=== PATIENT | male | born 1970 | race Caucasian/White ===

== ENCOUNTER → 2022-12-02 | Outpatient (CLI) | payer OTHER, BC, SELFPAY ==
[2022-12-02 09:15] LABS: Absolute Neutrophil Count 4.1 X10^3/uL (2.0-7.7); Basophil# 0.07 X10^3/uL; Eosinophil# 0.18 X10^3/uL; Eosinophils% 2.5 % (0-5); Hematocrit 52.2 % (40-54); Hemoglobin 16.8 g/dL (13.0-16.5); Lymphocyte % 28.3 % (19-41); Mean Corp Hgb Conc 32.2 g/dL (32-36); Mean Corpuscular Hgb 27.7 pg (27.0-32.0); Mean Platelet Vol. 10.6 fl (6.2-12.0); Monocyte# 0.64 X10^3/uL; Monocyte% 9.1 % (0-10); NRBC Flagged by Analyzer 0 % (0-5); Neutrophil # 4.13 X10^3/uL (2.7-7.7); Neutrophil % 58.4 % (47-70); Platelet Count 204 K/mm3 (150-450); RBC Distribution Width SD 40.6 fl (35.1-43.9); Red Blood Count 6.07 M/mm3 (4.6-6.2); White Blood Count 7.1 K/mm3 (4.4-11.0)
[2022-12-02 09:41] LABS: Insulin 8.4 mU/L (2.6-37.6); Vitamin D,25 Hydroxy 51.4 ng/mL
[2022-12-02 10:05] LABS: Hemoglobin A1c 9.1 % (3.8-5.6)
[2022-12-02 10:21] LABS: ALB/GLOB Ratio 0.9 RATIO (0.9-2.4); AST(SGOT) 24 U/L (15-37); Alanine Aminotransfer ALT/SGPT 33 U/L (16-61); Albumin, Serum 3.3 g/dL (3.2-5.0); Alkaline Phosphatase 131 U/L (45-117); Anion Gap 10 (5-15); BUN 14 mg/dL (7-18); BUN/Creat Ratio 13.9 RATIO (10-20); Calcium,Total 8.9 mg/dL (8.5-10.1); Chloride 103 mmol/L (98-107); Cholesterol 213 mg/dL (200); Creatinine, Serum 1.01 mg/dL (0.70-1.30); EST Glomerular Filtration Rate 83 mL/min (>60); Est Glom Filt Rate - Afr Amer 100 mL/min (>60); Free T3 1.9 pg/mL (2.18-3.98); Globulin 3.6 g/dL (2.2-4.2); Glucose 166 mg/dL (74-106); High Density Lipoprotein 46 mg/dL; Potassium 4.7 mmol/L (3.5-5.1); Protein, Total 6.9 g/dL (6.4-8.2); Sodium Level 137 mmol/L (136-145); T4 Free Direct 0.95 ng/dL (0.76-1.46); Triglycerides 410 mg/dL
== END | disposition home or self-care (01) ==
LOC: LAB 08:39
PROVIDERS: PCP Internal Medicine; Referring Provider Internal Medicine; Visit Provider Internal Medicine
DX: E11.9 Type 2 diabetes mellitus without complications (principal); E66.9 Obesity, unspecified; I10 Essential (primary) hypertension; E03.9 Hypothyroidism, unspecified; Z12.5 Encounter for screening for malignant neoplasm of prostate; E55.9 Vitamin D deficiency, unspecified
CPT/HCPCS: 36415; 80053; 80061; 82306; 83036; 83525; 84153; 84439; 84443; 84481; 85025; G0103

== ENCOUNTER → 2023-03-09 | Outpatient (CLI) | payer OTHER, SELFPAY | END | disposition home or self-care (01) | PROVIDERS: PCP Internal Medicine; Visit Provider Specialist | DX: Z91.038 Other insect allergy status (principal) | CPT/HCPCS: 36415; 83520 ==

== ENCOUNTER 2023-05-02 12:46 | Day surgery (SDC) | payer BC, SELFPAY ==
[2023-05-02 13:29] LABS: Bedside Glucose 211 mg/dL (74-106)
[2023-05-02 13:43] VITALS: BP 119/76; PULSE 75; RESP 18; TEMP 35.6; O2SAT 97; BMI 34.9
[2023-05-02] MEDS: Lactated Ringers 1,000 ML 15 ML IV (13:45)
--- NOTE | 2023-05-02 14:00 | COLBX_PTH ---
PATIENT: SYLVIA SOLITARIO LOC: EN U#:[id number] AGE/SX: 53/M ROOM: RE05/02/[address]: Dr. Donny Harrington DO : 1970 BED: DIS: 05/02/2023 SPEC #: [id number] RECD: 05/03/23 08:09 STATUS: GINNA REEmma #: [id number] POLLO: 05/02/23 14:[address]: Donny Harrington DEPT: SURGICAL PATHOLOGY RECD BY: Aria Daniels ENTERED: 05/03/23 08:10 SP TYPE: COLON BX OTHR DR: Dr. Amanda Gatica MD Tissues: COLON BIOPSY Procedures: Surgery Specimen Level IV HEADER OPERATION: Colonoscopy, biopsy PRE-OP DIAGNOSIS: Screening TISSUE SUBMITTED: Transverse polyp biopsy MICROSCOPIC DIAGNOSIS Transverse colon polyp, biopsy: Tubular adenoma. AM:blair 05/04/2023 MICROSCOPIC DESCRIPTION Slides are reviewed. GROSS DESCRIPTION Received in fixative is one container labeled with the patient's name and designated transverse polyp. The specimen consists of one irregular fragment of light horne soft tissue that measures 0.5 x 0.3 x 0.1 cm. The specimen is totally submitted in one cassette. / AM:blair 05/03/2023 TC:5 CPT: 40674
--- NOTE | 2023-05-02 14:10 | HP.PCM_ITS ---
[facility] - General General Date of Admission: 05/02/23 Date of Service: 05/02/23 Chief Complaint: Colon surveillance HPI Narrative SYLVIA SOLITARIO, is a 53 M who presents for a surveillance colonoscopy. He has had multiple colonoscopies in the past. His last colonoscopy was 3 years ago and he had 1 polyp that was removed. He has never had colon cancer. He has a past medical history of type 2 diabetes, chronic GERD and some seasonal julienne rgies. He also has a past medical history hypothyroidism. Overall he is in very good health with current complaints. [facility] Medical History (Updated 02/02/23 @ 12:07 by Helen Wu) Back problem Cataracts, both eyes CPAP (continuous positive airway pressure) dependence Gastric reflux Hypertension Non-smoker PONV (postoperative nausea and vomiting) Sleep apnea Thyroid disease Wears glasses Home Medications cholecalciferol (vitamin D3) 25 mcg (1,000 unit) capsule 25 mcg PO DAILY 3 [History Last Taken Unknown] dorzolamide 22.3 mg-timolol 6.8 mg/mL eye drops 1 drp ophthalmic (eye) BID 11/17/22 [History Last Taken Unknown] ginko biloba 120 mg PO DAILY 11/17/22 [History Last Taken Unknown] latanoprost 0.005 % eye drops 1 drp ophthalmic (eye) DAILY 11/17/22 [History Last Taken Unknown] loratadine 10 mg tablet (Claritin) 10 mg PO QHS 11/17/22 [History Last Taken Unknown] multivitamin (One Daily Multivitamin tablet) 1 tab PO DAILY 11/17/22 [History Last Taken Unknown] levothyroxine 200 mcg capsule 200 mcg PO DAILY #90 caps 12/19/22 [Rx Last Taken Unknown] levothyroxine 25 mcg capsule 25 mcg PO DAILY #90 caps 12/19/22 [Rx Last Taken Unknown] olmesartan 20 mg tablet 20 mg PO DAILY #90 tabs 12/19/22 [Rx Last Taken Unknown] omeprazole magnesium 20 mg tablet,delayed release (Prilosec OTC) 20 mg PO DAILY #90 tabs 12/21/22 [Rx Last Taken Unknown] dulaglutide 1.5 mg/0.5 mL subcutaneous pen injector (Trulicity) 1.5 mg subcut WE 12/27/22 [History Last Taken Unknown] omega 4-teg-ypm-fish oil 300 mg-1,000 mg capsule (Fish Oil) 1 cap PO DAILY 12/27/22 [History Last Taken Unknown] empagliflozin 25 mg-metformin ER 1,000 mg tablet,extended release 24hr (Synjardy XR) 1 tab PO QHS 02/02/23 [History Last Taken Unknown] epinephrine 0.3 mg/0.3 mL injection, auto-injector (EpiPen) 0.3 mg IM Q15M PRN allergic reaction 02/02/23 [History Last Taken Unknown] sodium sul 1.479 gram-potas ch 0.188 gram-magnes sul 0.225 gram tablet (Sutab) See Rx Instructions PO PER PKG DIR colonoscopy prep #24 tabs 03/06/23 [Rx Last Taken Unknown] Allergy/AdvReac Type Severity Reaction Status Date / Time bee venom protein (honey bee) Allergy Severe Anaphylaxis Verified 05/02/23 13:43 Environmental Allergies: Allergy Severe other Verified 05/02/23 13:43 Uncoded Family History (Updated 12/27/22 @ 13:21 by Haydee Dee) Grandfather Colon cancer Sister Colon polyps Other Alcoholism Angina at rest Diabetes Hypertension Kidney disease Myocardial infarction Surgical History (Updated 02/02/23 @ 11:54 by Helen Wu) History of eye surgery Hx of colonoscopy Social History adopted: No household members: family housing: house number of children: 4 current occupational status: employed current occupation: [employer] current occupational exposures/hazards: No pets and animals: Yes pets and animals: cat(s) and dog(s) leisure activities: music, hunting and reading history of recent travel: No sexually active: Yes Smoking Status: Never smoker alcohol intake: former substance use type: does not use well-balanced diet: rarely or never caffeine: Yes eating out: 1-3 times/week during the past year weight has: remained stable what type of physical activity do you participate in: none nellie/religious: Yarsanism seatbelt use: always do you feel safe at home: Yes ROS Review of Systems ROS Unobtainable: other Constitutional Constitutional: Denies fatigue, fever(s), poor appetite, weight gain or weight loss ENT HEENT: Denies mouth lesions Cardiovascular Cardiovascular: Denies abdominal bloating, abdominal edema or abdominal pain Respiratory/Chest Respiratory/Chest: Denies change in mental status, change in phlegm color, chest congestion or chest tightness Gastrointestinal Gastrointestinal: Denies belching, bloating, change in bowel habits, change in stool character, chewing difficulty, coffee ground emesis, constipation, cramping, diarrhea, dyspepsia, dysphagia, early satiety, excessive flatus, fecal incontinence, heartburn, hematemesis, hematochezia, hemorrhoids, loose stools, melena, nausea, odynophagia, rectal bleeding, tenesmus, vomiting or weight changes Genitourinary Genitourinary: Denies abdominal discomfort, burning urination or itching Musculoskeletal Musculoskeletal: Reports as per HPI; Denies muscle weakness or myalgias Integumentary Integumentary: Denies jaundice Neurologic Neurologic: Denies lack of coordination or weakness Psychiatric Psychiatric: Denies confusion, depression, memory loss, mood swings, paranoia or suicidal ideation Endocrine Endocrinology: Denies systems reviewed and no addt'l complaints, except as documented Hematologic/Lymphatic Hematologic/Lymphatic: Denies anemia, easy bleeding, easy bruising or lymphadenopathy Allergic/Immunologic Allergic/Immunologic: Denies systems reviewed and no addt'l complaints, except as documented Vital Signs Vital Signs Vital Signs: 05/02/23 13:43 05/02/23 13:43 Temperature 96.1 F L Temperature Source Temporal Pulse Rate 75 Respiratory Rate 18 Respiratory Pattern Normal Blood Pressure 119/76 Blood Pressure Mean 90 Blood Pressure Source Monitor Blood Pressure Position Sitting Blood Pressure Location Left Arm Pulse Ox 97 Oxygen Delivery Method Room Air Weight Weight: 258 lb 2.581 oz Body Mass Index (BMI) 34.9 Physical Exam Const alert General Appearance: cooperative Orientation / Consciousness: oriented to person HEENT hearing grossly normal bilaterally Head and Scalp: normal to inspection Face and Sinus: face symmetric Nose: external nose normal Mouth: oral and palatal mucosa normal Eyes conjunctivae normal General Eye: normal appearance of both eyes Neck full ROM General: normal visual inspection Lymph Lymphatic: no lymphadenopathy noted Chest inspection of chest normal and palpation of chest normal Chest: symmetrical chest wall rise Resp normal respiratory effort Effort and Inspection: able to speak in complete sentences Cardio regular rate GI non-distended Percussion: normal to percussion Rectal Exam: deferred Neuro Speech: speech normal Gait (Neuro): normal gait Results Lab / Micro Data Labs: Laboratory Results - last 24 hr 05/02/23 13:06: POC Glucose 211 H Assessment & Plan Assessment/Plan (1) Encounter for screening for malignant neoplasm of colon: PLAN: He was explained alternatives,, benefits including not withstanding bleeding, infection, sepsis, perforation, need for emergent surgery . He will have an ASA of 3.
--- NOTE | 2023-05-02 14:33 | OP.CCLET_ITS ---
05/02/2023 Amanda Gatica [facility] [address] [place] [address] Re : Colonoscopy procedure for Benji Nixon Dear Dr. Gaitca This procedure was performed on Tuesday, May 02, 2023. My impressions and recommendations are as follows: Impressions : - One 5 mm polyp in the transverse colon, removed with a jumbo cold forceps. Resected and retrieved. - Diverticulosis in the sigmoid colon. - The examination was otherwise normal on direct and retroflexion views. Recommendations : - Discharge patient to home. - Resume previous diet. - Continue present medications. - Await pathology results. - Repeat colonoscopy in 5 years for surveillance. My findings are described in the full procedure note, which is enclosed. If I can be of further assistance, please feel free to contact me at . Sincerely, Donny Harrington, 05/02/2023 2:33:22 PM This report has been signed electronically.
--- NOTE | 2023-05-02 14:33 | OP.COLON_ITS ---
Patient Name: Benji Nixon Procedure Date: 05/02/2023 2:17 PM Date of : 1970 Age: 53 Procedure: Colonoscopy Indications: High risk colon cancer surveillance: Personal history of colonic polyps Providers: Donny Harrington DO Referring MD: Amanda Gatica Medicines: Monitored Anesthesia Care Patient Profile: This is a 53 year old male. Refer to note in patient chart for documentation of history and physical. Last Colonoscopy: 3 years ago. Complications: No immediate complications. Procedure: Pre-Anesthesia Assessment: - Prior to the procedure, a History and Physical was performed, and patient medications and allergies were reviewed. The risks and benefits of the procedure and the sedation options and risks were discussed with the patient. All questions were answered and informed consent was obtained. Patient identification and proposed procedure were verified by the physician. Mental Status Examination: normal. Prophylactic Antibiotics: The patient does not require prophylactic antibiotics. Prior Anticoagulants: The patient has taken no anticoagulant or antiplatelet agents. After reviewing the risks and benefits, the patient was deemed in satisfactory condition to undergo the procedure. The anesthesia plan was to use monitored anesthesia care (MAC). Immediately prior to administration of medications, the patient was re-assessed for adequacy to receive sedatives. The heart rate, respiratory rate, oxygen saturations, blood pressure, adequacy of pulmonary ventilation, and response to care were monitored throughout the procedure. The physical status of the patient was re-assessed after the procedure. After I obtained informed consent, the scope was passed under direct vision. Throughout the procedure, the patient's blood pressure, pulse, and oxygen saturations were monitored continuously. The pediatric colonoscope was introduced through the anus and advanced to the cecum, identified by appendiceal orifice and ileocecal valve. The colonoscopy was performed without difficulty. The patient tolerated the procedure well. The quality of the bowel preparation was adequate. The ileocecal valve, appendiceal orifice, and rectum were photographed. Scope In: 2:20:44 PM Scope Withdrawal Time 0 hours 6 minutes 36 seconds Scope Out: 2:29:11 PM Total Procedure Duration Time 0 hours 8 minutes 27 seconds Findings: The perianal and digital rectal examinations were normal. A 5 mm polyp was found in the transverse colon. The polyp was sessile. The polyp was removed with a jumbo cold forceps. Resection and retrieval were complete. Verification of patient identification for the specimen was done. Estimated blood loss was minimal. A few small-mouthed diverticula were found in the sigmoid colon. The exam was otherwise without abnormality on direct and retroflexion views. Impression: - One 5 mm polyp in the transverse colon, removed with a jumbo cold forceps. Resected and retrieved. - Diverticulosis in the sigmoid colon. - The examination was otherwise normal on direct and retroflexion views. Recommendation: - Discharge patient to home. - Resume previous diet. - Continue present medications. - Await pathology results. - Repeat colonoscopy in 5 years for surveillance. Procedure Code(s): --- Professional --- 79030, Colonoscopy, flexible; with biopsy, single or multiple CPT copyright 2021 [employer]. All rights reserved. The codes documented in this report are preliminary and upon label coder review may be revised to meet current compliance requirements. Donny Harrington DO 05/02/2023 2:33:22 PM This report has been signed electronically. Number of Addenda: 0 Note Initiated On: 05/02/2023 2:17 PM
[2023-05-02 14:35] VITALS: BP 119/76; BP 90/62; PULSE 86; RESP 18; TEMP 36.3; O2SAT 100
[2023-05-02 14:40] VITALS: BP 112/71; BP 119/76; PULSE 89; RESP 18; O2SAT 100
[2023-05-02 14:45] VITALS: BP 112/71; BP 119/76; PULSE 88; RESP 18; O2SAT 97
[2023-05-02 14:50] VITALS: BP 106/70; BP 119/76; PULSE 90; RESP 18; TEMP 36.3; O2SAT 97
[2023-05-02 15:13] VITALS: BP 119/76
== END 2023-05-02 15:40 | disposition home or self-care (01) ==
LOC: EN 12:47 → AC 12:49
PROVIDERS: PCP Internal Medicine; Referring Provider Internal Medicine; Visit Provider Internal Medicine Gastroenterology
PROC: 0DJD8ZZ Inspection of Lower Intestinal Tract, Via Natural or Artificial Opening Endoscopic (ICD-10-PCS; CPT 45378; principal; 2023-05-02 13:55)
DX: Z12.11 Encounter for screening for malignant neoplasm of colon (principal); E11.9 Type 2 diabetes mellitus without complications; K21.9 Gastro-esophageal reflux disease without esophagitis; Z79.84 Long term (current) use of oral hypoglycemic drugs; Z86.010 Personal history of colon polyps; I10 Essential (primary) hypertension; D12.3 Benign neoplasm of transverse colon; K57.30 Diverticulosis of large intestine without perforation or abscess without bleeding; E03.9 Hypothyroidism, unspecified; Z79.890 Hormone replacement therapy; Z79.899 Other long term (current) drug therapy; E66.9 Obesity, unspecified; Z68.35 Body mass index [BMI] 35.0-35.9, adult
CPT/HCPCS: 45380; 82962; 88305; J7120; J2405

== ENCOUNTER → 2024-06-28 | Outpatient (CLI) | payer OTHER, SELFPAY ==
[2024-06-28 10:52] LABS: Absolute Neutrophil Count 5.2 X10^3/uL (2.0-7.7); Basophil# 0.06 X10^3/uL; Basophil% 0.7 % (0-1); Eosinophil# 0.14 X10^3/uL; Eosinophils% 1.7 % (0-5); Hematocrit 52.3 % (40-54); Hemoglobin 17.4 g/dL (13.0-16.5); Mean Corp Hgb Conc 33.3 g/dL (32-36); Mean Corpuscular Hgb 27.7 pg (27.0-32.0); Mean Corpuscular Volume 83.1 fL (80-94); Mean Platelet Vol. 10.4 fl (6.2-12.0); Monocyte# 0.52 X10^3/uL; Monocyte% 6.4 % (0-10); NRBC Flagged by Analyzer 0 % (0-5); Neutrophil # 5.15 X10^3/uL (2.7-7.7); Neutrophil % 63.8 % (47-70); Platelet Count 276 K/mm3 (150-450); RBC Distribution Width CV 12.8 % (11.6-14.6); RBC Distribution Width SD 38.4 fl (35.1-43.9); Red Blood Count 6.29 M/mm3 (4.6-6.2); White Blood Count 8.1 K/mm3 (4.4-11.0)
[2024-06-28 11:17] LABS: Vitamin D,25 Hydroxy 34.2 ng/mL
[2024-06-28 11:24] LABS: ALB/GLOB Ratio 0.9 RATIO (0.9-2.4); AST(SGOT) 26 U/L (15-37); Alanine Aminotransfer ALT/SGPT 38 U/L (16-61); Albumin, Serum 3.5 g/dL (3.2-5.0); Alkaline Phosphatase 131 U/L (45-117); Anion Gap 7 (5-15); BUN 16 mg/dL (7-18); BUN/Creat Ratio 16.2 RATIO (10-20); Calcium,Total 9.2 mg/dL (8.5-10.1); Chloride 103 mmol/L (98-107); Cholesterol 310 mg/dL (200); Creatinine, Serum 0.99 mg/dL (0.70-1.30); EST Glomerular Filtration Rate 85 mL/min (>60); Est Glom Filt Rate - Afr Amer 102 mL/min (>60); Free T3 2.2 pg/mL (2.18-3.98); Globulin 4.1 g/dL (2.2-4.2); Glucose 222 mg/dL (74-106); High Density Lipoprotein 62 mg/dL; Potassium 4.8 mmol/L (3.5-5.1); Protein, Total 7.6 g/dL (6.4-8.2); Sodium Level 133 mmol/L (136-145); T4 Free Direct 1.47 ng/dL (0.76-1.46); Triglycerides 747 mg/dL
[2024-06-28 11:48] LABS: Hemoglobin A1c 10.3 % (3.8-5.6)
== END | disposition home or self-care (01) ==
LOC: LAB 10:18
PROVIDERS: PCP Internal Medicine; Referring Provider Internal Medicine; Visit Provider Internal Medicine
DX: Z13.220 Encounter for screening for lipoid disorders (principal); E11.9 Type 2 diabetes mellitus without complications; I10 Essential (primary) hypertension; E66.9 Obesity, unspecified; E03.9 Hypothyroidism, unspecified; E55.9 Vitamin D deficiency, unspecified

== ENCOUNTER 2025-02-15 10:17 | Emergency (ER) | payer OTHER, BC, SELFPAY ==
[2025-02-15 10:17] VITALS: BP 142/96; PULSE 112; RESP 23; TEMP 36.6; O2SAT 100; BMI 35.8
--- NOTE | 2025-02-15 10:22 | EX.ED.DYSGE1 ---
HPI History of Present Illness Chief Complaint: Allergic Reaction Informant: patient Onset/Context/Timing Onset: Today Context: Sudden Onset Timing: Continuous Current Severity: Moderate Maximum Severity: Moderate Narrative Narrative: 55-year-old male stung by a bee about 20 minutes ago. He started this feel swelling in his throat. No wheezing. He has had significant anaphylactic reactions before but he did get through immunotherapy treatment for bee stings. He denies any other complaints. He does have a history of hypertension and diabetes. Prior similar symptoms: Yes Recent Illness/Hospitalization: No [facility] Medical History Bleeding hemorrhoids Acute URI Encounter for wellness examination in adult Wears glasses Thyroid disease PONV (postoperative nausea and vomiting) Gastric reflux Sleep apnea CPAP (continuous positive airway pressure) dependence Non-smoker Hypertension Cataracts, both eyes Back problem Home Medications ?Medication ?Instructions ?Recorded ?Last Taken ?Type cholecalciferol (vitamin D3) 25 25 mcg PO DAILY 11/17/22 Unknown History mcg (1,000 unit) capsule dorzolamide 22.3 mg-timolol 6.8 1 drp ophthalmic (eye) BID 11/17/22 Unknown History mg/mL eye drops ginko biloba 120 mg PO DAILY 11/17/22 Unknown History latanoprost 0.005 % eye drops 1 drp ophthalmic (eye) DAILY 11/17/22 Unknown History loratadine 10 mg tablet (Claritin) 10 mg PO QHS 11/17/22 Unknown History multivitamin (One Daily 1 tab PO DAILY 11/17/22 Unknown History Multivitamin tablet) omega 0-cnn-kon-fish oil 300 1 cap PO DAILY 12/27/22 Unknown History mg-1,000 mg capsule (Fish Oil) epinephrine 0.3 mg/0.3 mL 0.3 mg IM Q15M PRN allergic 02/02/23 Unknown History injection, auto-injector (EpiPen) reaction olmesartan 20 mg tablet 20 mg PO DAILY #90 tabs 02/05/24 Unknown Rx levothyroxine 200 mcg capsule 200 mcg PO DAILY #90 caps 02/29/24 Unknown Rx levothyroxine 25 mcg capsule 25 mcg PO DAILY #90 caps 02/29/24 Unknown Rx dulaglutide 0.75 mg/0.5 mL 0.75 mg (0.5 mL) subcut QWEEK #1 mL 05/23/25 Unknown Rx subcutaneous pen injector (Trulicity) omeprazole magnesium 20 mg 20 mg PO DAILY #90 tabs 01/09/25 Unknown Rx tablet,delayed release (Prilosec OTC) empagliflozin 25 mg-metformin ER 1 tab PO QHS #90 ea 01/13/25 Unknown Rx 1,000 mg tablet,extended release 24hr (Synjardy XR) prednisone 20 mg tablet 40 mg (2 x 20 mg) PO DAILY 5 days 02/15/25 Unknown Rx #10 tabs Allergy/AdvReac Type Severity Reaction Status Date / Time bee venom protein (honey bee) Allergy Severe Anaphylaxis Verified 02/15/25 10:18 Environmental Allergies: Allergy Severe other Verified 02/15/25 10:18 Uncoded Family History Grandfather Colon cancer Sister Colon polyps Other Alcoholism Angina at rest Diabetes Hypertension Kidney disease Myocardial infarction Surgical History History of eye surgery Hx of colonoscopy Social History adopted: No household members: family housing: house number of children: 4 current occupational status: employed current occupation: [employer] current occupational exposures/hazards: No pets and animals: Yes pets and animals: cat(s) and dog(s) leisure activities: music, hunting and reading history of recent travel: No sexually active: Yes Smoking Status: Never smoker alcohol intake: former substance use type: does not use well-balanced diet: rarely or never caffeine: Yes eating out: 1-3 times/week during the past year weight has: remained stable what type of physical activity do you participate in: none nellie/confucianism: Rastafarian seatbelt use: always do you feel safe at home: Yes ROS ROS ED ROS Narrative Denies recent illness. Constitutional Constitutional ED: Denies chills or fever(s) Eyes Eyes: Denies blurry vision ENT ENT ED: Denies ear pain Cardiovascular Cardiovascular: Denies chest pain Respiratory/Chest Respiratory/Chest: Denies cough or dyspnea Gastrointestinal Gastrointestinal: Denies abdominal pain Genitourinary Genitourinary ED: Denies dysuria or hematuria Musculoskeletal Musculoskeletal: Denies arthralgias Integumentary Denies abscess Neurologic Neurologic: Denies headache(s) Psychiatric Psychiatric: Denies anxiety Endocrine Endocrinology: Denies cold intolerance Hematologic/Lymphatic Hematologic/Lymphatic: Reports none Allergic/Immunologic Allergic/Immunologic ED: Denies mouth swelling, tongue swelling or urticaria EXAM Physical Exam Narrative Exam Narrative: 52-year-old male sitting upright in bed. Vital signs stable he is afebrile he does not look septic or toxic. Pulse ox 100% on room air no hypoxia. H EENT exam pupils round react to light. Moist mucous membranes. Tongue and posterior pharynx at this time are not swollen. No trouble swallowing or breathing. No stridor. Neck nontender no lymphadenopathy. Trachea midline. Lungs clear to auscultation bilaterally. Heart tachycardic 110 no murmur. Chest wall and ribs nontender. Left lateral rib cage she has a local bee sting there is no stinger. He is a local reaction. Abdomen soft nontender. Moving all 4 extremities. Nontender no edema. Currently does not have hives. Neurologically is awake alert. Answering questions following commands. Const Vital Signs: 02/15/25 10:17 Temperature 97.8 F Temperature Source Oral Pulse Rate 112 H Respiratory Rate 23 H Blood Pressure 142/96 H Blood Pressure Mean 111 Pulse Ox 100 Oxygen Delivery Method Room Air Positive well nourished and well developed; Negative for cachectic, contractures or unkempt General Appearance ED: well developed and NAD; Negative for unkempt, cachectic, contractures, cyanotic, diaphoretic or pallor Nutritional Appearance: Negative for cachectic HEENT Reports moist mucous membranes Eyes PERRL and EOMs intact bilaterally Neck no lymphadenopathy, supple and no JVD Chest Wall inspection of chest normal and palpation of chest normal Chest Narrative: Left bee sting left lateral rib cage. Local reaction. No stinger. Resp normal respiratory effort and clear to auscultation bilaterally Cardio regular rhythm, S1 normal heart sound, S2 normal heart sound and no murmurs; Negative for regular rate Rate: tachycardic GI normal to inspection, nondistended, normoactive bowel sounds, non-tender, non-distended and no masses Palpation: soft; Negative for tender, guarding or rebound tenderness present Back/Spine no CVA tenderness Neuro oriented x3 and CN's II-XII intact bilaterally Sensorium / Orientation: alert Motor Exam: strength 5/5 throughout Psych mental status grossly normal Appearance: Negative for unkempt Skin no rashes or lesions noted, no wounds and skin turgor normal Skin Narrative: Local reaction to bee sting left lateral rib cage. No hives at this time. 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 He was stung about 20 minutes ago. He said feeling tightness in his throat. He is got no tongue or lip swelling. He is got a local reaction of his left rib cage where he was stung. Open given IV Solu-Medrol and Benadryl and observe. If he gets worse we will use an EpiPen but we do not need to at this time. Multiple repeat exams the most recent 11:17 AM is doing fine. The local reaction has not gotten any worse she is feeling better after the Solu-Medrol and Benadryl. He is got no facial swelling tongue or lip swelling. No wheezing or stridor. We have observed him for around an hour he feels fine to be discharged home. He will be discharged with a prescription for prednisone as needed.Patient did inform us that this happened at work and he is can make this a Worker's Comp. claim. History & Record Review Discussion w/independent historian: Patient Discharge Plan Triage Chief Complaint: Allergic Reaction ED Provider: Avila Zuniga Dx/Rx/DC Orders Clinical Impression: Allergic reaction to bee sting, History of anaphylaxis, Encounter related to worker's compensation claim Instructions: ED BEE STING General Allergic Rxn Prescriptions: New prednisone 20 mg tablet 40 mg PO DAILY 5 Days Qty: 10 0RF No Action latanoprost 0.005 % drops 1 drp ophthalmic (eye) DAILY dorzolamide-timolol 22.3-6.8 mg/mL drops 1 drp ophthalmic (eye) BID cholecalciferol (vitamin D3) 25 mcg (1,000 unit) capsule 25 mcg PO DAILY multivitamin [One Daily Multivitamin] Tablet 1 tab PO DAILY ginko biloba 120 mg PO DAILY Rx Instructions: 120 mg daily loratadine [Claritin] 10 mg tablet 10 mg PO QHS omega 9-ief-ynd-fish oil [Fish Oil] 300-1,000 mg capsule 1 cap PO DAILY epinephrine [EpiPen] 0.3 mg/0.3 mL auto-injector 0.3 mg IM Q15M PRN (Reason: allergic reaction) Rx Instructions: for 2 doses olmesartan 20 mg tablet 20 mg PO DAILY Qty: 90 3RF levothyroxine 200 mcg capsule 200 mcg PO DAILY Qty: 90 3RF Rx Instructions: take with 25 mcg to equal 225mcg levothyroxine 25 mcg capsule 25 mcg PO DAILY Qty: 90 3RF Rx Instructions: take with 200mcg to equal 225mcg Trulicity 0.75 mg/0.5 mL pen injector 0.75 mg subcut QWEEK Qty: 1 2RF omeprazole magnesium [Prilosec OTC] 20 mg tablet,delayed release (DR/EC) 20 mg PO DAILY Qty: 90 3RF Synjardy XR 25-1,000 mg tablet, IR - ER, biphasic 24hr 1 tab PO QHS Qty: 90 1RF Primary Care Provider: Amanda Gatica Referrals: Amanda Gatica MD [Primary Care Provider] - As Needed Activity Restrictions/Additional Instructions: Reaction to bee sting. You should be fine. Benadryl as needed. Motrin as needed. I wrote your prescription for prednisone more so you could have it if you are not any worse tomorrow you do not need to take it but you have it available for any future insect bite or stings. Watch your blood sugars closely due to the steroids. If you start getting a lot worse reaction which I doubt will happen or you would get tongue or lip swelling or wheezing return. Print Language: Estonian Disposition Disposition: Home, Self Care
[2025-02-15] MEDS: DiphenhydrAMINE 50 MG/ML Syringe 25 MG IV (10:25)
--- OUTSIDE RECORDS SUMMARY | 2025-02-15 10:51 | XMS RPT_ITS | CCD ---
Author Organization [facility] Care Team Providers Care Range Rider Name Role Phone Unavailable Primary Care Provider Unavailabl e Pcp, No Primary Care Provider Unavailabl e Pcp, No Primary Care Provider Unavailabl e Unavailable Primary Care Provider Unavailabl e Melissa Gatica MD Primary Care Provider Dr. Melissa Gatica Attending Provider Dr. Mleissa Gatica Primary Care Provider Jackson Merrill Attending Provider Unavailable Melissa Gatica MD Primary Care Provider Melissa Gatica Attending Unavailable Melissa Gatica Primary Care Unavailable Melissa Gatica Attending Unavailable Melissa Gatica Primary Care Unavailable Melissa Gatica Attending Unavailable Melissa Gatica Primary Care Unavailable Melissa Gatica Attending Unavailable Melissa Gatica Primary Care Unavailable Melissa Gatica Referring Unavailable Melissa Gatica Attending Unavailable Melissa Gatica Primary Care Unavailable VALERY ASHRAF Attending UnavailMELISSA You Primary Care Unavailable KRISTINE SULLIVAN Attending Unavailable ROBERTO CARLOS BABIN Referring Unavailable MELISSA GATICA Primary Care Unavailable MELISSA GATICA Primary Care Unavailable MELISSA GATICA Primary Care Unavailable ARIES SALEEM Referring Unavailable MELISSA GATICA Primary Care Unavailable LAURA LONGO Attending Unavailable MELISSA GATICA Primary Care Unavailable ROBERTO CARLOS BABIN Referring Unavailable MELISSA GATICA Primary Care Unavailable Allergies Allergy Classification Reported Allergen(s) Allergy Type Date of Onset Reaction(s) Facility (20 sources) Bee pollen; Translations: [BEE POLLEN] Drug Allergy 9 Other: See Comments, Hives, Swelling [facility] (20 sources) Dust; Translations: [DUST] Allergy to substance 2 Other: See Comments [facility] (20 sources) netarsudil; Translations: [NETARSUDIL] Drug Allergy 0 Other: See Comments [facility] (2 sources) Environmental Allergies: Uncoded; Translations: [Environmental Allergies: Uncoded] Allergy to substance 3 other [facility] (1 source) bee venom protein (honey bee) Drug allergy (disorder) 5 [facility] Repository Medications Current Medications Medication Drug Class(es) Dates Sig (Normalized) Sig (Original) atorvastatin 10 mg oral tablet (20 sources) HMG-CoA Reductase Inhibitor Start: 07-14-2021 take 1 tablet by mouth once daily at bedtime atorvastatin (LIPITOR) 10 mg tablet Take 10 mg by mouth daily at bedtime. 07/14/2021 Active Comment on above: Take 10 mg by mouth daily at bedtime. benoxinate hydrochloride 4 mg/ml / fluorescein sodium 3 mg/ml ophthalmic solution (14 sources) Diagnostic Dye Start: 07-29-2024 End: 07-30-2024 fluorescein-benoxi rashmi 0.3-0.4 % 1 Drop (FLURESS) Start: 07-29-2024 End: 07-30-2024 1 Drop, BOTH EYES, DIRECT ED, Starting on Mon07/29/24 at 1500, Until Mon07/30/24 at 0259, Administer for applanation tonometry. In the event of a Fluress shortage, administer Sadia-Fluor 1 drop into both eyes as directed for applanation tonometry, OPHT CLINIC MED ORDERS Start: 12-25-2023 End: 12-25-2023 fluorescein-benoxinate 0.3-0 .4 % 1 Drop (FLURESS) Start: 08-21-2023 End: 08-21-2023 fluorescein-benoxinate 0.3-0 .4 % 1 Drop (FLURESS) Start: 05-15-2023 End: 05-15-2023 fluorescein-benoxinate 0.3-0 .4 % 1 Drop (FLURESS) Start: 12-13-2022 End: 12-13-2022 fluorescein-benoxinate 0.25- 0.4 % 1 Drop (FLURESS) Start: 12-09-2022 End: 12-09-2022 fluorescein-benoxinate 0.25- 0.4 % 1 Drop (FLURESS) Start: 07-19-2022 End: 07-20-2022 fluorescein-benoxinate 0.25- 0.4 % 1 Drop (FLURESS) Start: 05-23-2022 End: 05-23-2022 fluorescein-benoxinate 0.25- 0.4 % 1 Drop (FLURESS) Start: 03-21-2022 End: 03-21-2022 fluorescein-benoxinate 0.25- 0.4 % 1 Drop (FLURESS) Start: 03-02-2022 End: 03-02-2022 fluorescein-benoxinate 0.25- 0.4 % 1 Drop (FLURESS) Start: 01-18-2022 End: 01-18-2022 fluorescein-benoxinate 0.25- 0.4 % 1 Drop (FLURESS) Start: 01-14-2022 End: 01-14-2022 fluorescein-benoxinate 0.25- 0.4 % 1 Drop (FLURESS) Start: 10-20-2021 End: 10-21-2021 fluorescein-benoxinate 0.25- 0.4 % 1 Drop (FLURESS) Carboxymethylcellulose (20 sources) carboxymethylcel lulose sodium (REFRESH OPHTHALMIC) Use in eyes. Preservative free AT's Active carboxymethylcel lulose sodium (REFRESH OPHTHALMIC) Use in eyes. Preservative free AT's 0 Active Comment on above: Use in eyes. Preserv ative free AT's cholecalciferol 0.025 mg oral capsule (1 source) Vitamin D Start: 11-18-19 take 25 ug by mouth once daily Cholecalciferol (Vitamin D3) Active 25 MCG PO DAILY November 17, 2022 12:00am cholecalciferol, vitamin D3, (VITAMIN D3 ORAL) (20 sources) cholecalciferol, vitamin D3, (VITAMIN D3 ORAL) Take by mouth once daily. Active cholecalciferol, vitamin D3, (VITAMIN D3 ORAL) Take by mouth once daily. 0 Active Comment on above: Take by mouth once d aily. CPAP/BIPAP/OTHER (1 source) Start: 02-12-2025 End: 06-29-2052 CPAP/BIPAP/OTHER Indications: JAMIE on CPAP CPAP 9 cmH2O [facility], 1 each 02/12/2025 06/29/2052 Active dorzolamide 20 mg/ml / timolol 5 mg/ml ophthalmic solution (20 sources) Carbonic Anhydrase Inhibitor, beta-Adrenergic Fara Start: 01-01-2025 take 1 drop(s) into the eye(s) every twelve hours dorzolamide-timolol (COSOPT) 22.3-6.8 mg/mL ophthalmic solution INSTILL 1 DROP INTO EACH EYE EVERY 12 HOURS 10 mL 11 01/01/2025 Active Start: 07-29-2024 End: 01-01-2025 take 1 drop(s) into the eye(s) every twelve hours dorzolamide-timolol (COSOPT) 22.3-6.8 mg/mL ophthalmic solution Use 1 Drop in both eyes every 12 hours. 30 mL 3 07/29/2024 01/01/2025 Discontinued Start: 12-07-2023 End: 07-29-2024 take 1 drop(s) into the eye(s) every twelve hours dorzolamide-timolol (COSOPT) 22.3-6.8 mg/mL ophthalmic solution INSTILL 1 DROP INTO EACH EYE EVERY 12 HOURS 30 mL 3 12/07/2023 07/29/2024 Discontinued Start: 12-08-2022 End: 12-07-2023 take 1 drop(s) into the eye(s) every twelve hours dorzolamide-timolol (COSOPT) 22.3-6.8 mg/mL ophthalmic solution Use 1 Drop in both eyes every 12 hours. 30 mL 3 02/27/2023 12/07/2023 Discontinued Start: 12-08-2022 take 1 drop(s) into the eye(s) every twelve hours dorzolamide-timolol (COSOPT) 22.3-6.8 mg/mL ophthalmic solution Use 1 Drop in the right eye every 12 hours. 10 mL 11 12/08/2022 Active Start: 11-17-2022 Dorzolamide-Ti molol Active 1 DRP OPHTHALMIC TWICE A DAY November 17, 2022 12:00am Start: 01-14-2022 End: 05-23-2022 take 1 drop(s) into the eye(s) every twelve hours dorzolamide-timolol (COSOPT) 22.3-6.8 mg/mL ophthalmic solution Use 1 Drop in both eyes every 12 hours. 10 mL 11 05/23/2022 Active Comment on above: Use 1 Drop in the ri ght eye every 12 hours. Use 1 Drop in both e yes every 12 hours. EPINEPHrine (2 sources) alpha-Adrenergic Agonist, beta-Adrenergic Agonist, Catecholamine Start: 11-17-2022 epinephrine Active IM November 17, 2022 11:21am VERIFY WITH PT Start: 10-27-2022 End: 11-17-2022 epinephrine Discontinued IM October 27, 2022 12:00am November 17, 2022 11:27am pt unsure of dose will call it in Fish Oils (1 source) Start: 11-17-2022 take 1400 mg by mout h once daily fish oil Active PO November 17, 2022 12:00am 1400 mg daily flaxseed oil (OMEGA 3 ORAL) (20 sources) take 1 capsule by mouth once daily in the morning flaxseed oil (OMEGA 3 ORAL) Take 1 capsule by mouth every morning. Active take 1 capsule by mo uth once daily in the morning flaxseed oil (OMEGA 3 ORAL) Take 1 capsu le by mouth every morning. 0 Active Comment on above: Take 1 capsule by mo uth every morning. ginko biloba (1 source) Start: 3 take 120 mg by mouth once daily ginko biloba Active PO November 17, 2022 12:00am 120 mg daily latanoprost 0.05 mg/ml ophthalmic solution (20 sources) Prostaglandin Analog Start: 3 End: 4 take 1 drop(s) into the eye(s) once daily at bedtime latanoprost (XALATAN) 0.005 % ophthalmic solution Use 1 Drop in both eyes daily at bedtime. 10 mL 3 04/16/2024 Active Start: 01-15-2022 End: 01-15-2023 take 1 drop(s) into the eye(s) once daily at bedtime latanoprost (XALATAN) 0.005 % ophthalmic solution Use 1 Drop in the right eye daily at bedtime. 10 mL 3 12/08/2022 Active Start: 04-24-2021 End: 11-23-2021 take 1 drop(s) into the eye(s) once daily at bedtime latanoprost (XALATAN) 0.005 % ophthalmic solution Use 1 Drop in the right eye daily at bedtime. 2.5 mL 11 11/23/2021 Active Comment on above: INSTILL 1 DROP IN TH E RIGHT EYE ONCE NIGHTLY Use 1 Drop in the ri ght eye daily at bedtime. Use 1 Drop in both e yes daily at bedtime. levothyroxine sodium 0.025 mg oral capsule (20 sources) l-Thyroxine Start: 11-17-2022 Levothyroxine Active 25 MCG PO DAILY November 17, 2022 11:18am take with 200mcg to equal 225mcg Start: 10-27-2022 Levothyroxine Active 200 MCG PO DAILY October 27, 2022 12:00am take with 25 mcg to equal 225mcg Start: 10-27-2022 End: 11-17-2022 take 25 ug by mouth once daily Levothyroxine Discontin ued 25 MCG PO DAILY October 27, 2022 12:00am November 17, 2022 11:27am Start: 07-17-2021 take 1 tablet by cade th once daily levothyroxine (SYNTHROID) 25 mcg tablet Take 25 mcg by mouth once daily. 07/17/2021 Active Start: 03-28-2010 End: 12-22-2021 levothyroxine (SYNTHROID) 20 0 mcg injection take 1 capsule by mo uth once daily before breakfast levothyroxine 200 mcg cap Take 200 mcg by mouth daily before breakfast. Active Comment on above: Take 25 mcg by mouth once daily. Take 200 mcg by mout h daily before breakfast. loratadine 10 mg oral tablet (20 sources) Start: 11-17-2022 take 1 tablet by mouth once daily Loratadine (Claritin) 10 mg tablet Active 10 MG PO DAILY November 17, 2022 12:00am Comment on above: Take 10 mg by mouth. MEN'S MULTI-VITAMIN ORAL (20 sources) MEN'S MULTI-MELITON MIN ORAL Take by mouth. Active MEN'S MULTI-MELITON MIN ORAL Take by mouth. 0 Active Comment on above: Take by mouth. Multivitamin (One Daily Multivitamin) tablet (1 source) Start: 11-18-19 take 1 tablet by mouth once daily Multivitamin (One Daily Multivitamin) tablet Active 1 TABLET PO DAILY November 17, 2022 12:00am ofloxacin 3 mg/ml ophthalmic solution (9 sources) Quinolone Antimicrobial Start: 11-01-19 End: 01-30-20 take 1 drop(s) into the eye(s) four times daily ofloxacin (OCUFLOX) 0.3 % ophthalmic solution Use 1 Drop in the left eye four times daily. For use AFTER surgery 5 mL 1 10/31/2022 01/29/2023 Active Comment on above: Use 1 Drop in the le ft eye four times daily. For use AFTER surgery omeprazole 20 mg delayed release oral tablet (20 sources) Proton Pump Inhibitor Start: 10-28-19 take 1 tablet by mouth once daily Omeprazole Magnesium (Prilosec Otc) 20 mg tablet,delayed release (DR/EC) Active 20 MG PO DAILY October 27, 2022 12:00am Start: 08-10-2021 omeprazole (CT ILOSEC) 40 mg capsule Take 20 mg by mouth once daily. 08/10/2021 Active Start: 08-10-2021 take 1 capsule by [facility] once daily omeprazole (PRILOSEC) 40 mg capsule Take 40 mg by mouth once daily. 0 08/10/2021 Active Comment on above: Take 40 mg by mouth once daily. Take 20 mg by mouth once daily. ondansetron 4 mg disintegrating oral tablet (20 sources) Serotonin-3 Receptor Antagonist Start: 12-10-19 take 1 tablet by mouth every eight hours as needed ondansetron orally disintegrating (ZOFRAN ODT) 4 mg disintegrating tablet Dissolve 1 tablet by mouth every 8 hours as needed for nausea/vomiting. 3 tablet 12/09/2022 9:47 AM EDT 12/09/2022 Active Comment on above: Dissolve 1 tablet by mouth every 8 hours as needed for nausea/vomiting. phenylephrine hydrochloride 25 mg/ml ophthalmic solution (3 sources) alpha-1 Adrenergic Agonist Start: 07-29-19 End: 07-30-19 PHENYLephrine 2.5 % 1 Drop (AK-DILATE, ASHLEY-SYNEPHRINE) Start: 07-29-2024 End: 02-11-2025 1 Drop, BOTH EYES, DIRECT ED, Starting on Mon07/29/24 at 1500, Until Mon07/30/24 at 0259, Administer for dilation PROTECT FROM LIGHT, OPHT CLINIC MED ORDERS Start: 10-20-2021 End: 10-21-2021 PHENYLephrine 2.5 % 1 Drop ( AK-DILATE, ASHLEY-SYNEPHRINE) proparacaine hydrochloride 5 mg/ml ophthalmic solution (9 sources) Local Anesthetic Start: 12-25-2023 End: 12-25-2023 proparacaine 0.5 % 1 Drop (ALCAINE) Start: 08-21-2023 End: 08-21-2023 proparacaine 0.5 % 1 Drop (A LCAINE) Start: 05-15-2023 End: 05-15-2023 proparacaine 0.5 % 1 Drop (A LCAINE) Start: 12-13-2022 End: 12-13-2022 proparacaine 0.5 % 1 Drop (A LCAINE) Start: 12-09-2022 End: 12-09-2022 proparacaine 0.5 % 1 Drop (A LCAINE) Start: 07-19-2022 End: 07-20-2022 proparacaine 0.5 % 1 Drop (A LCAINE) Start: 03-02-2022 End: 03-02-2022 proparacaine 0.5 % 1 Drop (A LCAINE) Start: 01-18-2022 End: 01-18-2022 proparacaine 0.5 % 1 Drop (A LCAINE) Start: 01-14-2022 End: 01-14-2022 proparacaine 0.5 % 1 Drop (A LCAINE) tropicamide 10 mg/ml ophthalmic solution (3 sources) Anticholinergic Start: 07-29-2024 End: 07-30-2024 tropicamide 1 % 1 Drop (MYDRIACYL) Start: 07-29-2024 End: 07-30-2024 1 Drop, BOTH EYES, DIRECT ED, Starting on Mon07/29/24 at 1500, Until Mon07/30/24 at 0259, Administer for dilation, OPHT CLINIC MED ORDERS Start: 10-20-2021 End: 10-21-2021 tropicamide 1 % 1 Drop (MYDR IACYL) TRULICITY 3 mg/0.5 mL pen injector (20 sources) Start: 08-03-2021 TRULICITY 3 mg /0.5 mL pen injector 08/03/2021 Active Start: 08-03-2021 TRULICITY 3 mg /0.5 mL pen injector Start: 08-03-2021 TRULICITY 3 mg /0.5 mL pen injector INJECT ONE PEN (3MG) UNDER THE SKIN ONCE A WEEK 0 08/03/2021 Active Comment on above: INJECT ONE PEN (3MG) UNDER THE SKIN ONCE A WEEK vitamin b12 2 mg oral tablet (20 sources) Vitamin B12 cyanocobalamin, vitamin B-12, 2,000 mcg tab Take 2,000 mcg by mouth. Active Comment on above: Take 2,000 mcg by [facility]. Completed/Discontinued Medications Medication Drug Class(es) Dates Sig (Normalized) Sig (Original) acetaZOLAMIDE 250 mg oral tablet (11 sources) Carbonic Anhydrase Inhibitor Start: 07-19-2022 End: 08-29-2022 take 1 tablet by mouth twice daily acetaZOLAMIDE (DIAMOX) 250 mg tablet Take 1 tablet by mouth twice daily. 180 tablet 3 07/19/2022 08/29/2022 Discontinued (Course of therapy completed) Start: 02-08-2022 End: 02-08-2022 take 1 tablet by mouth twice daily acetaZOLAMIDE (DIAMOX) 250 mg tablet Take 1 tablet by mouth twice daily. 60 tablet 11 02/08/2022 02/08/2022 Discontinued (Course of therapy completed) Start: 10-20-2021 End: 04-22-2022 take 1 capsule by mouth twice daily acetaZOLAMIDE SR (DIAMOX SEQUELS) 500 mg capsule Take 1 capsule by mouth twice daily. 60 capsule 11 11/23/2021 04/22/2022 Active Comment on above: Take 1 capsule by [facility] twice daily. Take 1 tablet by [facility] twice daily. atropine sulfate 10 mg/ml ophthalmic solution (11 sources) Anticholinergic, Cholinergic Muscarinic Antagonist Start: 3 End: take 1 drop(s) into the eye(s) twice daily atropine 1 % ophthalmic solution Use 1 Drop in the left eye two times a day. 04/13/2023 07/29/2024 Discontinued (Course of therapy completed) Start: 02-17-2022 End: 03-02-2022 take 1 drop(s) into the eye(s) twice daily atropine 1 % ophthalmic solution Use 1 Drop in the right eye twice daily. 0 02/17/2022 03/02/2022 Discontinued (Course of therapy completed) Comment on above: Use 1 Drop in the ri ght eye twice daily. Use 1 Drop in the le ft eye two times a day. bimatoprost 0.3 mg/ml ophthalmic solution (6 sources) Prostaglandin Analog Start: 08-30-19 End: 11-01-19 take 1 drop(s) into the eye(s) once daily at bedtime bimatoprost (LUMIGAN) 0.03 % ophthalmic drops Use 1 Drop in both eyes daily at bedtime. 2.5 mL 11 08/29/2022 10/31/2022 Discontinued (Course of therapy completed) Comment on above: Use 1 Drop in both e yes daily at bedtime. dulaglutide (1 source) GLP-1 Receptor Agonist Start: 10-28-19 End: 11-18-19 trulicity Discontinued SC October 27, 2022 12:00am November 17, 2022 11:20am unsure dose will call in empagliflozin / metFORMIN (20 sources) Biguanide, Sodium-Glucose Cotransporter 2 Inhibitor Start: 10-28-19 End: 11-18-19 synjardy Discontinued PO 1 time daily October 27, 2022 12:00am November 17, 2022 11:20am pt unsure dose will call it in Start: 07-27-2021 take 1 tablet by cade th once daily SYNJARDY XR 25-1,000 mg XR tab Take 1 tablet by mouth once daily. 07/27/2021 Active Comment on above: Take 1 tablet by cade th once daily. methazolAMIDE 50 mg oral tablet (1 source) Start: 08-15-2021 End: 10-20-2021 methazolAMIDE (NEPTAZANE) 50 mg tablet TAKE 1 AND 1/2 TABLETS BY MOUTH TWICE DAILY 0 08/15/2021 10/20/2021 Discontinued (Course of therapy completed) Comment on above: TAKE 1 AND 1/2 TABLE TS BY MOUTH TWICE DAILY olmesartan (20 sources) Angiotensin 2 Receptor Fara Start: 10-27-2022 End: 11-17-2022 olmesartan Discontinued PO 1 time daily October 27, 2022 12:00am November 17, 2022 11:19am unsure of dose ,pt to call with dose Start: 06-30-2021 take 1 tablet by cade th once daily olmesartan (BENICAR) 20 mg tablet Take 20 mg by mouth once daily. 06/30/2021 Active Comment on above: Take 20 mg by mouth once daily. prednisoLONE acetate 10 mg/ml ophthalmic suspension (20 sources) Corticosteroid Start: 04-03-2023 End: 07-29-2024 prednisoLONE acetate (PRED FORTE) 1 % ophthalmic suspension Use 1 Drop in the left eye four times daily. For use AFTER surgery. 10 mL 1 04/03/2023 07/29/2024 Discontinued (Course of therapy completed) Start: 10-31-2022 End: 02-27-2023 prednisoLONE acetate (PRED F ORTE) 1 % ophthalmic suspension Use 1 Drop in the left eye four times daily. For use AFTER surgery. 10 mL 1 10/31/2022 02/27/2023 Discontinued (Course of therapy completed) Start: 10-31-2022 prednisoLONE a cetate (PRED FORTE) 1 % ophthalmic suspension Use 1 Drop in the left eye four times daily. For use AFTER surgery. 10 mL 1 10/31/2022 Active Start: 02-08-2022 End: 03-21-2022 prednisoLONE acetate (PRED F ORTE, ECONOPRED PLUS) 1 % ophthalmic suspension Use 1 Drop in the right eye every 2 hours. For use AFTER surgery. 10 mL 1 02/08/2022 03/21/2022 Discontinued Start: 11-12-2021 End: 02-08-2022 prednisoLONE acetate (PRED F ORTE, ECONOPRED PLUS) 1 % ophthalmic suspension Use 1 Drop in the right eye four times daily. For use AFTER surgery. 10 mL 1 11/12/2021 02/08/2022 Discontinued (Other) Comment on above: Use 1 Drop in the ri ght eye four times daily. For use AFTER surgery. Use 1 Drop in the ri ght eye every 2 hours. For use AFTER surgery. Use 1 Drop in the le ft eye four times daily. For use AFTER surgery. 12 hr timolol 5 mg/ml ophthalmic solution (14 sources) beta-Adrenergic Fara Start: 02-17-2022 End: 03-21-2022 timolol maleate (TIMOPTIC) 0.5 % ophthalmic solution Use 1 Drop in the left eye every morning. 0 02/17/2022 03/21/2022 Discontinued (Course of therapy completed) Start: 07-19-2021 End: 11-23-2021 timolol maleate (TIMOPTIC) 0 .5 % ophthalmic solution Use 1 Drop in both eyes every morning. 15 mL 3 11/23/2021 Active Comment on above: INSTILL 1 DROP INTO BOTH EYES EVERY MORNING Use 1 Drop in both e yes every morning. Use 1 Drop in the le ft eye every morning. Problems Active Problems Problem Classification Problem Date Documented Date Episodic/Chronic Administrative/socia l admission (1 source) Persons encountering health services in other specified circumstances; Translations: [Other reasons for seeking consultation] 10-27-2022 Episodic Diabetes mellitus without complication (20 sources) Type 2 diabetes mellitus; Translations: [Type 2 diabetes mellitus without complications] Onset: 12-23-2021 12-23-2021 Chronic Disorders of lipid metabolism (20 sources) Mixed hyperlipidemia; Translations: [Mixed hyperlipidemia] Onset: 12-23-2021 Chronic Esophageal disorders (20 sources) Gastroesophageal reflux disease; Translations: [Gastro-esophageal reflux disease without esophagitis] Onset: 12-23-2021 Chronic Essential hypertension (20 sources) Benign essential hypertension; Translations: [Essential (primary) hypertension] Onset: 12-23-2021 Chronic Glaucoma (20 sources) Primary open angle glaucoma; Translations: [Primary open-angle glaucoma, bilateral, severe stage] Onset: 01-29-2020 Chronic Other aftercare (12 sources) Surgical follow-up; Translations: [Encounter for follow-up examination after completed treatment for conditions other than malignant neoplasm] Episodic Other and unspecified benign neoplasm (1 source) History of polyp of colon; Translations: [Personal history of colonic polyps] 10-27-2022 Episodic Other and unspecified benign neoplasm (3 sources) Personal history of colonic polyps; Translations: [Personal history of colon polyps] Onset: 12-11-2023 Episodic Other congenital anomalies (1 source) Glaucoma of childhood; 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 Other connective tissue disease (1 source) Calcific tendinitis of left shoulder; Translations: [Calcific tendinitis of left shoulder] 09-02-2024 Episodic Other eye disorders (1 source) Meibomian gland dysfunction of bilateral eyes; Translations: [Meibomian gland dysfunction right eye, upper and lower eyelids] 12-25-2023 Episodic Other injuries and conditions due to external causes (1 source) Puncture wound - injury; Translations: [Other injury of unspecified body region, initial encounter] Episodic Other lower respiratory disease (4 sources) Rib pain; Translations: [Pleurodynia] 09-11-2024 Episodic Other nervous system disorders (1 source) H/O: cataract; Translations: [Personal history of other diseases of the nervous system and sense organs] 10-27-2022 Episodic Other nervous system disorders (1 source) Personal history of other diseases of the nervous system and sense organs; Translations: [Personal history of other disorders of nervous system and sense organs] 10-27-2022 Episodic Other nutritional; endocrine; and metabolic disorders (20 sources) Severe obesity; Translations: [Morbid (severe) obesity due to excess calories] Onset: 12-23-2021 Chronic Other nutritional; endocrine; and metabolic disorders (2 sources) Obesity; Translations: [Obesity, unspecified] Chronic Other nutritional; endocrine; and metabolic disorders (1 source) Body mass index 30+ - obesity; Translations: [Obesity, unspecified] 10-27-2022 Chronic Other nutritional; endocrine; and metabolic disorders (3 sources) Obesity, unspecified; Translations: [Obesity, unspecified] Onset: 06-24-2024 10-27-2022 Chronic Other screening for suspected conditions (not mental disorders or infectious disease) (1 source) Encounter for screening for lipoid disorders; Translations: [Encounter for screening for lipoid disorders] Onset: 08-29-2024 Episodic Other upper respiratory disease (1 source) Seasonal allergy; Translations: [Other seasonal allergic rhinitis] 10-27-2022 Chronic Other upper respiratory disease (3 sources) Other seasonal allergic rhinitis; Translations: [Allergic rhinitis, cause unspecified] Onset: 06-24-2024 10-27-2022 Chronic Residual codes; unclassified (20 sources) Obstructive sleep apnea syndrome; Translations: [Obstructive sleep apnea (adult) (pediatric)] Onset: 12-23-2021 Chronic Retinal detachments; defects; vascular occlusion; and retinopathy (1 source) Cystoid macular edema of right retina; 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, right eye] Chronic Thyroid disorders (20 sources) Hypothyroidism; Translations: [Hypothyroidism, unspecified] Onset: 12-23-2021 Chronic Past or Other Problems Problem Classification Problem Date Documented Date Episodic/Chronic Cataract (16 sources) Bilateral cortical age-related cataract eyes; Translations: [Cortical age-related cataract, bilateral] Onset: 08-21-2023 Resolved: 07-29-2024 08-21-2023 Chronic Nausea and vomiting (18 sources) Postoperative nausea and vomiting; Translations: [Nausea with vomiting, unspecified] Onset: 04-04-2023 04-04-2023 Episodic Other lower respiratory disease (1 source) Pleurodynia; Translations: [Rib pain on left side] Onset: 09-11-2024 Episodic Other non-traumatic joint disorders (4 sources) Pain in left shoulder; Translations: [Pain in joint, shoulder region] Onset: 09-02-2024 03-11-2024 Episodic Other upper respiratory infections (2 sources) Acute pharyngitis, unspecified; Translations: [Acute upper respiratory infection, unspecified] Onset: 01-01-2024 Episodic Results Test Name Value Interpretation Reference Range Facility [facility] 02-12-2025 CNOV Office Visit (SLEWST ) ----- SYLVIA NIXON ([id number]) 1970 M Date Time Provider Department 02/12/25 10:30 AM LAURA LONGO During your visit today, we recorded the following information about you: Pulse Respiration Blood pressure Weight 92/minute 16/minute 117/76 117.9 kg Laura Longo APRN.CNP 02/12/2025 10:54 AM Signed [facility] Follow up/ Established patient visit Recording using ambient [employer] software for draft documentation of the visit was discussed with the patient/authorized home office representative; all questions welcomed and answered. Patient/authorized home office representative agreed to proceed Assessment/Plan from last visit: Date of last visit : 12/04/23 ASSESSMENT/PLAN: 1. JAMIE (obstructive sleep apnea) - ICD9: 327.23, ICD10: G47.33 (primary diagnosis) 2. Class 2 obesity with body mass index (BMI) of 35.0 to 35.9 in adult, unspecified obesity type, unspecified whether serious comorbidity present - ICD9: 278.00, V85.35, ICD10: E66.9, Z68.35 Patient with known history of JAMIE as above. Doing well on PAP with no complaints. Subjective and objective compliance confirmed. Pt reports perceived benefit with PAP use. Encouraged continued compliance. Reminded pt to clean and replace PAP equipment regularly. Advised pt not to drive or operate heavy machinery if sleepy. Pt will be due for new PAP device in about 2 years at which time will likely recommend an Auto PAP as uncertain he is needing a pressure of 9cmH2O through the night based on downloads - however, no complaints. Follow up 1 year or sooner prn. Jose Guadalupe Herrera MD CURRENT VISIT: 02/12/2025 The patient is a 55-year-old male with a history of moderate JAMIE, presenting for an annual visit to obtain new CPAP supplies. The patient uses a CPAP machine set to a pressure of 9 cm H2O, which he reports effectively controls his JAMIE, reducing apneic episodes to less than 1 per hour. He uses a nasal pillow mask with humidification and distilled water. Despite this, he experiences persistent xerostomia, which has been present since he started using the CPAP. He occasionally notices air leaks but states they are infrequent and less severe than with previous masks. He didn't use CPAP last night due to a sore under his nose. He plans to change the cushion tonight to improve adherence and lessen leaks. He notes increased fatigue when not using the CPAP for several days and previously experienced somnolence while driving to work before starting CPAP therapy. He denies any issues with the nasal pillow mask and feels that the CPAP therapy is beneficial. Still uses DME in [place] where he used to live, still visits family there. SLEEP APNEA Sleep apnea type : JAMIE, Most Recent Apnea-Hypopnea Index (AHI): 18.4 Treatment : PAP therapy [employer] 2 DME: [facility] PAP History: Current PAP settin cm H2O. Difficulties with AutoPAP: None Reviewed objective PAP compliance data: 01/12/25-02/10/25: AHI 0.7 Used days 74% of days for at least 4 hrs Avg use 8.5 hrs Mask type: nasal pillow interface Mask issues: none Uses humidity: Yes, Protocol: distilled water There is a perceived benefit by the patient: no drowsy driving ----- ----- PATIENT-ENTERED QUESTIONNAIRE SLEEP SCORES: 12/22/2021 11/30/2022 04/04/2023 PROMIS Global Health - (T-Scores - the mean of general population = 50. Five points is a clinically meaningful difference.) Physical T-Score 47.7 54.1 54.1 47.7 Mental T-Score 45.8 48.3 48.3 12/22/2021 11/30/2022 04/04/2023 PROMIS Global Health - (T-Scores - the mean of general population = 50. Five points is a clinically meaningful difference.) Physical T-Score 47.7 54.1 54.1 47.7 Mental T-Score 45.8 48.3 48.3 Multiple values from one day are sorted in reverse-chronological order ALLERGIES Allergen Reactions Bee Pollen Other: See Comments, Hives, Swelling Netarsudil Other: See Comments Redness, irritation in both eyes. Dust Other: See Comments CURRENT MEDICATIONS: dorzolamide-timolol (COSOPT) 22.3-6.8 mg/mL ophthalmic solution INSTILL 1 DROP INTO EACH EYE EVERY 12 HOURS latanoprost (XALATAN) 0.005 % ophthalmic solution Use 1 Drop in both eyes daily at bedtime. ondansetron orally disintegrating (ZOFRAN ODT) 4 mg disintegrating tablet Dissolve 1 tablet by mouth every 8 hours as needed for nausea/vomiting. carboxymethylcellulose sodium (REFRESH OPHTHALMIC) Use in eyes. Preservative free AT's cholecalciferol, vitamin D3, (VITAMIN D3 ORAL) Take by mouth once daily. MEN'S MULTI-VITAMIN ORAL Take by mouth. levothyroxine 200 mcg cap Take 200 mcg by mouth daily before breakfast. olmesartan (BENICAR) 20 mg tablet Take 20 mg by mouth once daily. omeprazole (PRILOSEC) 40 mg capsule (more content not included)... Normal [facility] CNOVon 09-11-2024 CNOV Office Visit (UCWSTR ) ----- SYLVIA NIXON ([id number]) 1970 M Date Time Provider Department 09/11/24 3:15 PM ARIES SALEEM [facility] During your visit today, we recorded the following information about you: Temperature Pulse Respiration Blood pressure 98 degrees 91/minute 16/minute 104/72 Weight 117.7 kg Aries Saleem APRN.MEDICAL RECEPTION 09/11/2024 4:08 PM Signed This note was created using [employer]. Subjective Sylvia Nixon is a 54 year old male. HPI Just shortly before arrival patient was standing on a stepladder on the third step when he lost his balance and fell backwards landing on some steps. He complains of pain over the left lateral ribs approximately 6-8. Denies any injury to his head loss of consciousness vomiting or vision changes. Review of Systems As above Objective BP 104/72 Pulse 91 Temp 36.7 ?C (98 ?F) (Tympanic) Resp 16 Wt 117.7 kg (259 lb 7.7 oz) SpO2 97% BMI 35.19 kg/m? Physical Exam Vitals and nursing note reviewed. Constitutional: General: He is not in acute distress. Appearance: Normal appearance. He is not ill-appearing. HENT: Head: Normocephalic. Mouth/Throat: Mouth: Mucous membranes are moist. Eyes: Conjunctiva/sclera: Conjunctivae normal. Neck: Comments: No cervical vertebral tenderness. Cardiovascular: Rate and Rhythm: Normal rate and regular rhythm. Pulmonary: Effort: Pulmonary effort is normal. Breath sounds: Normal breath sounds. Musculoskeletal: General: Normal range of motion. Arms: Cervical back: Normal range of motion. Comments: No thoracic or lumbar vertebral tenderness. Point specific tenderness over the left lateral posterior ribs approximately 6-8 Skin: General: Skin is warm and dry. Neurological: General: No focal deficit present. Mental Status: He is alert. Psychiatric: Mood and Affect: Mood normal. Behavior: Behavior normal. Assessment and Plan ASSESSMENT/PLAN: 1. Rib pain on left side - ICD9: 786.50, ICD10: R07.81 -X-ray of left ribs and PA chest unremarkable showing no acute pathology. Patient was instructed that symptoms most consistent with generalized strain and contusions related to fall. He will use [id number] treatment as needed for pain relief. Recommended several deep breaths per hour to avoid possible pneumonia. He will follow-up with PCP. - XR RIBS/CHEST 3V AP RIB/OBLS/CXR LEFT Aries Saleem APRN.MEDICAL RECEPTION Allergies As of Date: 09/11/2024 Noted Allergy Reaction BEE POLLEN 03/13/2019 14 - Other: See Comments 4 - Hives 7 - Swelling NETARSUDIL 07/22/2019 14 - Other: See Comments Comments: Redness, irritation in both eyes. DUST 08/17/2021 14 - Other: See Comments Date Reviewed: 09/11/2024 Reviewed by: Sahara Martin LPN - Fully Assessed Reason for Visit: left side and back pain [Other] Cmt: Fell off a ladder 90 min ago Primary Visit Diagnosis:Rib pain on left side [R07.81] Order(s):XR RIBS/CHEST 3V AP RIB/OBLS/CXR LEFT [[id number]] Order #: [id number] FUTURE Prescriptions as of 09/11/2024 - dorzolamide-timolol (COSOPT) 22.3-6.8 mg/mL ophthalmic solution Use 1 Drop in both eyes every 12 hours. - latanoprost (XALATAN) 0.005 % ophthalmic solution Use 1 Drop in both eyes daily at bedtime. - ondansetron orally disintegrating (ZOFRAN ODT) 4 mg disintegrating tablet Dissolve 1 tablet by mouth every 8 hours as needed for nausea/vomiting. - carboxymethylcellulose sodium (REFRESH OPHTHALMIC) Use in eyes. Preservative free AT's - cholecalciferol, vitamin D3, (VITAMIN D3 ORAL) Take by mouth once daily. - MEN'S MULTI-VITAMIN ORAL Take by mouth. - levothyroxine 200 mcg cap Take 200 mcg by mouth daily before breakfast. - olmesartan (BENICAR) 20 mg tablet Take 20 mg by mouth once daily. - omeprazole (PRILOSEC) 40 mg capsule Take 20 mg by mouth once daily. - levothyroxine (SYNTHROID) 25 mcg tablet Take 25 mcg by mouth once daily. - SYNJARDY XR 25-1,000 mg XR tab Take 1 tablet by mouth once daily. - TRULICITY 3 mg/0.5 mL pen injector - cyanocobalamin, vitamin B-12, 2,000 mcg tab Take 2,000 mcg by mouth. - atorvastatin (LIPITOR) 10 mg tablet Take 10 mg by mouth daily at bedtime. - flaxseed oil (OMEGA 3 ORAL) Take 1 capsule by mouth every morning. - loratadine (CLARITIN) 10 mg tablet Take 10 mg by mouth. Problem List As Of Date 09/11/2024 Noted Resolved Primary open angle glaucoma (POAG) of both eyes*01/29/2020 Essential hypertension, benign [I10] 12/23/2021 Mixed hyperlipidemia [E78.2] 12/23/2021 JAMIE (obstructive sleep apnea) [G47.33] 12/23/2021 GERD (gastroesophageal reflux disease) [K21.9] 12/23/2021 Hypothyroidism [E03.9] 12/23/2021 Type 2 diabetes mellitus, without long-term cur*12/23/2021 Class 2 severe obesity due to excess calories w*12/23/2021 PONV (postoperative nausea and vomiting) [R11.2*04/04/2023 Cortical senile cataract of both eyes [H25.013] (more content not included)... Normal [facility] XR RIB/CHST 3V AP RIB/OBL/CH ST Matt 09-11-2024 XR RIB/CHST 3V AP RIB/OBL/CHST L * * *Final Report* * * DATE OF EXAM: Sep 11 2024 3:51PM WOX 5243 - XR RIB/CHST 3V AP RIB/OBL/CHST L / PROCEDURE REASON: Rib pain on left side * * * * Physician Interpretation * * * * Study:Chest and LEFT ribs: HISTORY: Indication: Rib pain on left side pt fell onto steps today. Left-sided lateral/posterior rib pain. Fell off step ladder onto steps. Pain lateral ribs approx 8-10 TECHNIQUE: Images obtained: XR RIB/CHST 3V AP RIB/OBL/CHST L Comparison: NONE Result: Findings: Chest x-ray: PA view of the chest shows no acute pathology in the heart and lungs.. RIBS: No rib fractures are seen. IMPRESSION: Negative exam Stummel Selector: PSCB Transcribe Date/Time: Sep 11 2024 4:00P Dictated by : HAO ECKERT DO This examination was interpreted and the report reviewed and electronically signed by: HAO ECKERT DO on Sep 11 2024 4:01PM EST [id number] Normal [facility] XR Ribs - left Views and Nilsa st PAon 09-11-2024 IMPRESSION: Negative exam Stummel Selector: PSCB Transcribe Date/Time: Sep 11 2024 4:00P Dictated by : HAO ECKERT DO This examination was interpreted and the report reviewed and electronically signed by: HAO ECKERT DO on Sep 11 2024 4:01PM EST DIVISION OF RADIOLOGY * * *Final Report* * * DATE OF EXAM: Sep 11 2024 3:51PM WOX 5243 - XR RIB/CHST 3V AP RIB/OBL/CHST L / PROCEDURE REASON: Rib pain on left side * * * * Physician Interpretation * * * * Study:Chest and LEFT ribs: HISTORY: Indication: Rib pain on left side pt fell onto steps today. Left-sided lateral/posterior rib pain. Fell off step ladder onto steps. Pain lateral ribs approx 8-10 TECHNIQUE: Images obtained: XR RIB/CHST 3V AP RIB/OBL/CHST L Comparison: NONE Result: Findings: Chest x-ray: PA view of the chest shows no acute pathology in the heart and lungs.. RIBS: No rib fractures are seen. DIVISION [facility]OLOGY [facility] * * *Final Report* * * DATE OF EXAM: Sep 11 2024 3:51PM WOX 5243 - XR RIB/CHST 3V AP RIB/OBL/CHST L / PROCEDURE REASON: Rib pain on left side * * * * Physician Interpretation * * * * Study:Chest and LEFT ribs: HISTORY: Indication: Rib pain on left side pt fell onto steps today. Left-sided lateral/posterior rib pain. Fell off step ladder onto steps. Pain lateral ribs approx 8-10 TECHNIQUE: Images obtained: XR RIB/CHST 3V AP RIB/OBL/CHST L Comparison: NONE Result: Findings: Chest x-ray: PA view of the chest shows no acute pathology in the heart and lungs.. RIBS: No rib fractures are seen. IMPRESSION IMPRESSION: Negative exam Stummel Selector: RYLAN Transcribe Date/Time: Sep 11 2024 4:00P Dictated by : HAO ECKERT DO This examination was interpreted and the report reviewed and electronically signed by: HAO ECKERT DO on Sep 11 2024 4:01PM [facility] Radiology Study observation (narrative) [facility] XR Ribs - left Views and Nilsa st PAOrdered By: [facility] Provider on 09-11-2024 [facility] CNOVon 09-02-2024 CNOV Office Visit (PRETTY ) ----- SYLVIA NIXON ([id number]) 1970 M Date Time Provider Department 09/02/24 9:30 AM KRISTINE SULLIVAN During your visit today, we recorded the following information about you: Kaitlin Marsh MA 09/02/2024 2:11 PM Signed Patient presents with: Left Shoulder - New, Pain: Referred by Roberto Carlos SANCHEZ ROOMING INTAKE 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 His [facility] case is closed. He has pain when he raises his arm to reach outward. X-rays done on 03/11/24. Taking no med's for the pain. He is working part-time at [employer]. Kristine Sullivan PA-C 09/02/2024 2:11 PM Signed Kristine Sullivan PA-C Department of Orthopaedics Orthopaedics [address] [facility] [address] Dept: [phone] Dept September 02, 2024 CHIEF COMPLAINT: New and Pain of the Left Shoulder (Referred by Roberto Carlos Babin) Mr. Sylvia Nixon is a 54 year old male who presents with intermittent pain in his left shoulder which has been bothering him for the past several months. Pain is worse when he abducts his arm and reaches behind himself. Pain is a 4 out of 10 aching, pain does not radiate down the arm. He denies any numbness and tingling in the left hand. 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 Patient is a diabetic, his most recent hemoglobin A1c was 10.4. 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 We discussed a prescription anti-inflammatory, patient declines at this time. Advised that he needs to gain better control of his blood sugars, if he is able to improve his hemoglobin A1c to an 8 or lower we can certainly try a corticosteroid injection for the shoulder. He also may benefit from some physical therapy. Will continue to monitor patient for Acute pain of left shoulder Calcific tendinitis of left shoulder (primary encounter diagnosis), patient to schedule visit as per follow up discussed. Mr. Sylvia Nixon was advised as to contrast therapies and/or to take analgesics/anti-inflammat ories as needed and all contraindications were reviewed. OBJECTIVE: Mr. Sylvia Nixon is a pleasant 54 year old in no apparent distress. Gen:There were no vitals taken for this visit. nl development, obese, no deformities ENT: Normocephalic, normal hearing, moist mucosa CV: Pulses:Radial= 2+ and symmetric, capillary refill < 2 secs, no peripheral edema/varicosities Skin: no rash, bruising or lesions. Good turgor. Psych: cooperative and appropriate, alert and oriented x 3, good mood and affect. Musculoskeletal: Supple range of motion of the cervical spine without pain. Spurling signs are negative. No atrophy of the deltoid and shoulder musculature. Left shoulder is nontender to palpation over the SC joint, clavicle and AC joint. Mild tenderness to palpation over the posterior shoulder, mildly tender at anterior lateral corner of the shoulder and greater tuberosity. Nontender at the bicipital groove and coracoid. Active range of motion is 150 degrees of forward elevation, 65 degrees external rotation, and internal rotation to the upper lumbar spine. Passive range of motion is 165 degrees, 70 degrees, respectively. No laxity with anterior and posterior stress. Positive Neer and negative Taylor impingement signs. 4+/5 strength with supraspinatus, 5/5 strength testing with infraspinatus and subscapularis. Sensation is intact in the axillary, radial, median and ulnar nerve distribution Imaging: IMPRESSION: No acute fracture or malalignment. Incidental note of oblong calcification above the greater tuberosity of humerus consistent with calcific tendinitis. Stummel Selector: RYLAN Transcribe Date/Time: Mar 11 2024 1:37P Dictated by : BAILEY LIVE MD This examination was interpreted and the report reviewed and electronically signed by: BAILEY LIVE MD on Mar 11 2024 1:51PM EST Results-Findings * * *Final Report* * * DATE OF EXAM: Mar 11 2024 1:36PM WOX 5252 - XR SHLDR >/=3V AP/MENG AP/OTHR LT / PROCEDURE REASON: Acute pain of left shoulder * * * * Physician Interpretation * * * * LEFT SHOULDER X-RAY SERIES CLINICAL HISTORY: Dog pulled arm on these 2 weeks ago, pain in upper arm TECHNIQUE: AP, Grashey and axillary views COMPARISON: None availa (more content not included)... Normal [facility] CBC W/Diff, Automatedon 01- 0-202 Absolute Lymph 2.10 X10 3/uL Normal 0.83-4.51 [facility] Comment on above: Performed By: #### L 501.71713, L501.9985, L506.1000, L500.4100, L100.0100, L500.4050, L506.0400, L501.9520 #### [facility] [address] [place], [address] Absolute Neut 5.2 X10 3/uL Normal 2.0-7.7 [facility] Comment on above: Performed By: #### L 501.48593, L501.9985, L506.1000, L500.4100, L100.0100, L500.4050, L506.0400, L501.9520 #### [facility] [address] [place], [address] Basophils/100 WBC (Bld) 0.7 % Normal 0-1 [facility] Comment on above: Performed By: #### L 501.89711, L501.9985, L506.1000, L500.4100, L100.0100, L500.4050, L506.0400, L501.9520 #### [facility] [address] [place], [address] Eosinophils/100 WBC (Bld) 1.7 % Normal 0-5 [facility] Comment on above: Performed By: #### L 501.36396, L501.9985, L506.1000, L500.4100, L100.0100, L500.4050, L506.0400, L501.9520 #### [facility] [address] [place], [address] Erythrocyte distribution width (RBC) [Ratio] 12.8 % Normal 11.6-14.6 [facility] Comment on above: Performed By: #### L 501.35133, L501.9985, L506.1000, L500.4100, L100.0100, L500.4050, L506.0400, L501.9520 #### [facility] [address] [place], [address] Hematocrit (Bld) [Volume fraction] 52.3 % Normal 40-54 [facility] Comment on above: Performed By: #### L 501.38849, L501.9985, L506.1000, L500.4100, L100.0100, L500.4050, L506.0400, L501.9520 #### [facility] [address] [place], [address] Hemoglobin (Bld) [Mass/Vol] 17.4 g/dL High 13.0-16.5 [facility] Comment on above: Performed By: #### L 501.22332, L501.9985, L506.1000, L500.4100, L100.0100, L500.4050, L506.0400, L501.9520 #### [facility] [address] [place], [address] IG% 1.400 High 0.0-0.9 [facility] Comment on above: Result Comment: IG% - Immature Granulocytes (promyelocytes, myelocytes and metamyelocytes) > 1% indicates that a LEFT SHIFT is Present. Performed By: #### L 501.08481, L501.9985, L506.1000, L500.4100, L100.0100, L500.4050, L506.0400, L501.9520 #### [facility] [address] [place], [address] Lymphocytes/100 WBC (Bld) 26.0 % Normal 19-41 [facility] Comment on above: Performed By: #### L 501.22917, L501.9985, L506.1000, L500.4100, L100.0100, L500.4050, L506.0400, L501.9520 #### [facility] [address] [place], [address] MCH (RBC) [Entitic mass] 27.7 pg Normal 27.0-32.0 [facility] Comment on above: Performed By: #### L 501.99946, L501.9985, L506.1000, L500.4100, L100.0100, L500.4050, L506.0400, L501.9520 #### [facility] [address] [place], [address] MCHC (RBC) [Mass/Vol] 33.3 g/dL Normal 32-36 [facility] Comment on above: Performed By: #### L 501.85780, L501.9985, L506.1000, L500.4100, L100.0100, L500.4050, L506.0400, L501.9520 #### [facility] [address] [place], [address] MCV (RBC) [Entitic vol] 83.1 fL Normal 80-94 [facility] Comment on above: Performed By: #### L 501.58196, L501.9985, L506.1000, L500.4100, L100.0100, L500.4050, L506.0400, L501.9520 #### [facility] [address] [place], [address] Monocytes/100 WBC (Bld) 6.4 % Normal 0-10 [facility] Comment on above: Performed By: #### L 501.05379, L501.9985, L506.1000, L500.4100, L100.0100, L500.4050, L506.0400, L501.9520 #### [facility] [address] [place], [address] Neutrophils/100 WBC (Bld) 63.8 % Normal 47-70 [facility] Comment on above: Performed By: #### L 501.44878, L501.9985, L506.1000, L500.4100, L100.0100, L500.4050, L506.0400, L501.9520 #### [facility] [address] [place], [address] Nucleated RBC (Bld) [#/Vol] 0 10*3/uL Normal 0-5 [facility] Comment on above: Performed By: #### L 501.73666, L501.9985, L506.1000, L500.4100, L100.0100, L500.4050, L506.0400, L501.9520 #### [facility] [address] [place], [address] Platelet mean volume (Bld) [Entitic vol] 10.4 fL Normal 6.2-12.0 [facility] Comment on above: Performed By: #### L 501.60032, L501.9985, L506.1000, L500.4100, L100.0100, L500.4050, L506.0400, L501.9520 #### [facility] [address] [place], [address] Platelets (Bld) [#/Vol] 276 10*3/uL Normal 150-450 [facility] Comment on above: Performed By: #### L 501.43785, L501.9985, L506.1000, L500.4100, L100.0100, L500.4050, L506.0400, L501.9520 #### [facility] [address] [place], [address] RBC (Bld) [#/Vol] 6.29 10*6/uL High 4.6-6.2 [facility] Comment on above: Performed By: #### L 501.55996, L501.9985, L506.1000, L500.4100, L100.0100, L500.4050, L506.0400, L501.9520 #### [facility] [address] [place], [address] RDW SD 38.4 fl Normal 35.1-43.9 [facility] Comment on above: Performed By: #### L 501.68410, L501.9985, L506.1000, L500.4100, L100.0100, L500.4050, L506.0400, L501.9520 #### [facility] [address] [place], [place], [id number] [phone] WBC (Bld) [#/Vol] 8.1 10*3/uL Normal 4.4-11.0 [facility] Comment on above: Performed By: #### L 501.35139, L501.9985, L506.1000, L500.4100, L100.0100, L500.4050, L506.0400, L501.9520 #### [facility] [address] [place], [address] Comprehensive Metabolic Prof ilon 06-28-2024 Albumin [Mass/Vol] 3.5 g/dL Normal 3.2-5.0 [facility] Comment on above: Performed By: #### L 501.03458, L501.9985, L506.1000, L500.4100, L100.0100, L500.4050, L506.0400, L501.9520 #### [facility] [address] [place], [address] Albumin/Globulin [Mass ratio] 0.9 {ratio} Normal 0.9-2.4 [facility] Comment on above: Performed By: #### L 501.24466, L501.9985, L506.1000, L500.4100, L100.0100, L500.4050, L506.0400, L501.9520 #### [facility] [address] [place], [address] ALK P 131 U/L High 45-117 [facility] Comment on above: Performed By: #### L 501.35005, L501.9985, L506.1000, L500.4100, L100.0100, L500.4050, L506.0400, L501.9520 #### [facility] [address] [place], [address] ALT [Catalytic activity/Vol] 38 U/L Normal 16-61 [facility] Comment on above: Performed By: #### L 501.64761, L501.9985, L506.1000, L500.4100, L100.0100, L500.4050, L506.0400, L501.9520 #### [facility] [address] [place], [address] AST [Catalytic activity/Vol] 26 U/L Normal 15-37 [facility] Comment on above: Result Comment: Mode rate Hemolysis, Result may be falsely increased. Performed By: #### L 501.71182, L501.9985, L506.1000, L500.4100, L100.0100, L500.4050, L506.0400, L501.9520 #### [facility] [address] [place], [address] Bilirubin [Mass/Vol] 0.60 mg/dL Normal 0.20-1.00 [facility] Comment on above: Result Comment: For patients on eltrombopag therapy, use of Dimension Harmans TBIL is not recommended. Performed By: #### L 501.49626, L501.9985, L506.1000, L500.4100, L100.0100, L500.4050, L506.0400, L501.9520 #### [facility] [address] [place], [address] BUN/CRE 16.2 RATIO Normal 10-20 [facility] Comment on above: Performed By: #### L 501.16155, L501.9985, L506.1000, L500.4100, L100.0100, L500.4050, L506.0400, L501.9520 #### [facility] [address] [place], [address] CA,Total 9.2 mg/dL Normal 8.5-10.1 [facility] Comment on above: Performed By: #### L 501.78908, L501.9985, L506.1000, L500.4100, L100.0100, L500.4050, L506.0400, L501.9520 #### [facility] [address] [place], [address] Chloride [Moles/Vol] 103 mmol/L Normal 98-107 [facility] Comment on above: Performed By: #### L 501.03507, L501.9985, L506.1000, L500.4100, L100.0100, L500.4050, L506.0400, L501.9520 #### [facility] [address] [place], [address] CO2 [Moles/Vol] 23.0 mmol/L Normal 21.0-32.0 [facility] Comment on above: Performed By: #### L 501.95406, L501.9985, L506.1000, L500.4100, L100.0100, L500.4050, L506.0400, L501.9520 #### [facility] [address] [place], [address] Creatinine [Mass/Vol] 0.99 mg/dL Normal 0.70-1.30 [facility] Comment on above: Result Comment: The validity of the calculated GFR GFRAA in patients over 70 years has not been determined. Clinical correlation is essential. Performed By: #### L 501.55392, L501.9985, L506.1000, L500.4100, L100.0100, L500.4050, L506.0400, L501.9520 #### [facility] [address] [place], [place], [phone] (727) EST GFR - AA 102 mL/min Normal >60 [facility] Comment on above: Result Comment: Afri can Estonian GFR Calc Performed By: #### L 501.39921, L501.9985, L506.1000, L500.4100, L100.0100, L500.4050, L506.0400, L501.9520 #### [facility] [address] [place], [place], [phone] (632) GAP 7 Normal 5-15 [facility] Comment on above: Performed By: #### L 501.04994, L501.9985, L506.1000, L500.4100, L100.0100, L500.4050, L506.0400, L501.9520 #### [facility] [address] [place], [place], [phone] (252 GFR/1.73 sq M.predicted among non-blacks MDRD (S/P/Bld) [Vol rate/Area] 85 mL/min/{1.73_m2} Normal >60 [facility] Comment on above: Result Comment: Non- GFR Calc Performed By: #### L 501.28962, L501.9985, L506.1000, L500.4100, L100.0100, L500.4050, L506.0400, L501.9520 #### [facility] [address] [place], [address] Globulin (S) [Mass/Vol] 4.1 g/dL Normal 2.2-4.2 [facility] Comment on above: Performed By: #### L 501.87770, L501.9985, L506.1000, L500.4100, L100.0100, L500.4050, L506.0400, L501.9520 #### [facility] [address] [place], [address] Glucose [Mass/Vol] 222 mg/dL High 74-106 [facility] Comment on above: Result Comment: Gluc ose result greater than or equal to 200 mg/dL suggests DIABETES MELLITUS per A.D.A. criteria. Performed By: #### L 501.95105, L501.9985, L506.1000, L500.4100, L100.0100, L500.4050, L506.0400, L501.9520 #### [facility] [address] [place], [address] Potassium [Moles/Vol] 4.8 mmol/L Normal 3.5-5.1 [facility] Comment on above: Result Comment: Mode rate Hemolysis, Result may be falsely increased. Performed By: #### L 501.14387, L501.9985, L506.1000, L500.4100, L100.0100, L500.4050, L506.0400, L501.9520 #### [facility] [address] [place], [address] Sodium [Moles/Vol] 133 mmol/L Low 136-145 [facility] Comment on above: Performed By: #### L 501.71564, L501.9985, L506.1000, L500.4100, L100.0100, L500.4050, L506.0400, L501.9520 #### [facility] [address] [place], [address] T PROT 7.6 g/dL Normal 6.4-8.2 [facility] Comment on above: Performed By: #### L 501.24622, L501.9985, L506.1000, L500.4100, L100.0100, L500.4050, L506.0400, L501.9520 #### [facility] [address] [place], [address] Urea nitrogen [Mass/Vol] 16 mg/dL Normal 7-18 [facility] Comment on above: Performed By: #### L 501.34619, L501.9985, L506.1000, L500.4100, L100.0100, L500.4050, L506.0400, L501.9520 #### [facility] [address] [place], [address] Free T3on 06-28-2024 Free T3 [Mass/Vol] 2.2 pg/mL Normal 2.18-3.98 [facility] Comment on above: Performed By: #### L 501.39256, L501.9985, L506.1000, L500.4100, L100.0100, L500.4050, L506.0400, L501.9520 #### [facility] [address] [place], [place], [phone] Hemoglobin A1con 06-28-2024 HbA1c (Bld) [Mass fraction] 10.3 % High 3.8-5.6 [facility] Comment on above: Result Comment: Norm al < 5.7 % Prediabetic 5.7 - 6.4 % Diabetic >or= 6.5 % Please note range changes. Performed By: #### L 501.64165, L501.9985, L506.1000, L500.4100, L100.0100, L500.4050, L506.0400, L501.9520 ####[facility] [address] [place], [address] Lipid Profileon 06-28-2024 Cholesterol [Mass/Vol] 310 mg/dL High 200 [facility] Comment on above: Result Comment: <200 mg/dL Desirable 200-240 mg/dL Borderline >240 mg/dL High Risk Performed By: #### L 501.13109, L501.9985, L506.1000, L500.4100, L100.0100, L500.4050, L506.0400, L501.9520 #### [facility] [address] [place], [address] Cholesterol in HDL [Mass/Vol] 62 mg/dL Normal [facility] Comment on above: Result Comment: The drugs N-Acetylcysteine and Metamizole may falsely depress this assay. Reference Range HDL <40 mg/dL Low HDL Cholesterol HDL >or= 60 mg/dL High HDL Cholesterol Performed By: #### L 501.40319, L501.9985, L506.1000, L500.4100, L100.0100, L500.4050, L506.0400, L501.9520 #### [facility] [address] [place], [address] LDL TNP Normal 0-130 [facility] Comment on above: Performed By: #### L 501.12803, L501.9985, L506.1000, L500.4100, L100.0100, L500.4050, L506.0400, L501.9520 #### [facility] [address] [place], [address] Triglyceride [Mass/Vol] 747 mg/dL High [facility] Comment on above: Result Comment: The drugs N-Acetylcysteine and Metamizole may falsely depress this assay. TRIGLYCERIDE IS GREATER THAN 400 mg/dL. LDL RESULT IS INVALID AND WILL NOT BE REPORTED. Serum Triglycerides Reference Interval Normal <150 mg/dL Borderline high 150 - 199 mg/dL High 200 - 499 mg/dL Very High > or = 500 mg/dL Performed By: #### L 501.38360, L501.9985, L506.1000, L500.4100, L100.0100, L500.4050, L506.0400, L501.9520 #### [facility] [address] [place], [place], [address] VLDL TNP Normal 5-40 [facility] Comment on above: Performed By: #### L 501.03670, L501.9985, L506.1000, L500.4100, L100.0100, L500.4050, L506.0400, L501.9520 #### [facility] [address] [place], [address] T4 Free Directon 06-28-2024 T4 FREE DIRECT 1.47 ng/dL High 0.76-1.46 [facility] Comment on above: Performed By: #### L 501.85760, L501.9985, L506.1000, L500.4100, L100.0100, L500.4050, L506.0400, L501.9520 #### [facility] [address] [place], [place], [phone] Thyroid Stim Hormone (TSH)on 06-28-2024 TSH 3.190 uIU/mL Normal 0.358-3.740 [facility] Comment on above: Performed By: #### L 501.59010, L501.9985, L506.1000, L500.4100, L100.0100, L500.4050, L506.0400, L501.9520 #### [facility] [address] [place], [place], [address] Vitamin D,25 Hydroxyon 06-28 Vitamin D 25-OH 34.2 ng/mL Normal [facility] Comment on above: Result Comment: Meliton min D 25(OH) Status Range Deficiency <20 ng/mL (50nmol/L) Insufficiency 20 - 30 ng/mL (50 - 75 nmol/L) Sufficiency 30 - 100 ng/mL (75 - 250 nmol/L) Toxicity >100 ng/mL (>250 nmol/L) Performed By: #### L 501.26317, L501.9985, L506.1000, L500.4100, L100.0100, L500.4050, L506.0400, L501.9520 #### [facility] [address] [place], [address] MR/BMS.IMBon 06-24-2024 MR/BMS.IMB [facility] [address] [place] [address] OFFICE VISIT Date of Service: 06/24/24 MR#: [id number] Acct: [id number] Name: SYLVIA NIXON Rep #: [id number] : 1970 Provider: Dr. Melissa love MD Age/Sex: 54/M Location: [facility] Status: Signed Intake Vital Signs 12/11/23 13:43 01/01/24 11:14 06/24/24 12:57 Height 6 ft 6 ft 6 ft Weight: 265 lb 6 oz 260 lb BMI 35.9 35.2 BP 100/69 127/87 H Blood Pressure Location Lt brachial Lt brachial Position Sitting Sitting Respiration 16 16 Pulse 82 96 Pulse Source Monitor Monitor Temp 98.6 F 98.2 F Temp Source Temporal Temporal Pulse Oximetry (%) 94 94 Oxygen Delivery Method room air room air Intake Visit Reasons: 7 M FU, RS 05/13 Chief Complaint: 7 M fu Cruise Coordinator Required: No Accompanied by: Self Is patient in pain?: No Allergies bee venom protein (honey bee) Allergy (Severe, Verified 06/24/24 12:50) Anaphylaxis Environmental Allergies: Uncoded Allergy (Severe, Verified 06/24/24 12:50) other Medications ???Medication ???Instructions ???Recorded ???Confirmed ???Type cholecalciferol (vitamin D3) 25 25 mcg PO DAILY 11/17/22 06/24/24 History mcg (1,000 unit) capsule dorzolamide 22.3 mg-timolol 6.8 1 drp ophthalmic (eye) BID 11/17/22 06/24/24 History mg/mL eye drops ginko biloba 120 mg PO DAILY 11/17/22 06/24/24 History latanoprost 0.005 % eye drops 1 drp ophthalmic (eye) DAILY 11/17/22 06/24/24 History loratadine 10 mg tablet (Claritin) 10 mg PO QHS 11/17/22 06/24/24 History multivitamin (One Daily 1 tab PO DAILY 11/17/22 06/24/24 History Multivitamin tablet) omega 4-tij-nto-fish oil 300 1 cap PO DAILY 12/27/22 06/24/24 History mg-1,000 mg capsule (Fish Oil) epinephrine 0.3 mg/0.3 mL 0.3 mg IM Q15M PRN allergic 02/02/23 06/24/24 History injection, auto-injector (EpiPen) reaction omeprazole magnesium 20 mg 20 mg PO DAILY #90 tabs 12/27/23 06/24/24 Rx tablet,delayed release (Prilosec OTC) empagliflozin 25 mg-metformin ER 1 tab PO QHS #90 ea 01/31/24 06/24/24 Rx 1,000 mg tablet,extended release 24hr (Synjardy XR) olmesartan 20 mg tablet 20 mg PO DAILY #90 tabs 02/05/24 06/24/24 Rx dulaglutide 0.75 mg/0.5 mL 0.75 mg (0.5 mL) subcut QWEEK #1 mL 02/06/24 06/24/24 Rx subcutaneous pen injector (Trulicity) levothyroxine 200 mcg capsule 200 mcg PO DAILY #90 caps 02/29/24 06/24/24 Rx levothyroxine 25 mcg capsule 25 mcg PO DAILY #90 caps 02/29/24 06/24/24 Rx PFSH Medical History Bleeding hemorrhoids Acute URI Encounter for wellness examination in adult Wears glasses Thyroid disease PONV (postoperative nausea and vomiting) Gastric reflux Sleep apnea CPAP (continuous positive airway pressure) dependence Non-smoker Hypertension Cataracts, both eyes Back problem Surgical History History of eye surgery Hx of colonoscopy Family History Grandfather Colon cancer Sister Colon polyps Other Alcoholism Angina at rest Diabetes Hypertension Kidney disease Myocardial infarction Social History adopted: No household members: family housing: house number of children: 4 current occupational status: employed current occupation: [employer] current occupational exposures/hazards: No pets and animals: Yes pets and animals: cat(s) and dog(s) leisure activities: music, hunting and reading history of recent travel: No sexually active: Yes Smoking Status: Never smoker alcohol intake: former substance use type: does not use well-balanced diet: rarely or never caffeine: Yes eating out: 1-3 times/week during the past year weight has: remained stable what type of physical activity do you participate in: none nellie/restorationist: Sabianism seatbelt use: always do you feel safe at home: Yes HPI HPI Chief Complaint: 7 M fu Details: SYLVIA TIFFANI, is a 54 M who presents to the office today for 6-month follow-up. 54-year-old gentleman who has a history of type 2 diabetes, longstanding, hypertension, obesity. He has a history of what may have been NIAON involving the right eye when he was previously still living in [place]. He was seen by ophthalmology in [facility]. I have no records of this however he has established with [facility] ophthalmology. He has been on GLP-1 agonist. This is variably been Ozempic versus Trulicity but mostly Trulicity over the years. He had been on Trulicity for several years before he had the issue involving the right eye. He also has a history of glaucoma. At our last visit we discussed this issue where a denise (more content not included)... [facility] 05-28-2024 TACHO Telephone (GABBI) ----- SYLVIA NIXON ([id number]) 1970 M Date Time Provider Department 05/28/24 JOSE GUADALUPE HERRERA JR During your visit today, we recorded the following information about you: Marie Amos 05/28/2024 11:56 AM Signed The provider will be on hospital service December 09, 2024. M for the patient about rescheduling his appointment to January 06, 2025. The patient was sent a [employer] message. Allergies As of Date: 05/28/2024 Noted Allergy Reaction BEE POLLEN 03/13/2019 14 - Other: See Comments 4 - Hives 7 - Swelling NETARSUDIL 07/22/2019 14 - Other: See Comments Comments: Redness, irritation in both eyes. DUST 08/17/2021 14 - Other: See Comments Date Reviewed: 03/11/2024 Reviewed by: Kareen Joel MA - Fully Assessed Reason for Visit: Appointment Rescheduled [1024] Prescriptions as of 05/28/2024 - latanoprost (XALATAN) 0.005 % ophthalmic solution Use 1 Drop in both eyes daily at bedtime. - dorzolamide-timolol (COSOPT) 22.3-6.8 mg/mL ophthalmic solution INSTILL 1 DROP INTO EACH EYE EVERY 12 HOURS - atropine 1 % ophthalmic solution Use 1 Drop in the left eye two times a day. - prednisoLONE acetate (PRED FORTE) 1 % ophthalmic suspension Use 1 Drop in the left eye four times daily. For use AFTER surgery. - ondansetron orally disintegrating (ZOFRAN ODT) 4 mg disintegrating tablet Dissolve 1 tablet by mouth every 8 hours as needed for nausea/vomiting. - carboxymethylcellulose sodium (REFRESH OPHTHALMIC) Use in eyes. Preservative free AT's - cholecalciferol, vitamin D3, (VITAMIN D3 ORAL) Take by mouth once daily. - MEN'S MULTI-VITAMIN ORAL Take by mouth. - levothyroxine 200 mcg cap Take 200 mcg by mouth daily before breakfast. - olmesartan (BENICAR) 20 mg tablet Take 20 mg by mouth once daily. - omeprazole (PRILOSEC) 40 mg capsule Take 20 mg by mouth once daily. - levothyroxine (SYNTHROID) 25 mcg tablet Take 25 mcg by mouth once daily. - SYNJARDY XR 25-1,000 mg XR tab Take 1 tablet by mouth once daily. - TRULICITY 3 mg/0.5 mL pen injector - cyanocobalamin, vitamin B-12, 2,000 mcg tab Take 2,000 mcg by mouth. - atorvastatin (LIPITOR) 10 mg tablet Take 10 mg by mouth daily at bedtime. - flaxseed oil (OMEGA 3 ORAL) Take 1 capsule by mouth every morning. - loratadine (CLARITIN) 10 mg tablet Take 10 mg by mouth. Problem List As Of Date 05/28/2024 Noted Resolved Primary open angle glaucoma (POAG) of both eyes*01/29/2020 Essential hypertension, benign [I10] 12/23/2021 Mixed hyperlipidemia [E78.2] 12/23/2021 JAMIE (obstructive sleep apnea) [G47.33] 12/23/2021 GERD (gastroesophageal reflux disease) [K21.9] 12/23/2021 Hypothyroidism [E03.9] 12/23/2021 Type 2 diabetes mellitus, without long-term cur*12/23/2021 Class 2 severe obesity due to excess calories w*12/23/2021 PONV (postoperative nausea and vomiting) [R11.2*04/04/2023 Cortical senile cataract of both eyes [H25.013] 08/21/2023 Encounter Status:Closed by MARIE AMOS on 05/28/24 Normal [facility] CNOVon 03-11-2024 CNOV Office Visit (WSTR ) ----- SYLVIA NIXON ([id number]) 1970 M Date Time Provider Department 03/11/24 1:00 PM ROBERTO CARLOS BABIN [facility] During your visit today, we recorded the following information about you: Temperature Pulse Respiration Blood pressure 97.6 degrees 82/minute 16/minute 134/72 Weight 120.1 kg Roberto Carlos Babin APRN.MEDICAL RECEPTION 03/11/2024 2:10 PM Signed Subjective Patient came in with complaints of left upper arm shoulder pain. Patient says his dog yanked his arm a couple weeks ago with the leash. Patient says has been consistently painful since. Patient says is not getting any better. Patient says he does have a little bit of tingling down towards the wrist. No loss of feeling or weakness. The history is provided by the patient. No algebraist was used. Shoulder Injury Review of Systems Constitutional: Negative. Skin: Negative. Objective Physical Exam Constitutional: Appearance: Normal appearance. Pulmonary: Effort: Pulmonary effort is normal. Musculoskeletal: Arms: Comments: Area marked above is where patient says he is more tender when he picks up items or lays on his arm. Also tender upon palpation. Datil area marked above is where he says he feels some tingling. Grasps are equal bilaterally no deformities or swelling or discoloration noted. Neurological: Mental Status: He is alert. PAST MEDICAL HISTORY Diagnosis Date Hypertension Hypothyroid Primary open angle glaucoma (POAG) of both eyes, severe stage Type 2 diabetes mellitus (HCC) PAST SURGICAL HISTORY Procedure Laterality Date LASER TRABECULOPLASTY Bilateral 04/04/19 OS, 04/17/19 OD OTHER [facility] OD 05/21/19, Revision with [facility] OD 01/26/21, 05/18/21,Revision with [facility] OS 01/28/20 PAST SURGICAL HISTORY OF 01/06/2022 GATT OD PAST SURGICAL HISTORY OF Right 02/17/2022 CILIARY BODY DESTRUCTION VIA CYCLOPHOTOCOAGULATION, TRANSSCLERAL PAST SURGICAL HISTORY OF left eye for glaucoma ALLERGIES Bee Pollen, Netarsudil, and Dust MEDICATIONS atropine 1 % ophthalmic solution Use 1 Drop in the left eye two times a day. latanoprost (XALATAN) 0.005 % ophthalmic solution Use 1 Drop in both eyes daily at bedtime. carboxymethylcellulose sodium (REFRESH OPHTHALMIC) Use in eyes. Preservative free AT's cholecalciferol, vitamin D3, (VITAMIN D3 ORAL) Take by mouth once daily. MEN'S MULTI-VITAMIN ORAL Take by mouth. levothyroxine 200 mcg cap Take 200 mcg by mouth daily before breakfast. olmesartan (BENICAR) 20 mg tablet Take 20 mg by mouth once daily. omeprazole (PRILOSEC) 40 mg capsule Take 20 mg by mouth once daily. levothyroxine (SYNTHROID) 25 mcg tablet Take 25 mcg by mouth once daily. TRULICITY 3 mg/0.5 mL pen injector cyanocobalamin, vitamin B-12, 2,000 mcg tab Take 2,000 mcg by mouth. atorvastatin (LIPITOR) 10 mg tablet Take 10 mg by mouth daily at bedtime. flaxseed oil (OMEGA 3 ORAL) Take 1 capsule by mouth every morning. loratadine (CLARITIN) 10 mg tablet Take 10 mg by mouth. dorzolamide-timolol (COSOPT) 22.3-6.8 mg/mL ophthalmic solution INSTILL 1 DROP INTO EACH EYE EVERY 12 HOURS (Patient not taking: Reported on 03/11/2024) prednisoLONE acetate (PRED FORTE) 1 % ophthalmic suspension Use 1 Drop in the left eye four times daily. For use AFTER surgery. (Patient not taking: Reported on 03/11/2024) ondansetron orally disintegrating (ZOFRAN ODT) 4 mg disintegrating tablet Dissolve 1 tablet by mouth every 8 hours as needed for nausea/vomiting. (Patient not taking: Reported on 03/11/2024) SYNJARDY XR 25-1,000 mg XR tab Take 1 tablet by mouth once daily. FAMILY HISTORY Problem Relation Age of Onset Cataract Mother Glaucoma Mother Hypertension Mother Kidney failure Father Cataract Maternal Grandmother Colon Cancer Maternal Grandfather Detached Retina No Family History Macular Degen No Family History Blindness No Family History Social History Tobacco Use Smoking status: Never Smokeless tobacco: Never Vaping Use Vaping status: Never Used Substance Use Topics Alcohol use: Not Currently Drug use: Never ASSESSMENT/PLAN: 1. Acute pain of left shoulder - ICD9: 719.41, ICD10: M25.512 - XR SHOULDER GENERAL 3V OR MORE AP/TRUE AP/OTHER LEFT * * * * Physician Interpretation * * * * LEFT SHOULDER X-RAY SERIES CLINICAL HISTORY: Dog pulled arm on these 2 weeks ago, pain in upper arm TECHNIQUE: AP, Grashey and axillary views COMPARISON: None available. RESULT: No fracture or malalignment. Joint spaces and articular surfaces are preserved. 1.3 cm oblong calcification in the soft tissues superior to the greater tuberosity of the humerus. IMPRESSION IMPRESSION: No acute fracture or malalignment. Incidental note of oblong calcification above the greater tuberosity of humerus consistent with calcific tendinitis. Stummel Selector: RYLAN Transcribe Date/Time: Mar 11 2024 1:37P D (more content not included)... Normal [facility] XR SHLDR >/=3V AP/MENG AP/OTH R LTon 03-11-2024 XR SHLDR >/=3V AP/MENG AP/OTHR LT * * *Final Report* * * DATE OF EXAM: Mar 11 2024 1:36PM WOX [id number] - XR SHLDR >/=3V AP/MENG AP/OTHR LT / PROCEDURE REASON: Acute pain of left shoulder * * * * Physician Interpretation * * * * LEFT SHOULDER X-RAY SERIES CLINICAL HISTORY: Dog pulled arm on these 2 weeks ago, pain in upper arm TECHNIQUE: AP, Grashey and axillary views COMPARISON: None available. RESULT: No fracture or malalignment. Joint spaces and articular surfaces are preserved. 1.3 cm oblong calcification in the soft tissues superior to the greater tuberosity of the humerus. IMPRESSION: No acute fracture or malalignment. Incidental note of oblong calcification above the greater tuberosity of humerus consistent with calcific tendinitis. Stummel Selector: Dr. TATTOFF Transcribe Date/Time: Mar 11 2024 1:37P Dictated by : BAILEY LIVE MD This examination was interpreted and the report reviewed and electronically signed by: BAILEY LIVE MD on Mar 11 2024 1:51PM EST [id number] Normal [facility] XR Shoulder - left 3 Viewson 03-11-2024 IMPRESSION: No acute fracture or malalignment. Incidental note of oblong calcification above the greater tuberosity of humerus consistent with calcific tendinitis. Stummel Selector: Dr. TATTOFF Transcribe Date/Time: Mar 11 2024 1:37P Dictated by : BAILEY LIVE MD This examination was interpreted and the report reviewed and electronically signed by: BAILEY LIVE MD on Mar 11 2024 1:51PM EST DIVISION OF RADIOLOGY * * *Final Report* * * DATE OF EXAM: Mar 11 2024 1:36PM WOX [id number] - XR SHLDR >/=3V AP/MENG AP/OTHR LT / PROCEDURE REASON: Acute pain of left shoulder * * * * Physician Interpretation * * * * LEFT SHOULDER X-RAY SERIES CLINICAL HISTORY: Dog pulled arm on these 2 weeks ago, pain in upper arm TECHNIQUE: AP, Grashey and axillary views COMPARISON: None available. RESULT: No fracture or malalignment. Joint spaces and articular surfaces are preserved. 1.3 cm oblong calcification in the soft tissues superior to the greater tuberosity of the humerus. DIVISION OF RADIOLOGY Provider, Annalisa Bernsteinnickie jean [place] - 03/11/2024 * * *Final Report* * * DATE OF EXAM: Mar 11 2024 1:36PM WOX [id number] - XR SHLDR >/=3V AP/MENG AP/OTHR LT / PROCEDURE REASON: Acute pain of left shoulder * * * * Physician Interpretation * * * * LEFT SHOULDER X-RAY SERIES CLINICAL HISTORY: Dog pulled arm on these 2 weeks ago, pain in upper arm TECHNIQUE: AP, Grashey and axillary views COMPARISON: None available. RESULT: No fracture or malalignment. Joint spaces and articular surfaces are preserved. 1.3 cm oblong calcification in the soft tissues superior to the greater tuberosity of the humerus. IMPRESSION IMPRESSION: No acute fracture or malalignment. Incidental note of oblong calcification above the greater tuberosity of humerus consistent with calcific tendinitis. [place] [facility] Transcribe Date/Time: Mar 11 2024 1:37P Dictated by : BAILEY LIVE MD This examination was interpreted and the report reviewed and electronically signed by: BAILEY LIVE MD on Mar 11 2024 1:51PM EST [facility] Radiology Study observation (narrative) [facility] XR Shoulder - left 3 ViewsOr dered By: f Provider on 03-11-2024 [facility] MR/BMS.IMBon 01-01-2024 MR/BMS.IMB [facility] [address] [place] [address] OFFICE VISIT Date of Service: 01/01/24 MR#: [id number] Acct: [id number] Name: SYLVIA INXON Rep #: [id number] : 1970 Provider: Dr. Melissa love MD Age/Sex: 53/M [place] [facility] [place] Status: Signed Intake Vital Signs 12/11/23 13:43 01/01/24 11:14 Height 6 ft 6 ft Weight: 265 lb 6 oz 262 lb BMI 35.9 35.5 BP 100/69 119/75 Blood Pressure Location Lt brachial Lt brachial Position Sitting Sitting Respiration 16 16 Pulse 82 88 Pulse Source Monitor Monitor Temp 98.6 F 98.6 F Temp Source Temporal Temporal Pulse Oximetry (%) 94 97 Oxygen Delivery Method room air room air Intake Visit Reasons: Sore throat Chief Complaint: sore throat Cruise Coordinator Required: No Accompanied by: Self Is patient in pain?: No Allergies bee venom protein (honey bee) Allergy (Severe, Verified 01/01/24 11:12) Anaphylaxis Environmental Allergies: Uncoded Allergy (Severe, Verified 01/01/24 11:12) other Medications ???Medication ???Instructions ???Recorded ???Confirmed ???Type cholecalciferol (vitamin D3) 25 25 mcg PO DAILY 11/17/22 01/01/24 History mcg (1,000 unit) capsule dorzolamide 22.3 mg-timolol 6.8 1 drp ophthalmic (eye) BID 11/17/22 01/01/24 History mg/mL eye drops ginko biloba 120 mg PO DAILY 11/17/22 01/01/24 History latanoprost 0.005 % eye drops 1 drp ophthalmic (eye) DAILY 11/17/22 01/01/24 History loratadine 10 mg tablet (Claritin) 10 mg PO QHS 11/17/22 01/01/24 History multivitamin (One Daily 1 tab PO DAILY 11/17/22 01/01/24 History Multivitamin tablet) levothyroxine 200 mcg capsule 200 mcg PO DAILY #90 caps 12/19/22 01/01/24 Rx levothyroxine 25 mcg capsule 25 mcg PO DAILY #90 caps 12/19/22 01/01/24 Rx olmesartan 20 mg tablet 20 mg PO DAILY #90 tabs 12/19/22 01/01/24 Rx omega 3-oym-gaa-fish oil 300 1 cap PO DAILY 12/27/22 01/01/24 History mg-1,000 mg capsule (Fish Oil) empagliflozin 25 mg-metformin ER 1 tab PO QHS 02/02/23 01/01/24 History 1,000 mg tablet,extended release 24hr (Synjardy XR) epinephrine 0.3 mg/0.3 mL 0.3 mg IM Q15M PRN allergic 02/02/23 01/01/24 History injection, auto-injector (EpiPen) reaction semaglutide 0.25 mg or 0.5 mg (2 0.5 mg (0.736 mL) subcut QWEEK #3 12/11/23 01/01/24 Rx mg/3 mL) subcutaneous pen injector mL omeprazole magnesium 20 mg 20 mg PO DAILY #90 tabs 12/27/23 01/01/24 Rx tablet,delayed release (Prilosec OTC) azithromycin 250 mg tablet See Rx Instructions PO .COMPLEX #6 01/01/24 01/01/24 Rx tabs PFSH Medical History (Updated 01/01/24 @ 11:[address] Melissa Gatica MD) Acute URI Encounter for wellness examination in adult Wears glasses Thyroid disease PONV (postoperative nausea and vomiting) Gastric reflux Sleep apnea CPAP (continuous positive airway pressure) dependence Non-smoker Hypertension Cataracts, both eyes Back problem Surgical History History of eye surgery Hx of colonoscopy Family History Grandfather Colon cancer Sister Colon polyps Other Alcoholism Angina at rest Diabetes Hypertension Kidney disease Myocardial infarction Social History adopted: No household members: family housing: house number of children: 4 current occupational status: employed current occupation: [employer] current occupational exposures/hazards: No pets and animals: Yes pets and animals: cat(s) and dog(s) leisure activities: music, hunting and reading history of recent travel: No sexually active: Yes Smoking Status: Never smoker alcohol intake: former substance use type: does not use well-balanced diet: rarely or never caffeine: Yes eating out: 1-3 times/week during the past year weight has: remained stable what type of physical activity do you participate in: none nellie/restorationist: Sabianism seatbelt use: always do you feel safe at home: Yes HPI HPI Chief Complaint: sore throat Details: SYLVIA NIXON, is a 53 M who presents to the office today for acute care follow-up visit. Cough, congestion, nasal drainage. Started with sore throat which is now better. No high-grade fever but low-grade temps at home. Been a little over a week now. No other sick contacts at home. Coughing out some yellow-green and yellow-green drainage from the nose and down the back of the throat. Using NyQuil and some Mucinex [id number]. Has type 2 diabetes. Also had concern about Ozempic. He had been on Trulicity and has been on it since I have known him. 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 He lost part of his vision in the right eye and really does not see well from julito (more content not included)... Normal [facility] MR/BMS.IMBon 12-11-2023 MR/BMS.B [facility] [address] [place] [address] OFFICE VISIT Date of Service: 12/11/23 MR#: [id number] Acct: [id number] Name: SYLVIA NIXON Rep #: [id number] : 1970 Provider: Dr. Melissa love MD Age/Sex: 53/M Location: [facility] Status: Signed Intake Vital Signs 05/15/23 14:16 12/11/23 13:43 Height 6 ft 6 ft Weight: 265 lb 6 oz 265 lb 6 oz BMI 35.9 35.9 BP 115/78 100/69 Blood Pressure Location Lt brachial Lt brachial Position Sitting Sitting Respiration 16 16 Pulse 86 82 Pulse Source Monitor Monitor Temp 97.8 F 98.6 F Temp Source Temporal Temporal Pulse Oximetry (%) 96 94 Oxygen Delivery Method room air room air Intake Visit Reasons: 6 M FU Chief Complaint: 6m f/u Cruise Coordinator Required: No Accompanied by: Self Is patient in pain?: No Allergies bee venom protein (honey bee) Allergy (Severe, Verified 12/11/23 13:38) Anaphylaxis Environmental Allergies: Uncoded Allergy (Severe, Verified 12/11/23 13:38) other Medications ???Medication ???Instructions ???Recorded ???Confirmed ???Type cholecalciferol (vitamin D3) 25 25 mcg PO DAILY 11/17/22 12/11/23 History mcg (1,000 unit) capsule dorzolamide 22.3 mg-timolol 6.8 1 drp ophthalmic (eye) BID 11/17/22 12/11/23 History mg/mL eye drops ginko biloba 120 mg PO DAILY 11/17/22 12/11/23 History latanoprost 0.005 % eye drops 1 drp ophthalmic (eye) DAILY 11/17/22 12/11/23 History loratadine 10 mg tablet (Claritin) 10 mg PO QHS 11/17/22 12/11/23 History multivitamin (One Daily 1 tab PO DAILY 11/17/22 12/11/23 History Multivitamin tablet) levothyroxine 200 mcg capsule 200 mcg PO DAILY #90 caps 12/19/22 12/11/23 Rx levothyroxine 25 mcg capsule 25 mcg PO DAILY #90 caps 12/19/22 12/11/23 Rx olmesartan 20 mg tablet 20 mg PO DAILY #90 tabs 12/19/22 12/11/23 Rx omeprazole magnesium 20 mg 20 mg PO DAILY #90 tabs 12/21/22 12/11/23 Rx tablet,delayed release (Prilosec OTC) omega 9-odn-msn-fish oil 300 1 cap PO DAILY 12/27/22 12/11/23 History mg-1,000 mg capsule (Fish Oil) empagliflozin 25 mg-metformin ER 1 tab PO QHS 02/02/23 12/11/23 History 1,000 mg tablet,extended release 24hr (Synjardy XR) epinephrine 0.3 mg/0.3 mL 0.3 mg IM Q15M PRN allergic 02/02/23 12/11/23 History injection, auto-injector (EpiPen) reaction semaglutide 0.25 mg or 0.5 mg (2 0.5 mg (0.736 mL) subcut QWEEK #3 12/11/23 12/11/23 Rx mg/3 mL) subcutaneous pen injector mL PFSH Medical History (Updated 12/11/23 @ 14:[address] Melissa Gatica MD) Encounter for wellness examination in adult Wears glasses Thyroid disease PONV (postoperative nausea and vomiting) Gastric reflux Sleep apnea CPAP (continuous positive airway pressure) dependence Non-smoker Hypertension Cataracts, both eyes Back problem Surgical History History of eye surgery Hx of colonoscopy Family History Grandfather Colon cancer Sister Colon polyps Other Alcoholism Angina at rest Diabetes Hypertension Kidney disease Myocardial infarction Social History adopted: No household members: family housing: house number of children: 4 current occupational status: employed current occupation: [employer] current occupational exposures/hazards: No pets and animals: Yes pets and animals: cat(s) and dog(s) leisure activities: music, hunting and reading history of recent travel: No sexually active: Yes Smoking Status: Never smoker alcohol intake: former substance use type: does not use well-balanced diet: rarely or never caffeine: Yes eating out: 1-3 times/week during the past year weight has: remained stable what type of physical activity do you participate in: none nellie/restorationist: Sabianism seatbelt use: always do you feel safe at home: Yes HPI HPI Chief Complaint: 6m f/u Details: SYLVIA NIXON, is a 53 M who presents to the office today for follow-up. 53-year-old gentleman who has a history of hypothyroidism, obesity, hypertension, type 2 diabetes, history of colon anup yps. He is up-to-date currently on colonoscopy. He is on levothyroxine to 25 mcg daily. For blood pressure he is on olmesartan 20 mg daily. For diabetes is on dulaglutide (Trulicity) however he has been off of this now for several weeks as pharmacy has been out of supply and has not gotten it back in. He states he keeps waiting for them to get back in stock. He did not notify this office. In addition he takes empagliflozin???metformin or Synjardy. Otherwise other medications include vitamin D, several eyedrops managed by ophthalmology and omeprazole as well as multivitamin and Claritin. Gener (more content not included)... Normal [facility] Absolute lymphocyte countOrd ered By: Dr. Gatica on 12-02-2022 Lymphocytes Auto (Unsp spec) [#/Vol] 2.00 10*3/uL 0.83-4.51 [facility] Basophil percentageOrdered B y: Dr. Gatica on 12-02-2022 Basophils/100 WBC (Bld) 1.0 % 0-1 [facility] Bilirubin [Mass/Vol] 0.60 mg/dL 0.20-1.00 [facility] Comment on above: For patients on eltr ombopag therapy, use of Dimension Harmans TBIL is not recommended. Chloride [Moles/Vol] 103 mmol/L 98-107 [facility] Cholesterol [Mass/Vol] 213 mg/dL <200 [facility] Comment on above: <200 mg/dL Desirable 200-240 mg/dL Borderline >240 mg/dL High Risk Eosinophils/100 WBC (Bld) 2.5 % 0-5 [facility] Glucose [Mass/Vol] 166 mg/dL 74-106 [facility] Comment on above: Fasting Glucose resu lt greater than or equal to 126 mg/dL suggests DIABETES MELLITUS per A.D.A. criteria. Neutrophils (Bld) [#/Vol] 4.1 10*3/uL 2.0-7.7 [facility] Neutrophils/100 WBC (Bld) 58.4 % 47-70 [facility] Potassium [Moles/Vol] 4.7 mmol/L 3.5-5.1 [facility] Comment on above: Moderate Hemolysis, Result may be falsely increased. Protein [Mass/Vol] 6.9 g/dL 6.4-8.2 [facility] Sodium [Moles/Vol] 137 mmol/L 136-145 [facility] Triglyceride [Mass/Vol] 410 mg/dL <199 [facility] Comment on above: The drugs N-Acetylcy steine and Metamizole may falsely depress this assay. TRIGLYCERIDE IS GREATER THAN 400 mg/dL. LDL RESULT IS INVALID AND WILL NOT BE REPORTED.Serum Triglycerides Reference Interval Normal <150 mg/dL Borderline high 150 - 199 mg/dL High 200 - 499 mg/dL Very High > or = 500 mg/dL WBC (Bld) [#/Vol] 7.1 10*3/uL 4.4-11.0 [facility] Blood erythrocytes count (nu mber/volume)Ordered By: Dr. Gatica on 12-02-2022 RBC (Bld) [#/Vol] 6.07 10*6/uL 4.6-6.2 [facility] Blood hemoglobin measurement (mass/volume)Ordered By: Dr. Gatica on 12-02-2022 Hemoglobin (Bld) [Mass/Vol] 16.8 g/dL 13.0-16.5 [facility] Blood lymphocytes/100 leukoc ytesOrdered By: Dr. Gatica on 12-02-2022 Lymphocytes/100 WBC (Bld) 28.3 % 19-41 [facility] Blood monocytes/100 leukocyt esOrdered By: Dr. Gatica on 12-02-2022 Monocytes/100 WBC (Bld) 9.1 % 0-10 [facility] Blood platelet mean volumeOr dered By: Dr. Gatica on 12-02-2022 Platelet mean volume (Bld) [Entitic vol] 10.6 fL 6.2-12.0 [facility] Determination of erythrocyte mean corpuscular volume (MCV)Ordered By: Dr. Gatica on 12-02-2022 MCV (RBC) [Entitic vol] 86.0 fL 80-94 [facility] Hematocrit Auto (Bld) [Volum e fraction]Ordered By: Dr. Gatica on 12-02-2022 Hematocrit (Bld) [Volume fraction] 52.2 % 40-54 [facility] Laboratory - Chemistry and C hemistry - challengeOrdered By: Dr. Gatica on 12-02-2022 ALP [Catalytic activity/Vol] 131 U/L 45-117 [facility] ALT [Catalytic activity/Vol] 33 U/L 16-61 [facility] CO2 [Moles/Vol] 24.0 mmol/L 21.0-32.0 [facility] Free T4 [Mass/Vol] 0.95 ng/dL 0.76-1.46 [facility] Globulin (S) [Mass/Vol] 3.6 g/dL 2.2-4.2 [facility] Urea nitrogen/Creatinine [Mass ratio] 13.9 mg/mg 10-20 [facility] Laboratory - Hematology and Cell countsOrdered By: Dr. Gatica on 12-02-2022 Erythrocyte distribution width (RBC) [Entitic vol] 40.6 fL 35.1-43.9 [facility] Erythrocyte distribution width (RBC) [Ratio] 13.0 % 11.6-14.6 [facility] Immature granulocytes/100 WBC (Bld) 0.700 % 0.0-0.9 [facility] Comment on above: IG% - Immature Granu locytes (promyelocytes, myelocytes and metamyelocytes) > 1% indicates that a LEFT SHIFT is Present. MCH (RBC) [Entitic mass] 27.7 pg 27.0-32.0 [facility] Nucleated RBC/100 WBC (Bld) [Ratio] 0 % 0-5 [facility] MCHC Auto (RBC) [Mass/Vol]Or dered By: Dr. Gatica on 12-02-2022 MCHC (RBC) [Mass/Vol] 32.2 g/dL 32-36 [facility] No Panel InformationOrdered By: Dr. Gatica on 12-02-2022 Estimated GFR (MDRD) Amer 100 mL/min >60 [facility] Comment on above: GFR Calc Estimated GFR (MDRD) Non-Af Amer 83 mL/min >60 [facility] Comment on above: Non- GFR Calc Free Triiodothyronine (T3) pg/dL 1.9 pg/mL 2.18-3.98 [facility] Insulin Level 8.4 mU/L 2.6-37.6 [facility] Prostate Specific Antigen Screen 2.10 ng/mL 0.00-4.00 [facility] Comment on above: This test was perfor med using the TPSA assay method for the[place] chemistry system. Values obtained with differentassay methods cannot be used interchangably.When changing PSA assays in the course of monitoring apatient, additional sequential testing should be carriedout to confirm baseline values. Thyroid Stimulating Hormone (TSH) 12.80 uIU/mL 0.358-3.74 [facility] Vitamin D 25-Hydroxy 51.4 ng/mL [facility] Comment on above: Vitamin D 25(OH) Sta tus Range Deficiency <20 ng/mL (50nmol/L) Insufficiency 20 - 30 ng/mL (50 - 75 nmol/L) Sufficiency 30 - 100 ng/mL (75 - 250 nmol/L) Toxicity >100 ng/mL (>250 nmol/L) Platelets bldOrdered By: Dr. Gatica on 12-02-2022 Platelets (Bld) [#/Vol] 204 10*3/uL 150-450 [facility] Serum or plasma albumin pearl urement (mass/volume)Ordered By: Dr. Gatica on 12-02-2022 Albumin [Mass/Vol] 3.3 g/dL 3.2-5.0 [facility] Serum or plasma albumin/glob ulin mass ratioOrdered By: Dr. Gatica on 12-02-2022 Albumin/Globulin [Mass ratio] 0.9 {ratio} 0.9-2.4 [facility] Serum or plasma calcium pearl urement (mass/volume)Ordered By: Dr. Gatica on 12-02-2022 Calcium [Mass/Vol] 8.9 mg/dL 8.5-10.1 [facility] Serum or plasma cholesterol in HDL measurement (mass/volume)Ordered By: Dr. Gatica on 12-02-2022 Cholesterol in HDL [Mass/Vol] 46 mg/dL >40 [facility] Comment on above: The drugs N-Acetylcy steine and Metamizole may falsely depress this assay. Reference Range HDL <40 mg/dL Low HDL Cholesterol HDL >or= 60 mg/dL High HDL Cholesterol Serum or plasma cholesterol in VLDL measurement (mass/volume)Ordered By: Dr. Gatica on 12-02-2022 Cholesterol in VLDL [Mass/Vol] TNP [facility] Comment on above: Test not performed Serum or plasma creatinine m easurement (mass/volume)Ordered By: Dr. Gatica on 12-02-2022 Creatinine [Mass/Vol] 1.01 mg/dL 0.70-1.30 [facility] Comment on above: The validity of the calculated GFR & GFRAA in patients over 70 years has not been determined. Clinical correlation is essential. Serum or plasma low density lipoprotein (LDL) cholesterol measurement (mass/volume)Ordered By: Dr. Gatica on 12-02-2022 Cholesterol in LDL [Mass/Vol] TNP [facility] Comment on above: Test not performed Serum or plasma urea nitroge n measurement (mass/volume)Ordered By: Dr. Gatica on 12-02-2022 Urea nitrogen [Mass/Vol] 14 mg/dL 7-18 [facility] Thin prep Papanicolaou smear with manual screeningOrdered By: Dr. Gatica on 12-02-2022 Thin prep Papanicolaou smear with manual screening 24 U/L 15- [facility] Comment on above: Moderate Hemolysis, Result may be falsely increased. Thin prep Papanicolaou smear with manual screening 10 5-15 [facility] Whole blood hemoglobin A1c/t otal hemoglobin ratio (mass fraction)Ordered By: Dr. Gatica on 12-02-2022 HbA1c (Bld) [Mass fraction] 9.1 % 3.8-5.6 [facility] Comment on above: Normal < 5.7 % Predi abetic 5.7 - 6.4 % Diabetic >or= 6.5 % Please note range changes. No Panel Information [facility] Vital Signs Date Time Vital Sign Value Performing Clinician Facility 02-12-2025 10:19-0400 Body mass index (BMI) [Ratio] 35.26 kg/m2 Laura Qing 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 Work Phone: [facility] 02-12-2025 10:19-0400 Body weight 117.94 kg Laura Qnig 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 Work Phone: [facility] 02-12-2025 10:19-0400 Diastolic blood pressure 76 mm[Hg] Laura Qing 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 Work Phone: [facility] 02-12-2025 10:19-0400 Heart rate 92 /min Laura Qing 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 Work Phone: [facility] 02-12-2025 10:19-0400 Respiratory rate 16 /min Laura Qing 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 Work Phone: [facility] 02-12-2025 10:19-0400 SaO2% (BldA) [Mass fraction] 94 % Laura Qing 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 Work Phone: [facility] 02-12-2025 10:19-0400 Systolic blood pressure 117 mm[Hg] Laura Qing 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 Work Phone: [facility] 09-11-2024 15:36-0400 Body mass index (BMI) [Ratio] 35.19 kg/m2 Aries Moandres 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 Work Phone: [facility] 09-11-2024 15:36-0400 Body temperature 98.01 [degF] Aries Moomaw 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 Work Phone: [facility] 09-11-2024 15:36-0400 Body weight 117.7 kg Aries Moomaw 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 Work Phone: [facility] 09-11-2024 15:36-0400 Diastolic blood pressure 72 mm[Hg] Aries Moomaw 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 Work Phone: [facility] 09-11-2024 15:36-0400 Heart rate 91 /min Aries Moomaw 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 Work Phone: [facility] 09-11-2024 15:36-0400 Respiratory rate 16 /min Aries Moomaw 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 Work Phone: [facility] 09-11-2024 15:36-0400 SaO2% (BldA) [Mass fraction] 97 % Aries Moomaw 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 Work Phone: [facility] 09-11-2024 15:36-0400 Systolic blood pressure 104 mm[Hg] Aries Moomaw 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 Work Phone: [facility] 03-11-2024 13:13-0400 Body mass index (BMI) [Ratio] 35.91 kg/m2 Roberto Carlos Babin APRN.MEDICAL RECEPTION Work Phone: [facility] 03-11-2024 13:13-0400 Body temperature 97.59 [degF] Roberto Carlos Babin 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 Work Phone: [facility] 03-11-2024 13:13-0400 Body weight 120.1 kg Roberto Carlos Babin 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 Work Phone: [facility] 03-11-2024 13:13-0400 Diastolic blood pressure 72 mm[Hg] Roberto Carlos Babin 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 Work Phone: [facility] 03-11-2024 13:13-0400 Heart rate 82 /min Roberto Carlos Babin APRN.MEDICAL RECEPTION Work Phone: [facility] 03-11-2024 13:13-0400 Respiratory rate 16 /min Roberto Carlos Babin KAM.MEDICAL RECEPTION Work Phone: [facility] 03-11-2024 13:13-0400 SaO2% (BldA) [Mass fraction] 95 % Roberto Carlos Shin HUMPHREY.MEDICAL RECEPTION Work Phone: [facility] 03-11-2024 13:13-0400 Systolic blood pressure 134 mm[Hg] Roberto Carlos Babin APRN.MEDICAL RECEPTION Work Phone: [facility] 12-04-2023 08:49-0400 Body mass index (BMI) [Ratio] 35.91 kg/m2 Jose Guadalupe Herrera Jr., MD Work Phone: [facility] 12-04-2023 08:49-0400 Body weight 120.11 kg Jose Guadalupe Herrera Jr., MD Work Phone: [facility] 12-04-2023 08:49-0400 Diastolic blood pressure 68 mm[Hg] Jose Guadalupe Herrera Jr., MD Work Phone: [facility] 12-04-2023 08:49-0400 Heart rate 84 /min Jose Guadalupe Herrera Jr., MD Work Phone: [facility] 12-04-2023 08:49-0400 Respiratory rate 16 /min Jose Guadalupe Herrera Jr., MD Work Phone: [facility] 12-04-2023 08:49-0400 SaO2% (BldA) [Mass fraction] 97 % Jose Guadalupe Herrera Jr., MD Work Phone: [facility] 12-04-2023 08:49-0400 Systolic blood pressure 122 mm[Hg] Jose Guadalupe Herrera Jr., MD Work Phone: [facility] 04-04-2023 14:58-0400 Body height 182.9 cm [facility] 04-04-2023 14:58-0400 Body weight 119.75 kg [facility] 11-30-2022 10:28-0400 Body height 182.9 cm [facility] 1 Work Phone: [facility] 11-30-2022 10:28-0400 Body temperature 97.3 [degF] Pacc 1 Work Phone: [facility] 11-30-2022 10:28-0400 Body weight 119.75 kg Pacc 1 Work Phone: [facility] 11-30-2022 10:28-0400 Diastolic blood pressure 70 mm[Hg] Pacc 1 Work Phone: [facility] 11-30-2022 10:28-0400 Heart rate 99 /min Pacc 1 Work Phone: [facility] 11-30-2022 10:28-0400 Respiratory rate 18 /min Pacc 1 Work Phone: [facility] 11-30-2022 10:28-0400 SaO2% (BldA) [Mass fraction] 97 % Pacc 1 Work Phone: [facility] 11-30-2022 10:28-0400 Systolic blood pressure 108 mm[Hg] Pacc 1 Work Phone: [facility] 10-27-2022 14:13-0400 Body height 182.[address] Melissa Gatica Work Phone: [facility] 10-27-2022 14:13-0400 Body mass index (BMI) [Ratio] 35.6 kg/m2 Dr. Melissa Gatica Work Phone: [facility] 10-27-2022 14:13-0400 Body temperature 98.6 [degF] Dr. Melissa Gatica Work Phone: [facility] 10-27-2022 14:13-0400 Body weight 119.[address] Melissa Gatica Work Phone: [facility] 10-27-2022 14:13-0400 Diastolic blood pressure 81 mm[Hg] Dr. Melissa Gatica Work Phone: [facility] 10-27-2022 14:13-0400 Heart rate 88 /min Dr. Melissa Gatica Work Phone: [facility] 10-27-2022 14:13-0400 Respiratory rate 18 /min Dr. Melissa Gatica Work Phone: [facility] 10-27-2022 14:13-0400 SaO2% (BldA) [Mass fraction] 96 % Dr. Melissa Gatica Work Phone: [facility] 10-27-2022 14:13-0400 Systolic blood pressure 115 mm[Hg] Dr. Melissa Gatica Work Phone: [facility] 10-10-2022 10:25-0400 Body temperature 97.9 [degF] Jose Guadalupe Herrera Jr., MD Work Phone: [facility] 10-10-2022 10:25-0400 Body weight 118.39 kg Jose Guadalupe Herrera Jr., MD Work Phone: [facility] 10-10-2022 10:25-0400 Diastolic blood pressure 76 mm[Hg] Jose Guadalupe Herrera Jr., MD Work Phone: [facility] 10-10-2022 10:25-0400 Heart rate 92 /min Jose Guadalupe Herrera Jr., MD Work Phone: [facility] 10-10-2022 10:25-0400 Respiratory rate 16 /min Jose Guadalupe Herrera Jr., MD Work Phone: [facility] 10-10-2022 10:25-0400 SaO2% (BldA) [Mass fraction] 97 % Jose Guadalupe Herrera Jr., MD Work Phone: [facility] 10-10-2022 10:25-0400 Systolic blood pressure 114 mm[Hg] Jose Guadalupe Herrera Jr., MD Work Phone: [facility] 05-30-2022 16:22-0500 Body temperature 96.21 [degF] Roberto Carlos Babin APRN.CNP Work Phone: [facility] 05-30-2022 16:22-0500 Body weight 119.11 kg Roberto Carlos Babin APRN.[employer] Work Phone: [facility] 05-30-2022 16:22-0500 Diastolic blood pressure 84 mm[Hg] Roberto Carlos Babin APRN.[employer] Work Phone: [facility] 05-30-2022 16:22-0500 Heart rate 99 /min Roberto Carlos Babin APRN.[employer] Work Phone: [facility] 05-30-2022 16:22-0500 Respiratory rate 18 /min Roberto Carlos Babin APRN.[employer] Work Phone: [facility] 05-30-2022 16:22-0500 SaO2% (BldA) [Mass fraction] 98 % Roberto Carlos Babin APRN.[employer] Work Phone: [facility] 05-30-2022 16:22-0500 Systolic blood pressure 122 mm[Hg] Roberto Carlos Babin APRN.[employer] Work Phone: [facility] 12-22-2021 15:28-0400 Body height 182.9 cm Pacc 1 Work Phone: [facility] 12-22-2021 15:28-0400 Body temperature 97.9 [degF] Pacc 1 Work Phone: [facility] 12-22-2021 15:28-0400 Body weight 119.75 kg Pacc 1 Work Phone: [facility] 12-22-2021 15:28-0400 Diastolic blood pressure 80 mm[Hg] Pacc 1 Work Phone: [facility] 12-22-2021 15:28-0400 Heart rate 98 /min Pacc 1 Work Phone: [facility] 12-22-2021 15:28-0400 Respiratory rate 18 /min Pacc 1 Work Phone: [facility] 12-22-2021 15:28-0400 SaO2% (BldA) [Mass fraction] 98 % Pacc 1 Work Phone: [facility] 12-22-2021 15:28-0400 Systolic blood pressure 100 mm[Hg] Pac 1 Work Phone: [facility] Encounters Encounter Date Encounter Type Care Provider Facility Start: 02-12-2025 End: 02-12-2025 Patient encounter procedure Lauratorie Longo APRN.[employer]CEPTION Work Phone: Neurology Comment on above: JAMIE on CPAP (Primary Dx) Start: 02-12-2025 ambulatory MELISSA GATICA Facili ty:[facility] Start: 01-01-2025 End: 01-01-2025 Refill Valery Ashraf MD Work Phone: Ophthalmology Comment on above: Refill Request Start: 09-11-2024 End: 09-11-2024 Subsequent hospital visit by physician Aimee [facility] Miguel Work Phone: Radiology Comment on above: Rib pain on left marcela e [R07.81] Start: 09-11-2024 End: 09-11-2024 ambulatory MELISSA GATICA Facility:[facility] Start: 09-11-2024 End: 09-11-2024 Office outpatient new 30 minutes Aries Saleem APRN.[employer]ICAL RECEPTION Work Phone: [facility] Comment on above: Rib pain on left marcela e (Primary Dx) Start: 09-02-2024 End: 09-02-2024 ambulatory KRISTINE SULLIVAN Facility:[facility] Start: 09-02-2024 End: 09-02-2024 Patient encounter procedure Kritsine Sullivan PA-C Work Phone: Orthopaedics Comment on above: Calcific tendinitis of left shoulder (Primary Dx); Acute pain of left shoulder Start: 07-29-2024 End: 07-29-2024 ambulatory VALERY ASHRAF Facility:[facility] Start: 07-29-2024 End: 07-29-2024 Patient encounter procedure Valery Ashraf MD Work Phone: Ophthalmology Comment on above: Primary open angle g laucoma (POAG) of both eyes, severe stage (Primary Dx); Combined forms of age-related cataract of both eyes; Type 2 diabetes mellitus without retinopathy (HCC) Start: 06-28-2024 End: 06-28-2024 ambulatory [facility] Facility:[facility] Start: 06-24-2024 End: 06-24-2024 ambulatory [facility] Facility:[facility] Start: 04-16-2024 End: 04-16-2024 Refill Valery Ashraf MD Work Phone: Ophthalmology Comment on above: Refill Request Start: 03-11-2024 End: 03-11-2024 Subsequent hospital visit by physician Xr [facility] Work Phone: Radiology Comment on above: Acute pain of left s trang [M25.512] Start: 03-11-2024 End: 03-11-2024 ambulatory [facility] Facility:[facility] Start: 03-11-2024 End: 03-11-2024 Patient encounter procedure Roberto Carlos Babin APRN.[facility] Work Phone: [facility] Comment on above: Acute pain of left s trang (Primary Dx) Start: 01-01-2024 End: 01-01-2024 ambulatory [facility] Facility:[facility] Start: 12-25-2023 End: 12-25-2023 Patient encounter procedure Valery Ashraf MD Work Phone: Ophthalmology Comment on above: Primary open angle g laucoma (POAG) of both eyes, severe stage (Primary Dx); Meibomian gland dysfunction (MGD) of upper and lower lids of both eyes Start: 12-11-2023 End: 12-11-2023 ambulatory [facility] Facility:[facility] Start: 12-07-2023 Refill Valery randolph MD Work Phone: Ophthalmology Comment on above: Refill Request Start: 12-04-2023 End: 12-04-2023 Patient encounter procedure Jose Guadalupe Herrera MD Work Phone: Neurology Comment on above: JAMIE (obstructive sle ep apnea) (Primary Dx); Class 2 obesity with body mass index (BMI) of 35.0 to 35.9 in adult, unspecified obesity type, unspecified whether serious comorbidity present Start: 11-30-2023 Telephone encounter Jose Guadalupe Herrera MD Work Phone: Neurology Start: 08-21-2023 End: 08-21-2023 Patient encounter procedure Valery Ashraf MD Work Phone: Ophthalmology Comment on above: Primary open angle g laucoma (POAG) of both eyes, severe stage (Primary Dx); Cortical senile cataract of both eyes Start: 05-15-2023 End: 05-15-2023 Patient encounter procedure Valery Ashraf MD Work Phone: Ophthalmology Comment on above: Follow-up examinatio n after eye surgery (Primary Dx); Primary open angle glaucoma (POAG) of both eyes, severe stage Start: 04-04-2023 End: 04-04-2023 Admission to [facility] [employer] [facility] Start: 04-04-2023 End: 04-04-2023 Preprocedural examination done [facility] Work Phone: Start: 04-04-2023 End: 04-04-2023 ambulatory Elsy FLANAGAN Work Phone: Pre Anesthesia Comment on above: Pre-op evaluation (P rimary Dx); Essential hypertension, benign; PONV (postoperative nausea and vomiting); Mixed hyperlipidemia; JAMIE (obstructive sleep apnea); Gastroesophageal reflux disease, unspecified whether esophagitis present; Hypothyroidism, unspecified type; Type 2 diabetes mellitus with other specified complication, without long-term current use of insulin (HCC); Class 2 severe obesity due to excess calories with serious comorbidity and body mass index (BMI) of 35.0 to 35.9 in adult Pre-operative instru ctions Start: 04-04-2023 E-mail encounter fro m caregiver Elsy FLANAGAN Work Phone: [employer] Start: 04-03-2023 End: 04-03-2023 Patient encounter procedure Valery Ashraf MD Work Phone: Ophthalmology Comment on above: Primary open angle g laucoma (POAG) of both eyes, severe stage (Primary Dx) Start: 02-27-2023 End: 02-27-2023 Patient encounter procedure Valery Ashraf MD Work Phone: Ophthalmology Comment on above: Follow-up examinatio n after eye surgery (Primary Dx) Start: 01-24-2023 End: 01-24-2023 Patient encounter procedure Valery Ashraf MD Work Phone: Ophthalmology Comment on above: Follow-up examinatio n after eye surgery (Primary Dx) Start: 12-27-2022 End: 12-27-2022 Patient encounter procedure Valery Ashraf MD Work Phone: Ophthalmology Comment on above: Follow-up examinatio n after eye surgery (Primary Dx) Start: 12-13-2022 End: 12-13-2022 Patient encounter procedure Valery Ashraf MD Work Phone: Ophthalmology Comment on above: Follow-up examinatio n after eye surgery Start: 12-09-2022 End: 12-09-2022 Patient encounter procedure Valery Ashraf MD Work Phone: Ophthalmology Comment on above: Follow-up examinatio n after eye surgery (Primary Dx); Primary open angle glaucoma (POAG) of both eyes, severe stage Start: 12-05-2022 Telephone encounter Valery Ashraf MD Work Phone: Ophthalmology Comment on above: Appointment Patient Question Request for outside medical records (A1c ) Start: 12-02-2022 End: 12-02-[address] Melissa Gatica Work Phone: [facility] Work Phone: Start: 12-02-2022 End: 12-02-[address] Melissa Gatica Work Phone: [facility] Start: 11-30-2022 End: 11-30-2022 Admission to [place] [id number] Work Phone: [facility] Start: 11-30-2022 End: 11-30-2022 ambulatory [place] [address] Work Phone: Pre Anesthesia Comment on above: Pre-operative examin ation (Primary Dx); JAMIE (obstructive sleep apnea); Class 2 severe obesity due to excess calories with serious comorbidity and body mass index (BMI) of 35.0 to 35.9 in adult ([facility]); Essential hypertension, benign; Gastroesophageal reflux disease, unspecified whether esophagitis present; Hypothyroidism, unspecified type; Mixed hyperlipidemia; Type 2 diabetes mellitus with other specified complication, without long-term current use of insulin ([facility]) Start: 11-30-2022 End: 11-30-2022 Preprocedural examination done [place] [address] Work Phone: Pre Anesthesia Start: 11-17-2022 Non-patient / Non-visit Dr. Monik Gatica Work Phone: [facility] Start: 11-09-2022 Non-patient / Non-visit Dr. Monik Gatica Work Phone: [facility] Start: 10-31-2022 End: 10-31-2022 Patient encounter procedure Valery Ashraf MD Work Phone: Ophthalmology Comment on above: Primary open angle g laucoma (POAG) of both eyes, severe stage (Primary Dx) Start: 10-27-2022 End: 10-27-[address] Melissa Gatica Work Phone: [facility] Start: 10-13-2022 Telephone encounter Jose Guadalupe Herrera MD Work Phone: Neurology Comment on above: Orders Start: 10-11-2022 Telephone encounter Jose Guadalupe Herrera MD Work Phone: Neurology Comment on above: Orders Start: 10-10-2022 End: 10-10-2022 Patient encounter procedure Jose Guadalupe Herrera MD Work Phone: Neurology Comment on above: Obstructive sleep ap bill (adult) (pediatric) (Primary Dx); Class 2 obesity with body mass index (BMI) of 35.0 to 35.9 in adult, unspecified obesity type, unspecified whether serious comorbidity present Start: 10-07-2022 Telephone encounter Jose Guadalupe Herrera MD Work Phone: Neurology Comment on above: Appointment Start: 08-29-2022 End: 08-29-2022 Patient encounter procedure Valery Ashraf MD Work Phone: Ophthalmology Comment on above: Primary open angle g laucoma (POAG) of both eyes, severe stage (Primary Dx) Start: 07-19-2022 End: 07-19-2022 Patient encounter procedure Valery Ashraf MD Work Phone: Ophthalmology Comment on above: Primary open angle g laucoma (POAG) of both eyes, severe stage Start: 05-30-2022 End: 05-30-2022 Patient encounter procedure Roberto Carlos Babin APRN.[employer] Work Phone: [facility] Comment on above: Puncture wound (Prim nadine Dx) Start: 05-23-2022 End: 05-23-2022 Patient encounter procedure Valery Ashraf MD Work Phone: Ophthalmology Comment on above: Primary open angle g laucoma (POAG) of both eyes, severe stage Start: 03-21-2022 End: 03-21-2022 Patient encounter procedure Valery Ashraf MD Work Phone: Ophthalmology Comment on above: Primary open angle g laucoma (POAG) of both eyes, severe stage (Primary Dx); Follow-up examination after eye surgery; Cystoid macular edema of right eye Start: 03-02-2022 End: 03-02-2022 Patient encounter procedure Valery Ashraf MD Work Phone: Ophthalmology Comment on above: Follow-up examinatio n after eye surgery Start: 02-08-2022 End: 02-08-2022 Patient encounter procedure Valery Ashraf MD Work Phone: Ophthalmology Comment on above: Follow-up examinatio n after eye surgery (Primary Dx); Primary open angle glaucoma (POAG) of both eyes, severe stage Start: 01-18-2022 End: 01-18-2022 Patient encounter procedure Valery Ashraf MD Work Phone: Ophthalmology Comment on above: Follow-up examinatio n after eye surgery Start: 01-15-2022 Telephone encounter Seun goss MD Work Phone: Ophthalmology Start: 01-14-2022 End: 01-14-2022 Patient encounter procedure Valery Ashraf MD Work Phone: Ophthalmology Comment on above: Follow-up examinatio n after eye surgery Start: 01-07-2022 End: 01-07-2022 Patient encounter procedure Valery Ashraf MD Work Phone: Ophthalmology Comment on above: Follow-up examinatio n after eye surgery (Primary Dx) Start: 12-23-2021 Telephone encounter Patito Haq APRN.CNP Work Phone: Pre Anesthesia Comment on above: Pre-op A1c Start: 12-22-2021 End: 12-22-2021 Admission to establishment [facility] 1 Work Phone: [facility] Start: 12-22-2021 End: 12-22-2021 ambulatory Pacc Miguel 1 Work Phone: Pre Anesthesia Comment on above: Primary open angle g laucoma (POAG) of both eyes, severe stage (Primary Dx); Essential hypertension, benign; Mixed hyperlipidemia; JAMIE (obstructive sleep apnea); Gastroesophageal reflux disease, unspecified whether esophagitis present; Hypothyroidism, unspecified type; Type 2 diabetes mellitus with other specified complication, without long-term current use of insulin ([facility]); Class 2 severe obesity due to excess calories with serious comorbidity and body mass index (BMI) of 35.0 to 35.9 in adult ([facility]) Start: 11-26-2021 Telephone encounter Radha Britton Ophthalmology Comment on above: Schedule Surgery Start: 11-23-2021 Refill Valery randolph MD Work Phone: Ophthalmology Comment on above: Refill Request Start: 11-12-2021 End: 11-12-2021 Patient encounter procedure Valery Ashraf MD Work Phone: Ophthalmology Comment on above: Juvenile glaucoma (P rimary Dx) Start: 10-20-2021 End: 10-20-2021 Patient encounter procedure Valery Ashraf MD Work Phone: Ophthalmology Comment on above: Primary open angle g laucoma (POAG) of both eyes, severe stage (Primary Dx) Procedures Date Procedure Procedure Detail Performing Clinician Start: 09-11-2024 Radex ribs uni w/posteroant ch minimum 3 views Aries Moomaw 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 Work Phone: Start: 03-11-2024 Radex shoulder compl ete minimum 2 views Roberto Carlos Shin 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 Work Phone: Start: 08-21-2023 Visual field xm uni/ bi w/interp extended exam Valery Ashraf MD Work Phone: Start: 08-29-2022 Visual field xm uni/ bi w/interp extended exam Valery Ashraf MD Work Phone: Start: 05-23-2022 Ophthalmic us dx cor juan carlos pachymetry uni/bi Valery Ashraf MD Work Phone: Start: 03-21-2022 Computerized ophthal melody imaging retina Valery Ashraf MD Work Phone: Plan of Treatment Date Care Activity Detail Author Start: 05-30-2032 Urine microalbumin profile [facility] Start: 01-12-2026 End: 01-12-2026 Patient encounter procedure 01/12/2026 10:40 AM EDT Office Visit Neurology [address] [place] [id number] Jose Guadalupe Herrera Jr., MD [address] [place] [address] 1 year cpap follow up Neurology Comment on above: 1 year cpap follow u p Start: 09-11-2025 BP Controlled (<130/80) BP Controlle d (<130/80) [facility] Start: 08-13-2025 End: 01-20-2026 VISUAL FIELD 24-2 OS (LEFT EYE) VISUAL FIELD 24-2 OS (LEFT EYE) [facility] Imaging Routine Primary open angle glaucoma (POAG) of both eyes, severe stage Expected: 08/13/2025, Expires: 01/20/2026 [facility] Work Phone: Comment on above: Expected: 08/13/2025 , Expires: 01/20/2026 Start: 07-29-2025 Glaucoma screening Dilated Retinal E xam [facility] Start: 03-03-2025 End: 03-03-2025 Patient encounter procedure Ophthalmology Comment on above: Return in about 6 mo nths (around 01/26/2025) for VF . Start: 02-17-2025 Influenza vaccination Influenza Vacc ine (#1) [facility] Start: 02-12-2025 End: 02-12-2025 Patient encounter procedure 02/12/2025 10:30 AM EDT Office Visit Neurology [address] [place] [address] Laura Longo, 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 [address] [place] [address] JAMIE one year, DME is [facility] Neurology Comment on above: JAMIE one year, DME is [facility] Start: 01-06-2025 End: 01-06-2025 Patient encounter procedure 01/06/2025 10:40 AM EDT Office Visit Neurology [address] [place] [address] Jose Guadalupe Herrera Jr., MD [address] [place] [address] JAMIE one year Neurology Comment on above: JAMIE one year Start: 12-31-2024 Hepatitis B surface antibody level LDL Cholesterol [facility] Start: 12-23-2024 ambulatory Ambulatory Facility:[facility] Start: 12-09-2024 End: 12-09-2024 Patient encounter procedure Neurology Comment on above: JAMIE one year Start: 12-03-2024 BP Controlled (<130/80) BP Controlle d (<130/80) [facility] Start: 09-22-2024 DIABETES SCREEN DIABETES SCREEN [facility] Start: 09-02-2024 End: 09-02-2024 Patient encounter procedure 09/02/2024 9:30 AM EDT Office Visit Orthopaedics [address] [place] [address] Kristine Sullivan PA-C [address] [place] [address] Left shoulder pain XR in [facility] Orthopaedics Comment on above: Left shoulder pain X R in [facility] Start: 07-15-2024 End: 07-15-2024 Patient encounter procedure 07/15/2024 9:00 AM EST Office Visit [facility] Ophthalmology [address] [place] [id number] Valery Ashraf MD [address] [place] [address] Return in about 6 months (around 06/26/2024). Ophthalmology Comment on above: Return in about 6 mo nths (around 06/26/2024). Start: 07-01-2024 End: 07-01-2024 Patient encounter procedure 07/01/2024 11:00 AM EST Office Visit Orthopaedics [address] [place] [address] Kristine Sullivan PA-C [address] [place] [address] Left shoulder pain XR in [facility] Orthopaedics Comment on above: Left shoulder pain X R in [facility] Start: 05-29-2024 End: 11-05-2024 VISUAL FIELD 24-2 OU (BOTH EYES) VISUAL FIELD 24-2 OU (BOTH EYES) [facility] Imaging Routine Primary open angle glaucoma (POAG) of both eyes, severe stage Expected: 05/29/2024, Expires: 11/05/2024 [facility] Work Phone: Comment on above: Expected: 05/29/2024 , Expires: 11/05/2024 Start: 04-05-2024 End: 04-05-2024 Patient encounter procedure 04/05/2024 1:00 PM EDT Office Visit Orthopedics [address] [facility] [address] [place] [address] Valery Petit MD [address] [facility] [address] [place], [place] [id number] Acute pain of left shoulder [M25.512] Orthopedics Comment on above: Acute pain of left s houlder [M25.512] Start: 04-02-2024 Hemoglobin A1c measurement HbA1C [facility] Start: 02-18-2024 Covid-19 Vaccine ( season) Covid-19 Vaccine () [facility] Start: 02-18-2024 Influenza vaccination [facility] Start: 12-25-2023 End: 12-25-2023 Patient encounter procedure 12/25/2023 9:30 AM EDT Office Visit [facility] Ophthalmology [address] [facility] [address] [place] [address] Valery Ashraf MD [address] [place] [address] Return in about 4 months (around 12/21/2023). Ophthalmology Comment on above: Return in about 4 mo nths (around 12/21/2023). Start: 12-04-2023 End: 12-04-2023 Patient encounter procedure 12/04/2023 9:00 AM EDT Office Visit Neurology [address] [place] [address] Jose Guadalupe Herrera Jr., MD [address] [facility] [address] [place] [address] follow up [employer] fax [phone] Neurology Comment on above: follow up [employer] fax [phone] Start: 12-01-2023 BP CONTROLLED (<130/80) BP CONTROLLE D (<130/80) [facility] Start: 10-11-2023 BP CONTROLLED (<130/80) BP CONTROLLE D (<130/80) [facility] Start: 06-19-2023 Behavioral Health Screening Behavioral Health Screening [facility] Start: 06-19-2023 Depression Assessment Depression Ass [facility] Start: 02-17-2023 Covid-19 Vaccine ( season) Covid-19 Vaccine ( season) [facility] Start: 02-17-2023 Influenza vaccination C [facility] Start: 02-14-2023 BP CONTROLLED (<130/80) BP CONTROLLE D (<130/80) [facility] Start: 10-27-2022 Patient referral [facility] Work Phone: Start: 08-17-2022 Glaucoma screening Dilated Retinal E xam [facility] Start: 08-17-2022 Hepatitis C antibody , confirmatory test DILATED RETINAL EXAM [facility] Start: 06-19-2022 DEPRESSION ASSESSMENT DEPRESSION ASS [facility] Start: 02-17-2022 Influenza vaccination [facility] Start: 01-21-2022 SHINGRIX VACCINE (1 of 2) SHINGRIX VACCINE (1 of 2) [facility] Start: 12-23-2021 End: 02-22-2022 Hemoglobin A1c in Blood HGB A1C Lab Routine Type 2 diabetes mellitus with other specified complication, without long-term current use of insulin (HCC) Expected: 12/23/2021, Expires: 02/22/2022 [facility] Work Phone: Comment on above: Expected: 12/23/2021 , Expires: 02/22/2022 Start: 06-19-2021 [facility] Start: 01-21-2017 COLOGUARD (FIT-DNA) COLOGUARD (FIT-D NA) [facility] Start: 01-21-2017 Colonoscopy COLONOSCOPY [facility] Start: 01-21-2017 COLORECTAL CANCER SCREENING COLORECTAL CANCER SCREENING [facility] Start: 01-21-[address] COLONOGRAPHY [facility] Start: 01-21-2017 FECAL OCCULT BLOOD FECAL OCCULT BLOO D [facility] Start: 01-21-2017 Screening for malign ant neoplasm of colon [facility] Start: 01-21-2017 [facility] Start: 01-21-2007 LIPID SCREEN LIPID SCREEN [facility] Start: 01-21-1991 HEPATITIS B (1 of 3 - Risk 3-dose series) HEPATITIS B (1 of 3 - Risk 3-dose series) [facility] Start: 01-21-1991 Hepatitis B Vaccine (1 of 3 - 19+ 3-dose series) Hepatitis B Vaccine (1 of 3 - 19+ 3-dose series) [facility] Start: 01-21-1991 Pneumococcal Vaccine : 50+ (1 of 2 - PCV) Pneumococcal Vaccine: 50+ (1 of 2 - PCV) [facility] Start: 01-21-1991 Urine microalbumin profile DTAP,TDAP,TD (1 - Tdap) [facility] Start: 01-21-1990 ANNUAL PCP TEAM M[employer]ER JESUSITA DISEASE VISIT ANNUAL PCP TEAM CHRONIC DISEASE VISIT [facility] Start: 01-21-1990 Anxiety Screening Anxiety Screening [facility] Start: 01-21-1990 BP CONTROLLED (<130/80) BP CONTROLLE D (<130/80) [facility] Start: 01-21-1990 Depression Screening Depression Scre ening [facility] Start: 01-21-1990 Hepatitis B surface antibody level LDL CHOLESTEROL [facility] Start: 01-21-1990 HEPATITIS C SCREENING [facility]PATITIS [facility] Start: 01-21-1990 Hepatitis C screening Hepatitis C [facility] Start: 01-21-1990 HIV SCREENING HIV SCREENING [facility] Start: 01-21-1990 HIV screening HIV Screening [facility] Start: 1984 Adult depression screening assessment DEPRESSION SCREENING [facility] Start: 01-21-1982 3 comp foot exam completed DIABETIC FOOT EXAM [facility] Start: 01-21-1982 Diabetic foot examination Diabetic Foot Exam [facility] Start: 01-21-1982 Hepatitis B screening URINE ALBUMIN:CREATININE RATIO [facility] Start: 01-21-1978 PNEUMOCOCCAL (1 - PCV) PNEUMOCOCCAL (1 - PCV) [facility] [facility] Start: 01-21-1978 Pneumococcal vaccination [facility] Start: 01-21-1977 COVID-19 VACCINE (#1) COVID-19 VACCI NE (#1) [facility] Start: 01-21-1977 COVID-19 VACCINE (1) COVID-19 VACCIN E (1) [facility] Start: 01-21-1977 Hemoglobin A1c measurement HbA1C [facility] Start: 01-21-1977 Hemoglobin A1c/Hemoglobin.total in Blood HBA1C [facility] Start: 1972 COVID-19 VACCINE (#1) COVID-19 VACCI NE (#1) [facility] Start: 1972 HEPATITIS B (1 of 3 - 3-dose series) HEPATITIS B (1 of 3 - 3-dose series) [facility] Start: 1972 Hepatitis B Vaccine (1 of 3 - 3-dose series) Hepatitis B Vaccine (1 of 3 - 3-dose series) [facility] Patient referral [facility] Work Phone: [facility] Immunizations Immunization Date Immunization Notes Care Provider Jaquelin blank 05-30-2022 tetanus toxoid, redu sudha diphtheria toxoid, and acellular pertussis vaccine, adsorbed Roberto Carlos Babin APRN.CNP Work Phone: [facility] Payers Date Payer Category Payer Private Health Insurance [id number] 2023 Self-pay 2021 [employer] EMPI RE PLAN HB ONLY Member Subscriber Plan / Payer (Effective 2021-Present) Name: Sylvia Nixon Relation to Subscriber: Self Name: Sylvia Nixon Payer ID: [id number] (NAIC) Type: PPO Address: [place] [id number] 2021 Private Health Insurance [id number] 2021 Private Health Insurance [id number] 2021 Unknown ANTHEM BCBS EMPI RE PLAN HB ONLY [id number] 2021-Present [address] [place] [address] PPO [id number] 2021 Unknown ANTHEM BCBS EMPI RE PLAN HB ONLY [id number] 2021-Present [address] [place] [address] PPO [id number] 2021 Unknown [id number] Unknown [id number] Unknown [id number] Unknown [id number] Unknown [id number] Social History Date Type Detail Facility Start: 08-17-2021 End: 02-14-2022 Tobacco smoking status NHIS Never smoked tobacco [facility] Start: 08-17-2021 End: 02-14-2022 Tobacco use and exposure Smokeless tobacco non-user [facility] Start: 10-20-2021 End: 02-12-2025 Alcohol intake Ex-drinker (finding) [facility] Start: 1970 Sex Assigned At Not on file [facility] Start: 10-10-2021 End: 03-02-2022 Exposure to SARS-CoV-2 (event) Not sure [facility] Start: 1970 Sex Assigned At Male [facility] Start: 10-27-2022 Tobacco smoking stat us [facility] Unknown if ever smoked [facility] Start: 10-31-2022 End: 12-13-2022 History of Social function [facility] Start: 10-31-2022 End: 12-13-2022 Tobacco use panel [facility] Start: 03-03-2021 National Score (1-10 0), lower number is lower risk 57 [facility] Start: 01-01-2022 Sexual orientation Heterosexual (delroy smith) [facility] Medical Equipment Procedure Code Equipment Code Equipment Origin al Text Equipment Identifier Dates Graft Tutoplast Sclera .8x.5cm Soft Tissue Low Profile Processed Sterile - [id number] Start: 12-08-2022 Ahmed Clearpath Valveless Glaucoma Drainage Device [id number] Start: 12-08-2022 Clinical Notes 10-20-2021 to 02-12-2025 Adia Sandra LPN - 02/12/2025 2:08 PM Laura Copeland APRN.MEDICAL RECEPTION - 02/12/2025 10:30 AM EDTPatient InstructionsTelephone Encounter - Tania Mcqueen - 01/01/2025 10:51 AM EDT Note Date & Type Note Facility 02-12-2025 Note HNO ID: [id number] Author: ADIA SANDRA LPN Service: ? Author Type: Licensed Nurse Type: Progress Notes Filed: 02/12/2025 14:09 Note Text: Faxed mask/supply order to [facility]. Adia Sandra LPN [facility] 02-12-2025 History of Present illness Narrative Faxed mask/supply order to [facility]. Adia Sandra LPN Images from the original note were not included. [facility] Follow up/ Established patient visit Recording using ScaleIO software for draft documentation of the visit was discussed with the patient/authorized home office representative; all questions welcomed and answered. Patient/authorized home office representative agreed to proceed Assessment/Plan from last visit: Date of last visit : 12/04/23 ASSESSMENT/PLAN: 1. JAMIE (obstructive sleep apnea) - ICD9: 327.23, ICD10: G47.33 (primary diagnosis) 2. Class 2 obesity with body mass index (BMI) of 35.0 to 35.9 in adult, unspecified obesity type, unspecified whether serious comorbidity present - ICD9: 278.00, V85.35, ICD10: E66.9, Z68.35 Patient with known history of JAMIE as above. Doing well on PAP with no complaints. Subjective and objective compliance confirmed. Pt reports perceived benefit with PAP use. Encouraged continued compliance. Reminded pt to clean and replace PAP equipment regularly. Advised pt not to drive or operate heavy machinery if sleepy. Pt will be due for new PAP device in about 2 years at which time will likely recommend an Auto PAP as uncertain he is needing a pressure of 9cmH2O through the night based on downloads - however, no complaints. Follow up 1 year or sooner prn. Jose Guadalupe Herrera MD CURRENT VISIT: 02/12/2025 The patient is a 55-year-old male with a history of moderate JAMIE, presenting for an annual visit to obtain new CPAP supplies. The patient uses a CPAP machine set to a pressure of 9 cm H2O, which he reports effectively controls his JAMIE, reducing apneic episodes to less than 1 per hour. He uses a nasal pillow mask with humidification and distilled water. Despite this, he experiences persistent xerostomia, which has been present since he started using the CPAP. He occasionally notices air leaks but states they are infrequent and less severe than with previous masks. He didn't use CPAP last night due to a sore under his nose. He plans to change the cushion tonight to improve adherence and lessen leaks. He notes increased fatigue when not using the CPAP for several days and previously experienced somnolence while driving to work before starting CPAP therapy. He denies any issues with the nasal pillow mask and feels that the CPAP therapy is beneficial. Still uses DME in [place] where he used to live, still visits family there. SLEEP APNEA Sleep apnea type : JAMIE, Most Recent Apnea-Hypopnea Index (AHI): 18.4 Treatment : PAP therapy DreamStation 2 DME: [facility] PAP History: Current PAP settin cm H2O. Difficulties with AutoPAP: None Reviewed objective PAP compliance data: 01/12/25-02/10/25: AHI 0.7 Used days 74% of days for at least 4 hrs Avg use 8.5 hrs Mask type: nasal pillow interface Mask issues: none Uses humidity: Yes, Protocol: distilled water There is a perceived benefit by the patient: no drowsy driving ------- PATIENT-ENTERED QUESTIONNAIRE SLEEP SCORES: 12/22/2021 11/30/2022 04/04/2023 PROMIS Global Health - (T-Scores - the mean of general population = 50. Five points is a clinically meaningful difference.) Physical T-Score 47.7 54.1 54.1 47.7 Mental T-Score 45.8 48.3 48.3 12/22/2021 11/30/2022 04/04/2023 PROMIS Global Health - (T-Scores - the mean of general population = 50. Five points is a clinically meaningful difference.) Physical T-Score 47.7 54.1 54.1 47.7 Mental T-Score 45.8 48.3 48.3 Multiple values from one day are sorted in reverse-chronological order ALLERGIES Allergen Reactions Bee Pollen Other: See Comments, Hives, Swelling Netarsudil Other: See Comments Redness, irritation in both eyes. Dust Other: See Comments CURRENT MEDICATIONS: dorzolamide-timolol (COSOPT) 22.3-6.8 mg/mL ophthalmic solution INSTILL 1 DROP INTO EACH EYE EVERY 12 HOURS latanoprost (XALATAN) 0.005 % ophthalmic solution Use 1 Drop in both eyes daily at bedtime. ondansetron orally disintegrating (ZOFRAN ODT) 4 mg disintegrating tablet Dissolve 1 tablet by mouth every 8 hours as needed for nausea/vomiting. carboxymethylcellulose sodium (REFRESH OPHTHALMIC) Use in eyes. Preservative free AT's cholecalciferol, vitamin D3, (VITAMIN D3 ORAL) Take by mouth once daily. MEN'S MULTI-VITAMIN ORAL Take by mouth. levothyroxine 200 mcg cap Take 200 mcg by mouth daily before breakfast. olmesartan (BENICAR) 20 mg tablet Take 20 mg by mouth once daily. omeprazole (PRILOSEC) 40 mg capsule Take 20 mg by mouth once daily. levothyroxine (SYNTHROID) 25 mcg tablet Take 25 mcg by mouth once daily. SYNJARDY XR 25-1,000 mg XR tab Take 1 tablet by mouth once daily. TRULICITY 3 mg/0.5 mL pen injector cyanocobalamin, vitamin B-12, 2,000 mcg tab Take 2,000 mcg by mouth. atorvastatin (LIPITOR) 10 mg tablet Take 10 mg by mouth daily at bedtime. flaxseed oil (OMEGA 3 ORAL) Take 1 capsule by mouth every morning. loratadine (CLARITIN) 10 mg tablet Take 10 mg by mouth. CPAP/BIPAP/OTHER CPAP 9 cmH2O [facility], PHYSICAL EXAMINATION: Vital Signs: BP 117/76 Pulse 92 Resp 16 Wt 117.9 kg (260 lb) SpO2 94% BMI 35.26 kg/m PHYSICAL EXAM: General appearance: pleasant, NAD Mental status: alert and oriented, able to provide own history Constitutional: obese Skin: No visible rashes on exposed skin Neuro: No focal deficits observed, no tremors Assessment /Plan Jamie on cpap (primary encounter diagnosis) Sylvia Nixon is a 55 year old male with: 1. JAMIE on CPAP (G47.33) JAMIE well controlled on CPAP with pressure set to 9 cm H2O; AHI consistently less than 1 per hour. Patient reports significant benefit from CPAP use, with improved daytime alertness and reduced fatigue. Occasional dry mouth persists despite humidification and use of distilled water; rare minor mask leaks noted, but overall mask fit is satisfactory. He is compliant and reports subjective benefits from PAP. - Continue current CPAP therapy at pressure of 9 cm H2O. - Order for new CPAP supplies faxed to [facility]. - Advised patient to try increasing humidification setting to alleviate dry mouth, with caution regarding potential condensation. - Provided after-visit summary with additional information on managing dry mouth. - Follow-up in 1 year, or sooner if issues arise. Laura Longo APRN.THEO documented in this encounter [facility] 02-12-2025 Instructions Laura Longo APRN.THEO - 02/12/2025 10:39 AM EDT Potential CPAP Issues and Ideas on How to Fix Them Getting Used to the Mask The more you wear it, the more you will get used to it Try wearing it while awake, such as when watching TV On average, it takes 4-6 weeks to get used to PAP therapy Tolerating Air Pressure As mentioned above, it takes 4-6 weeks on average to get used to PAP therapy Use the ramp feature: your machine will give you a lower pressure for the first 20-45 minutes each night Consider lower pressure temporarily We might need to consider BiPAP instead of CPAP (with BiPAP, you breathe out against a lower pressure) Mask Leaks Use a smaller and/or softer pillow, such as a travel pillow or a special CPAP pillow Mask refitting with your [employer] company You shouldn't have to pull straps tight Try REMzzz or other mask liners Follow cleaning instructions Wash face nightly Replace mask cushion as often as allowed per your insurance Position your tubing so it goes over your head Dry Mouth Increase humidity Chin strap Fix leaks Biotene or Xylimelt lozenge at night Heated tubing Preheat distilled water, especially in winter Trouble Falling Asleep/Claustrophobia Practice wearing your mask for short periods of time, out of bed, not attached to hose. Then attach to hose with air while awake. Use ramp feature Relaxation Stuffy Nose Fix leaks Nasal steroid spray or saline spray/gel Increase heated humidity Allergies Take a shower before bed Keep windows closed at night Wash bedding frequently Use a fine particulate filter for your machine Use a HEPA filter in your home Saline spray or gel for your nose Use a full face mask Taking Mask Off in Night This will get better over time Treat any nose stuffiness Set an alarm to check Gas and Bloating Use a chin strap no matter what type of mask you are using to minimize air swallowing Make sure nose isn't stuffy Elevated legs at head of bed Try Gas-X at bedtime Try sleeping on your side Try a different mask Lengthen ramp time Consider switch to BiPAP Mcgee on Skin Don't over tighten mask Try REMzzz or other mask liners Try a softer mask Have a mask refitting appointment with your [employer] company Follow cleaning instructions for mask cushion Stomach Sleeper Requires a lot of patience and persistence Don't sleep with your face buried in the pillow since you could cover the exhalation port and allow carbon dioxide build-up Use a CPAP pillow Headaches Mask may be pulled too tight May be sinus related May need pressure decreased until acclimated May need heated humidifier Have a cold? Use a full face mask when you have a cold Breathe through your mouth with the full face mask documented in this encounter [facility] 02-12-2025 Note HNO ID: [id number] Author: LAURA LONGO APRN.CNP Service: ? Author Type: Nurse Practitioner Type: Progress Notes Filed: 02/12/2025 10:54 Note Text: [facility] Follow up/ Established patient visit Recording using ScaleIO software for draft documentation of the visit was discussed with the patient/authorized home office representative; all questions welcomed and answered. Patient/authorized home office representative agreed to proceed Assessment/Plan from last visit: Date of last visit : 12/04/23 ASSESSMENT/PLAN: 1. JAMIE (obstructive sleep apnea) - ICD9: 327.23, ICD10: G47.33 (primary diagnosis) 2. Class 2 obesity with body mass index (BMI) of 35.0 to 35.9 in adult, unspecified obesity type, unspecified whether serious comorbidity present - ICD9: 278.00, V85.35, ICD10: E66.9, Z68.35 Patient with known history of JAMIE as above. Doing well on PAP with no complaints. Subjective and objective compliance confirmed. Pt reports perceived benefit with PAP use. Encouraged continued compliance. Reminded pt to clean and replace PAP equipment regularly. Advised pt not to drive or operate heavy machinery if sleepy. Pt will be due for new PAP device in about 2 years at which time will likely recommend an Auto PAP as uncertain he is needing a pressure of 9cmH2O through the night based on downloads - however, no complaints. Follow up 1 year or sooner prn. Jose Guadalupe Herrera MD CURRENT VISIT: 02/12/2025 The patient is a 55-year-old male with a history of moderate JAMIE, presenting for an annual visit to obtain new CPAP supplies. The patient uses a CPAP machine set to a pressure of 9 cm H2O, which he reports effectively controls his JAMIE, reducing apneic episodes to less than 1 per hour. He uses a nasal pillow mask with humidification and distilled water. Despite this, he experiences persistent xerostomia, which has been present since he started using the CPAP. He occasionally notices air leaks but states they are infrequent and less severe than with previous masks. He didn't use CPAP last night due to a sore under his nose. He plans to change the cushion tonight to improve adherence and lessen leaks. He notes increased fatigue when not using the CPAP for several days and previously experienced somnolence while driving to work before starting CPAP therapy. He denies any issues with the nasal pillow mask and feels that the CPAP therapy is beneficial. Still uses DME in [place] where he used to live, still visits family there. SLEEP APNEA Sleep apnea type : JAMIE, Most Recent Apnea-Hypopnea Index (AHI): 18.4 Treatment : PAP therapy DreamStation 2 DME: [facility] PAP History: Current PAP settin cm H2O. Difficulties with AutoPAP: None Reviewed objective PAP compliance data: 01/12/25-02/10/25: AHI 0.7 Used / days 74% of days for at least 4 hrs Avg use 8.5 hrs Mask type: nasal pillow interface Mask issues: none Uses humidity: Yes, Protocol: distilled water There is a perceived benefit by the patient: no drowsy driving PATIENT-ENTERED QUESTIONNAIRE SLEEP SCORES: 12/22/2021 11/30/2022 04/04/2023 PROMIS Global Health - (T-Scores - the mean of general population = 50. Five points is a clinically meaningful difference.) Physical T-Score 47.7 54.1 54.1 47.7 Mental T-Score 45.8 48.3 48.3 12/22/2021 11/30/2022 04/04/2023 PROMIS Global Health - (T-Scores - the mean of general population = 50. Five points is a clinically meaningful difference.) Physical T-Score 47.7 54.1 54.1 47.7 Mental T-Score 45.8 48.3 48.3 Multiple values from one day are sorted in reverse-chronological order ALLERGIES Allergen Reactions Bee Pollen Other: See Comments, Hives, Swelling Netarsudil Other: See Comments Redness, irritation in both eyes. Dust Other: See Comments CURRENT MEDICATIONS: dorzolamide-timolol (COSOPT) 22.3-6.8 mg/mL ophthalmic solution INSTILL 1 DROP INTO EACH EYE EVERY 12 HOURS latanoprost (XALATAN) 0.005 % ophthalmic solution Use 1 Drop in both eyes daily at bedtime. ondansetron orally disintegrating (ZOFRAN ODT) 4 mg disintegrating tablet Dissolve 1 tablet by mouth every 8 hours as needed for nausea/vomiting. carboxymethylcellulose sodium (REFRESH OPHTHALMIC) Use in eyes. Preservative free AT's cholecalciferol, vitamin D3, (VITAMIN D3 ORAL) Take by mouth once daily. MEN'S MULTI-VITAMIN ORAL Take by mouth. levothyroxine 200 mcg cap Take 200 mcg by mouth daily before breakfast. olmesartan (BENICAR) 20 mg tablet Take 20 mg by mouth once daily. omeprazole (PRILOSEC) 40 mg capsule Take 20 mg by mouth once daily. levothyroxine (SYNTHROID) 25 mcg tablet Take 25 mcg by mouth once daily. SYNJARDY XR 25-1,000 mg XR tab Take 1 tablet by mouth once daily. TRULICITY 3 mg/0.5 mL pen injector cyanocobalamin, vitamin B-12, 2,000 mcg tab Take 2,000 mcg (more content not included)... [facility] 01-01-2025 Telephone encounter Note Valery Ashraf MD filed at 07/29/2024 3:51 PM Status: Signed Tmax: 40, 40; Pachy: 571, 601 Lasers and Surgeries: OD:02/17/22 TSCPC 1:30=>9:00, IOP=33 on 3 01/05/22 Omni-GATT (IOP23 on 2 + DMX) 04/2021 Express rev with [facility] 01/2021 Express rev with [facility] 05/2019 Express 03/2019 SLT OS:04/13/23 MP-TSCPC (IOP20 on 3) 12/08/22 [id number] (IOP18 on 3 + Diamox) 01/2020 Express rev with [facility] 05/2019 Express 03/2019 SLT Ocular Medication Intol and Non-efficacy: Brimonidine=red eyes Rhopressa=red eyes Acetazol=NI 08/2022 Bimatoprost=NI over latanoprost 10/2022 Referred by Rafiq Nobles MD ([place]) - pt moving to [place] Now on Cosopt bid OU Latanoprost qhs OU PFATs PRN POAG severe -HVF 08/2023 OD highly unreliable OS dense incomplete sup alt, inf cecocentral, similar to outside vfs (scanned 08/2021 starting on page 41) -OCT 02/2019 ([place], Dr. Nobles) OD marked diffuse thinning OS marked diffuse thinning OD s/p 270 deg TSCPC OD and Omni-GATT OD -OCT macula 03/21/22=atrophy, no edema. -IOP is good -vision is low but stable OS: H/o [id number] then MP-TSCPC -IOP is great -vision is good, stable 6 months IOP, VF OS DM -on Trulicity -no retinopathy dilated July 29, 2024 Cataract OU -NVS. Vision OD down due to glaucoma [facility] Work Phone: 01-01-2025 Miscellaneous Notes Valery Ashraf MD filed at 07/29/2024 3:51 PM Status: Signed Tmax: 40, 40; Pachy: 571, 601 Lasers and Surgeries: OD:02/17/22 TSCPC 1:30=>9:00, IOP=33 on 3 01/05/22 Omni-GATT (IOP23 on 2 + DMX) 04/2021 Express rev with [facility] 01/2021 Express rev with [facility] 05/2019 Express 03/2019 SLT OS:04/13/23 MP-TSCPC (IOP20 on 3) 12/08/22 [id number] (IOP18 on 3 + Diamox) 01/2020 Express rev with [facility] 05/2019 Express 03/2019 SLT Ocular Medication Intol and Non-efficacy: Brimonidine=red eyes Rhopressa=red eyes Acetazol=NI 08/2022 Bimatoprost=NI over latanoprost 10/2022 Referred by Rafiq Nobles MD ([place]) - pt moving to [place] Now on Cosopt bid OU Latanoprost qhs OU PFATs PRN POAG severe -HVF 08/2023 OD highly unreliable OS dense incomplete sup alt, inf cecocentral, similar to outside vfs (scanned 08/2021 starting on page 41) -OCT 02/2019 ([place], Dr. Nobles) OD marked diffuse thinning OS marked diffuse thinning OD s/p 270 deg TSCPC OD and Omni-GATT OD -OCT macula 03/21/22=atrophy, no edema. -IOP is good -vision is low but stable OS: H/o [id number] then MP-TSCPC -IOP is great -vision is good, stable 6 months IOP, VF OS DM -on Trulicity -no retinopathy dilated July 29, 2024 Cataract OU -NVS. Vision OD down due to glaucoma Valery Ashraf MD filed at 07/29/2024 3:51 PM Status: Signed Tmax: 40, 40; Pachy: 571, 601 Lasers and Surgeries: OD:02/17/22 TSCPC 1:30=>9:00, IOP=33 on 3 01/05/22 Omni-GATT (IOP23 on 2 + DMX) 04/2021 Express rev with [facility] 01/2021 Express rev with [facility] 05/2019 Express 03/2019 SLT OS:04/13/23 MP-TSCPC (IOP20 on 3) 12/08/22 [id number] (IOP18 on 3 + Diamox) 01/2020 Express rev with [facility] 05/2019 Express 03/2019 SLT Ocular Medication Intol and Non-efficacy: Brimonidine=red eyes Rhopressa=red eyes Acetazol=NI 08/2022 Bimatoprost=NI over latanoprost 10/2022 Referred by Rafiq Nobles MD ([place]) - pt moving to [place] Now on Cosopt bid OU Latanoprost qhs OU PFATs PRN POAG severe -HVF 08/2023 OD highly unreliable OS dense incomplete sup alt, inf cecocentral, similar to outside vfs (scanned 08/2021 starting on page 41) -OCT 02/2019 ([place], Dr. Nobles) OD marked diffuse thinning OS marked diffuse thinning OD s/p 270 deg TSCPC OD and Omni-GATT OD -OCT macula 03/21/22=atrophy, no edema. -IOP is good -vision is low but stable OS: H/o [id number] then MP-TSCPC -IOP is great -vision is good, stable 6 months IOP, VF OS DM -on Trulicity -no retinopathy dilated July 29, 2024 Cataract OU -NVS. Vision OD down due to glaucoma I have confirmed and edited as necessary the relevant HPI, ophthalmic history, ROS, and neuro exam findings as obtained by others. I have seen and examined Sylvia Nixon. I have discussed the case and the management of this patient's care with the Resident/Fellow, if applicable. I also have reviewed, edited as necessary, and agree with the assessment and plan as stated above and agree with all of its relevant components. [facility] Sensitive Note documented in this encounter [facility] 01-01-2025 Telephone encounter Note Valery Ashraf MD filed at 07/29/2024 3:51 PM Status: Signed Tmax: 40, 40; Pachy: 571, 601 Lasers and Surgeries: OD:02/17/22 TSCPC 1:30=>9:00, IOP=33 on 3 01/05/22 Omni-GATT (IOP23 on 2 + DMX) 04/2021 Express rev with [facility] 01/2021 Express rev with [facility] 05/2019 Express 03/2019 SLT OS:04/13/23 MP-TSCPC (IOP20 on 3) 12/08/22 [id number] (IOP18 on 3 + Diamox) 01/2020 Express rev with [facility] 05/2019 Express 03/2019 SLT Ocular Medication Intol and Non-efficacy: Brimonidine=red eyes Rhopressa=red eyes Acetazol=NI 08/2022 Bimatoprost=NI over latanoprost 10/2022 Referred by Rafiq Nobles MD ([place]) - pt moving to [place] Now on Cosopt bid OU Latanoprost qhs OU PFATs PRN POAG severe -HVF 08/2023 OD highly unreliable OS dense incomplete sup alt, inf cecocentral, similar to outside vfs (scanned 08/2021 starting on page 41) -OCT 02/2019 ([place], Dr. Nobles) OD marked diffuse thinning OS marked diffuse thinning OD s/p 270 deg TSCPC OD and Omni-GATT OD -OCT macula 03/21/22=atrophy, no edema. -IOP is good -vision is low but stable OS: H/o [id number] then MP-TSCPC -IOP is great -vision is good, stable 6 months IOP, VF OS DM -on Trulicity -no retinopathy dilated July 29, 2024 Cataract OU -NVS. Vision OD down due to glaucoma I have confirmed and edited as necessary the relevant HPI, ophthalmic history, ROS, and neuro exam findings as obtained by others. I have seen and examined Sylvia Tiffani. I have discussed the case and the management of this patient's care with the Resident/Fellow, if applicable. I also have reviewed, edited as necessary, and agree with the assessment and plan as stated above and agree with all of its relevant components. [facility] Sensitive Note [facility] 09-11-2024 History of Present illness Narrative Radiology Service Progress Note PATIENT NAME: Sylvia Nixon DATE OF SERVICE: September 11, 2024 TIME: 3:42 PM PATIENT IDENTITY VERIFICATION COMPLETED USING TWO (2) IDENTIFIERS: Name and Date of confirmed by patient verbally. FALL SCREENING: Has the patient had 2 falls in the last year or 1 fall with injury or currently using an Ambulatory Assistive Device (Walker, Cane, Wheelchair, Crutches, etc.)? No PATIENT GENDER DATA: Assigned male at PATIENT RELEVANT IMPLANT DATA REVIEWED: Not Applicable PATIENT PRESENTS WITH AN IMPLANTABLE OR ATTACHED FERTILIZER LOADER: No RADIOLOGY DEPARTMENT: General X-ray: Exam(s) Completed: Rib X-Ray: Left PERIPHERAL IV DATA: Not applicable SIGNED BY: Juan C Shaver September 11, 2024 3:42 PM documented in this encounter [facility] 09-11-2024 Note HNO ID: [id number] Author: MANA BELLE Tech Service: ? Author Type: Technologist Type: Progress Notes Filed: 09/11/2024 15:51 Note Text: Radiology Service Progress Note PATIENT NAME: Sylvia Nixon DATE OF SERVICE: September 11, 2024 TIME: 3:42 PM PATIENT IDENTITY VERIFICATION COMPLETED USING TWO (2) IDENTIFIERS: Name and Date of confirmed by patient verbally. FALL SCREENING: Has the patient had 2 falls in the last year or 1 fall with injury or currently using an Ambulatory Assistive Device (Walker, Cane, Wheelchair, Crutches, etc.)? No PATIENT GENDER DATA: Assigned male at PATIENT RELEVANT IMPLANT DATA REVIEWED: Not Applicable PATIENT PRESENTS WITH AN IMPLANTABLE OR ATTACHED FERTILIZER LOADER: No RADIOLOGY DEPARTMENT: General X-ray: Exam(s) Completed: Rib X-Ray: Left PERIPHERAL IV DATA: Not applicable SIGNED BY: Juan C Shaver September 11, 2024 3:42 PM [facility] 09-11-2024 Note HNO ID: [id number] Author: ARIES SALEEM APRN.MEDICAL RECEPTION Service: ? Author Type: Nurse Practitioner Type: Progress Notes Filed: 09/11/2024 16:08 Note Text: This note was created using [employer]. Subjective Sylvia Nixon is a 54 year old male. HPI Just shortly before arrival patient was standing on a stepladder on the third step when he lost his balance and fell backwards landing on some steps. He complains of pain over the left lateral ribs approximately 6-8. Denies any injury to his head loss of consciousness vomiting or vision changes. Review of Systems As above Objective BP 104/72 Pulse 91 Temp 36.7 ?C (98 ?F) (Tympanic) Resp 16 Wt 117.7 kg (259 lb 7.7 oz) SpO2 97% BMI 35.19 kg/m? Physical Exam Vitals and nursing note reviewed. Constitutional: General: He is not in acute distress. Appearance: Normal appearance. He is not ill-appearing. HENT: Head: Normocephalic. Mouth/Throat: Mouth: Mucous membranes are moist. Eyes: Conjunctiva/sclera: Conjunctivae normal. Neck: Comments: No cervical vertebral tenderness. Cardiovascular: Rate and Rhythm: Normal rate and regular rhythm. Pulmonary: Effort: Pulmonary effort is normal. Breath sounds: Normal breath sounds. Musculoskeletal: General: Normal range of motion. Arms: Cervical back: Normal range of motion. Comments: No thoracic or lumbar vertebral tenderness. Point specific tenderness over the left lateral posterior ribs approximately 6-8 Skin: General: Skin is warm and dry. Neurological: General: No focal deficit present. Mental Status: He is alert. Psychiatric: Mood and Affect: Mood normal. Behavior: Behavior normal. Assessment and Plan ASSESSMENT/PLAN: 1. Rib pain on left side - ICD9: 786.50, ICD10: R07.81 -X-ray of left ribs and PA chest unremarkable showing no acute pathology. Patient was instructed that symptoms most consistent with generalized strain and contusions related to fall. He will use [id number] treatment as needed for pain relief. Recommended several deep breaths per hour to avoid possible pneumonia. He will follow-up with PCP. - XR RIBS/CHEST 3V AP RIB/OBLS/CXR LEFT Aries Saleem APRN.CNP [facility] 09-11-2024 History of Present illness Narrative Images from the original note were not included. This note was created using Sunshine. Subjective Sylvia Nixon is a 54 year old male. HPI Just shortly before arrival patient was standing on a stepladder on the third step when he lost his balance and fell backwards landing on some steps. He complains of pain over the left lateral ribs approximately 6-8. Denies any injury to his head loss of consciousness vomiting or vision changes. Review of Systems As above Objective BP 104/72 Pulse 91 Temp 36.7 C (98 F) (Tympanic) Resp 16 Wt 117.7 kg (259 lb 7.7 oz) SpO2 97% BMI 35.19 kg/m Physical Exam Vitals and nursing note reviewed. Constitutional: General: He is not in acute distress. Appearance: Normal appearance. He is not ill-appearing. HENT: Head: Normocephalic. Mouth/Throat: Mouth: Mucous membranes are moist. Eyes: Conjunctiva/sclera: Conjunctivae normal. Neck: Comments: No cervical vertebral tenderness. Cardiovascular: Rate and Rhythm: Normal rate and regular rhythm. Pulmonary: Effort: Pulmonary effort is normal. Breath sounds: Normal breath sounds. Musculoskeletal: General: Normal range of motion. Arms: Cervical back: Normal range of motion. Comments: No thoracic or lumbar vertebral tenderness. Point specific tenderness over the left lateral posterior ribs approximately 6-8 Skin: General: Skin is warm and dry. Neurological: General: No focal deficit present. Mental Status: He is alert. Psychiatric: Mood and Affect: Mood normal. Behavior: Behavior normal. Assessment and Plan ASSESSMENT/PLAN: 1. Rib pain on left side - ICD9: 786.50, ICD10: R07.81 -X-ray of left ribs and PA chest unremarkable showing no acute pathology. Patient was instructed that symptoms most consistent with generalized strain and contusions related to fall. He will use [id number] treatment as needed for pain relief. Recommended several deep breaths per hour to avoid possible pneumonia. He will follow-up with PCP. - XR RIBS/CHEST 3V AP RIB/OBLS/CXR LEFT Aries Saleem APRN.THEO documented in this encounter [facility] 09-02-2024 Note HNO ID: [id number] Author: KRISTINE SULLIVAN PA-C Service: ? 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 Sylvia Nixon is a 54 year old male who presents with intermittent pain in his left shoulder which has been bothering him for the past several months. Pain is worse when he abducts his arm and reaches behind himself. Pain is a 4 out of 10 aching, pain does not radiate down the arm. He denies any numbness and tingling in the left hand. 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 Patient is a diabetic, his most recent hemoglobin A1c was 10.4. 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 We discussed a prescription anti-inflammatory, patient declines at this time. Advised that he needs to gain better control of his blood sugars, if he is able to improve his hemoglobin A1c to an 8 or lower we can certainly try a corticosteroid injection for the shoulder. He also may benefit from some physical therapy. Will continue to monitor patient for Acute pain of left shoulder Calcific tendinitis of left shoulder (primary encounter diagnosis), patient to schedule visit as per follow up discussed. Mr. Sylvia Nixon was advised as to contrast therapies and/or to take analgesics/anti-inflammatories as needed and all contraindications were reviewed. OBJECTIVE: Mr. Sylvia Nixon is a pleasant 54 year old in no apparent distress. Gen:There were no vitals taken for this visit. nl development, obese, no deformities ENT: Normocephalic, normal hearing, moist mucosa CV: Pulses:Radial= 2+ and symmetric, capillary refill < 2 secs, no peripheral edema/varicosities Skin: no rash, bruising or lesions. Good turgor. Psych: cooperative and appropriate, alert and oriented x 3, good mood and affect. Musculoskeletal: Supple range of motion of the cervical spine without pain. Spurling signs are negative. No atrophy of the deltoid and shoulder musculature. Left shoulder is nontender to palpation over the SC joint, clavicle and AC joint. Mild tenderness to palpation over the posterior shoulder, mildly tender at anterior lateral corner of the shoulder and greater tuberosity. Nontender at the bicipital groove and coracoid. Active range of motion is 150 degrees of forward elevation, 65 degrees external rotation, and internal rotation to the upper lumbar spine. Passive range of motion is 165 degrees, 70 degrees, respectively. No laxity with anterior and posterior stress. Positive Neer and negative Taylor impingement signs. 4+/5 strength with supraspinatus, 5/5 strength testing with infraspinatus and subscapularis. Sensation is intact in the axillary, radial, median and ulnar nerve distribution Imaging: IMPRESSION: No acute fracture or malalignment. Incidental note of oblong calcification above the greater tuberosity of humerus consistent with calcific tendinitis. Stummel Selector: [facility] Transcribe Date/Time: Mar 11 2024 1:37P Dictated by : BAILEY LIVE MD This examination was interpreted and the report reviewed and electronically signed by: BAILEY LIVE MD on Mar 11 2024 1:51PM EST Results-Findings * * *Final Report* * * DATE OF EXAM: Mar 11 2024 1:36PM WOX 5252 - XR SHLDR >/=3V AP/MENG AP/OTHR LT / PROCEDURE REASON: Acute pain of left shoulder * * * * Physician Interpretation * * * * LEFT SHOULDER X-RAY SERIES CLINICAL HISTORY: Dog pulled arm on these 2 weeks ago, pain in upper arm TECHNIQUE: AP, Grashey and axillary views COMPARISON: None available. RESULT: No fracture or malalignment. Joint spaces and articular surfaces are preserved. 1.3 cm oblong calcification in the soft tissues superior to the greater tuberosity of the humerus. Supporting Subjective Information Below: Past Surgical History: PAST SURGICAL HISTORY Procedure Laterality Date LASER TRABECULOPLASTY Bilateral 04/04/19 OS, 04/17/19 OD OTHER Express OD 05/21/19, Revision with MMC OD 01/26/21, 05/18/21,Revision with MMC OS 01/28/20 PAST SURGICAL HISTORY OF 01/06/2022 GATT OD PAST SURGICAL HISTORY OF Right 02/17/2022 CILIARY BODY DESTRUCTION VIA CYCLOPHOTOCOAGULATION, TRANSSCLERAL PAST SURGICAL HISTORY OF left eye for glaucoma Medications: Current Outpatient Medications Medication Sig dorzolamide-timolol (COSOPT) 22.3-6.8 m (more content not included)... [facility] 09-02-2024 History of Present illness Narrative Kristine Sullivan PA-C Department of Orthopaedics Orthopaedics [address] [facility] [address] Dept: [phone] Dept September 02, 2024 CHIEF COMPLAINT: New and Pain of the Left Shoulder (Referred by Roberto Carlos Babin) Mr. Sylvia Nixon is a 54 year old male who presents with intermittent pain in his left shoulder which has been bothering him for the past several months. Pain is worse when he abducts his arm and reaches behind himself. Pain is a 4 out of 10 aching, pain does not radiate down the arm. He denies any numbness and tingling in the left hand. 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 Patient is a diabetic, his most recent hemoglobin A1c was 10.4. 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 We discussed a prescription anti-inflammatory, patient declines at this time. Advised that he needs to gain better control of his blood sugars, if he is able to improve his hemoglobin A1c to an 8 or lower we can certainly try a corticosteroid injection for the shoulder. He also may benefit from some physical therapy. Will continue to monitor patient for Acute pain of left shoulder Calcific tendinitis of left shoulder (primary encounter diagnosis), patient to schedule visit as per follow up discussed. Mr. Sylvia Nixon was advised as to contrast therapies and/or to take analgesics/anti-inflammatories as needed and all contraindications were reviewed. OBJECTIVE: Mr. Sylvia Nixon is a pleasant 54 year old in no apparent distress. Gen:There were no vitals taken for this visit. nl development, obese, no deformities ENT: Normocephalic, normal hearing, moist mucosa CV: Pulses:Radial= 2+ and symmetric, capillary refill < 2 secs, no peripheral edema/varicosities Skin: no rash, bruising or lesions. Good turgor. Psych: cooperative and appropriate, alert and oriented x 3, good mood and affect. Musculoskeletal: Supple range of motion of the cervical spine without pain. Spurling signs are negative. No atrophy of the deltoid and shoulder musculature. Left shoulder is nontender to palpation over the SC joint, clavicle and AC joint. Mild tenderness to palpation over the posterior shoulder, mildly tender at anterior lateral corner of the shoulder and greater tuberosity. Nontender at the bicipital groove and coracoid. Active range of motion is 150 degrees of forward elevation, 65 degrees external rotation, and internal rotation to the upper lumbar spine. Passive range of motion is 165 degrees, 70 degrees, respectively. No laxity with anterior and posterior stress. Positive Neer and negative Taylor impingement signs. 4+/5 strength with supraspinatus, 5/5 strength testing with infraspinatus and subscapularis. Sensation is intact in the axillary, radial, median and ulnar nerve distribution Imaging: IMPRESSION: No acute fracture or malalignment. Incidental note of oblong calcification above the greater tuberosity of humerus consistent with calcific tendinitis. Stummel Selector: [facility] Transcribe Date/Time: Mar 11 2024 1:37P Dictated by : BAILEY LIVE MD This examination was interpreted and the report reviewed and electronically signed by: BAILEY LIVE MD on Mar 11 2024 1:51PM EST Results-Findings * * *Final Report* * * DATE OF EXAM: Mar 11 2024 1:36PM WOX 5252 - XR SHLDR >/=3V AP/MENG AP/OTHR LT / PROCEDURE REASON: Acute pain of left shoulder * * * * Physician Interpretation * * * * LEFT SHOULDER X-RAY SERIES CLINICAL HISTORY: Dog pulled arm on these 2 weeks ago, pain in upper arm TECHNIQUE: AP, Grashey and axillary views COMPARISON: None available. RESULT: No fracture or malalignment. Joint spaces and articular surfaces are preserved. 1.3 cm oblong calcification in the soft tissues superior to the greater tuberosity of the humerus. Supporting Subjective Information Below: Past Surgical History: PAST SURGICAL HISTORY Procedure Laterality Date LASER TRABECULOPLASTY Bilateral 04/04/19 OS, 04/17/19 OD OTHER Express OD 05/21/19, Revision with [facility] OD 01/26/21, 05/18/21,Revision with [facility] OS 01/28/20 PAST SURGICAL HISTORY OF 01/06/2022 GATT OD PAST SURGICAL HISTORY OF Right 02/17/2022 CILIARY BODY DESTRUCTION VIA CYCLOPHOTOCOAGULATION, TRANSSCLERAL PAST SURGICAL HISTORY OF left eye for glaucoma Medications: Current Outpatient Medications Medication Sig dorzolamide-timolol (COSOPT) 22.3-6.8 mg/mL ophthalmic solution Use 1 Drop in both eyes every 12 hours. latanoprost (XALATAN) 0.005 % ophthalmic solution Use 1 Drop in both eyes daily at bedtime. ondansetron orally disintegrating (ZOFRAN ODT) 4 mg disintegrating tablet Dissolve 1 tablet by mouth every 8 hours as needed for nausea/vomiting. carboxymethylcellulose sodium (REFRESH OPHTHALMIC) Use in eyes. Preservative free AT's cholecalciferol, vitamin D3, (VITAMIN D3 ORAL) Take by mouth once daily. MEN'S MULTI-VITAMIN ORAL Take by mouth. levothyroxine 200 mcg cap Take 200 mcg by mouth daily before breakfast. olmesartan (BENICAR) 20 mg tablet Take 20 mg by mouth once daily. omeprazole (PRILOSEC) 40 mg capsule Take 20 mg by mouth once daily. levothyroxine (SYNTHROID) 25 mcg tablet Take 25 mcg by mouth once daily. SYNJARDY XR 25-1,000 mg XR tab Take 1 tablet by mouth once daily. TRULICITY 3 mg/0.5 mL pen injector cyanocobalamin, vitamin B-12, 2,000 mcg tab Take 2,000 mcg by mouth. atorvastatin (LIPITOR) 10 mg tablet Take 10 mg by mouth daily at bedtime. flaxseed oil (OMEGA 3 ORAL) Take 1 capsule by mouth every morning. loratadine (CLARITIN) 10 mg tablet Take 10 mg by mouth. No current facility-administered medications for this visit. Allergies: Bee Pollen, Netarsudil, and Dust ROS: General (negative for fatigue, malaise, weight loss/gain) HEENT (negative for headache, earache, recent vision changes, sinus pain, sore throat) Respiratory (no recent shortness of breath, hemoptysis) CV (negative for chest tightness, palpitations) Musculoskeletal (see HPI) Psych (no depression, anxiety) This note was partially generated using [employer] voice recognition system, and there may be some incorrect words, spellings, and punctuation that were not noted in checking the note before saving. Kristine Sullivan PA-C Patient presents with: Left Shoulder - New, Pain: Referred by Roberto Carlos [facility] 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 His [facility] case is closed. He has pain when he raises his arm to reach outward. X-rays done on 03/11/24. Taking no med's for the pain. He is working part-time at [employer]. documented in this encounter [facility] 09-02-2024 Note HNO ID: [id number] Author: KAITLIN MARSH MA Service: ? Author Type: Dip Tanker Type: Progress Notes Filed: 09/02/2024 14:11 Note Text: Patient presents with: Left Shoulder - New, Pain: Referred by Roberto Carlos [facility] 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 His [facility] case is closed. He has pain when he raises his arm to reach outward. X-rays done on 03/11/24. Taking no med's for the pain. He is working part-time at [employer]. [facility] 07-29-2024 History of Present illness Narrative Tmax: 40, 40; Pachy: 571, 601 Lasers and Surgeries: OD: 02/17/22 TSCPC 1:30=>9:00, IOP=33 on 3 01/05/22 Omni-GATT (IOP23 on 2 + DMX) 04/2021 Express rev with MMC 01/2021 Express rev with MMC 05/2019 Express 03/2019 SLT OS: 04/13/23 MP-TSCPC (IOP20 on 3) 12/08/22 [id number] (IOP18 on 3 + Diamox) 01/2020 Express rev with MMC 05/2019 Express 03/2019 SLT Ocular Medication Intol and Non-efficacy: Brimonidine=red eyes Rhopressa=red eyes Acetazol=NI 08/2022 Bimatoprost=NI over latanoprost 10/2022 Referred by Rafiq Nobles MD ([place]) - pt moving to [place] Now on Cosopt bid OU Latanoprost qhs OU PFATs PRN POAG severe -HVF 08/2023 OD highly unreliable OS dense incomplete sup alt, inf cecocentral, similar to outside vfs (scanned 08/2021 starting on page 41) -OCT 02/2019 ([place], Dr. Nobles) OD marked diffuse thinning OS marked diffuse thinning OD s/p 270 deg TSCPC OD and Omni-GATT OD -OCT macula 03/21/22=atrophy, no edema. -IOP is good -vision is low but stable OS: H/o [id number] then MP-TSCPC -IOP is great -vision is good, stable 6 months IOP, VF OS DM -on Trulicity -no retinopathy dilated July 29, 2024 Cataract OU -NVS. Vision OD down due to glaucoma I have confirmed and edited as necessary the relevant HPI, ophthalmic history, ROS, and neuro exam findings as obtained by others. I have seen and examined Sylvia Tiffani. I have discussed the case and the management of this patient's care with the Resident/Fellow, if applicable. I also have reviewed, edited as necessary, and agree with the assessment and plan as stated above and agree with all of its relevant components. documented in this encounter [facility] 07-29-2024 Note HNO ID: [id number] Author: AVLERY ASHRAF MD Service: ? Author Type: Physician Type: Progress Notes Filed: 07/29/2024 15:51 Note Text: Tmax: 40, 40; Pachy: 571, 601 Lasers and Surgeries: OD: 02/17/22 TSCPC 1:30=>9:00, IOP=33 on 3 01/05/22 Omni-GATT (IOP23 on 2 + DMX) 04/2021 Express rev with MMC 01/2021 Express rev with MMC 05/2019 Express 03/2019 SLT OS: 04/13/23 MP-TSCPC (IOP20 on 3) 12/08/22 [id number] (IOP18 on 3 + Diamox) 01/2020 Express rev with MMC 05/2019 Express 03/2019 SLT Ocular Medication Intol and Non-efficacy: Brimonidine=red eyes Rhopressa=red eyes Acetazol=NI 08/2022 Bimatoprost=NI over latanoprost 10/2022 Referred by Rafiq Nobles MD ([place]) - pt moving to [place] Now on Cosopt bid OU Latanoprost qhs OU PFATs PRN POAG severe -HVF 08/2023 OD highly unreliable OS dense incomplete sup alt, inf cecocentral, similar to outside vfs (scanned 08/2021 starting on page 41) -OCT 02/2019 ([place], Dr. Nobles) OD marked diffuse thinning OS marked diffuse thinning OD s/p 270 deg TSCPC OD and Omni-GATT OD -OCT macula 03/21/22=atrophy, no edema. -IOP is good -vision is low but stable OS: H/o [id number] then MP-TSCPC -IOP is great -vision is good, stable 6 months IOP, VF OS DM -on Trulicity -no retinopathy dilated July 29, 2024 Cataract OU -NVS. Vision OD down due to glaucoma I have confirmed and edited as necessary the relevant HPI, ophthalmic history, ROS, and neuro exam findings as obtained by others. I have seen and examined Sylvia Nixon. I have discussed the case and the management of this patient's care with the Resident/Fellow, if applicable. I also have reviewed, edited as necessary, and agree with the assessment and plan as stated above and agree with all of its relevant components. [facility] 04-16-2024 Telephone encounter Note Valery Ashraf MD filed at 12/25/2023 10:03 AM Status: Signed Tmax: 40, 40; Pachy: 571, 601 Lasers and Surgeries: OD:02/17/22 TSCPC 1:30=>9:00, IOP=33 on 3 01/05/22 Omni-GATT (IOP23 on 2 + DMX) 04/2021 Express rev with MMC 01/2021 Express rev with MMC 05/2019 Express 03/2019 SLT OS:04/13/23 MP-TSCPC (IOP20 on 3) 12/08/22 [id number] (IOP18 on 3 + Diamox) 01/2020 Express rev with MMC 05/2019 Express 03/2019 SLT Ocular Medication Intol and Non-efficacy: Brimonidine=red eyes Rhopressa=red eyes Acetazol=NI 08/2022 Bimatoprost=NI over latanoprost 10/2022 Referred by Rafiq Nobles MD ([place]) - pt moving to [place] Now on Cosopt bid OU Latanoprost qhs OU PFATs PRN POAG severe -HVF 08/2023 OD highly unreliable OS dense incomplete sup alt, inf cecocentral, similar to outside vfs (scanned 08/2021 starting on page 41) -OCT 02/2019 ([place], Dr. Nobles) OD marked diffuse thinning OS marked diffuse thinning OD s/p 270 deg TSCPC OD and Omni-GATT OD -OCT macula 03/21/22=atrophy, no edema. -IOP is great OS: POM 8 MP-TSCPC POM 12+ [id number] -IOP is great MGD -sympotmatic dry eye -instructed on lid hygiene 6 months IOP dilate ==Unedited prior notes== Cataract OU - cortical -NVS. Vision OS down due to glaucoma MRx given for distance/mid (drivers) [facility] 04-16-2024 Miscellaneous Notes Valery Ashraf MD filed at 12/25/2023 10:03 AM Status: Signed Tmax: 40, 40; Pachy: 571, 601 Lasers and Surgeries: OD:02/17/22 TSCPC 1:30=>9:00, IOP=33 on 3 01/05/22 Omni-GATT (IOP23 on 2 + DMX) 04/2021 Express rev with MMC 01/2021 Express rev with MMC 05/2019 Express 03/2019 SLT OS:04/13/23 MP-TSCPC (IOP20 on 3) 12/08/22 [id number] (IOP18 on 3 + Diamox) 01/2020 Express rev with MMC 05/2019 Express 03/2019 SLT Ocular Medication Intol and Non-efficacy: Brimonidine=red eyes Rhopressa=red eyes Acetazol=NI 08/2022 Bimatoprost=NI over latanoprost 10/2022 Referred by Rafiq Nobles MD ([place]) - pt moving to [place] Now on Cosopt bid OU Latanoprost qhs OU PFATs PRN POAG severe -HVF 08/2023 OD highly unreliable OS dense incomplete sup alt, inf cecocentral, similar to outside vfs (scanned 08/2021 starting on page 41) -OCT 02/2019 ([place], Dr. Nobles) OD marked diffuse thinning OS marked diffuse thinning OD s/p 270 deg TSCPC OD and Omni-GATT OD -OCT macula 03/21/22=atrophy, no edema. -IOP is great OS: POM 8 MP-TSCPC POM 12+ [id number] -IOP is great MGD -sympotmatic dry eye -instructed on lid hygiene 6 months IOP dilate ==Unedited prior notes== Cataract OU - cortical -NVS. Vision OS down due to glaucoma MRx given for distance/mid (drivers) documented in this encounter [facility] 03-11-2024 History of Present illness Narrative Radiology Service Progress Note PATIENT NAME: Sylvia Nixon DATE OF SERVICE: March 11, 2024 TIME: 1:26 PM PATIENT IDENTITY VERIFICATION COMPLETED USING TWO (2) IDENTIFIERS: Name and Date of confirmed by patient verbally. FALL SCREENING: Has the patient had 2 falls in the last year or 1 fall with injury or currently using an Ambulatory Assistive Device (Walker, Cane, Wheelchair, Crutches, etc.)? No PATIENT GENDER DATA: Male PATIENT RELEVANT IMPLANT DATA REVIEWED: Not Applicable PATIENT PRESENTS WITH AN IMPLANTABLE OR ATTACHED FERTILIZER LOADER: No RADIOLOGY DEPARTMENT: General X-ray: Exam(s) Completed: Upper Extremity X-Ray(s): Shoulder, AP / TRUE AP / AXILLARY left PERIPHERAL IV DATA: Not applicable SIGNED BY: RT Kesha(Jeannette) March 11, 2024 1:26 PM documented in this encounter [facility] 03-11-2024 Note HNO ID: [id number] Author: ANAHI BOSS RT(R) Service: Radiology Author Type: Technologist Type: Progress Notes Filed: 03/11/2024 13:37 Note Text: Radiology Service Progress Note PATIENT NAME: Sylvia Nixon DATE OF SERVICE: March 11, 2024 TIME: 1:26 PM PATIENT IDENTITY VERIFICATION COMPLETED USING TWO (2) IDENTIFIERS: Name and Date of confirmed by patient verbally. FALL SCREENING: Has the patient had 2 falls in the last year or 1 fall with injury or currently using an Ambulatory Assistive Device (Walker, Cane, Wheelchair, Crutches, etc.)? No PATIENT GENDER DATA: Male PATIENT RELEVANT IMPLANT DATA REVIEWED: Not Applicable PATIENT PRESENTS WITH AN IMPLANTABLE OR ATTACHED FERTILIZER LOADER: No RADIOLOGY DEPARTMENT: General X-ray: Exam(s) Completed: Upper Extremity X-Ray(s): Shoulder, AP / TRUE AP / AXILLARY left PERIPHERAL IV DATA: Not applicable SIGNED BY: HERMINIO Rebolledo) March 11, 2024 1:26 PM [facility] 03-11-2024 Note HNO ID: [id number] Author: ROBERTO CARLOS BABIN APRN.[facility] Service: ? Author Type: Nurse Practitioner Type: Progress Notes Filed: 03/11/2024 14:10 Note Text: Subjective Patient came in with complaints of left upper arm shoulder pain. Patient says his dog yanked his arm a couple weeks ago with the leash. Patient says has been consistently painful since. Patient says is not getting any better. Patient says he does have a little bit of tingling down towards the wrist. No loss of feeling or weakness. The history is provided by the patient. No algebraist was used. Shoulder Injury Review of Systems Constitutional: Negative. Skin: Negative. Objective Physical Exam Constitutional: Appearance: Normal appearance. Pulmonary: Effort: Pulmonary effort is normal. Musculoskeletal: Arms: Comments: Area marked above is where patient says he is more tender when he picks up items or lays on his arm. Also tender upon palpation. Datil area marked above is where he says he feels some tingling. Grasps are equal bilaterally no deformities or swelling or discoloration noted. Neurological: Mental Status: He is alert. PAST MEDICAL HISTORY Diagnosis Date Hypertension Hypothyroid Primary open angle glaucoma (POAG) of both eyes, severe stage Type 2 diabetes mellitus (HCC) PAST SURGICAL HISTORY Procedure Laterality Date LASER TRABECULOPLASTY Bilateral 04/04/19 OS, 04/17/19 OD OTHER Express OD 05/21/19, Revision with [facility] OD 01/26/21, 05/18/21,Revision with [facility] OS 01/28/20 PAST SURGICAL HISTORY OF 01/06/2022 GATT OD PAST SURGICAL HISTORY OF Right 02/17/2022 CILIARY BODY DESTRUCTION VIA CYCLOPHOTOCOAGULATION, TRANSSCLERAL PAST SURGICAL HISTORY OF left eye for glaucoma ALLERGIES Bee Pollen, Netarsudil, and Dust MEDICATIONS atropine 1 % ophthalmic solution Use 1 Drop in the left eye two times a day. latanoprost (XALATAN) 0.005 % ophthalmic solution Use 1 Drop in both eyes daily at bedtime. carboxymethylcellulose sodium (REFRESH OPHTHALMIC) Use in eyes. Preservative free AT's cholecalciferol, vitamin D3, (VITAMIN D3 ORAL) Take by mouth once daily. MEN'S MULTI-VITAMIN ORAL Take by mouth. levothyroxine 200 mcg cap Take 200 mcg by mouth daily before breakfast. olmesartan (BENICAR) 20 mg tablet Take 20 mg by mouth once daily. omeprazole (PRILOSEC) 40 mg capsule Take 20 mg by mouth once daily. levothyroxine (SYNTHROID) 25 mcg tablet Take 25 mcg by mouth once daily. TRULICITY 3 mg/0.5 mL pen injector cyanocobalamin, vitamin B-12, 2,000 mcg tab Take 2,000 mcg by mouth. atorvastatin (LIPITOR) 10 mg tablet Take 10 mg by mouth daily at bedtime. flaxseed oil (OMEGA 3 ORAL) Take 1 capsule by mouth every morning. loratadine (CLARITIN) 10 mg tablet Take 10 mg by mouth. dorzolamide-timolol (COSOPT) 22.3-6.8 mg/mL ophthalmic solution INSTILL 1 DROP INTO EACH EYE EVERY 12 HOURS (Patient not taking: Reported on 03/11/2024) prednisoLONE acetate (PRED FORTE) 1 % ophthalmic suspension Use 1 Drop in the left eye four times daily. For use AFTER surgery. (Patient not taking: Reported on 03/11/2024) ondansetron orally disintegrating (ZOFRAN ODT) 4 mg disintegrating tablet Dissolve 1 tablet by mouth every 8 hours as needed for nausea/vomiting. (Patient not taking: Reported on 03/11/2024) SYNJARDY XR 25-1,000 mg XR tab Take 1 tablet by mouth once daily. FAMILY HISTORY Problem Relation Age of Onset Cataract Mother Glaucoma Mother Hypertension Mother Kidney failure Father Cataract Maternal Grandmother Colon Cancer Maternal Grandfather Detached Retina No Family History Macular Degen No Family History Blindness No Family History Social History Tobacco Use Smoking status: Never Smokeless tobacco: Never Vaping Use Vaping status: Never Used Substance Use Topics Alcohol use: Not Currently Drug use: Never ASSESSMENT/PLAN: 1. Acute pain of left shoulder - ICD9: 719.41, ICD10: M25.512 - XR SHOULDER GENERAL 3V OR MORE AP/TRUE AP/OTHER LEFT * * * * Physician Interpretation * * * * LEFT SHOULDER X-RAY SERIES CLINICAL HISTORY: Dog pulled arm on these 2 weeks ago, pain in upper arm TECHNIQUE: AP, Grashey and axillary views COMPARISON: None available. RESULT: No fracture or malalignment. Joint spaces and articular surfaces are preserved. 1.3 cm oblong calcification in the soft tissues superior to the greater tuberosity of the humerus. IMPRESSION IMPRESSION: No acute fracture or malalignment. Incidental note of oblong calcification above the greater tuberosity of humerus consistent with calcific tendinitis. Stummel Selector: RYLAN Transcribe Date/Time: Mar 11 2024 1:37P Dictated by : BAILEY LIVE MD - CONSULT PANEL TO ORTHOPAEDICS Will get his own orthopedic appointment set up. Patient will follow-up with orthopedics for further testing. For now just comfort measures. Roberto Carlos Babin APRN.[facility] 03-11-2024 History of Present illness Narrative Images from the original note were not included. Subjective Patient came in with complaints of left upper arm shoulder pain. Patient says his dog yanked his arm a couple weeks ago with the leash. Patient says has been consistently painful since. Patient says is not getting any better. Patient says he does have a little bit of tingling down towards the wrist. No loss of feeling or weakness. The history is provided by the patient. No algebraist was used. Shoulder Injury Review of Systems Constitutional: Negative. Skin: Negative. Objective Physical Exam Constitutional: Appearance: Normal appearance. Pulmonary: Effort: Pulmonary effort is normal. Musculoskeletal: Arms: Comments: Area marked above is where patient says he is more tender when he picks up items or lays on his arm. Also tender upon palpation. Datil area marked above is where he says he feels some tingling. Grasps are equal bilaterally no deformities or swelling or discoloration noted. Neurological: Mental Status: He is alert. PAST MEDICAL HISTORY Diagnosis Date Hypertension Hypothyroid Primary open angle glaucoma (POAG) of both eyes, severe stage Type 2 diabetes mellitus (HCC) PAST SURGICAL HISTORY Procedure Laterality Date LASER TRABECULOPLASTY Bilateral 04/04/19 OS, 04/17/19 OD OTHER Express OD 05/21/19, Revision with [facility] OD 01/26/21, 05/18/21,Revision with [facility] OS 01/28/20 PAST SURGICAL HISTORY OF 01/06/2022 GATT OD PAST SURGICAL HISTORY OF Right 02/17/2022 CILIARY BODY DESTRUCTION VIA CYCLOPHOTOCOAGULATION, TRANSSCLERAL PAST SURGICAL HISTORY OF left eye for glaucoma ALLERGIES Bee Pollen, Netarsudil, and Dust MEDICATIONS atropine 1 % ophthalmic solution Use 1 Drop in the left eye two times a day. latanoprost (XALATAN) 0.005 % ophthalmic solution Use 1 Drop in both eyes daily at bedtime. carboxymethylcellulose sodium (REFRESH OPHTHALMIC) Use in eyes. Preservative free AT's cholecalciferol, vitamin D3, (VITAMIN D3 ORAL) Take by mouth once daily. MEN'S MULTI-VITAMIN ORAL Take by mouth. levothyroxine 200 mcg cap Take 200 mcg by mouth daily before breakfast. olmesartan (BENICAR) 20 mg tablet Take 20 mg by mouth once daily. omeprazole (PRILOSEC) 40 mg capsule Take 20 mg by mouth once daily. levothyroxine (SYNTHROID) 25 mcg tablet Take 25 mcg by mouth once daily. TRULICITY 3 mg/0.5 mL pen injector cyanocobalamin, vitamin B-12, 2,000 mcg tab Take 2,000 mcg by mouth. atorvastatin (LIPITOR) 10 mg tablet Take 10 mg by mouth daily at bedtime. flaxseed oil (OMEGA 3 ORAL) Take 1 capsule by mouth every morning. loratadine (CLARITIN) 10 mg tablet Take 10 mg by mouth. dorzolamide-timolol (COSOPT) 22.3-6.8 mg/mL ophthalmic solution INSTILL 1 DROP INTO EACH EYE EVERY 12 HOURS (Patient not taking: Reported on 03/11/2024) prednisoLONE acetate (PRED FORTE) 1 % ophthalmic suspension Use 1 Drop in the left eye four times daily. For use AFTER surgery. (Patient not taking: Reported on 03/11/2024) ondansetron orally disintegrating (ZOFRAN ODT) 4 mg disintegrating tablet Dissolve 1 tablet by mouth every 8 hours as needed for nausea/vomiting. (Patient not taking: Reported on 03/11/2024) SYNJARDY XR 25-1,000 mg XR tab Take 1 tablet by mouth once daily. FAMILY HISTORY Problem Relation Age of Onset Cataract Mother Glaucoma Mother Hypertension Mother Kidney failure Father Cataract Maternal Grandmother Colon Cancer Maternal Grandfather Detached Retina No Family History Macular Degen No Family History Blindness No Family History Social History Tobacco Use Smoking status: Never Smokeless tobacco: Never Vaping Use Vaping status: Never Used Substance Use Topics Alcohol use: Not Currently Drug use: Never ASSESSMENT/PLAN: 1. Acute pain of left shoulder - ICD9: 719.41, ICD10: M25.512 - XR SHOULDER GENERAL 3V OR MORE AP/TRUE AP/OTHER LEFT * * * * Physician Interpretation * * * * LEFT SHOULDER X-RAY SERIES CLINICAL HISTORY: Dog pulled arm on these 2 weeks ago, pain in upper arm TECHNIQUE: AP, Grashey and axillary views COMPARISON: None available. RESULT: No fracture or malalignment. Joint spaces and articular surfaces are preserved. 1.3 cm oblong calcification in the soft tissues superior to the greater tuberosity of the humerus. IMPRESSION IMPRESSION: No acute fracture or malalignment. Incidental note of oblong calcification above the greater tuberosity of humerus consistent with calcific tendinitis. Stummel Selector: RYLAN Transcribe Date/Time: Mar 11 2024 1:37P Dictated by : BAILEY LIVE MD - CONSULT PANEL TO ORTHOPAEDICS Will get his own orthopedic appointment set up. Patient will follow-up with orthopedics for further testing. For now just comfort measures. 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 Healthy, normal oil soothes the eye and reduces tear evaporation. Without this normal oil layer, your eyes feel dry, irritated, and you may notice blurring and fluctuation of your vision. You may also notice the edges of your eyelids are red, irritated, and crusty. Steps to Treat Meibomian Gland Dysfunction 1. Warm, moist compress: Once daily, moisten a cloth warm warm-to-hot tap water and place it over your eyelids for 5 minutes. This will loosen the oil and help unclog the oil glands. 2. After the compress, carefully clean the edge of your upper and lower eyelid (at the root of the eyelashes) by placing a drop of no more tears baby wash on your cloth (or you can use Ocusoft Lid Scrub towelette.) 3. Use an artificial tear, such as SYSTANE ULTRA, SYSTANE BALANCE, THERA-TEARS, or GENTEAL 3-4 times daily. My experience is that the generic eye lubricating drops probably are not quite as effective. 4. Flax Seed Oil 2000-2500mg daily, or TheraTears Eye Nutrition 3 pills daily, with food often helps improve the oil composition and helps your tears work better. It takes 4-6 weeks of continuous use to see the full benefit. documented in this encounter [facility] 12-25-2023 History of Present illness Narrative Tmax: 40, 40; Pachy: 571, 601 Lasers and Surgeries: OD: 02/17/22 TSCPC 1:30=>9:00, IOP=33 on 3 01/05/22 Omni-GATT (IOP23 on 2 + DMX) 04/2021 Express rev with [facility] 01/2021 Express rev with [facility] 05/2019 Express 03/2019 SLT OS: 04/13/23 MP-TSCPC (IOP20 on 3) 12/08/22 [id number] (IOP18 on 3 + Diamox) 01/2020 Express rev with [facility] 05/2019 Express 03/2019 SLT Ocular Medication Intol and Non-efficacy: Brimonidine=red eyes Rhopressa=red eyes Acetazol=NI 08/2022 Bimatoprost=NI over latanoprost 10/2022 Referred by Rafiq Nobles MD ([place]) - pt moving to [place] Now on Cosopt bid OU Latanoprost qhs OU PFATs PRN POAG severe -HVF 08/2023 OD highly unreliable OS dense incomplete sup alt, inf cecocentral, similar to outside vfs (scanned 08/2021 starting on page 41) -OCT 02/2019 ([place], Dr. Nobles) OD marked diffuse thinning OS marked diffuse thinning OD s/p 270 deg TSCPC OD and Omni-GATT OD -OCT macula 03/21/22=atrophy, no edema. -IOP is great OS: POM 8 MP-TSCPC POM 12+ [id number] -IOP is great MGD -sympotmatic dry eye -instructed on lid hygiene 6 months IOP dilate ==Unedited prior notes== Cataract OU - cortical -NVS. Vision OS down due to glaucoma MRx given for distance/mid (drivers) I have confirmed and edited as necessary the relevant HPI, ophthalmic history, ROS, and neuro exam findings as obtained by others. I have seen and examined Sylvia Nixon. I have discussed the case and the management of this patient's care with the Resident/Fellow, if applicable. I also have reviewed, edited as necessary, and agree with the assessment and plan as stated above and agree with all of its relevant components. documented in this encounter [facility] 12-04-2023 History of Present illness Narrative ESTABLISHED PATIENT VISIT CHIEF COMPLAINT: Follow Up HISTORY OF PRESENT ILLNESS: Sylvia Nixon is a 53 year old male, BMI 35.91 kg/m2 with a PMH significant for and per last office visit of 10/10/22: 1. Obstructive sleep apnea (adult) (pediatric) - ICD9: 327.23, ICD10: G47.33 (primary diagnosis) 2. Class 2 obesity with body mass index (BMI) of 35.0 to 35.9 in adult, unspecified obesity type, unspecified whether serious comorbidity present - ICD9: 278.00, V85.35, ICD10: E66.9, Z68.35 Patient with known history of JAMIE for which he has been on PAP for at least 5 years. Unfortunately objective data/records not available for review at this time, but subjective history would suggest that pt is compliant with the device, using nightly for well over 4 hours, and perceives benefit with PAP use. At this time, attempting to get outside records. In meantime, will attempt to transfer his PAP care to a local DME with his equipment still being replaced by those in [place]. Pt agrees with plan. Discussed with patient: the physiology of OSAS, medical conditions associated with OSAS (DM, HTN, CAD, Depression, Stroke, Headache...) and treatment options (UPPP, Dental appliances, CPAP...). Explained that a new sleep study should not be needed at this time unless required by insurance (I.e. change in AHI scoring criteria). Advised patient to avoid activities that could harm self or others when tired/sleepy, including driving and/or operating heavy machinery. Pt has continued to use DME [facility] [employer] - we contacted multiple DMEs this AM and finally circled back to [facility]. [facility] reports pt using a Dreamstation but that they have not serviced pt since 2018. Pt however reporting that they are sending supplies. Device Rx was 05/01/2018. The last records from prior sleep specialists following pat on 04/09/21 indicate pt was reports of compliance and an avg AHI of 0.4. Currently on PAP at 9 cmH2O. A later download in 2021 shows compliance with an avg AHI of 0.2. A report in 2022 suggests compliance with an AHI of 0.3. Note that his baseline PSG showed AHI of 18.4 (this and PAP titration in EPIC) using CMS rule. Pt states since he downloaded device last still getting 100% fit. A download was reviewed from phone and continues to use it nightly with avg AHI <1.5. If does not wear PAP feels tired and sleep non restorative. No mask or PAP issues. No issues falling asleep. Staying asleep trough the night except to void secondary DM. Pt did get recalled PAP device, and only about 3 years old per patient. No issues getting supplies. No new med issues. Following up with endo next week for DM - ran out of Trulicity and cannot get it. PAP device: Dreamstation 2 Advanced REVIEW OF SYSTEMS GENERAL:No weight loss, malaise or fevers. HEENT:Negative for frequent or significant headaches, No changes in hearing or vision, no nose bleeds or other nasal problems NECK:Negative for lumps, goiter, pain and significant neck swelling RESPIRATORY: Negative for cough, wheezing or shortness of breath. CARDIOVASCULAR: Negative for chest pain, leg swelling or palpitations. GASTROINTESTINAL: Negative for abdominal discomfort, blood in stools or black stools or change in bowel habits MUSCULOSKELETAL: Negative for joint pain or swelling, back pain or muscle pain. NEUROLOGIC:Negative for focal numbness or weakness, headaches and dizziness or syncope, vision changes, speech/languag changes - EXCEPT that as per HPI above. LAB/IMAGING: Those performed since patient's last visit have been reviewed. Glucose (mg/dL) Date Value 09/22/2021 171 (H) BUN (mg/dL) Date Value 09/22/2021 17 Creatinine (mg/dL) Date Value 09/22/2021 0.96 Sodium (mmol/L) Date Value 09/22/2021 140 Potassium (mmol/L) Date Value 09/22/2021 4.3 Chloride (mmol/L) Date Value 09/22/2021 105 CO2 (mmol/L) Date Value 09/22/2021 24 Protein, Total (g/dL) Date Value 09/22/2021 6.9 Albumin (g/dL) Date Value 09/22/2021 4.4 Calcium, Total (mg/dL) Date Value 09/22/2021 9.3 Alkaline Phosphatase (U/L) Date Value 09/22/2021 107 Bilirubin, Total (mg/dL) Date Value 09/22/2021 0.6 AST (U/L) Date Value 09/22/2021 23 ALT (U/L) Date Value 09/22/2021 14 MEDICATIONS: dorzolamide-timolol (COSOPT) 22.3-6.8 mg/mL ophthalmic solution Use 1 Drop in both eyes every 12 hours. latanoprost (XALATAN) 0.005 % ophthalmic solution Use 1 Drop in both eyes daily at bedtime. ondansetron orally disintegrating (ZOFRAN ODT) 4 mg disintegrating tablet Dissolve 1 tablet by mouth every 8 hours as needed for nausea/vomiting. cholecalciferol, vitamin D3, (VITAMIN D3 ORAL) Take by mouth once daily. MEN'S MULTI-VITAMIN ORAL Take by mouth. levothyroxine 200 mcg cap Take 200 mcg by mouth daily before breakfast. olmesartan (BENICAR) 20 mg tablet Take 20 mg by mouth once daily. omeprazole (PRILOSEC) 40 mg capsule Take 20 mg by mouth once daily. levothyroxine (SYNTHROID) 25 mcg tablet Take 25 mcg by mouth once daily. atorvastatin (LIPITOR) 10 mg tablet Take 10 mg by mouth daily at bedtime. flaxseed oil (OMEGA 3 ORAL) Take 1 capsule by mouth every morning. loratadine (CLARITIN) 10 mg tablet Take 10 mg by mouth. atropine 1 % ophthalmic solution Use 1 Drop in the left eye two times a day. (Patient not taking: Reported on 08/21/2023) prednisoLONE acetate (PRED FORTE) 1 % ophthalmic suspension Use 1 Drop in the left eye four times daily. For use AFTER surgery. (Patient not taking: Reported on 12/04/2023) carboxymethylcellulose sodium (REFRESH OPHTHALMIC) Use in eyes. Preservative free AT's SYNJARDY XR 25-1,000 mg XR tab Take 1 tablet by mouth once daily. TRULICITY 3 mg/0.5 mL pen injector INJECT ONE PEN (3MG) UNDER THE SKIN ONCE A WEEK (Patient not taking: Reported on 12/04/2023) cyanocobalamin, vitamin B-12, 2,000 mcg tab Take 2,000 mcg by mouth. (Patient not taking: Reported on 12/04/2023) HISTORIES PAST MEDICAL HISTORY Diagnosis Date Hypertension Hypothyroid Primary open angle glaucoma (POAG) of both eyes, severe stage Type 2 diabetes mellitus (HCC) FAMILY HISTORY Problem Relation Age of Onset Cataract Mother Glaucoma Mother Hypertension Mother Kidney failure Father Cataract Maternal Grandmother Colon Cancer Maternal Grandfather Detached Retina No Family History Macular Degen No Family History Blindness No Family History SOCIAL HISTORY Social History Tobacco Use Smoking status: Never Smokeless tobacco: Never Vaping Use Vaping Use: Never used Substance Use Topics Alcohol use: Not Currently Drug use: Never PHYSICAL EXAMINATION BP 122/68 Pulse 84 Resp 16 Wt 120.1 kg (264 lb 12.8 oz) SpO2 97% BMI 35.91 kg/m GENERAL EXAM: General appearance: NAD, pleasant. HEENT: NC/AT, nasal congestion absent, no oral lesions, membranes moist. NECK: No masses, supple. Lungs: CTA bilaterally. CV: RRR nl S1, S2. No carotid bruits. Extr: No cyanosis, clubbing or edema. Extremity pulses palpable and normal. Skin: Cool to touch. NEUROLOGICAL EXAM: General: Awake, alert, oriented x3 (person,place,time), speech fluent, no dysarthria; comprehension, naming, repetition intact. Fund of knowledge grossly normal. CN: PERRL, EOMI and without nystagmus, VFF to confrontation, facial sensation and strength are normal and symmetric, hearing is intact to finger rub bilaterally, palate and tongue movements are intact and symmetric. SCM and trapezius strength normal. Motor: Normal tone, bulk and strength (5/5) bilaterally (throughout extremities x4). Coordination: FNF, ERIKA intact. No tremors. Sensation: LT intact throughout. No evidence of neglect. Gait: Stable with normal stride and arm swing. Assessment and Plan: ASSESSMENT/PLAN: 1. JAMIE (obstructive sleep apnea) - ICD9: 327.23, ICD10: G47.33 (primary diagnosis) 2. Class 2 obesity with body mass index (BMI) of 35.0 to 35.9 in adult, unspecified obesity type, unspecified whether serious comorbidity present - ICD9: 278.00, V85.35, ICD10: E66.9, Z68.35 Patient with known history of JAMIE as above. Doing well on PAP with no complaints. Subjective and objective compliance confirmed. Pt reports perceived benefit with PAP use. Encouraged continued compliance. Reminded pt to clean and replace PAP equipment regularly. Advised pt not to drive or operate heavy machinery if sleepy. Pt will be due for new PAP device in about 2 years at which time will likely recommend an Auto PAP as uncertain he is needing a pressure of 9cmH2O through the night based on downloads - however, no complaints. Follow up 1 year or sooner prn. Jose Guadalupe Herrera MD I spent a total of 20+ minutes on the date of the service which included preparing to see the patient, [id number] patient care, completing clinical documentation, obtaining and/or reviewing separately obtained history, performing a medically appropriate examination, counseling and educating the patient/family/caregiver, ordering medications, tests, or procedures, independently interpreting results (not separately reported), and communicating results to the patient/family/caregiver (results include PAP data download). Note computer issues during interview and thus not in EPIC during the entire session. documented in this encounter [facility] 11-30-2023 Telephone encounter Note [employer] log on 11/27/2023 message sent CPAP, new Stell[employer] to obtain compliance report. Awaiting patient reply, faxed request to [employer] [phone]. [employer] returned fax not their pt. Elmira Gao LPN [facility] 11-30-2023 Miscellaneous Notes MyChart log on 11/27/2023 message sent [employer] to obtain compliance report. Awaiting patient reply, faxed request to [employer] [phone]. [employer] returned fax not their pt. Elmira Gao LPN documented in this encounter [facility] 08-21-2023 History of Present illness Narrative Tmax: 40, 40; Pachy: 571, 601 Lasers and Surgeries: OD: 02/17/22 TSCPC 1:30=>9:00, IOP=33 on 3 01/05/22 Omni-GATT (IOP23 on 2 + DMX) 04/2021 Express rev with MMC 01/2021 Express rev with MMC 05/2019 Express 03/2019 SLT OS: 04/13/23 MP-TSCPC (IOP20 on 3) 12/08/22 [id number] (IOP18 on 3 + Diamox) 01/2020 Express rev with [facility]MC 05/2019 Express 03/2019 SLT Ocular Medication Intol and Non-efficacy: Brimonidine=red eyes Rhopressa=red eyes Acetazol=NI 08/2022 Bimatoprost=NI over latanoprost 10/2022 Referred by Rafiq Nobles MD ([place]) - pt moving to [place] Now on Cosopt bid OU Latanoprost qhs OU PFATs PRN POAG severe -HVF 08/2023 OD highly unreliable OS dense incomplete sup alt, inf cecocentral, similar to outside vfs (scanned 08/2021 starting on page 41) -OCT 02/2019 ([place], Dr. Nobles) OD marked diffuse thinning OS marked diffuse thinning OD s/p 270 deg TSCPC OD and Omni-GATT OD -OCT macula 03/21/22=atrophy, no edema. -IOP is great OS: PO 4mo MP-TSCPC POM 8 [id number] -IOP is great Cataract OU - cortical -NVS. Vision OS down due to glaucoma MRx given for distance/mid (drivers) 4 months IOP ATTESTATION: By signing my name below, I, Tali Martinez, attest that this documentation has been prepared under the direction and in the presence of Valery Ashraf MD. Electronically Signed:cristiano Brown, August 21, 2023 8:28 AM I personally performed the services described in this documentation. All medical record entries made by the scribe were at my direction and in my presence. I have reviewed the chart and discharge instructions (if applicable) and agree that the record reflects my personal performance and is accurate and complete. I have confirmed and edited as necessary the relevant HPI, ophthalmic history, ROS, and neuro exam findings as obtained by others. I have seen and examined Sylvia Nixon. I have discussed the case and the management of this patient's care with the Resident/Fellow, if applicable. I also have reviewed, edited as necessary, and agree with the assessment and plan as stated above and agree with all of its relevant components. documented in this encounter [facility] 05-15-2023 History of Present illness Narrative Tmax: 40, 40; Pachy: 571, 601 Lasers and Surgeries: OD: 02/17/22 TSCPC 1:30=>9:00, IOP=33 on 3 01/05/22 Omni-GATT (IOP23 on 2 + DMX) 04/2021 Express rev with MMC 01/2021 Express rev with [facility]MC 05/2019 Express 03/2019 SLT OS: 04/13/23 MP-TSCPC (IOP20 on 3) 12/08/22 [id number] (IOP18 on 3 + Diamox) 01/2020 Express rev with [facility] 05/2019 Express 03/2019 SLT Ocular Medication Intol and Non-efficacy: Brimonidine=red eyes Rhopressa=red eyes Acetazol=NI 08/2022 Bimatoprost=NI over latanoprost 10/2022 Referred by Rafiq Nobles MD ([place]) - pt moving to [place] Now on Cosopt bid OU Latanoprost qhs OU PFATs PRN POAG severe -HVF 08/2022 OS mod dense sup alt, ITQ defect encroaching fixation, better than outside Vfs (scanned 08/2021) from 10/2019 and 07/2021 but worse than 09/2020 -OCT 02/2019 ([place], Dr. Nobles) OD marked diffuse thinning OS marked diffuse thinning OD s/p 270 deg TSCPC OD and Omni-GATT OD -OCT macula 03/21/22=atrophy, no edema. 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 05/15/2023 8:19 AM. I, Valery Ashraf MD, personally performed the services described in this documentation. All medical record entries made by the scribe were at my direction and in my presence. I have reviewed the chart and discharge instructions (if applicable) and agree that the record reflects my personal performance and is accurate and complete. I have confirmed and edited as necessary the relevant ophthalmic history, ROS, and the neuro exam findings as obtained by others. I have seen and examined Sylvia Nixon. I have discussed the case and the management of this patient's care with the Resident/Fellow, if applicable. I also have reviewed and agree with the assessment and plan as stated above and agree with all of its relevant components. Electronically Signed: Valery Ashraf MD, May 15, 2023 8:23 AM documented in this encounter [facility] 04-04-2023 Instructions Elsy Alfonso PA - 04/04/2023 3:07 PM EDT PATIENT PREOPERATIVE INSTRUCTIONS Valery Ashraf MD has scheduled you for your procedure at this surgery center: [facility]: [phone] --[facility], [address], [place] [address]. Please read below carefully for your personalized instructions. Dietary Restrictions: - No solid food after midnight. - You may have 12 ounces of clear liquids (water, clear juices such as apple juice or gatorade, carbonated beverages, clear tea, black coffee, jello) until 2 hours before scheduled arrival at facility. - Do not drink any alcohol after midnight the night before your surgery. Medications: Unless instructed differently below, stay on all of your medications until your surgery. If you start any new medications after today's visit, please contact your surgeon. Pre-Surgery Med Instructions Medication Instructions prednisoLONE acetate (PRED FORTE) 1 % ophthalmic suspension dorzolamide-timolol (COSOPT) 22.3-6.8 mg/mL ophthalmic solution latanoprost (XALATAN) 0.005 % ophthalmic solution ondansetron orally disintegrating (ZOFRAN ODT) 4 mg disintegrating tablet carboxymethylcellulose sodium (REFRESH OPHTHALMIC) cholecalciferol, vitamin D3, (VITAMIN D3 ORAL) MEN'S MULTI-VITAMIN ORAL levothyroxine 200 mcg cap Take the day of surgery with a small sip of water olmesartan (BENICAR) 20 mg tablet Do not take for 24 hours prior to surgery omeprazole (PRILOSEC) 40 mg capsule Take the day of surgery with a small sip of water levothyroxine (SYNTHROID) 25 mcg tablet Take the day of surgery with a small sip of water SYNJARDY XR 25-1,000 mg XR tab Stop 3 days before surgery TRULICITY 3 mg/0.5 mL pen injector You took your last dose on Monday04/02/2023. cyanocobalamin, vitamin B-12, 2,000 mcg tab atorvastatin (LIPITOR) 10 mg tablet Take the day of surgery with a small sip of water flaxseed oil (OMEGA 3 ORAL) loratadine (CLARITIN) 10 mg tablet If you take any medications for erectile dysfunction-Cialis (Tadalafil), Levitra, Staxyn (Vardenafil) Viagra (Sildenenafil please do not take these for 48 hours before surgery. If you start any new medications after today's visit, please contact the surgeon's office. Blood Thinning Medications: - Stop NSAIDS (Ibuprofen, Advil, Aleve, Motrin, Celebrex, Mobic, etc.) 7 days before surgery, as directed by your surgeon. - Stop Aspirin 7 days before surgery, as directed by your surgeon. - Stop Vitamin E, ALL multi-vitamins, herbals and dietary supplements 14 days before surgery. - You may take Tylenol (Acetaminophen) or any of your pain medications that do not contain aspirin or NSAIDS as needed. Important Reminders: - If you use CPAP/BIPAP, bring the machine with you to the surgery center. -Please be sure to brush your teeth and you can use mouth wash or rinse your mouth if dry. - Candy, mints, and tobacco products are NOT permitted the morning of surgery. - Hearing aids, dentures and glasses may be worn the morning of surgery. - NO jewelry, body piercings, makeup, hairpins or contacts are to be worn the day of surgery. If you develop symptoms such as a fever, cold, or flu, or have other changes to your health within TWO DAYS of scheduled surgery or the morning of surgery, please contact the surgery center above. Personal Belongings: -Please have photo ID and insurance cards. -If you do not have a copy of advance directives on file with us, please bring a copy with you on the day of surgery. - Leave ALL valuables and money at home or with family members. For Outpatient Procedures: - YOU MUST HAVE A RESPONSIBLE INFORMATION SYSTEMS CONSULTANT TAKE YOU HOME. A SWIMMING TEACHER OR BRAIN SURGEON CANNOT BE MADE A RESPONSIBLE INFORMATION SYSTEMS CONSULTANT. - We recommend that a responsible person stays with you overnight to take care of you. - You cannot stay in a hotel alone after outpatient surgery. You will not be permitted to have your surgery, if you do not have someone to take care of you. Arrival Time for Surgery: - To obtain your arrival time for surgery, call your physician's office the day before your surgery. - If your surgery is scheduled for Monday, call the Monday before. Your surgeon s instrument technologist will tell you what time to call the office. - If you have not reached the departmental instrument technologist by 5 P.M., call [phone] after 5 P.M. the day before your surgery. Please be aware that emergency situations arise, which may delay or change your surgical time. If this happens, we will notify you as soon as possible and regret any inconvenience. If you already have an Advance Directive, please fax a copy to [phone] or email to for it to be added to your chart. If you do not have an Advance Directive, you can find the appropriate form and more information at [email or web address]. We recommend that you complete the Advance Directive form found on the website and bring it with you the day of your surgery. It can be witnessed and scanned into your chart that day. MASHA Okeefe documented in this encounter [facility] 04-04-2023 History and physical note Images from the original note were not included. HISTORY AND PHYSICAL EXAMINATION SERVICE DATE: 04/04/2023 SERVICE TIME: 2:55 PM PRIMARY CARE PHYSICIAN: Melissa Gatica MD This is a virtual visit using [employer] Video Visit. It required patient-provider interaction for the medical decision making as documented below. I have communicated my name and active licensure. The patient's identity and physical location were verified at the time of this visit. Either the patient or their legal home office representative has been informed of the risks and benefits of and alternatives to treatment through a remote evaluation and consents to proceed with the evaluation remotely Assessment Patient has the following medical conditions which may affect jeremias-operative course: Essential hypertension, benign Assessment: Controlled with olmesartan, no EKG indicated for this procedure. Last 3 Encounter BP Readings: Date: BP: 12/08/2022 120/79 11/30/2022 108/70 11/09/2022 131/80 Mixed hyperlipidemia Assessment: Continue statin therapy. JAMIE (obstructive sleep apnea) Assessment: Reports compliance with CPAP machine, advised to bring home device DOS. GERD (gastroesophageal reflux disease) Assessment: Controlled with PPI. PONV (postoperative nausea and vomiting) Assessment: Recommend jeremias-operative anti-emetics. Hypothyroidism Assessment: Clinically euthyroid, continue levothyroxine. No results found for: TSH Type 2 diabetes mellitus, without long-term current use of insulin (HCC) Assessment: Reports compliance to medication synjardy and trulicity, hold per PACC protocol. Following with PCP. Last HbA1c 9.1% on 12/03/2022. Encouraged lifestyle modifications. For previous eye surgery: Valery Ashraf MD 12/05/22 1:01 PM Note We can still proceed with surgery as planned despite the high A1C. That being said, I do recommend that he try to improve his blood sugar control as much as possible between now and surgery. Class 2 severe obesity due to excess calories with serious comorbidity and body mass index (BMI) of 35.0 to 35.9 in adult ([facility]) Assessment: Body mass index is 35.8 kg/m . Artis Activity Status Index: METS: Climb a flight of stairs or walk up a hill (5.50 METs) DASI Score: 5.5 Patient denies any chest pain or undue shortness of breath with the above physical activity. Clinical Frailty Scale: 3. Well, with treated comorbid disease STOP-Bang Score: STOP-Bang Score: 0 (+JAMIE, compliant with CPAP) [id number] Score: Hypertension history: Yes Diabetes history: Yes [id number] Score: 2 ANESTHESIA FINDINGS: Intubation History: No history of difficult intubation. No abnormal airway history Significant Anesthesia Considerations: potential postop nausea/vomiting Airway History: No history of difficult airway No abnormal airway history I - PHYSICAL EVALUATION AIRWAY Patient intubated: No. Tracheostomy tube not present Mallampati: IV. TM distance: >3 FB. Neck ROM: full ROM without neurological symptoms. Mouth opening: adequate. Short neck: yes. Thick neck: yes Sexton present: no Lip Bite Test: II DENTAL Dental findings: teeth intact. II - ANESTHESIA PLAN Anesthetic plan additional comments: *PACC/TCI - anesthesia choice. Beta Fara Monitoring Plan Post Procedure Analgesic Plan This is a virtual visit using [employer] video visit. It required patient-provider interaction for the medical decision making as documented below. REASON FOR VISIT: Sylvia Nixon is a 53 year old male who is scheduled for Procedure(s): CILIARY BODY DESTRUCTION VIA CYCLOPHOTOCOAGULATION, TRANSSCLERAL (Left) at the request of Valery Olsen consultation. My final recommendation will be communicated back to the requesting physician by way of shared medical record or letter. Subjective The patient has the following: ACTIVE PROBLEM LIST Primary Open Angle Glaucoma (Poag) of Both Eyes, Severe Stage Essential Hypertension, Benign Mixed Hyperlipidemia Jamie (Obstructive Sleep Apnea) Gerd (Gastroesophageal Reflux Disease) Hypothyroidism Type 2 Diabetes Mellitus, Without Long-Term Current Use of Insulin ([facility]) Class 2 Severe Obesity Due to Excess Calories With Serious Comorbidity and Body Mass Index (Bmi) of 35.0 to 35.9 in Adult Ponv (Postoperative Nausea and Vomiting) COVID-19 Immunization Status Overdue - Covid-19 Vaccine (1) Overdue - never done No completion, postpone, frequency change, or communication history exists for this topic. Patient reports being fully vaccinated against COVID-19. CHIEF COMPLAINT: Pre-operative evaluation HPI: Sylvia Nixon presents with primary open angle glaucoma of bilateral eyes. Endorses vision changes. Had multiple eye surgeries. REVIEW OF SYSTEMS: General: Negative for: unintentional weight change and fever. Neurological: Positive for: headaches. Negative for: seizures, TIA and strokes. Respiratory: Positive for: obstructive sleep apnea and CPAP/BiPAP compliant. Negative for: asthma, COPD, current cough, dyspnea, home oxygen, pneumonia within 6 weeks and URI < 2 weeks. Cardiovascular: Positive for: hyperlipidemia and hypertension Negative for: AICD/PPM, arrhythmia, atrial fibrillation, CAD, chest pain, CHF, DVT/PE, recent MN, murmur/valvular heart disease and open heart surgery. GI: Positive for: GERD Negative for: abdominal pain, GI bleed <30 days, hepatitis, liver disease, nausea and vomiting. : Negative for: dysuria, frequent urination, hematuria, urgency and urinary tract infection. Endocrine: Positive for: diabetes mellitus and hypothyroidism. Negative for: hyperthyroidism. Hematology: Negative for: anemia, bruises/bleeds easily, factor V Leiden, hemophilia, thrombocytopenia, von Willebrand disease and chronic anti-coagulation/platelet meds. Oncology: No history of CA metastasis, chemo within 30 days, or radiotherapy within 90 days. No history of oncological symptoms or problems. Psych: Negative for: anxiety and depression. Musculoskeletal: Positive for: back pain. Negative for: joint pain and swelling. Skin: Negative for lesions, rash and itching. PAST MEDICAL HISTORY Diagnosis Date Hypertension Hypothyroid Primary open angle glaucoma (POAG) of both eyes, severe stage Type 2 diabetes mellitus (HCC) PAST SURGICAL HISTORY Procedure Laterality Date LASER TRABECULOPLASTY Bilateral 04/04/19 OS, 04/17/19 OD OTHER Express OD 05/21/19, Revision with [facility] OD 01/26/21, 05/18/21,Revision with [facility] OS 01/28/20 PAST SURGICAL HISTORY OF 01/06/2022 GATT OD PAST SURGICAL HISTORY OF Right 02/17/2022 CILIARY BODY DESTRUCTION VIA CYCLOPHOTOCOAGULATION, TRANSSCLERAL PAST SURGICAL HISTORY OF left eye for glaucoma FAMILY HISTORY Problem Relation Age of Onset Cataract Mother Glaucoma Mother Hypertension Mother Kidney failure Father Cataract Maternal Grandmother Colon Cancer Maternal Grandfather Detached Retina No Family History Macular Degen No Family History Blindness No Family History Social History Tobacco Use Smoking status: Never Smokeless tobacco: Never Vaping Use Vaping Use: Never used Substance Use Topics Alcohol use: Not Currently Drug use: Never Prior to Admission medications as of 04/04/23 1504 Medication Sig Last Dose Taking prednisoLONE acetate (PRED FORTE) 1 % ophthalmic suspension Use 1 Drop in the left eye four times daily. For use AFTER surgery. Taking Yes dorzolamide-timolol (COSOPT) 22.3-6.8 mg/mL ophthalmic solution Use 1 Drop in both eyes every 12 hours. Taking Yes latanoprost (XALATAN) 0.005 % ophthalmic solution Use 1 Drop in both eyes daily at bedtime. Taking Yes ondansetron orally disintegrating (ZOFRAN ODT) 4 mg disintegrating tablet Dissolve 1 tablet by mouth every 8 hours as needed for nausea/vomiting. Taking Yes carboxymethylcellulose sodium (REFRESH OPHTHALMIC) Use in eyes. Preservative free AT's Taking Yes cholecalciferol, vitamin D3, (VITAMIN D3 ORAL) Take by mouth once daily. Taking Yes MEN'S MULTI-VITAMIN ORAL Take by mouth. Taking Yes levothyroxine 200 mcg cap Take 200 mcg by mouth daily before breakfast. Taking Yes olmesartan (BENICAR) 20 mg tablet Take 20 mg by mouth once daily. Taking Yes omeprazole (PRILOSEC) 40 mg capsule Take 20 mg by mouth once daily. Taking Yes levothyroxine (SYNTHROID) 25 mcg tablet Take 25 mcg by mouth once daily. Taking Yes SYNJARDY XR 25-1,000 mg XR tab Take 1 tablet by mouth once daily. Taking Yes TRULICITY 3 mg/0.5 mL pen injector INJECT ONE PEN (3MG) UNDER THE SKIN ONCE A WEEK Taking Yes cyanocobalamin, vitamin B-12, 2,000 mcg tab Take 2,000 mcg by mouth. Taking Yes atorvastatin (LIPITOR) 10 mg tablet Take 10 mg by mouth daily at bedtime. Taking Yes flaxseed oil (OMEGA 3 ORAL) Take 1 capsule by mouth every morning. Taking Yes loratadine (CLARITIN) 10 mg tablet Take 10 mg by mouth. Taking Yes No medication comments found. ALLERGIES Allergen Reactions Bee Pollen Other: See Comments, Hives, Swelling Netarsudil Other: See Comments Redness, irritation in both eyes. Dust Other: See Comments Objective PHYSICAL EXAM: (if completed, exam performed via video enabled technology) General: healthy appearance. Pertinent negatives noted - not alert or oriented and not distressed. Skin: normal color, no rash or lesions. HEENT: pupils equal round. Cardiovascular: Patient able to palpate radial pulse, endorses regular rhythm. Respiratory: Breathing unlabored, chest rise equal and no audible wheezing. Abdomen: Unable to examine. Extremities: Pertinent negatives noted - no deformity. Neurological: Normal cognition and gait. PAIN ASSESSMENT: VITALS: Ht 6' 0 (1.83m) Wt 264 lb (119.8kg) BMI 35.80 kg/(m^2). Diagnostic tests reviewed for today's visit: Lab Value Units Date High Low HB No results within date range. HCT No results within date range. WBC No results within date range. PLT No results within date range. NA No results within date range. K No results within date range. GLUC No results within date range. BUN No results within date range. CREAT No results within date range. PTSEC No results within date range. INR No results within date range. APTT No results within date range. ALT No results within date range. AST No results within date range. TBILI No results within date range. TSH No results within date range. Lab Value Units Date High Low HCGQT No results within date range. UHCG No results within date range. HCG, BODY* No results within date range. Lab Value Units Date High Low ABORHD No results within date range. ABSCREEN No results within date range. No results found for: HBA1C No results found for this or any previous visit (from the past 8760 hour(s)). No results found for this or any previous visit (from the past 47787 hour(s)). Prepared for Surgery: optimally prepared for surgery. CONSULTS: Patient does not require consults for optimization at this time Planned Anesthetic: anesthesia choice The Following Tests/Procedures Have Been Initiated: No orders of the defined types were placed in this encounter. Instructions Given to Patient: Instructions located in the after visit summary. Patient given verbal and written preop instructions and voices comprehension and compliance. SIGNATURE: Elsy L Alfonso, PA PATIENT NAME: Sylvia Nixon DATE: April 04, 2023 TIME: 2:55 PM PAGER/CONTACT #: documented in this encounter [facility] 04-03-2023 Instructions Valery Ashraf MD - 04/03/2023 8:20 AM EDT Images from the original note were not included. I have requested that you be schedule for eye surgery. My university relations director, Minnie Jeffery, will call you within a week. Minnie (university relations director:) [phone]. Dr. Ashraf Office: [phone] if you have any questions. Please note that you will have visits 1 week, 1 month, and 3 months after surgery. Additional visits may be necessary depending on the healing process. What is Transscleral Cyclophotocoagulation? Located just behind the iris (the colored part of your eye) is a donut-shaped gland called the ciliary body. This gland produces the internal eye fluid called aqueous. Your eye pressure builds up when the aqueous can not drain out of your eye properly. Transscleral cyclophotocoaguation (TSCPC) involves placing a smooth laser probe on the outside of the eye just behind the iris. The probe shines laser light through the scleral and partial ly shrinks (ablates) the ciliary body. This reduces the amount of aqueous the ciliary body can make and thereby helps lower your eye pressure. Figure: Laser probe on the outside of the eye When the eye pressure is too high, we can lower the pressure by improving drainage of the internal eye fluid (aqueous) or by decreasing production of aqueous. Most glaucoma surgery works by helping to drain aqueous out of the eye, either through the eye s natural drainage pathway or by creating a new drainage pathway. TSCPC is one of the few glaucoma surgeries that lower eye pressure by decreasing the amount of aqueous being made. Why is this procedure done? TSCPC is done when medications can no longer adequately control the eye pressure. TSCPC is quick (5 minutes or less) and involves no incisions and the recovery is pretty quick. Therefore, TSCPC is chosen over incisional drainage surgery in eyes that have already failed drainage surgery, in eyes that start with poor vision, in people who have health concerns such that we would like fast surgery, people at risk for bleeding with cutting-type surgeries, and other reasons that drainage surgery is not desirable. How is the procedure done? Preparing for surgery Before the day of surgery, you will have a brief physical examination that may include an electrocardiogram (a heart tracing) and blood work. This will be scheduled for you. On the day of surgery you will go to the surgical suite on the first floor of [facility]. You will check in at the desk and the nurses will take you into the pre-op area. The nurse will begin an intravenous (IV) line in one of your veins. Surgery In the operating room, you will be given medication to help you fall asleep for about 5 minutes. After you re asleep, the doctor will give you some medication near your eye to block any pain. Then the TSCPC laser procedure will be performed while you re still asleep. An injection of a steroid medication will be given near your eye and a soft gauze eye pad will be place to protect your eye while it is still numb. Generally you will wake up shortly after the laser as you are being taken to the recovery area. What do I do after surgery? You will have a patch on the surgical eye, so there are no eyedrops to use on the day of surgery (however, please continue any drops you may be using in the nonsurgical eye.) In the morning, you will remove the patch and throw it away. You will begin eyedrops in the surgical eye, and [id number] instructions will be printed out and given to you at the day of surgery. The main exception is driving: you should wait until you feel comfortable with your vision before you get behind the wheel again. You will see Dr. Ashraf in about 1 week and again in about 1 month after the laser surgery. You may resume your normal activities the next day What to expect after TSCPC laser surgery Depending on how good your vision was before surgery, you may notice some blurring after surgery. This is partly from the laser and partly from the dilating drop (atropine) you will be taking. Vision gradually improves over several days to weeks for most people. Some of the white part of your eye may be red for several days or weeks as well. Most eyes have only mild discomfort after surgery, although some aching is common. If you have discomfort you should take acetaminophen (Tylenol) and non-steroidal anti-inflammatory (NSAIDS) pain medicines such as ibuprofen or Aleve. Medications You will be given prednisolone acetate to be used 4-8 times a day while you are awake along with a dilating drop called atropine. These medicines help control inflammation that results from surgery and also help keep the eye comfortable. These eyedrops will be weaned off as your eye heals. Most likely you will continuing some of your eye pressure drops as well. Eye protection Because no incisions are made, no special eye protection is required after your remove the gauze pad the next morning. You may be more comfortable with sunglasses in bright light, but this is totally optional. What do the postoperative visits consist of? We measure your vision and eye pressure and make sure the eye is healing appropriately. We will discuss any adjustments in your medications. What if the surgery fails? If the eye pressure remains too high despite TSCPC laser surgery, eye drops are used first. If the pressure is still too high, Dr. Ashraf may discuss performing more TSCPC or sometimes even drainage surgery. documented in this encounter [facility] 04-03-2023 History of Present illness Narrative Tmax: 40, 40; Pachy: 571, 601 Lasers and Surgeries: OD: 02/17/22 TSCPC 1:30=>9:00, IOP=33 on 3 01/05/22 Omni-GATT (IOP23 on 2 + DMX) 04/2021 Express rev with MMC 01/2021 Express rev with MMC 05/2019 Express 03/2019 SLT OS: 12/08/22 [id number] (IOP18 on 3 + Diamox) 01/2020 Express rev with MMC 05/2019 Express 03/2019 SLT Ocular Medication Intol and Non-efficacy: Brimonidine=red eyes Rhopressa=red eyes Acetazol=NI 08/2022 Bimatoprost=NI over latanoprost 10/2022 Referred by Rafiq Nobles MD ([place]) - pt moving to [place] Now on Cosopt bid OU Latanoprost qhs OU PFATs PRN POAG severe -HVF 08/2022 OS mod dense sup alt, ITQ defect encroaching fixation, better than outside Vfs (scanned 08/2021) from 10/2019 and 07/2021 but worse than 09/2020 -OCT 02/2019 ([place], Dr. Nobles) OD marked diffuse thinning OS marked diffuse thinning OD s/p 270 deg TSCPC OD and Omni-GATT OD -OCT macula 03/21/22=atrophy, no edema. Worsening vision likely glaucoma progression. OS: POM 3 [id number] -Off PF and back on latanoprost, IOP is too high -recommend MP-TSCPC - chloroprocaine block I, Valery Ashraf MD, have edited as necessary and confirmed the relevant ophthalmic history, ROS, and neuro exam findings as obtained by others. I have seen and examined Sylvia Nixon. I also have reviewed, edited as necessary, and agree with the assessment and plan and all of its relevant components as stated above. I have discussed the case and the management of this patient's care with the Resident/Fellow, if applicable. April 03, 2023 8:18 AM. documented in this encounter [facility] 02-27-2023 History of Present illness Narrative Tmax: 40, 40; Pachy: 571, 601 Lasers and Surgeries: OD: 02/17/22 TSCPC 1:30=>9:00, IOP=33 on 3 01/05/22 Omni-GATT (IOP23 on 2 + DMX) 04/2021 Express rev with MMC 01/2021 Express rev with MMC 05/2019 Express 03/2019 SLT OS: 12/08/22 [id number] (IOP18 on 3 + Diamox) 01/2020 Express rev with MMC 05/2019 Express 03/2019 SLT Ocular Medication Intol and Non-efficacy: Brimonidine=red eyes Rhopressa=red eyes Acetazol=NI 08/2022 Bimatoprost=NI over latanoprost 10/2022 Referred by Rafiq Nobles MD ([place]) - pt moving to [place] Now on Cosopt bid OU Latanoprost qhs OD PF bid OS PFATs PRN POAG severe -HVF 08/2022 OS mod dense sup alt, ITQ defect encroaching fixation, better than outside Vfs (scanned 08/2021) from 10/2019 and 07/2021 but worse than 09/2020 -OCT 02/2019 ([place], Dr. Nobles) OD marked diffuse thinning OS marked diffuse thinning OD s/p 270 deg TSCPC OD and Omni-GATT OD -OCT macula 03/21/22=atrophy, no edema. Worsening vision likely glaucoma progression. -IOP too high OS: PO 11w 4d [id number] -IOP too high -resume latanoprost -use PF qd for 1 week then stop RV for IOP check in 4-6 weeks I, Valery Ashraf MD, have edited as necessary and confirmed the relevant ophthalmic history, ROS, and neuro exam findings as obtained by others. I have seen and examined Sylvia Nixon. I also have reviewed, edited as necessary, and agree with the assessment and plan and all of its relevant components as stated above. I have discussed the case and the management of this patient's care with the Resident/Fellow, if applicable. February 27, 2023 1:03 PM. documented in this encounter [facility] 01-24-2023 History of Present illness Narrative Tmax: 40, 40; Pachy: 571, 601 Lasers and Surgeries: OD: 02/17/22 TSCPC 1:30=>9:00, IOP=33 on 3 01/05/22 Omni-GATT (IOP23 on 2 + DMX) 04/2021 Express rev with MMC 01/2021 Express rev with MMC 05/2019 Express 03/2019 SLT OS: 12/08/22 [id number] (IOP18 on 3 + Diamox) 01/2020 Express rev with MMC 05/2019 Express 03/2019 SLT Ocular Medication Intol and Non-efficacy: Brimonidine=red eyes Rhopressa=red eyes Acetazol=NI 08/2022 Bimatoprost=NI over latanoprost 10/2022 Referred by Rafiq Nobles MD ([place]) - pt moving to [place] Now on Cosopt bid OU Latanoprost qhs OD PF qid OS PFATs PRN POAG severe -HVF 08/2022 OS mod dense sup alt, ITQ defect encroaching fixation, better than outside Vfs (scanned 08/2021) from 10/2019 and 07/2021 but worse than 09/2020 -OCT 02/2019 ([place], Dr. Nobles) OD marked diffuse thinning OS marked diffuse thinning OD s/p 270 deg TSCPC OD and Omni-GATT OD -OCT macula 03/21/22=atrophy, no edema. Worsening vision likely glaucoma progression. -IOP marginal today OS: PO 6w 5d [id number] -one nylon wick placed -IOP=14 by my measurement -PF tid for 2 weeks, then bid after that RV for IOP check I, Valery Ashraf MD, have edited as necessary and confirmed the relevant ophthalmic history, ROS, and neuro exam findings as obtained by others. I have seen and examined Sylvia Nixon. I also have reviewed, edited as necessary, and agree with the assessment and plan and all of its relevant components as stated above. I have discussed the case and the management of this patient's care with the Resident/Fellow, if applicable. January 24, 2023 8:17 AM. documented in this encounter [facility] 12-27-2022 History of Present illness Narrative Tmax: 40, 40; Pachy: 571, 601 Lasers and Surgeries: OD: 02/17/22 TSCPC 1:30=>9:00, IOP=33 on 3 01/05/22 Omni-GATT (IOP23 on 2 + DMX) 04/2021 Express rev with MMC 01/2021 Express rev with MMC 05/2019 Express 03/2019 SLT OS: 12/08/22 [id number] (IOP18 on 3 + Diamox) 01/2020 Express rev with MMC 05/2019 Express 03/2019 SLT Ocular Medication Intol and Non-efficacy: Brimonidine=red eyes Rhopressa=red eyes Acetazol=NI 08/2022 Bimatoprost=NI over latanoprost 10/2022 Referred by Rafiq Nobles MD ([place]) - pt moving to [place] Now on Cosopt bid OD Latanoprost qhs OD PF qid OS PFATs PRN POAG severe -HVF 08/2022 OS mod dense sup alt, ITQ defect encroaching fixation, better than outside Vfs (scanned 08/2021) from 10/2019 and 07/2021 but worse than 09/2020 -OCT 02/2019 ([place], Dr. Nobles) OD marked diffuse thinning OS marked diffuse thinning OD s/p 270 deg TSCPC OD and Omni-GATT OD -OCT macula 03/21/22=atrophy, no edema. Worsening vision likely glaucoma progression. -IOP not ideal but will follow OS: PO 2w 5d [id number] -one nylon wick placed -IOP ok but increasing -resume cosopt. Cont PF qid RV for IOP check I, Valery Ashraf MD, have edited as necessary and confirmed the relevant ophthalmic history, ROS, and neuro exam findings as obtained by others. I have seen and examined Sylvia Nixon. I also have reviewed, edited as necessary, and agree with the assessment and plan and all of its relevant components as stated above. I have discussed the case and the management of this patient's care with the Resident/Fellow, if applicable. December 27, 2022 10:47 AM. documented in this encounter [facility] 12-13-2022 History of Present illness Narrative Tmax: 40, 40; Pachy: 571, 601 Lasers and Surgeries: OD: 02/17/22 TSCPC 1:30=>9:00, IOP=33 on 3 01/05/22 Omni-GATT (IOP23 on 2 + DMX) 04/2021 Express rev with MMC 01/2021 Express rev with MMC 05/2019 Express 03/2019 SLT OS: 12/08/22 [id number] (IOP18 on 3 + Diamox) 01/2020 Express rev with MMC 05/2019 Express 03/2019 SLT Ocular Medication Intol and Non-efficacy: Brimonidine=red eyes Rhopressa=red eyes Acetazol=NI 08/2022 Bimatoprost=NI over latanoprost 10/2022 Referred by Rafiq Nobles MD ([place]) - pt moving to [place] Now on Cosopt bid OD Latanoprost qhs OD PF qid OS Ofloxacin qid OS Maxitrol isaiah PRN OS PFATs PRN POAG severe -HVF 08/2022 OS mod dense sup alt, ITQ defect encroaching fixation, better than outside Vfs (scanned 08/2021) from 10/2019 and 07/2021 but worse than 09/2020 -OCT 02/2019 ([place], Dr. Nobles) OD marked diffuse thinning OS marked diffuse thinning OD s/p 270 deg TSCPC OD and Omni-GATT OD -OCT macula 03/21/22=atrophy, no edema. Worsening vision likely glaucoma progression. -IOP not ideal but will follow OS: PO 0w 5d [id number] -Doing well, one nylon wick placed -IOP excellent -cont PF qid OS and Ofloxacin qid OS -Maxitrol isaiah PRN OS -stop Oflox after tomorrow night I, Valery Ashraf MD, have edited as necessary and confirmed the relevant ophthalmic history, ROS, and neuro exam findings as obtained by others. I have seen and examined Sylvia Nixon. I also have reviewed, edited as necessary, and agree with the assessment and plan and all of its relevant components as stated above. I have discussed the case and the management of this patient's care with the Resident/Fellow, if applicable. December 13, 2022 8:23 AM. documented in this encounter [facility] 12-09-2022 History of Present illness Narrative Tmax: 40, 40; Pachy: 571, 601 Lasers and Surgeries: OD: 02/17/22 TSCPC 1:30=>9:00, IOP=33 on 3 01/05/22 Omni-GATT (IOP23 on 2 + DMX) 04/2021 Express rev with MMC 01/2021 Express rev with MMC 05/2019 Express 03/2019 SLT OS: 12/08/22 [id number] (IOP18 on 3 + Diamox) 01/2020 Express rev with MMC 05/2019 Express 03/2019 SLT Ocular Medication Intol and Non-efficacy: Brimonidine=red eyes Rhopressa=red eyes Acetazol=NI 08/2022 Bimatoprost=NI over latanoprost 10/2022 Referred by Rafiq Nobles MD ([place]) - pt moving to [place] Now on Cosopt bid OD Latanoprost qhs OD PF qid OS Ofloxacin qid OS Maxitrol isaiah PRN OS PFATs PRN POAG severe -HVF 08/2022 OS mod dense sup alt, ITQ defect encroaching fixation, better than outside Vfs (scanned 08/2021) from 10/2019 and 07/2021 but worse than 09/2020 -OCT 02/2019 ([place], Dr. Nobles) OD marked diffuse thinning OS marked diffuse thinning OD s/p 270 deg TSCPC OD and Omni-GATT OD -OCT macula 03/21/22=atrophy, no edema. Worsening vision likely glaucoma progression. -IOP not ideal but will follow OS: PO 0w 1d [id number] -Doing well, one nylon wick placed -IOP excellent -cont PF qid OS and Ofloxacin qid OS -Maxitrol isaiah PRN OS -he vomited yesterday and feels nauseous now: Rx Zofran ODT -Hold glaucoma drops OS I, Valery Ashraf MD, have edited as necessary and confirmed the relevant ophthalmic history, ROS, and neuro exam findings as obtained by others. I have seen and examined Sylvia Nixon. I also have reviewed, edited as necessary, and agree with the assessment and plan and all of its relevant components as stated above. I have discussed the case and the management of this patient's care with the Resident/Fellow, if applicable. December 09, 2022 9:07 AM. documented in this encounter [facility] 12-07-2022 Miscellaneous Notes Received labs including A1c from [facility]. Copy made for Patito Haq CNP and original sent to [facility] through [employer]. Ellen Gray LPN Fax request sent to [facility] requesting A1c results for upcoming procedure 12/08/22. Ellen Gray LPN documented in this encounter [facility] 12-05-2022 Miscellaneous Notes Spoke w/pt passed on info Images from the original note were not included. Vikram Madrigal; Minnie Jeffery Pss 1 hour ago (2:53 PM) SS I sent the message to [employer] because they handle those types of things. Thanks for letting me know and have a great day! Pt says he spoke with his insurance and was told procedure is not approved, needs a pre determination for faxed to [employer] today phone [phone] Fv 12-08-22 documented in this encounter [facility] 12-05-2022 Miscellaneous Notes Spoke with pt, passed on message We can still proceed with surgery as planned despite the high A1C. That being said, I do recommend that he try to improve his blood sugar control as much as possible between now and surgery. Surgery 12-08-22 preadmit testing his A1C ws 9.1 pt is concerned he will not be able to have surgery due to this number Please advise Fv 12-08-22 documented in this encounter [facility] 11-30-2022 Instructions Patito Haq APRN.MEDICAL RECEPTION - 11/30/2022 10:35 AM EDT PATIENT PREOPERATIVE INSTRUCTIONS No ref. provider found has scheduled you for your procedure at this surgery center: [facility]: [phone] --[facility], [address], [place] [address]. Please read below carefully for your personalized instructions. Dietary Restrictions: - No solid food after midnight. - You may have 12 ounces of clear liquids (water, clear juices such as apple juice or gatorade, carbonated beverages, clear tea, black coffee, jello) until 2 hours before scheduled arrival at facility. No red/purple coloring and no creamer/sugar Medications: Unless instructed differently below, stay on all of your medications until your surgery. Approved medications to take the morning of surgery with a sip of water: levothyroxine (SYNTHROID, omeprazole (PRILOSEC) Do not take olmesartan, or any ORAL diabetic medications the morning and/or evening prior surgery If you take any medications for erectile dysfunction-Cialis (Tadalafil), Levitra, Staxyn (Vardenafil) Viagra (Sildenenafil please do not take these for 48 hours before surgery. If you start any new medications after today's visit, please contact the surgeon's office. Blood Thinning Medications: - Stop NSAIDS (Ibuprofen, Advil, Aleve, Motrin, Celebrex, Mobic, etc.) 7 days before surgery, as directed by your surgeon. - Stop Aspirin 7 days before surgery, as directed by your surgeon. - Stop Vitamin E, ALL multi-vitamins, herbals and dietary supplements 7 days before surgery. - You may take Tylenol (Acetaminophen) or any of your pain medications that do not contain aspirin or NSAIDS as needed. Important Reminders: - Candy, mints, and tobacco products are NOT permitted the morning of surgery. - Hearing aids, dentures and glasses may be worn the morning of surgery. - NO jewelry, body piercings, makeup, hairpins or contacts are to be worn the day of surgery. If you develop symptoms such as a fever, cold, or flu, or have other changes to your health within TWO DAYS of scheduled surgery or the morning of surgery, please contact the surgery center above. Personal Belongings: -Please have photo ID and insurance cards. -If you do not have a copy of advance directives on file with us, please bring a copy with you on the day of surgery. - Leave ALL valuables and money at home or with family members. For Outpatient Procedures: - YOU MUST HAVE A RESPONSIBLE INFORMATION SYSTEMS CONSULTANT TAKE YOU HOME. A SWIMMING TEACHER OR BRAIN SURGEON CANNOT BE MADE A RESPONSIBLE INFORMATION SYSTEMS CONSULTANT. - We recommend that a responsible person stays with you overnight to take care of you. - You cannot stay in a hotel alone after outpatient surgery. You will not be permitted to have your surgery, if you do not have someone to take care of you. Arrival Time for Surgery: - The Surgery Center or hospital where you are having surgery will call the afternoon before surgery (or Monday for Monday surgery) with a scheduled arrival time. - If you have not heard by 4 pm, please contact the surgery center above. Please be aware that emergency situations arise, which may delay or change your surgical time. If this happens, we will notify you as soon as possible and regret any inconvenience. If you already have an Advance Directive, please fax a copy to [phone] or email to for it to be added to your chart. If you do not have an Advance Directive, you can find the appropriate form and more information at [email or web address]. We recommend that you complete the Advance Directive form found on the website and bring it with you the day of your surgery. It can be witnessed and scanned into your chart that day. Patito Haq APRN.THEO documented in this encounter [facility] 11-30-2022 History and physical note HISTORY AND PHYSICAL EXAMINATION SERVICE DATE: 11/30/2022 SERVICE TIME: 12:16 PM PRIMARY CARE PHYSICIAN: Melissa Gatica MD REASON FOR VISIT: Sylvia Nixon is a 52 year old male who is scheduled for Procedure(s): AQUEOUS SHUNT TO EXTRAOCULAR EQUATORIAL PLATE RESERVOIR EXTERNAL APPROACH W/GRAFT (Left) at the request of Dr. Valery Ashraf MD for consultation. My final recommendation will be communicated back to the requesting physician by way of shared medical record or letter. Subjective The patient has the following: ACTIVE PROBLEM LIST Primary Open Angle Glaucoma (Poag) of Both Eyes, Severe Stage Essential Hypertension, Benign Mixed Hyperlipidemia Jamie (Obstructive Sleep Apnea) Gerd (Gastroesophageal Reflux Disease) Hypothyroidism Type 2 Diabetes Mellitus, Without Long-Term Current Use of Insulin ([facility]) Class 2 Severe Obesity Due to Excess Calories With Serious Comorbidity and Body Mass Index (Bmi) of 35.0 to 35.9 in Adult ([facility]) COVID-19 Immunization Status Overdue - COVID-19 VACCINE (1) Overdue - never done No completion, postpone, frequency change, or communication history exists for this topic. CHIEF COMPLAINT: Pre-op exam HPI: Sylvia Nixon is a 52 year old seen for PAC due to scheduled above surgery because of POAG. 10/31/2022, Dr. Ashraf Tmax: 40, 40; Pachy: 571, 601 Lasers and Surgeries: OD: 02/17/22 TSCPC 1:30=>9:00, IOP=33 on 3 01/05/22 Omni-GATT (IOP23 on 2 + DMX) 04/2021 Express rev with MMC 01/2021 Express rev with MMC 05/2019 Express 03/2019 SLT OS: 01/2020 Express rev with MMC 05/2019 Express 03/2019 SLT Ocular Medication Intol and Non-efficacy: Brimonidine=red eyes Rhopressa=red eyes Acetazol=NI 08/2022 Bimatoprost=NI over latanoprost 10/2022 Referred by Rafiq Nobles MD ([place]) - pt moving to [place] Now on Cosopt bid OU bimatoprost qhs OU (08/2022 from latanoprost) Acetazolamide 250mg po bid (06/2022 IOP=17 OS) PFATs PRN POAG severe -HVF 08/2022 OS mod dense sup alt, ITQ defect encroaching fixation, better than outside Vfs (scanned 08/2021) from 10/2019 and 07/2021 but worse than 09/2020 -OCT 02/2019 ([place], Dr. Nobles) OD marked diffuse thinning OS marked diffuse thinning OD s/p 270 deg TSCPC OD and Omni-GATT OD -OCT macula 03/21/22=atrophy, no edema. Worsening vision likely glaucoma progression. -IOP not ideal but will follow OS: IOP too high on 3 meds. Thick CCT No benefit of bimatoprost. Go back to latanoprost -given age, stage of disease, rec [id number] Consider nylon wick REVIEW OF SYSTEMS: General: No weight loss, malaise or fevers. Neurological: No history of TIA's, stroke, SENIOR DEVOPS ENGINEER tumor, impaired sensorium, hemiplegia, paraplegia or quadraplegia. No neurological symptoms or problems. Respiratory: Positive for: obstructive sleep apnea and CPAP/BiPAP compliant. Negative for: asthma, COPD, pneumonia within 6 weeks, tobacco use and URI < 2 weeks. Cardiovascular: Positive for: hyperlipidemia and hypertension Negative for: anticoagulation therapy, arrhythmia, atrial fibrillation, CAD, chest pain, CHF, congenital heart defect, DVT/PE, recent MN, murmur/valvular heart disease, open heart surgery and valve surgery. GI: Positive for: GERD Negative for: abdominal pain, dysphagia, hepatitis, irritable bowel syndrome, inflammatory bowel disease, liver disease, nausea, pancreatitis, history of polyps, vomiting and ETOH >2 drinks/day. : No history of dysuria, frequency or incontinence, stones or chronic kidney disease. No difficulty urinating, nocturia > 1 time per night or hematuria. Endocrine: Positive for: diabetes mellitus and hypothyroidism. Patient's diabetes mellitus is controlled by oral agents and weekly injectable. Hematology: No history of bleeding or clotting disorder. Patient is not taking anti-coagulation or platelet medications. No history of hematological symptoms or problems. Oncology: No history of CA metastasis, chemo within 30 days, or radiotherapy within 90 days. No history of oncological symptoms or problems. Psych: No history of psychiatric symptoms or problems. Musculoskeletal: Negative for joint pain or swelling, back pain or muscle pain. Skin: Negative for lesions, rash and itching. PAST MEDICAL HISTORY Diagnosis Date Hypertension Hypothyroid Primary open angle glaucoma (POAG) of both eyes, severe stage Type 2 diabetes mellitus (HCC) PAST SURGICAL HISTORY Procedure Laterality Date LASER TRABECULOPLASTY Bilateral 04/04/19 OS, 04/17/19 OD OTHER Express OD 05/21/19, Revision with [facility]MC OD 01/26/21, 05/18/21,Revision with [facility] OS 01/28/20 PAST SURGICAL HISTORY OF 01/06/2022 GATT OD PAST SURGICAL HISTORY OF Right 02/17/2022 CILIARY BODY DESTRUCTION VIA CYCLOPHOTOCOAGULATION, TRANSSCLERAL FAMILY HISTORY Problem Relation Age of Onset Cataract Mother Glaucoma Mother Hypertension Mother Kidney failure Father Cataract Maternal Grandmother Colon Cancer Maternal Grandfather Detached Retina No Family History Macular Degen No Family History Blindness No Family History Social History Tobacco Use Smoking status: Never Smokeless tobacco: Never Vaping Use Vaping Use: Never used Substance Use Topics Alcohol use: Not Currently Drug use: Never Prior to Admission medications as of 11/30/22 1048 Medication Sig Last Dose Taking latanoprost (XALATAN) 0.005 % ophthalmic solution Use 1 Drop in both eyes daily at bedtime. Taking Yes ofloxacin (OCUFLOX) 0.3 % ophthalmic solution Use 1 Drop in the left eye four times daily. For use AFTER surgery Taking Yes prednisoLONE acetate (PRED FORTE) 1 % ophthalmic suspension Use 1 Drop in the left eye four times daily. For use AFTER surgery. Taking Yes carboxymethylcellulose sodium (REFRESH OPHTHALMIC) Use in eyes. Preservative free AT's Taking Yes cholecalciferol, vitamin D3, (VITAMIN D3 ORAL) Take by mouth once daily. Taking Yes dorzolamide-timolol (COSOPT) 22.3-6.8 mg/mL ophthalmic solution Use 1 Drop in both eyes every 12 hours. Taking Yes MEN'S MULTI-VITAMIN ORAL Take by mouth. Taking Yes levothyroxine 200 mcg cap Take 200 mcg by mouth daily before breakfast. Taking Yes olmesartan (BENICAR) 20 mg tablet Take 20 mg by mouth once daily. Taking Yes omeprazole (PRILOSEC) 40 mg capsule Take 20 mg by mouth once daily. Taking Yes levothyroxine (SYNTHROID) 25 mcg tablet Take 25 mcg by mouth once daily. Taking Yes SYNJARDY XR 25-1,000 mg XR tab Take 1 tablet by mouth once daily. Taking Yes TRULICITY 3 mg/0.5 mL pen injector INJECT ONE PEN (3MG) UNDER THE SKIN ONCE A WEEK Taking Yes cyanocobalamin, vitamin B-12, 2,000 mcg tab Take 2,000 mcg by mouth. Taking Yes atorvastatin (LIPITOR) 10 mg tablet Take 10 mg by mouth daily at bedtime. Taking Yes flaxseed oil (OMEGA 3 ORAL) Take 1 capsule by mouth every morning. Taking Yes loratadine (CLARITIN) 10 mg tablet Take 10 mg by mouth. Taking Yes No medication comments found. ALLERGIES Allergen Reactions Bee Pollen Other: See Comments, Hives, Swelling Netarsudil Other: See Comments Redness, irritation in both eyes. Dust Other: See Comments Objective PHYSICAL EXAM: General: alert and oriented (x3), healthy appearance and obese. Pertinent negatives noted - not distressed. Skin: normal color, no rash or lesions. HEENT: EOM intact and pupils equal round. Pertinent negatives noted - no carotid bruit. Cardiovascular: regular rate and rhythm, normal S1 and S2, no rub, murmurs, or gallop. Respiratory: normal breath sounds, no wheezes or crackles. No chest wall deformity or tenderness. Abdomen: soft. Pertinent negatives noted - not tender. Extremities: no deformity, no edema or tenderness, no joint swelling or clubbing. Neurological: normal cognition and motor skills. Gait normal. No weakness or sensory deficit. PAIN ASSESSMENT: VITALS: BP 108/70 Pulse 99 Temp (Src) 97.3 (Temporal) Resp 18 Ht 6' 0 (1.83m) Wt 264 lb (119.8kg) SpO2 97% BMI 35.80 kg/(m^2). Diagnostic tests reviewed for today's visit: Lab Value Units Date High Low HB No results within date range. HCT No results within date range. WBC No results within date range. PLT No results within date range. NA No results within date range. K No results within date range. GLUC No results within date range. BUN No results within date range. CREAT No results within date range. PTSEC No results within date range. INR No results within date range. APTT No results within date range. ALT No results within date range. AST No results within date range. TBILI No results within date range. TSH No results within date range. Lab Value Units Date High Low HCGQT No results within date range. UHCG No results within date range. HCG, BODY* No results within date range. Lab Value Units Date High Low ABORHD No results within date range. ABSCREEN No results within date range. No results found for: HBA1C No results found for this or any previous visit (from the past 8760 hour(s)). No results found for this or any previous visit (from the past 17597 hour(s)). Assessment Patient has the following medical conditions which may affect jeremias-operative course: JAMIE (obstructive sleep apnea) Assessment: c/w CPAP Class 2 severe obesity due to excess calories with serious comorbidity and body mass index (BMI) of 35.0 to 35.9 in adult ([facility]) Assessment: Body mass index is 35.8 kg/m . Essential hypertension, benign Assessment: controlled on rx Last 14 BP Last 14 Encounter BP Readings: Date: BP: 11/30/2022 108/70 10/10/2022 114/76 05/30/2022 122/84 02/17/2022 98/68 02/14/2022 110/64 02/08/2022 106/71 01/06/2022 100/71 12/22/2021 100/80 11/17/2021 104/73 GERD (gastroesophageal reflux disease) Assessment: controlled on rx Hypothyroidism Assessment: stable on rx Mixed hyperlipidemia Assessment: c/w statin Type 2 diabetes mellitus, without long-term current use of insulin ([facility]) Assessment: controlled on rx and weekly injectable, pt is completing labs ordered by PCP tomorrow at [facility] including his A1c, will request this once available Artis Activity Status Index: METS: Climb a flight of stairs or walk up a hill (5.50 METs) DASI Score: 5.5 Patient denies any chest pain or undue shortness of breath with the above physical activity. Clinical Frailty Scale: 3. Well, with treated comorbid disease STOP-Bang Score: Snores loudly Has been observed to stop breathing or choking/gasping during sleep Has or is being treated for high blood pressure BMI greater than 35 kg/m^2 Patient over 50 years old Has a large neck Male patient Denies feeling tired, fatigued, or sleepy during the daytime STOP-Bang Score: 7 [id number] Score: Age: <65 Sex: male CHF history: No Hypertension history: Yes Stroke/TIA/thromboembolism history: No Vascular disease history: No Diabetes history: Yes [id number] Score: 2 ARISCAT Score: Age: <=50 Preoperative SpO2: >=96% Respiratory infection in the last month: No Preoperative anemia: Yes Surgical incision: peripheral Duration of surgery: <2 hrs Emergency procedure: No ARISCAT Score: 11 ASA Class: 3 ANESTHESIA FINDINGS: Intubation History: No history of difficult intubation Significant Anesthesia Considerations: none Airway History: No history of difficult airway I - PHYSICAL EVALUATION AIRWAY Patient intubated: No. Tracheostomy tube not present Mallampati: IV. TM distance: >3 FB. Neck ROM: full ROM without neurological symptoms. Mouth opening: adequate. Short neck: no. Thick neck: yes Sexton present: no Lip Bite Test: II Microretrognathia/Micronagthia/Rec essed Chin: No DENTAL Dental findings: teeth intact. Additional comments: Crowns/back. II - ANESTHESIA PLAN ASA Score: 3 Anesthetic Plan: other Anesthetic plan additional comments: *PACC/TCI - anesthesia choice. Beta Fara Monitoring Plan Post Procedure Analgesic Plan Informed Consent Anesthetic risks, benefits, alternatives, personnel and consent discussed: yes. Patient / Responsible Republican agrees to proceed: yes Patient / Surrogate agrees to blood products: blood products not planned Discussed the possibility of lip / dental damage: yes Prepared for Surgery: optimally prepared for surgery. CONSULTS: Patient does not require consults for optimization at this time Planned Anesthetic: other anesthesia choice The Following Tests/Procedures Have Been Initiated: No orders of the defined types were placed in this encounter. Instructions Given to Patient: Instructions located in the after visit summary. Patient given verbal and written preop instructions and voices comprehension and compliance. SIGNATURE: Patito Haq APRN.CNP PATIENT NAME: Sylvia Nixon DATE: November 30, 2022 TIME: 10:32 AM PAGER/CONTACT #: documented in this encounter [facility] 10-31-2022 Instructions Valery Ashraf MD - 10/31/2022 11:03 AM EDT Images from the original note were not included. I have requested that you be schedule for eye surgery. Please call my university relations director, Minnie Jeffery. She will call you in the next few days if she doesn't hear from you. My university relations director, Minnie Jeffery, will call you within a week. Minnie (university relations director:) [phone]. Dr. Ashraf Office: [phone] if you have any questions. There will be a visit at 1 day, 1 week, 3 weeks, 6 weeks, 10 weeks after surgery. Additional visits may be necessary depending on the healing process. What is an Ahmed ClearPath tube-shunt? A ClearPath tube-shunt is a glaucoma drainage device that is surgically implanted to lower the pressure within the eye (intraocular pressure) for the treatment of glaucoma. It consists of a tube attached to a plate (Figure 1), which allows fluid to drain from the inside of the eye to the outside layers of the eye. The tube and plate are covered by your own tissues and by donor tissue. The tube is permanent and successfully lowers the eye pressure in most people who have one. Figure 1. Ahmed ClearPath Tube-shunt (A=250 sq. mm. implant, B= 350mm implant which is used more commonly) Why is this device implanted? A glaucoma tube-shunt is implanted when glaucoma eye drops (and sometimes laser treatments) have failed to effectively lower the intraocular pressure. The main goal of the implant is to allow fluid to leave the eye so that the intraocular pressure will decrease and, therefore, prevent further vision loss from glaucoma. How is the procedure done? Before the day of surgery You will have a brief physical examination that may include an electrocardiogram (a heart tracing) and blood work. This will be scheduled for you. If you are having cataract surgery at the same time, measurements of your eyes will be taken for calculating the correct power lens implant. Preparing for surgery On the day of surgery you will go to the surgical suite on the first floor of [place] [id number]. You will check in at the desk and the nurses will take you into the pre-op area. The nurse will begin an intravenous (IV) line in one of your veins. Medication is given through the IV that will make you feel quite relaxed; in fact you will probably fall asleep for a few minutes. While you are asleep we will give you an injection of numbing medicine near your eye (local anesthesia). You will then wake up and will be partially awake but relaxed through the entire procedure. You will hear us talking but shouldn t feel any pain. You will be encouraged to let us know if you are feeling anxiety, pain, or any other discomfort so we can work to keep you comfortable. In rare cases, we may put you totally asleep (general anesthesia) if you have claustrophobia or are very nervous about being awake during surgery. Usually, being awake is preferable because it is less stressful for the body than general anesthesia and the recovery is much quicker. Once the eye is numb, the entire area around the eye is carefully cleaned with a special soap. Drapes are placed over your face leaving the operative eye exposed (you won t be able to see much out of that eye due to the numbing medicine). Plenty of oxygen will be flowing underneath the drape and the anesthesiologist will be constantly monitoring the amount of air that you have to breathe, as well as your heart rhythm and blood pressure. If you are on blood thinners, it is generally ok to continue taking these medications, but do let your eye surgeon know. Although blood thinners can raise the risk of bleeding during or after surgery, in general we ask you stay on them to avoid blood clots that could cause you to have a heart attack or stroke. The surgery The operation is done with you lying on your back. We are looking through a microscope that is suspended over your face. The figure below shows a sketch of a tube surgery. We use a special speculum to help you hold your eyelids open. We then make an incision in the conjunctiva, a clear, thin tissue that coats the surface of the white of the eye. Figure 2 A) The tube-shunt is placed under the surface tissue of the eye (conjunctiva). It is sutured into place. B) A patch graft of human sclera or cornea covers the tube. This may be visible as a fleshy or white fullness once the blood clears. The plate is fastened to the sclera, which is the white of the eye (Figure 2A). The tube is inserted in front of the iris, which is the colored part of the eye. A small piece of donor cornea (clear) or sclera (white) is then placed over the tube (Figure 2B). We use this tissue because it is very tough and very well tolerated. The conjunctiva is then put back into place to cover everything. How long is the surgery? The surgery usually takes about 40 to 60 min. When the surgery is completed we will placed some ointment in the eye and may put a patch over the eye. What do I do after surgery? If you have a patch there is nothing for you to do the day of surgery except continue any medications in your other (non-operative) eye. You should leave the patch in place. We want you to maintain a fairly normal level of activity but refrain from bending with your head below your heart, lifting more than 10-15 lbs., or straining. If you tend to be constipated it is good to take a stool softener to keep from straining on the toilet. Most eyes are very comfortable after surgery. Slight scratching from the sutures is common, but these sutures will dissolve. If you have discomfort you should take acetaminophen (Tylenol) and non-steroidal anti-inflammatory (NSAIDS) pain medicines such as ibuprofen or Aleve. What to expect after implant surgery The tube is tied off with a dissolvable suture to disable it for the early post-operative period. The suture dissolves spontaneously in about five to six weeks. By that time, a fibrous tissue will have formed over the plate creating resistance to fluid leaving the eye and preventing the pressure from dropping too low. You will likely be on some or all of your current glaucoma medications until the tube opens. When the tube opens you may have blurry vision and floaters. This is a normal phenomenon and will clear up within a few days. Once the tube is open, some of your glaucoma eye drops may gradually be discontinued. However, most people with tube implants will need some eye drops to help the tube control their pressure in the long run. Postoperatively, you will be unable to see the tube in your eye because it is small and clear. We can see it easily during your examination (Figure 4). FIGURE 4. Tube in front of the iris inside the eye You may, however, notice a small white or clear fullness underneath your eyelid after the blood and inflammation have cleared (Figure 5). This is the donor tissue that is overlying your tube. FIGURE 5. Tissue covering tube The day after surgery On the morning after the surgery we will remove your patch, check your vision, check your pressure, and tube implant. You should expect your vision to be somewhat blurry for a while after surgery. We will then begin you on steroid and antibiotic eye drops, listed below. Medications You will probably be given prednisolone acetate to be used 4 times a day while you are awake. This is a steroid drop that helps to prevent the eye from scarring shut the new drainage bleb that was just created. This will be gradually weaned as the eye heals. It is best to pick this medication up before surgery; the prescription should have been sent to your pharmacy. An antibiotic drop such as ofloxacin, is also used four times a day when you are awake. Typically this drop will be stopped after 7 days. We will give you this medication on the day of surgery. Eye protection The surgery is delicate, so you need to be gentle with the eye for the first few weeks. We want you to keep your eye protected at all times during the first three weeks after surgery. You can wear glasses or sunglasses during the daytime and wear the metal shield that we provide at bedtime. Postoperative concerns The surgery is delicate, so you need to be gentle with the eye for the first few week or two. We want you to keep your eye protected at all times during the first week after surgery. You can wear glasses or sunglasses during the daytime and wear the metal shield that we provide at bedtime. What do the postoperative visits consist of? We measure your vision and eye pressure and make sure the eye is healing appropriately. We will discuss any adjustments in your medications. The eye pressure may be good, too high, or too low right after surgery. Over time we try to coax the healing process to produce a well-controlled eye pressure for you. What if the tube surgery fails? Some patients feel that surgery is the last resort and that, if it fails, they are out of options. This is certainly not true. Other glaucoma surgeries are available that can work even after tube implant fails. Are there any long-term lifestyle adjustments? Most people after a tube shunt lead a life that is no different than it was before the surgery. However, there are a few things for you to be aware of over the longwall shearer operator. First, and most important, people with tube implants should always avoid eye rubbing as it can cause the implant to damage the eye. If you ever get an eye infection or redness, discharge, or pain in the eye, it is important for you to be examined very soon by an eye doctor. Swimming Patients who have tube surgeries should not swim with their eyes open under water. Water in lakes and pools is not especially clean, and if you get an infection in your eye it can be very serious. Patients who must swim with their head in the water should wear goggles. Contact lenses We discourage people with tube implants from wearing contact lenses, especially soft contact lenses, after tube shunt placement. For people who need contact lenses, rigid gas permeable lenses are an option and should be fitted by an human resources project coordinator with a knowledge of fitting contact lenses in eyes with tube implants. Are there any other complications? The most common problem is eye pressure not as low as we want it to be. Although high eye pressure commonly improves during the healing process, sometimes it can stay high. Much less commonly, the pressure go too low and stay too low. If the pressure stays too high, or if it is low causing blurring of the vision, additional measures will be required to increase the pressure. There is an increased risk of developing a cataract in the eye after surgery if you haven t already had cataract surgery. There is a small risk of damage to the cornea after years of having a tube, but often this can be caught early and repaired. After any eye surgery the eyelid can become droopier, or you may experience double vision. Serious complications are uncommon and consist of bleeding, infection, and detached retina. With an operation in the eye there is always a very small but real risk of losing all of the vision or the eye itself. Adapted from educational material developed by Dimitri Cervantes MD, of [facility]. documented in this encounter [facility] 10-31-2022 History of Present illness Narrative Tmax: 40, 40; Pachy: 571, 601 Lasers and Surgeries: OD: 02/17/22 TSCPC 1:30=>9:00, IOP=33 on 3 01/05/22 Omni-GATT (IOP23 on 2 + DMX) 04/2021 Express rev with [facility] 01/2021 Express rev with [facility] 05/2019 Express 03/2019 SLT OS: 01/2020 Express rev with [facility] 05/2019 Express 03/2019 SLT Ocular Medication Intol and Non-efficacy: Brimonidine=red eyes Rhopressa=red eyes Acetazol=NI 08/2022 Bimatoprost=NI over latanoprost 10/2022 Referred by Rafiq Nobles MD ([place]) - pt moving to [place] Now on Cosopt bid OU bimatoprost qhs OU (08/2022 from latanoprost) Acetazolamide 250mg po bid (06/2022 IOP=17 OS) PFATs PRN POAG severe -HVF 08/2022 OS mod dense sup alt, ITQ defect encroaching fixation, better than outside Vfs (scanned 08/2021) from 10/2019 and 07/2021 but worse than 09/2020 -OCT 02/2019 ([place], Dr. Nobles) OD marked diffuse thinning OS marked diffuse thinning OD s/p 270 deg TSCPC OD and Omni-GATT OD -OCT macula 03/21/22=atrophy, no edema. Worsening vision likely glaucoma progression. -IOP not ideal but will follow OS: IOP too high on 3 meds. Thick CCT No benefit of bimatoprost. Go back to latanoprost -given age, stage of disease, rec [id number] Consider nylon wick I, Valery Ashraf MD, have edited as necessary and confirmed the relevant ophthalmic history, ROS, and neuro exam findings as obtained by others. I have seen and examined Sylvia Nixon. I also have reviewed, edited as necessary, and agree with the assessment and plan and all of its relevant components as stated above. I have discussed the case and the management of this patient's care with the Resident/Fellow, if applicable. October 31, 2022 10:54 AM. documented in this encounter [facility] 10-13-2022 Miscellaneous Notes Fax received from [facility]. Orders for CPAP were sent there on 10/11/22. [id number] is not compatible with [employer] insurance company. Orders and required documentation faxed to [facility] who works with [employer]. Patient notified through [employer]_ message and DME information updated on JAMIE problems list.TROY Chang documented in this encounter [facility] 10-11-2022 Miscellaneous Notes Received outside sleep records from [facility] sleep medicine via fax. Documents scanned into [facility]/ patients chart. Jose Luis Warner LPN documented in this encounter [facility] 10-10-2022 Instructions Jose Guadalupe Herrera Jr., MD - 10/10/2022 11:16 AM EDT Your most recent body mass index (BMI) that we have on record is 35.4 kg/m2. Obstructive sleep apnea (JAMIE) worsens with an increase in weight; reduction in weight may improve or resolve your JAMIE. If you are not already seeking treatment, there are resources available at the [facility] such as a nutrition consultation or referral to weight management programs at our [facility]. Please let us know if we can assist with a referral. documented in this encounter [facility] 10-10-2022 History of Present illness Narrative NEW PATIENT (CONSULT) HISTORY AND PHYSICAL EXAM PRIMARY CARE PHYSICIAN: No primary care provider on file. REASON FOR CONSULT: JAMIE REFERRING PHYSICIAN: Self CHIEF COMPLAINT: Need to establish with local specialist for JAMIE. Consultation requested by Self for an opinion regarding chief complaint of Patient presents with: New Patient and my final recommendations will be communicated back to the requesting physician by way of shared medical record or letter via [place] mail. HISTORY OF PRESENT ILLNESS: Sylvia Nixon is a 52 year old male, BMI 35.4 kg/m2 with a PMH significant for that noted below as well as JAMIE. Note that patient has been followed in the [place] region and all prior records are not available for reviev including PAP data downloads. Pt states wears his PAP nightly. He has had it for about 5 years. Currently using a Respironics device (states bluetooth not yet connected). Pt notices a difference since on the device. States before PAP would fall asleep driving to work. Reports no issues falling asleep. Bedtime around 10PM. No RLS symptoms. Wakes around 7AM. Wakes to use the bathroom during the night - due to type 2 DM states urinates quite a bit. Able to fall back to sleep pretty quickly. No pain or discomfort through the night. No leg kicking. No parasomnias. Feels pretty refreshed upon waking. No naps during the day. ESS=04/11. Currently working a retired job at [employer]. Last check up for sleep was in [place] 6 months ago at [facility]. Was not on medications. States last time he was seen was doing great and using the machine as much as he should be. Previously saw Nikita Dowell MD. Pt believes is on pressure of 9 cmH2O. New PCP is Beatrice - does not recall name. REVIEW OF SYSTEMS GENERAL:No weight loss, malaise or fevers. HEENT:Glaucoma. NECK:Negative for lumps, goiter, pain and significant neck swelling RESPIRATORY: Negative for cough, wheezing or shortness of breath. CARDIOVASCULAR: Negative for chest pain, leg swelling or palpitations. GASTROINTESTINAL: Negative for abdominal discomfort, blood in stools or black stools or change in bowel habits GENITOURINARY: Nocturia x2 secondary DM. MUSCULOSKELETAL: Negative for joint pain or swelling, back pain or muscle pain. NEUROLOGIC:Negative for focal numbness or weakness, headaches and dizziness or syncope, vision changes, speech/language changes, changes in gait or falls -- besides those complaints as above in HPI. SKIN:Negative for lesions, rash, and itching. HEMATOLOGIC/LYMPHATIC/IMMUNOLOGIC: Negative for prolonged bleeding, bruising easily or swollen nodes. ENDOCRINE: Polyuria secondary DM. LAB/IMAGING: Reviewed and include: Glucose (mg/dL) Date Value 09/22/2021 171 (H) BUN (mg/dL) Date Value 09/22/2021 17 Creatinine (mg/dL) Date Value 09/22/2021 0.96 Sodium (mmol/L) Date Value 09/22/2021 140 Potassium (mmol/L) Date Value 09/22/2021 4.3 Chloride (mmol/L) Date Value 09/22/2021 105 CO2 (mmol/L) Date Value 09/22/2021 24 Protein, Total (g/dL) Date Value 09/22/2021 6.9 Albumin (g/dL) Date Value 09/22/2021 4.4 Calcium, Total (mg/dL) Date Value 09/22/2021 9.3 Alkaline Phosphatase (U/L) Date Value 09/22/2021 107 Bilirubin, Total (mg/dL) Date Value 09/22/2021 0.6 AST (U/L) Date Value 09/22/2021 23 ALT (U/L) Date Value 09/22/2021 14 MEDICATIONS: bimatoprost (LUMIGAN) 0.03 % ophthalmic drops Use 1 Drop in both eyes daily at bedtime. carboxymethylcellulose sodium (REFRESH OPHTHALMIC) Use in eyes. Preservative free AT's cholecalciferol, vitamin D3, (VITAMIN D3 ORAL) Take by mouth once daily. MEN'S MULTI-VITAMIN ORAL Take by mouth. levothyroxine 200 mcg cap Take 200 mcg by mouth daily before breakfast. olmesartan (BENICAR) 20 mg tablet Take 20 mg by mouth once daily. omeprazole (PRILOSEC) 40 mg capsule Take 20 mg by mouth once daily. levothyroxine (SYNTHROID) 25 mcg tablet Take 25 mcg by mouth once daily. SYNJARDY XR 25-1,000 mg XR tab Take 1 tablet by mouth once daily. TRULICITY 3 mg/0.5 mL pen injector INJECT ONE PEN (3MG) UNDER THE SKIN ONCE A WEEK cyanocobalamin, vitamin B-12, 2,000 mcg tab Take 2,000 mcg by mouth. atorvastatin (LIPITOR) 10 mg tablet Take 10 mg by mouth daily at bedtime. flaxseed oil (OMEGA 3 ORAL) Take 1 capsule by mouth every morning. loratadine (CLARITIN) 10 mg tablet Take 10 mg by mouth. dorzolamide-timolol (COSOPT) 22.3-6.8 mg/mL ophthalmic solution Use 1 Drop in both eyes every 12 hours. (Patient not taking: Reported on 10/10/2022) HISTORIES PAST MEDICAL HISTORY Diagnosis Date Hypertension Hypothyroid Primary open angle glaucoma (POAG) of both eyes, severe stage Type 2 diabetes mellitus (HCC) FAMILY HISTORY Problem Relation Age of Onset Cataract Mother Glaucoma Mother Hypertension Mother Kidney failure Father Cataract Maternal Grandmother Colon Cancer Maternal Grandfather Detached Retina No Family History Macular Degen No Family History Blindness No Family History SOCIAL HISTORY Social History Tobacco Use Smoking status: Never Smokeless tobacco: Never Vaping Use Vaping Use: Never used Substance Use Topics Alcohol use: Not Currently Drug use: Never PHYSICAL EXAMINATION BP 114/76 Pulse 92 Temp 36.6 C (97.9 F) Resp 16 Wt 118.4 kg (261 lb) SpO2 97% BMI 35.40 kg/m GENERAL EXAM: General appearance: NAD, pleasant. HEENT: NC/AT, nasal congestion absent, no oral lesions, membranes moist. Lopez IV. Small mouth, large tongue. NECK:ROM nml. Lungs: CTA bilaterally. CV: RRR nl S1, S2. No carotid bruits. Extr: No cyanosis, clubbing or edema. Skin: Cool to touch. NEUROLOGICAL EXAM: General: Awake, alert, oriented x3 (person,place,time), speech fluent, no dysarthria; comprehension, naming, repetition intact. CN: PERRL, EOMI and without nystagmus, VFF to confrontation, facial sensation and strength are normal and symmetric, hearing is intact to finger rub bilaterally, palate and tongue movements are intact and symmetric. SCM and trapezius strength normal. Motor: Normal tone, bulk and strength (5/5) bilaterally (throughout extremities x4). Sensation: LT intact throughout. No evidence of neglect. Gait: Stable. Assessment and Plan: ASSESSMENT/PLAN: 1. Obstructive sleep apnea (adult) (pediatric) - ICD9: 327.23, ICD10: G47.33 (primary diagnosis) 2. Class 2 obesity with body mass index (BMI) of 35.0 to 35.9 in adult, unspecified obesity type, unspecified whether serious comorbidity present - ICD9: 278.00, V85.35, ICD10: E66.9, Z68.35 Patient with known history of JAMIE for which he has been on PAP for at least 5 years. Unfortunately objective data/records not available for review at this time, but subjective history would suggest that pt is compliant with the device, using nightly for well over 4 hours, and perceives benefit with PAP use. At this time, attempting to get outside records. In meantime, will attempt to transfer his PAP care to a local [facility] [place] equipment still being [place] by those in [place]. Pt agrees with plan. Discussed with patient: the physiology of OSAS, medical conditions associated with OSAS (DM, HTN, CAD, Depression, Stroke, Headache...) and treatment options (UPPP, Dental appliances, CPAP...). Explained that a new sleep study should not be needed at this time unless required by insurance (I.e. change in AHI scoring criteria). Advised patient to avoid activities that could harm self or others when tired/sleepy, including driving and/or operating heavy machinery. Encouraged weight loss, and continued compliance with other medications. Jose Guadalupe Herrera MD I spent a total of 30+ minutes on the date of the service which included preparing to see the patient, [id number] patient care, completing clinical documentation, obtaining and/or reviewing separately obtained history, performing a medically appropriate examination, and counseling and educating the patient/family/caregiver. documented in this encounter [facility] 10-07-2022 Miscellaneous Notes TC to patient for more information on upcoming appointment, Patient states he moved here from [place] and would like to establish care, Has history of sleep apnea and will bring copy of reascent sleep studyto appointment, does not have compliance report, and will bring medical release form to appointment as well. Patient was seen at [facility] sleep medicine prior to move. Jose Luis Warner LPN documented in this encounter [facility] 08-29-2022 History of Present illness Narrative Tmax: 40, 40; Pachy: 571, 601 Lasers and Surgeries: OD: 02/17/22 TSCPC 1:30=>9:00, IOP=33 on 3 01/05/22 Omni-GATT (IOP23 on 2 + DMX) 04/2021 Express rev with MMC 01/2021 Express rev with MMC 05/2019 Express 03/2019 SLT OS: 01/2020 Express rev with MMC 05/2019 Express 03/2019 SLT Ocular Medication Intol and Non-efficacy: Brimonidine=red eyes Rhopressa=red eyes Referred by Rafiq Nobles MD ([place]) - pt moving to [place] Now on Cosopt bid OU Latanoprost qhs OU (05/2022 IOP 15,17) Acetazolamide 250mg po bid (06/2022 IOP=17 OS) PFATs PRN POAG severe -HVF 08/2022 OS mod dense sup alt, ITQ defect encroaching fixation, better than outside Vfs (scanned 08/2021) from 10/2019 and 07/2021 but worse than 09/2020 OS -OCT 02/2019 ([place], Dr. Nobles) OD marked diffuse thinning OS marked diffuse thinning OD s/p 270 deg TSCPC OD and Omni-GATT OD -OCT macula 03/21/22=atrophy, no edema. Worsening vision likely glaucoma progression. -IOP not ideal but will follow OS: IOP not ideal on 3 meds. Thick CCT Vyzulta, Lumigan, bimatoprost all NF -Acetazolamide 250mg po bid didn't seem to help: stop -given stable VF, watch carefully but consider goniotomy vs tube -try bimatoprost over latanoprost (GoodRx) 2-3 months IOP The documentation for this note was completed by Krysta Day acting as a scribe for Valery Ashraf MD. 08/29/2022 9:54 AM. I, Valery Ashraf MD, personally performed the services described in this documentation. All medical record entries made by the scribe were at my direction and in my presence. I have reviewed the chart and discharge instructions (if applicable) and agree that the record reflects my personal performance and is accurate and complete. I have confirmed and edited as necessary the relevant ophthalmic history, ROS, and the neuro exam findings as obtained by others. I have seen and examined Sylvia Nixon. I have discussed the case and the management of this patient's care with the Resident/Fellow, if applicable. I also have reviewed and agree with the assessment and plan as stated above and agree with all of its relevant components. Electronically Signed: Valery Ashraf MD, August 29, 2022 10:51 AM documented in this encounter [facility] 07-19-2022 History of Present illness Narrative Tmax: 40, 40; Pachy: 571, 601 Lasers and Surgeries: OD: 02/17/22 TSCPC 1:30=>9:00, IOP=33 on 3 01/05/22 Omni-GATT (IOP23 on 2 + DMX) 04/2021 Express rev with MMC 01/2021 Express rev with MMC 05/2019 Express 03/2019 SLT OS: 01/2020 Express rev with MMC 05/2019 Express 03/2019 SLT Ocular Medication Intol and Non-efficacy: Brimonidine=red eyes Rhopressa=red eyes Referred by Rafiq Nobles MD ([place]) - pt moving to [place] Now on Cosopt bid OU Latanoprost qhs OU (05/2022 IOP 15,17) PFATs PRN PO 4 mo 270 deg TSCPC OD PO 6 mo Omni-GATT OD -vision OD continues to be much worse since [employer]: OCT macula 03/21/22=atrophy, no edema. Worsening vision likely glaucoma progression. -IOP good OD today since resuming latanoprost OS: IOP not ideal on 3 meds. Thick CCT Vyzulta, Lumigan, bimatoprost all NF -Try Acetazolamide 250mg po bid -has encapsulated bleb - role of repeat MMC needling? -consider tube implant 6 weeks IOP - refract (pt request) and BAT POAG severe -HVF 03/2021 (Dr. Nobles) OS large sup arc thru fixation, shallow inf paracentral, fluctuates but not trending from 10/2019 OD large shallow inf arc thru fixation. Severe fluctuation with some brar showed marked loss -OCT 02/2019 ([place], Dr. Nobles) OD marked diffuse thinning OS marked diffuse thinning The documentation for this note was completed by Krysta Day acting as a scribe for Valery Ashraf MD. 07/19/2022 4:21 PM. I, Valery Ashraf MD, personally performed the services described in this documentation. All medical record entries made by the scribe were at my direction and in my presence. I have reviewed the chart and discharge instructions (if applicable) and agree that the record reflects my personal performance and is accurate and complete. I have confirmed and edited as necessary the relevant ophthalmic history, ROS, and the neuro exam findings as obtained by others. I have seen and examined Sylvia Nixon. I have discussed the case and the management of this patient's care with the Resident/Fellow, if applicable. I also have reviewed and agree with the assessment and plan as stated above and agree with all of its relevant components. Electronically Signed: Valery Ashraf MD, July 19, 2022 4:50 PM documented in this encounter [facility] 05-30-2022 History of Present illness Narrative Images from the original note were not included. Subjective Patient came in with complaints of stepping on a nail yesterday around noon with his left great toe. Patient says he had a small spot of blood. Patient denies any pain numbness or tingling. Patient is not up-to-date on his tetanus shot and would like that to be updated. Patient denies any other symptoms. The history is provided by the patient. No algebraist was used. Review of Systems Constitutional: Negative. Skin: Negative. Objective Physical Exam Constitutional: Appearance: Normal appearance. Pulmonary: Effort: Pulmonary effort is normal. Musculoskeletal: Feet: Feet: Comments: Patient does have very small pinpoint red area located in area marked above. No signs or symptoms of infection at this time. No pain noted on palpation. No foreign bodies noted. Neurological: Mental Status: He is alert. PAST MEDICAL HISTORY Diagnosis Date Hypertension Hypothyroid Type 2 diabetes mellitus (HCC) PAST SURGICAL HISTORY Procedure Laterality Date LASER TRABECULOPLASTY Bilateral 04/04/19 OS, 04/17/19 OD OTHER Express OD 05/21/19, Revision with MMC OD 01/26/21, 05/18/21,Revision with MMC OS 01/28/20 PAST SURGICAL HISTORY OF 01/06/2022 GATT OD ALLERGIES Bee Pollen, Netarsudil, and Dust MEDICATIONS dorzolamide-timolol (COSOPT) 22.3-6.8 mg/mL ophthalmic solution Use 1 Drop in both eyes every 12 hours. latanoprost (XALATAN) 0.005 % ophthalmic solution Use 1 Drop in both eyes daily at bedtime. MEN'S MULTI-VITAMIN ORAL Take by mouth. levothyroxine 200 mcg cap Take 200 mcg by mouth daily before breakfast. olmesartan (BENICAR) 20 mg tablet Take 20 mg by mouth once daily. omeprazole (PRILOSEC) 40 mg capsule Take 20 mg by mouth once daily. levothyroxine (SYNTHROID) 25 mcg tablet Take 25 mcg by mouth once daily. SYNJARDY XR 25-1,000 mg XR tab Take 1 tablet by mouth once daily. TRULICITY 3 mg/0.5 mL pen injector INJECT ONE PEN (3MG) UNDER THE SKIN ONCE A WEEK cyanocobalamin, vitamin B-12, 2,000 mcg tab Take 2,000 mcg by mouth. atorvastatin (LIPITOR) 10 mg tablet Take 10 mg by mouth daily at bedtime. flaxseed oil (OMEGA 3 ORAL) Take 1 capsule by mouth every morning. loratadine (CLARITIN) 10 mg tablet Take 10 mg by mouth. FAMILY HISTORY Problem Relation Age of Onset Cataract Mother Glaucoma Mother Hypertension Mother Kidney failure Father Cataract Maternal Grandmother Colon Cancer Maternal Grandfather Detached Retina No Family History Macular Degen No Family History Blindness No Family History Social History Tobacco Use Smoking status: Never Smokeless tobacco: Never Vaping Use Vaping Use: Never used Substance Use Topics Alcohol use: Not Currently Drug use: Never ASSESSMENT/PLAN: 1. Puncture wound - ICD9: 879.8, ICD10: T14.8XXA Tetanus shot was updated patient was instructed about signs and symptoms to monitor for infection. Patient will follow-up if anything changes. Patient was okay with this care plan. Roberto Carlos Babin APRN.MEDICAL RECEPTION documented in this encounter [facility] 05-23-2022 History of Present illness Narrative Tmax: 40, 40; Pachy: 571, 601 Lasers and Surgeries: OD: 02/17/22 TSCPC 1:30=>9:00, IOP=33 on 3 01/05/22 Omni-GATT (IOP23 on 2 + DMX) 04/2021 Express rev with MMC 01/2021 Express rev with MMC 05/2019 Express 03/2019 SLT OS: 01/2020 Express rev with MMC 05/2019 Express 03/2019 SLT Ocular Medication Intol and Non-efficacy: Brimonidine=red eyes Rhopressa=red eyes Referred by Rafiq Nobles MD ([place]) - pt moving to [place] Now on Cosopt bid OU PO 3 mo 270 deg TSCPC OD PO 4 mo Omni-GATT OD -02/08: IOP=32, cleft appears closed, no heme in angle. Currently on Cosopt and Latanoprost OD --> restarted Diamox 250 mg BID and scheduled TSCPC; off Diamox since surgery -vision OD continues to be much worse since [employer]: OCT macula 03/21/22=atrophy, no edema. Worsening vision likely glaucoma progression. Although Va has improved some OD) Resume latanoprost qhs OU 6 weeks IOP OU, refract OD POAG severe -HVF 03/2021 (Dr. Nobles) OS large sup arc thru fixation, shallow inf paracentral, fluctuates but not trending from 10/2019 OD large shallow inf arc thru fixation. Severe fluctuation with some brar showed marked loss -OCT 02/2019 ([place], Dr. Nobles) OD marked diffuse thinning OS marked diffuse thinning The documentation for this note was completed by Krysta Day acting as a scribe for Valery Ashraf MD. 05/23/2022 9:07 AM. I, Valery Ashraf MD, personally performed the services described in this documentation. All medical record entries made by the scribe were at my direction and in my presence. I have reviewed the chart and discharge instructions (if applicable) and agree that the record reflects my personal performance and is accurate and complete. I have confirmed and edited as necessary the relevant ophthalmic history, ROS, and the neuro exam findings as obtained by others. I have seen and examined Sylvia Nixon. I have discussed the case and the management of this patient's care with the Resident/Fellow, if applicable. I also have reviewed and agree with the assessment and plan as stated above and agree with all of its relevant components. Electronically Signed: Valery Ashraf MD, May 23, 2022 9:27 AM documented in this encounter [facility] 03-21-2022 History of Present illness Narrative Tmax: 40, 40; Pachy: -, - Lasers and Surgeries: OD: 02/17/22 TSCPC 1:30=>9:00, IOP=33 on 3 01/05/22 Omni-GATT (IOP23 on 2 + DMX) 04/2021 Express rev with MMC 01/2021 Express rev with MMC 05/2019 Express 03/2019 SLT OS: 01/2020 Express rev with MMC 05/2019 Express 03/2019 SLT Ocular Medication Intol and Non-efficacy: Brimonidine=red eyes Rhopressa=red eyes Referred by Rafiq Nobles MD ([place]) - pt moving to [place] Now on Timolol 0.5% qAM OS Cosopt bid OD PF bid OD (tapering) PO 4w 4d 270 deg TSCPC OD PO 10w 4d Omni-GATT OD -02/08: IOP=32, cleft appears closed, no heme in angle. Currently on Cosopt and Latanoprost OD --> restarted Diamox 250 mg BID and scheduled TSCPC; off Diamox since surgery -vision continues to be much worse since [employer]: concern for CME -OCT macula 03/21/22=atrophy, no edema -worsening vision likely glaucoma progression -cont PF taper -stay on drops as above 2 months IOP check Dry eye OD -not yet using PFAT's or ointment/gel -still, the epi is improving POAG severe -HVF 03/2021 (Dr. Nobles) OS large sup arc thru fixation, shallow inf paracentral, fluctuates but not trending from 10/2019 OD large shallow inf arc thru fixation. Severe fluctuation with some brar showed marked loss -OCT 02/2019 ([place], Dr. Nobles) OD marked diffuse thinning OS marked diffuse thinning OS IOP not ideal. Change Timolol to Cosopt The documentation for this note was completed by Krysta Day acting as a scribe for Valery Ashraf MD. 03/21/2022 11:06 AM. I, Valery Ashraf MD, personally performed the services described in this documentation. All medical record entries made by the scribe were at my direction and in my presence. I have reviewed the chart and discharge instructions (if applicable) and agree that the record reflects my personal performance and is accurate and complete. I have confirmed and edited as necessary the relevant ophthalmic history, ROS, and the neuro exam findings as obtained by others. I have seen and examined Sylvia Nixon. I have discussed the case and the management of this patient's care with the Resident/Fellow, if applicable. I also have reviewed and agree with the assessment and plan as stated above and agree with all of its relevant components. Electronically Signed: Valery Ashraf MD, March 21, 2022 12:06 PM documented in this encounter [facility] 03-02-2022 Instructions Valery Ashraf MD - 03/02/2022 11:09 AM EDT Stop Atropine (red) Prednisolone (pink or white) -4 times daily for 1 week, -3 times daily for 1 week, -2 times daily for 1 week, -1 time daily for 1 week, -then stop documented in this encounter [facility] 03-02-2022 History of Present illness Narrative Tmax: 40, 40; Pachy: -, - Lasers and Surgeries: OD: 02/17/22 TSCPC 1:30=>9:00, IOP=33 on 3 01/05/22 Omni-GATT (IOP23 on 2 + DMX) 04/2021 Express rev with MMC 01/2021 Express rev with MMC 05/2019 Express 03/2019 SLT OS: 01/2020 Express rev with MMC 05/2019 Express 03/2019 SLT Ocular Medication Intol and Non-efficacy: Brimonidine=red eyes Rhopressa=red eyes Referred by Rafiq Nobles MD ([place]) - pt moving to [place] Now on Timolol 0.5% qAM OS Cosopt bid OD PF q2h OD Atropine BID OD PO 1w 6d 270 deg TSCPC OD PO 7w 6d Omni-GATT OD -02/08: IOP=32, cleft appears closed, no heme in angle. Currently on Cosopt and Latanoprost OD --> restarted Diamox 250 mg BID and scheduled TSCPC; off Diamox since surgery -he reports central vision is foggy since November -VA down today from preop though pt is on atropine and surface is very irregular today; subjectively he has not noticed a change in vision -IOP much improved from preop -Stop atropine -Taper PF weekly 4-3-2-1 stop -Continue Cosopt for now, continue to hold latanoprost -RTC 03/22 as scheduled Dry eye OD -Recommend switching from standard Refresh to PFATs given frequency of drops and severity of PEEs -Gel or ointment at night (pt uses CPAP) ==prior unedited notes== POAG severe -HVF 03/2021 (Dr. Nobles) OS large sup arc thru fixation, shallow inf paracentral, fluctuates but not trending from 10/2019 OD large shallow inf arc thru fixation. Severe fluctuation with some brar showed marked loss -OCT 02/2019 ([place], Dr. Nobles) OD marked diffuse thinning OS marked diffuse thinning OS a bit higher off acetazolamide - watch and consider latanoprost which he was using OD or maybe Cosopt I, Valery Ashraf MD, personally performed the services described in this documentation. All medical record entries made by the scribe were at my direction and in my presence. I have reviewed the chart and discharge instructions (if applicable) and agree that the record reflects my personal performance and is accurate and complete. I have confirmed and edited as necessary the relevant ophthalmic history, ROS, and the neuro exam findings as obtained by others. I have seen and examined Sylvia Nixon. I have discussed the case and the management of this patient's care with the Resident/Fellow, if applicable. I also have reviewed and agree with the assessment and plan as stated above and agree with all of its relevant components. Electronically Signed: Valery Ashraf MD, March 02, 2022 11:09 AM documented in this encounter [facility] 02-08-2022 History of Present illness Narrative Tmax: 40, 40; Pachy: -, - Lasers and Surgeries: OD: 01/05/22 Omni-GATT (IOP23 on 2 + DMX) 04/2021 Express rev with MMC 01/2021 Express rev with MMC 05/2019 Express 03/2019 SLT OS: 01/2020 Express rev with MMC 05/2019 Express 03/2019 SLT Ocular Medication Intol and Non-efficacy: Brimonidine=red eyes Rhopressa=red eyes Referred by Rafiq Nobles MD ([place]) - pt moving to [place] Now on Timolol 0.5% qAM OS Cosopt bid OD Latanoprost qhs OD PO 4w 5d Omni-GATT OD -02/08: IOP=32, cleft appears closed, no heme in angle. Currently on Cosopt and Latanoprost OD -Resume Diamox 250 mg BID -he reports central vision is foggy since November -discussed tube vs [employer] -Recommend inf 270 deg TSCPC OD ==prior unedited notes== POAG severe -HVF 03/2021 (Dr. Nobles) OS large sup arc thru fixation, shallow inf paracentral, fluctuates but not trending from 10/2019 OD large shallow inf arc thru fixation. Severe fluctuation with some brar showed marked loss -OCT 02/2019 ([place], Dr. Nobles) OD marked diffuse thinning OS marked diffuse thinning OS a bit higher off acetazolamide - watch and consider latanoprost which he was using OD or maybe Cosopt DM The documentation for this note was completed by Krysta Day acting as a scribe for Valery Ashraf MD. 02/08/2022 10:46 AM. I, Valery Ashraf MD, personally performed the services described in this documentation. All medical record entries made by the scribe were at my direction and in my presence. I have reviewed the chart and discharge instructions (if applicable) and agree that the record reflects my personal performance and is accurate and complete. I have confirmed and edited as necessary the relevant ophthalmic history, ROS, and the neuro exam findings as obtained by others. I have seen and examined Sylvia Nixon. I have discussed the case and the management of this patient's care with the Resident/Fellow, if applicable. I also have reviewed and agree with the assessment and plan as stated above and agree with all of its relevant components. Electronically Signed: Valery Ashraf MD, February 08, 2022 12:02 PM documented in this encounter [facility] 01-18-2022 Instructions Valery Ashraf MD - 01/18/2022 8:19 AM EDT January 18, 2022 Medication Eye # times daily Prednisolone (pink or white) R 2 Pilocarpine (green) R 2 Dorzolamide-timolol (blue) R 2 Latanoprost (turquoise) R evening Timolol (yellow) L 1 Starting this Sunday 01/21: Decrease prednisolone to once daily Starting Sunday 01/28: Stop prednisolone and pilocarpine documented in this encounter [facility] 01-18-2022 History of Present illness Narrative Tmax: 40, 40; Pachy: -, - Lasers and Surgeries: OD: 01/05/22 Omni-GATT (IOP23 on 2 + DMX) 04/2021 Express rev with MMC 01/2021 Express rev with MMC 05/2019 Express 03/2019 SLT OS: 01/2020 Express rev with MMC 05/2019 Express 03/2019 SLT Ocular Medication Intol and Non-efficacy: Brimonidine=red eyes Rhopressa=red eyes Referred by Rafiq Nobles MD ([place]) - pt moving to [place] Now on Timolol 0.5% OS qam Cosopt bid OD Latanoprost qhs OD: didn't start PF bid OD Braydon 1% bid OD PO 1w 5d Omni-GATT OD -01/14: IOP=43, hyphema resolved, cleft most closed. Added cosopt + latanoprost, tapered PF to bid -he forgot to start latanoprost -today IOP is improved significantly but still too high -please start latanoprost, dec PF to qd this Monday then stop next Monday along with braydon -f/u 02/08 as scheduled ==prior unedited notes== POAG severe -HVF 03/2021 (Dr. Nobles) OS large sup arc thru fixation, shallow inf paracentral, fluctuates but not trending from 10/2019 OD large shallow inf arc thru fixation. Severe fluctuation with some brar showed marked loss -OCT 02/2019 ([place], Dr. Nobles) OD marked diffuse thinning OS marked diffuse thinning OS a bit higher off acetazolamide - watch and consider latanoprost which he was using OD or maybe Cosopt DM I, Valery Ashraf MD, have edited as necessary and confirmed the relevant ophthalmic history, ROS, and neuro exam findings as obtained by others. I have seen and examined Sylvia Tiffani. I also have reviewed, edited as necessary, and agree with the assessment and plan and all of its relevant components as stated above. I have discussed the case and the management of this patient's care with the Resident/Fellow, if applicable. January 18, 2022 8:20 AM. documented in this encounter [facility] 01-15-2022 Miscellaneous Notes Pt states pharmacy did not receive prescription. Reviewed chart. Pt restarted on latanoprost and cosopt OD per note. Prescriptions sent/resent. Seun Oliveira MD Ophthalmology resident documented in this encounter [facility] 01-14-2022 Instructions Valery Ashraf MD - 01/14/2022 10:05 AM EDT January 14, 2022 Medication Eye # times daily Prednisolone (pink or white) R 2 Pilocarpine (green) R 2 Dorzolamide-timolol (blue) R 2 Latanoprost (turquoise) R evening Timolol (yellow) L 1 *please remember to wait at least 5 minutes between different drops in the same eye. documented in this encounter [facility] 01-14-2022 History of Present illness Narrative Tmax: 40, 40; Pachy: -, - Lasers and Surgeries: OD: 01/05/22 Omni-GATT (IOP23 on 2 + DMX) 04/2021 Express rev with [facility] 01/2021 Express rev with [facility] 05/2019 Express 03/2019 SLT OS: 01/2020 Express rev with [facility] 05/2019 Express 03/2019 SLT Ocular Medication Intol and Non-efficacy: Brimonidine=red eyes Rhopressa=red eyes Referred by Rafiq Nobles MD ([place]) - pt moving to [place] Now on Timolol 0.5% OS qam PF qid OD Braydon 1% bid OD PO 1w 1d Omni-GATT OD -IOP now increased to 41 -hyphema cleared and gonioscopy reveals benign angle with mostly closed cleft -dec PF to bid -add back Cosopt OD, latanoprost -he is off next Monday so I will see him then RTC next week for IOP ==prior unedited notes== POAG severe -[facility] 03/2021 (Dr. Nobles) OS large sup arc thru fixation, shallow inf paracentral, fluctuates but not trending from 10/2019 OD large shallow inf arc thru fixation. Severe fluctuation with some brar showed marked loss -OCT 02/2019 ([place], Dr. Nobles) OD marked diffuse thinning OS marked diffuse thinning OS a bit higher off acetazolamide - watch and consider latanoprost which he was using OD or maybe Cosopt DM I, Valery Ashraf MD, have edited as necessary and confirmed the relevant ophthalmic history, ROS, and neuro exam findings as obtained by others. I have seen and examined Sylvia Nixon. I also have reviewed, edited as necessary, and agree with the assessment and plan and all of its relevant components as stated above. I have discussed the case and the management of this patient's care with the Resident/Fellow, if applicable. January 14, 2022 10:05 AM. documented in this encounter [facility] 01-07-2022 History of Present illness Narrative Tmax: 40, 40; Pachy: -, - Lasers and Surgeries: OD: 01/05/22 Omni-GATT (IOP23 on 2 + DMX) 04/2021 Express rev with [facility] 01/2021 Express rev with [facility] 05/2019 Express 03/2019 SLT OS: 01/2020 Express rev with [facility] 05/2019 Express 03/2019 SLT Ocular Medication Intol and Non-efficacy: Brimonidine=red eyes Rhopressa=red eyes Referred by Rafiq Nobles MD ([place]) - pt moving to [place] Now on Timolol 0.5% OS qam PF qid OD Braydon 1% bid OD POAG severe -[facility] 03/2021 (Dr. Nobles) OS large sup arc thru fixation, shallow inf paracentral, fluctuates but not trending from 10/2019 OD large shallow inf arc thru fixation. Severe fluctuation with some brar showed marked loss -OCT 02/2019 ([place], Dr. Nobles) OD marked diffuse thinning OS marked diffuse thinning PO 0w 1d Omni-GATT OD -looks good, IOP is improved. -same meds as above OS a bit higher off acetazolamide - watch and consider latanoprost which he was using OD or maybe Cosopt DM I, Valery Ashraf MD, have edited as necessary and confirmed the relevant ophthalmic history, ROS, and neuro exam findings as obtained by others. I have seen and examined Sylvia Nixon. I also have reviewed, edited as necessary, and agree with the assessment and plan and all of its relevant components as stated above. I have discussed the case and the management of this patient's care with the Resident/Fellow, if applicable. January 07, 2022 9:53 AM. documented in this encounter [facility] 12-24-2021 Miscellaneous Notes Received lab results from [facility] from 11/03/21. Copy made for Patito Haq CNP and original sent to flexboard operator to be scanned. Ellen Gray LPN Called [facility] and spoke with Jaclyn. I requested patients HgbA1c be faxed to our office from October 2021. Ellen Gray LPN Patient returned call and states his last HgbA1C was drawn in October in [place] at his old providers office. Patient does not know result, but gave his old physician phone number of [phone]. Dr. Rodrigez. Called and left message for patient to call our office back regarding where and when he has completed A1c. Ellen Gray LPN I did not realize pt did not have an updated A1c and I can't find one in C/E. Please call pt and ask him where and when he had the last one completed. If not in the last 3 mos I have an order placed for him to complete. documented in this encounter [facility] 12-22-2021 History and physical note Images from the original note were not included. HISTORY AND PHYSICAL EXAMINATION SERVICE DATE: 12/22/2021 SERVICE TIME: 3:39 PM PRIMARY CARE PHYSICIAN: No primary care provider on file. REASON FOR VISIT: Sylvia Nixon is a 51 year old male who is scheduled for Procedure(s): TRANSLUMINAL DILATION OF AQUEOUS OUTFLOW CANAL W/O RETENTION OF DEVICE OR STENT (Right) at the request of Dr. Valery Ashraf for consultation. My final recommendation will be communicated back to the requesting physician by way of shared medical record or letter. Subjective The patient has the following: ACTIVE PROBLEM LIST Primary Open Angle Glaucoma (Poag) of Both Eyes, Severe Stage Essential Hypertension, Benign Mixed Hyperlipidemia Jamie (Obstructive Sleep Apnea) Gerd (Gastroesophageal Reflux Disease) Hypothyroidism Type 2 Diabetes Mellitus, Without Long-Term Current Use of Insulin ([facility]) Class 2 Severe Obesity Due to Excess Calories With Serious Comorbidity and Body Mass Index (Bmi) of 35.0 to 35.9 in Adult ([facility]) COVID-19 Immunization Status Overdue - COVID-19 VACCINE (1) Overdue - never done No completion, postpone, frequency change, or communication history exists for this topic. CHIEF COMPLAINT: Pre-op exam HPI: MC is a 51 yo seen for PAC due to scheduled above surgery because of glaucoma. 11/12/2021 Dr. Ashraf Patient states vision stable in right eye. No darkening. Perhaps some more glare in right eye. Left eye vision is stable. Feels generalized blurriness and sl decrease appetite since starting acetazolamide. Tolerates pill otherwise without additio nal untolerable side effects. Current Medications: verified Dr. Car 11/12/21 Timolol 0.5% OU qam Acetazolamide 500 mg PO BID (start 10/20/21 for IOP 09/06 on 2 meds) Latanoprost OD qHS (started by Dr Nobles 08/2021) Plan - IOP too high OD despite switch to Acetazolamide from Methazolamide -Does not seem Latanoprost OD has been effective but will stay on it for now -Express shunt is piercing TM so GATT not an option -discussed tube (more effective) vs inferior trabeculotomy and limited superior canaloplasty -given that he's relatively young, and already has a Express - both of these are risks for late corneal decompensation with a tube implant - we will try trabeculotomy as extensive as possible with canaloplasty to the remainder of the angle OD REVIEW OF SYSTEMS: General: No weight loss, malaise or fevers. Neurological: No history of TIA's, stroke, SENIOR DEVOPS ENGINEER tumor, impaired sensorium, hemiplegia, paraplegia or quadraplegia. No neurological symptoms or problems. Respiratory: Positive for: obstructive sleep apnea and CPAP/BiPAP compliant. Negative for: asthma, COPD, pneumonia within 6 weeks, tobacco use and URI < 2 weeks. Cardiovascular: Positive for: hyperlipidemia (on rx) and hypertension (on rx) Negative for: anticoagulation therapy, arrhythmia, atrial fibrillation, CAD, chest pain, CHF, congenital heart defect, DVT/PE, recent MN, murmur/valvular heart disease, open heart surgery and valve surgery. GI: Positive for: GERD (on rx) Negative for: abdominal pain, dysphagia, hepatitis, irritable bowel syndrome, inflammatory bowel disease, liver disease, nausea, pancreatitis, vomiting and ETOH >2 drinks/day. : No history of dysuria, frequency or incontinence, stones or chronic kidney disease. No difficulty urinating, nocturia > 1 time per night or hematuria. Endocrine: Positive for: diabetes mellitus and hypothyroidism (on rx). Patient's diabetes mellitus is controlled by oral agents and weekly injectable. Hematology: No history of bleeding or clotting disorder. Patient is not taking anti-coagulation or platelet medications. No history of hematological symptoms or problems. Oncology: No history of CA metastasis, chemo within 30 days, or radiotherapy within 90 days. No history of oncological symptoms or problems. Psych: No history of psychiatric symptoms or problems. Musculoskeletal: Positive for: back pain. Skin: Negative for lesions, rash and itching. PAST MEDICAL HISTORY Diagnosis Date Hypertension Hypothyroid Type 2 diabetes mellitus (HCC) PAST SURGICAL HISTORY Procedure Laterality Date LASER TRABECULOPLASTY Bilateral 04/04/19 OS, 04/17/19 OD OTHER Express OD 05/21/19, Revision with [facility] OD 01/26/21, 05/18/21,Revision with [facility] OS 01/28/20 FAMILY HISTORY Problem Relation Age of Onset Cataract Mother Glaucoma Mother Cataract Maternal Grandmother Social History Tobacco Use Smoking status: Never Smoker Smokeless tobacco: Never Used Vaping Use Vaping Use: Never used Substance Use Topics Alcohol use: Not Currently Drug use: Never Prior to Admission medications as of 12/22/21 1537 Medication Sig Last Dose Taking levothyroxine 200 mcg cap Take 200 mcg by mouth daily before breakfast. Taking Yes acetaZOLAMIDE SR (DIAMOX SEQUELS) 500 mg capsule Take 1 capsule by mouth twice daily. Taking Yes timolol maleate (TIMOPTIC) 0.5 % ophthalmic solution Use 1 Drop in both eyes every morning. Taking Yes latanoprost (XALATAN) 0.005 % ophthalmic solution Use 1 Drop in the right eye daily at bedtime. Taking Yes prednisoLONE acetate (PRED FORTE, ECONOPRED PLUS) 1 % ophthalmic suspension Use 1 Drop in the right eye four times daily. For use AFTER surgery. Taking Yes olmesartan (BENICAR) 20 mg tablet Take 20 mg by mouth once daily. Taking Yes omeprazole (PRILOSEC) 40 mg capsule Take 20 mg by mouth once daily. Taking Yes levothyroxine (SYNTHROID) 25 mcg tablet Take 25 mcg by mouth once daily. Taking Yes SYNJARDY XR 25-1,000 mg XR tab Take 1 tablet by mouth once daily. Taking Yes TRULICITY 3 mg/0.5 mL pen injector INJECT ONE PEN (3MG) UNDER THE SKIN ONCE A WEEK Taking Yes cyanocobalamin, vitamin B-12, 2,000 mcg tab Take 2,000 mcg by mouth. Taking Yes atorvastatin (LIPITOR) 10 mg tablet Take 10 mg by mouth daily at bedtime. Taking Yes flaxseed oil (OMEGA 3 ORAL) Take 1 capsule by mouth every morning. Taking Yes loratadine (CLARITIN) 10 mg tablet Take 10 mg by mouth. Taking Yes No medication comments found. ALLERGIES Allergen Reactions Bee Pollen Other: See Comments, Hives, Swelling Netarsudil Other: See Comments Redness, irritation in both eyes. Dust Other: See Comments Objective PHYSICAL EXAM: General: alert and oriented (x3) and healthy appearance. Skin: normal color, no rash or lesions. HEENT: EOM intact and pupils equal round. Cardiovascular: Self palpated radial pulse regular. Respiratory: Non-labored breathing. Abdomen: soft. Pertinent negatives noted - not tender. Extremities: no deformity, no edema or tenderness, no joint swelling or clubbing. Neurological: normal cognition and motor skills. Gait normal. No weakness or sensory deficit. PAIN ASSESSMENT: VITALS: BP 100/80 Pulse 98 Temp (Src) 97.9 (Temporal) Resp 18 Ht 6' 0 (1.83m) Wt 264 lb (119.8kg) SpO2 98% BMI 35.80 kg/(m^2). Diagnostic tests reviewed for today's visit: Lab Value Units Date High Low HB No results within date range. HCT No results within date range. WBC No results within date range. PLT No results within date range. NA 140 mmol/L 09/22/2021 144 136 K 4.3 mmol/L 09/22/2021 5.1 3.7 GLUC 171 mg/dL 09/22/2021 99 74 BUN 17 mg/dL 09/22/2021 24 9 CREAT 0.96 mg/dL 09/22/2021 1.22 0.73 PTSEC No results within date range. INR No results within date range. APTT No results within date range. ALT 14 U/L 09/22/2021 54 10 AST 23 U/L 09/22/2021 40 14 TBILI 0.6 mg/dL 09/22/2021 1.3 0.2 TSH No results within date range. Lab Value Units Date High Low HCGQT No results within date range. UHCG No results within date range. HCG, BODY* No results within date range. Lab Value Units Date High Low ABORHD No results within date range. ABSCREEN No results within date range. No results found for: HBA1C No results found for this or any previous visit (from the past 8760 hour(s)). No results found for this or any previous visit (from the past 74862 hour(s)). Assessment JAMIE (obstructive sleep apnea) Assessment: c/w CPAP GERD (gastroesophageal reflux disease) Assessment: controlled on rx Hypothyroidism Assessment: controlled on rx Type 2 diabetes mellitus, without long-term current use of insulin ([facility]) Assessment: weekly injectable and oral agents Class 2 severe obesity due to excess calories with serious comorbidity and body mass index (BMI) of 35.0 to 35.9 in adult (HCC) Assessment: Body mass index is 35.8 kg/m . Artis Activity Status Index: METS: Climb a flight of stairs or walk up a hill (5.50 METs) DASI Score: 5.5 Clinical Frailty Scale: 3. Well, with treated comorbid disease STOP-Bang Score: Snores loudly Has been observed to stop breathing or choking/gasping during sleep Has or is being treated for high blood pressure BMI greater than 35 kg/m^2 Patient over 50 years old Has a large neck Male patient Denies feeling tired, fatigued, or sleepy during the daytime STOP-Bang Score: 7 [id number] Score: Age: <65 Sex: male CHF history: No Hypertension history: Yes Stroke/TIA/thromboembolism history: No Vascular disease history: No Diabetes history: Yes [id number] Score: 2 ARISCAT Score: Age: <=50 Preoperative SpO2: >=96% Respiratory infection in the last month: No Preoperative anemia: No Surgical incision: peripheral Duration of surgery: <2 hrs Emergency procedure: No ARISCAT Score: 0 ASA Class: 3 ANESTHESIA FINDINGS: Intubation History: No history of difficult intubation Significant Anesthesia Considerations: none Airway History: No history of difficult airway I - PHYSICAL EVALUATION AIRWAY Tracheostomy tube not present Mallampati: III. TM distance: >3 FB. Neck ROM: full ROM without neurological symptoms. Mouth opening: adequate. Short neck: no. Thick neck: no DENTAL Dental findings: teeth intact. Additional comments: Crowns/back. II - ANESTHESIA PLAN ASA Score: 3 Anesthetic Plan: other Anesthetic plan additional comments: *PACC/TCI - anesthesia choice. Informed Consent Anesthetic risks, benefits, alternatives, personnel and consent discussed: yes. Patient / Responsible Republican agrees to proceed: yes Patient / Surrogate agrees to blood products: blood products not planned Prepared for Surgery: optimally prepared for surgery. CONSULTS: Patient does not require consults for optimization at this time Planned Anesthetic: other anesthesia choice The Following Tests/Procedures Have Been Initiated: Orders Placed This Encounter levothyroxine 200 mcg cap Sig: Take 200 mcg by mouth daily before breakfast. Instructions Given to Patient: Instructions located in the after visit summary. Patient given verbal and written preop instructions and voices comprehension and compliance. SIGNATURE: Patito Haq APRN.CNP PATIENT NAME: Sylvia Nixon DATE: December 22, 2021 TIME: 3:39 PM PAGER/CONTACT #: documented in this encounter [facility] 12-22-2021 Instructions Patito Haq APRN.CNP - 12/22/2021 3:35 PM EDT PATIENT PREOPERATIVE INSTRUCTIONS Valery Ashraf, * has scheduled you for your procedure at this surgery center: [facility]: [phone] --[facility], [address] [place] [address]. Please read below carefully for your personalized instructions. Dietary Restrictions: - No solid food after midnight. - You may have 12 ounces of clear liquids (water, clear juices such as apple juice or gatorade, carbonated beverages, clear tea, black coffee, jello) until 2 hours before scheduled arrival at facility. No red/purple coloring and no creamer/sugar Medications: Unless instructed differently below, stay on all of your medications until your surgery. Approved medications to take the morning of surgery with a sip of water: All meds are okay except diabetic medication morning of surgery If you take any medications for erectile dysfunction-Cialis (Tadalafil), Levitra, Staxyn (Vardenafil) Viagra (Sildenenafil please do not take these for 48 hours before surgery. If you start any new medications after today's visit, please contact the surgeon's office. Blood Thinning Medications: - Stop NSAIDS (Ibuprofen, Advil, Aleve, Motrin, Celebrex, Mobic, etc.) 7 days before surgery, as directed by your surgeon. - Stop Aspirin 7 days before surgery, as directed by your surgeon. - Stop Vitamin E, ALL multi-vitamins, herbals and dietary supplements 7 days before surgery. - You may take Tylenol (Acetaminophen) or any of your pain medications that do not contain aspirin or NSAIDS as needed. Important Reminders: - If you use CPAP/BIPAP, bring the machine with you to the surgery center. - If you are prescribed inhalers for breathing, continue using them. - Candy, mints, and tobacco products are NOT permitted the morning of surgery. - Hearing aids, dentures and glasses may be worn the morning of surgery. - NO jewelry, body piercings, makeup, hairpins or contacts are to be worn the day of surgery. If you develop symptoms such as a fever, cold, or flu, or have other changes to your health within TWO DAYS of scheduled surgery or the morning of surgery, please contact the surgery center above. Personal Belongings: -Please have photo ID and insurance cards. -If you do not have a copy of advance directives on file with us, please bring a copy with you on the day of surgery. - Leave ALL valuables and money at home or with family members. For Outpatient Procedures: - YOU MUST HAVE A RESPONSIBLE INFORMATION SYSTEMS CONSULTANT TAKE YOU HOME. A SWIMMING TEACHER OR BRAIN SURGEON CANNOT BE MADE A RESPONSIBLE INFORMATION SYSTEMS CONSULTANT. - We recommend that a responsible person stays with you overnight to take care of you. - You cannot stay in a hotel alone after outpatient surgery. You will not be permitted to have your surgery, if you do not have someone to take care of you. Arrival Time for Surgery: - The Surgery Center or hospital where you are having surgery will call the afternoon before surgery (or Monday for Monday surgery) with a scheduled arrival time. - If you have not heard by 4 pm, please contact the surgery center above. Please be aware that emergency situations arise, which may delay or change your surgical time. If this happens, we will notify you as soon as possible and regret any inconvenience. If you already have an Advance Directive, please fax a copy to [phone] or email to for it to be added to your chart. If you do not have an Advance Directive, you can find the appropriate form and more information at [email or web address]. We recommend that you complete the Advance Directive form found on the website and bring it with you the day of your surgery. It can be witnessed and scanned into your chart that day. Patito Haq APRN.CNP documented in this encounter [facility] 11-26-2021 Miscellaneous Notes He's very anxious to get his surgery scheduled due to his pressures. documented in this encounter [facility] 11-23-2021 Miscellaneous Notes Valery Ashraf MD filed at 11/12/2021 8:47 AM Status: Signed Tmax: 40, 40; Pachy: -, - Lasers and Surgeries: OD: 04/2021 Express rev with [facility] 01/2021 Express rev with [facility] 05/2019 Express 03/2019 SLT OS: 01/2020 Express rev with [facility] 05/2019 Express 03/2019 SLT Ocular Medication Intol and Non-efficacy: Brimonidine=red eyes Rhopressa=red eyes Referred by Rafiq Nobles MD ([place]) - pt moving to [place] Now on Timolol 0.5% OU qam Acetazolamide 500 mg PO BID (10/20/21 from methazolamide for IOP 09/06 on 2 meds) Latanoprost OD qHS (started by Dr Nobles 08/2021) Off PF qd POAG severe -[facility] 03/2021 (Dr. Nobles) OS large sup arc thru fixation, shallow inf paracentral, fluctuates but not trending from 10/2019 OD large shallow inf arc thru fixation. Severe fluctuation with some brar showed marked loss -OCT 02/2019 ([place], Dr. Nobles) OD marked diffuse thinning OS marked diffuse thinning - Started on latanoprost by Dr Nobles in September 07 - Per patient, IOP was 17, [address] Nobles 10/15/2021 Plan - IOP too high OD despite switch to Acetazolamide from Methazolamide -Does not seem Latanoprost OD has been effective but will stay on it for now -Express shunt is piercing TM so GATT not an option -discussed tube (more effective) vs inferior trabeculotomy and limited superior canaloplasty -given that he's relatively young, and already has a Express - both of these are risks for late corneal decompensation with a tube implant - we will try trabeculotomy as extensive as possible with canaloplasty to the remainder of the angle OD DM documented in this encounter [facility] 11-12-2021 Instructions Valery Ashraf MD - 11/12/2021 8:45 AM EDT Images from the original note were not included. I have requested that you be schedule for eye surgery. Please call my university relations director, Carmen. She will call you in the next few days if she doesn't hear from you. Carmen (university relations director:) [phone]. Dr. Ashraf Office: [phone] if you have any questions. There will be a visit at 1 day, 1 week, 3 weeks, 6 weeks, 10 weeks after surgery. Additional visits may be necessary depending on the healing process. What is an ab-interno trabeculotomy? To understand this question, you first have to know a little about how normal eye pressure is generated and controlled. Internal eye fluid, called aqueous, is constantly produced inside of the eye by a special gland called the ciliary body (labeled in the drawing below as ciliary muscle. ) This aqueous flows through the eye and carries nutrients to the internal eye structures. Aqueous then drains out of the eye into Schlemm s canal, a very thin turnstile collector channel that runs in a [place] around the border of the white and colored part of your eye. From here, the aqueous flows out into your bloodstream. However, in order to get into Schlemm s canal, the aqueous needs to pass through a coffee-filter like tissue called Tabecular meshwork. If the trabecular meshwork gets clogged, the aqueous can t exit the eye into Schlemm s canal easily and the eye pressure can build up. Ab-interno trabeculotomy is a procedure in which a thin catheter is fed into Schlemm s canal, and then the catheter is gently torn through trabecular meshwork and into the anterior chamber. The catheter is then removed from the eye. By creating an opening trabecular meshwork, the aqueous fluid now has direct access to Schlemm s canal and can exit the eye more easily, lowering eye pressure. Older methods of performing this procedure required relatively large incisions through the outer layers of the eye in order for the surgeon to reach Schlemm s canal to place th catheter. These incisions required several sutures to close, and subsequent scarring eliminated some other options for additional glaucoma surgery if that became necessary in the future. The recent advance with ab interno trabecultomy is performing the surgery through two small corneal incisions and accessing Schlemm s canal from inside the eye (that s why it s called ab-interno.) This technique is generally faster, usually does not require any sutures, and typically produces virtually no scar tissue. How is a trabeculectomy performed? Before the day of surgery You will have a brief physical examination that may include an electrocardiogram (a heart tracing) and blood work. This will be scheduled for you. If you are having cataract surgery at the same time, measurements of your eyes will be taking for calculating the correct power lens implant. Preparing for surgery On the day of surgery you will go to the surgical suite on the first floor of [place] [id number]. You will check in at the desk, and the nurses will take you into the pre-op area. The nurse will begin an intravenous (IV) line in one of your veins. In the operating area, some medication is given through the IV that will make you feel quite relaxed; in fact you will may fall asleep for a few minutes. Typically we will numb the eye with lidocaine gel placed on the surface of the eye. Occasionally, we will put you to sleep momentarily and inject numbing medicine near your eye (local anesthesia). During surgery, you will be encouraged to let us know if you are feeling anxiety, pain, or any other discomfort so we can work to keep you comfortable. In rare cases, we may put you totally asleep (general anesthesia) if you have claustrophobia or are very nervous about being awake during surgery. Usually, being awake (but relaxed) is preferable because it is less stressful for the body than general anesthesia and the recovery is much quicker. Once the eye is numb, the entire area around the eye is carefully cleaned with a special soap. Drapes are placed over your face leaving the operative eye exposed (you won t be able to see much out of that eye due to the numbing medicine). Plenty of oxygen will be flowing underneath the drape and the anesthesiologist will be constantly monitoring the amount of air that you have to breathe, as well as your heart rhythm and blood pressure. If you are on blood thinners, you need to let your eye surgeon know. Blood thinners, including aspirin, may cause increased bleeding inside your eye which can lead to slower recovery of your vision and possibly higher eye pressure in the first few weeks after surgery. The surgery The operation is done with you lying on your back. We are looking through a microscope that is suspended over your face. Two small incisions, about 1 millimeter each (if you are having cataract surgery also, one of these incision is about 2.4mm,) are made in the cornea, the clear part of your eye. The tip of very thin catheter, one-fifth of one millimeter in diameter, is placed into your eye. It has a blinking lighted tip to help locate the catheter as it is passed through Schlemm s canal. Your head is turned toward one side and a special lens is used to view trabecular meshwork and Schlemm s canal located on the side of your eye nearest your nose. A small blade is used to make a tiny incision through trabecular meshwork. Using micro-forceps (jacobezfrances,) the catheter is carefully guided through that small incision in trabecular meshwork and into Schlemm s canal. The catheter is guided all the way around Schlemm's canal for 360 degrees. The tip of catheter is grabbed and the catheter is pulled through inward through the trabecular meshwork and into the eye to gently tear open trabecular meshwork. Your head will be turned back toward the center and the small incisions checked to ensure they are sealed. If you are scheduled to have cataract surgery also, it will be done at this point. How long is the surgery? It takes about 15 minutes to numb your eye, clean, and drape your eye for surgery. The ab interno trabeculotomy surgery usually takes about 10 min, and an additional 10 min is needed if you are going to have cataract surgery also. Additional time is sometimes necessary and obviously we want to get you best outcome without rushing. When the surgery is completed we will placed some ointment in the eye and secure an eye patch and shield. What do I do after surgery? You will leave the dressing in place, and the surgical eye will not need any medications for the first night. We want you to maintain a fairly normal level of activity but refrain from bending with your head below your heart, lifting more than 10-15 lbs., or straining. You will need to sleep with your head elevated (a recliner is perfect) for the first 3-5 days. If you tend to be constipated, it is good to take a stool softener to keep from straining on the toilet. Most eyes are very comfortable after surgery. Mild scratching is common but should get better soon. If you have discomfort you should take acetaminophen (Tylenol) and non-steroidal anti-inflammatory (NSAIDS) pain medicines such as ibuprofen or Aleve. The day after surgery On the morning after the surgery we will remove your patch (if you have one), check your vision, check your pressure, and evaluate the filtering bleb. Most people will have several drops of blood in the front part of their eye, and this can make the vision the extremely blurry. The vision will gradually recover over 1-3 weeks in most cases. Medications Most people will start prednisolone acetate (Pred Forte) and pilocarpine, each to be used four times a day. The prednisolone is a steroid drop control inflammation to lessen or prevent irritation and light sensitivity. The Pilocarpine helps prevent the tear in trabecular meshwork from healing closed by causing your pupil to be smaller and your ciliary body muscle to contract. Both of these medications will be tapered over 4-6 weeks in most cases. Some people will have to restart some or all of their glaucoma medications as the eye heals. Eye protection Bending and straining can cause more blood to flow into the eye, so you will need to avoid these activities. Because there are no sutures, you should avoid rubbing or pressing on the eye. You can wear glasses or sunglasses during the daytime and wear the shield that we provide at bedtime. Postoperative visits Typically people are seen after surgery at 1 day, 1 week, 2 weeks, 1 month, and 3 months. We are happy to see you between appointments if you feel that sometime may be wrong with your eye. Please call us or send us an email if you feel that you are having a problem. How well does trabeculotomy ab interno work? Trabeculotomy ab interno is new way of performing an older procedure. Initial data is promising, and Dr. Ashraf s experience thus far has been very encouraging. Some people will have a lower pressure after surgery, some people will need fewer glaucoma medications, and some people will have both a lower pressure and fewer eyedrops to use. Unfortunately, there is no glaucoma surgery that works for everyone, and some people may not see an eye pressure benefit from trabeculotomy. We still do not have data about the long-term effectiveness of this procedure. Are there any other complications? Trabeculotomy is significantly safer than more traditional glaucoma surgeries like tubes and filtering procedures. [id number], every surgery has risks. While rare, infection inside the eye is one of the most dreaded risks of any surgery. The most common risk after trabeculotomy is bleeding in the front of the eye which can temporarily make the vision very blurry. This is quite common and typically clears up on its own in 1-3 weeks. Infrequently, some of the blood may travel into the vitreous gel in the back of the eye. This would cause floaters or hazy vision and can take weeks or months to clear. If you haven t already had cataract surgery, then you may develop a cataract sooner after trabeculotomy (this is true of most types of glaucoma surgery.) While the eye pressure is typically improved after surgery, sometimes high, or very high, eye pressure can occur. This is typically controlled with medications. What do the postoperative visits consist of? Postoperative visits are important to ensure that you eye is healing properly and your eye pressure remains well controlled. We measure your vision and eye pressure and discuss any adjustments in your medications. Are there any long-term lifestyle adjustments? No, once the eye is healed, you may resume all normal activities, including vigorous exercise, swimming, and applying make-up. What if the trabeculotomy fails? With any glaucoma surgery, additional surgery may be necessary if eye pressure remains too high despite using glaucoma medications after the first surgery. One advantage of trabeculotomy is that it does not affect our ability to do other more traditional glaucoma surgeries like tube implants or filtering procedures. documented in this encounter [facility] 11-12-2021 History of Present illness Narrative Tmax: 40, 40; Pachy: -, - Lasers and Surgeries: OD: 04/2021 Express rev with [facility] 01/2021 Express rev with [facility] 05/2019 Express 03/2019 SLT OS: 01/2020 Express rev with [facility] 05/2019 Express 03/2019 SLT Ocular Medication Intol and Non-efficacy: Brimonidine=red eyes Rhopressa=red eyes Referred by Rafiq Nobles MD ([place]) - pt moving to [place] Now on Timolol 0.5% OU qam Acetazolamide 500 mg PO BID (10/20/21 from methazolamide for IOP 09/06 on 2 meds) Latanoprost OD qHS (started by Dr Nobles 08/2021) Off PF qd POAG severe -HVF 03/2021 (Dr. Nobles) OS large sup arc thru fixation, shallow inf paracentral, fluctuates but not trending from 10/2019 OD large shallow inf arc thru fixation. Severe fluctuation with some brar showed marked loss -OCT 02/2019 ([place], Dr. Nobles) OD marked diffuse thinning OS marked diffuse thinning - Started on latanoprost by Dr Nobles in September 07 - Per patient, IOP was 17, [address] Nobles 10/15/2021 Plan - IOP too high OD despite switch to Acetazolamide from Methazolamide -Does not seem Latanoprost OD has been effective but will stay on it for now -Express shunt is piercing TM so GATT not an option -discussed tube (more effective) vs inferior trabeculotomy and limited superior canaloplasty -given that he's relatively young, and already has a Express - both of these are risks for late corneal decompensation with a tube implant - we will try trabeculotomy as extensive as possible with canaloplasty to the remainder of the angle OD DM I, Valery Ashraf MD, have edited as necessary and confirmed the relevant ophthalmic history, ROS, and neuro exam findings as obtained by others. I have seen and examined Sylvia Nixon. I also have reviewed, edited as necessary, and agree with the assessment and plan and all of its relevant components as stated above. I have discussed the case and the management of this patient's care with the Resident/Fellow, if applicable. November 12, 2021 8:43 AM. documented in this encounter [facility] 10-20-2021 Instructions Valery Ashraf MD - 10/20/2021 4:25 PM EDT Images from the original note were not included. Change methazolamide to acetazolamide 500mg (1 pill) twice daily === What is an Ahmed ClearPath tube-shunt? A ClearPath tube-shunt is a glaucoma drainage device that is surgically implanted to lower the pressure within the eye (intraocular pressure) for the treatment of glaucoma. It consists of a tube attached to a plate (Figure 1), which allows fluid to drain from the inside of the eye to the outside layers of the eye. The tube and plate are covered by your own tissues and by donor tissue. The tube is permanent and successfully lowers the eye pressure in most people who have one. Figure 1. Ahmed ClearPath Tube-shunt (A=250 sq. mm. implant, B= 350mm implant which is used more commonly) Why is this device implanted? A glaucoma tube-shunt is implanted when glaucoma eye drops (and sometimes laser treatments) have failed to effectively lower the intraocular pressure. The main goal of the implant is to allow fluid to leave the eye so that the intraocular pressure will decrease and, therefore, prevent further vision loss from glaucoma. How is the procedure done? Before the day of surgery You will have a brief physical examination that may include an electrocardiogram (a heart tracing) and blood work. This will be scheduled for you. If you are having cataract surgery at the same time, measurements of your eyes will be taken for calculating the correct power lens implant. Preparing for surgery On the day of surgery you will go to the surgical suite on the first floor of [facility]. You will check in at the desk and the nurses will take you into the pre-op area. The nurse will begin an intravenous (IV) line in one of your veins. Medication is given through the IV that will make you feel quite relaxed; in fact you will probably fall asleep for a few minutes. While you are asleep we will give you an injection of numbing medicine near your eye (local anesthesia). You will then wake up and will be partially awake but relaxed through the entire procedure. You will hear us talking but shouldn t feel any pain. You will be encouraged to let us know if you are feeling anxiety, pain, or any other discomfort so we can work to keep you comfortable. In rare cases, we may put you totally asleep (general anesthesia) if you have claustrophobia or are very nervous about being awake during surgery. Usually, being awake is preferable because it is less stressful for the body than general anesthesia and the recovery is much quicker. Once the eye is numb, the entire area around the eye is carefully cleaned with a special soap. Drapes are placed over your face leaving the operative eye exposed (you won t be able to see much out of that eye due to the numbing medicine). Plenty of oxygen will be flowing underneath the drape and the anesthesiologist will be constantly monitoring the amount of air that you have to breathe, as well as your heart rhythm and blood pressure. If you are on blood thinners, it is generally ok to continue taking these medications, but do let your eye surgeon know. Although blood thinners can raise the risk of bleeding during or after surgery, in general we ask you stay on them to avoid blood clots that could cause you to have a heart attack or stroke. The surgery The operation is done with you lying on your back. We are looking through a microscope that is suspended over your face. The figure below shows a sketch of a tube surgery. We use a special speculum to help you hold your eyelids open. We then make an incision in the conjunctiva, a clear, thin tissue that coats the surface of the white of the eye. Figure 2 A) The tube-shunt is placed under the surface tissue of the eye (conjunctiva). It is sutured into place. B) A patch graft of human sclera or cornea covers the tube. This may be visible as a fleshy or white fullness once the blood clears. The plate is fastened to the sclera, which is the white of the eye (Figure 2A). The tube is inserted in front of the iris, which is the colored part of the eye. A small piece of donor cornea (clear) or sclera (white) is then placed over the tube (Figure 2B). We use this tissue because it is very tough and very well tolerated. The conjunctiva is then put back into place to cover everything. How long is the surgery? The surgery usually takes about 40 to 60 min. When the surgery is completed we will placed some ointment in the eye and may put a patch over the eye. What do I do after surgery? If you have a patch there is nothing for you to do the day of surgery except continue any medications in your other (non-operative) eye. You should leave the patch in place. We want you to maintain a fairly normal level of activity but refrain from bending with your head below your heart, lifting more than 10-15 lbs., or straining. If you tend to be constipated it is good to take a stool softener to keep from straining on the toilet. Most eyes are very comfortable after surgery. Slight scratching from the sutures is common, but these sutures will dissolve. If you have discomfort you should take acetaminophen (Tylenol) and non-steroidal anti-inflammatory (NSAIDS) pain medicines such as ibuprofen or Aleve. What to expect after implant surgery The tube is tied off with a dissolvable suture to disable it for the early post-operative period. The suture dissolves spontaneously in about five to six weeks. By that time, a fibrous tissue will have formed over the plate creating resistance to fluid leaving the eye and preventing the pressure from dropping too low. You will likely be on some or all of your current glaucoma medications until the tube opens. When the tube opens you may have blurry vision and floaters. This is a normal phenomenon and will clear up within a few days. Once the tube is open, some of your glaucoma eye drops may gradually be discontinued. However, most people with tube implants will need some eye drops to help the tube control their pressure in the long run. Postoperatively, you will be unable to see the tube in your eye because it is small and clear. We can see it easily during your examination (Figure 4). FIGURE 4. Tube in front of the iris inside the eye You may, however, notice a small white or clear fullness underneath your eyelid after the blood and inflammation have cleared (Figure 5). This is the donor tissue that is overlying your tube. FIGURE 5. Tissue covering tube The day after surgery On the morning after the surgery we will remove your patch, check your vision, check your pressure, and tube implant. You should expect your vision to be somewhat blurry for a while after surgery. We will then begin you on steroid and antibiotic eye drops, listed below. Medications You will probably be given prednisolone acetate to be used 4 times a day while you are awake. This is a steroid drop that helps to prevent the eye from scarring shut the new drainage bleb that was just created. This will be gradually weaned as the eye heals. It is best to pick this medication up before surgery; the prescription should have been sent to your pharmacy. An antibiotic drop such as ofloxacin, is also used four times a day when you are awake. Typically this drop will be stopped after 7 days. We will give you this medication on the day of surgery. Eye protection The surgery is delicate, so you need to be gentle with the eye for the first few weeks. We want you to keep your eye protected at all times during the first three weeks after surgery. You can wear glasses or sunglasses during the daytime and wear the metal shield that we provide at bedtime. Postoperative concerns The surgery is delicate, so you need to be gentle with the eye for the first few week or two. We want you to keep your eye protected at all times during the first week after surgery. You can wear glasses or sunglasses during the daytime and wear the metal shield that we provide at bedtime. What do the postoperative visits consist of? We measure your vision and eye pressure and make sure the eye is healing appropriately. We will discuss any adjustments in your medications. The eye pressure may be good, too high, or too low right after surgery. Over time we try to coax the healing process to produce a well-controlled eye pressure for you. What if the tube surgery fails? Some patients feel that surgery is the last resort and that, if it fails, they are out of options. This is certainly not true. Other glaucoma surgeries are available that can work even after tube implant fails. Are there any long-term lifestyle adjustments? Most people after a tube shunt lead a life that is no different than it was before the surgery. However, there are a few things for you to be aware of over the fpc. First, and most important, people with tube implants should always avoid eye rubbing as it can cause the implant to damage the eye. If you ever get an eye infection or redness, discharge, or pain in the eye, it is important for you to be examined very soon by an eye doctor. Swimming Patients who have tube surgeries should not swim with their eyes open under water. Water in lakes and pools is not especially clean, and if you get an infection in your eye it can be very serious. Patients who must swim with their head in the water should wear goggles. Contact lenses We discourage people with tube implants from wearing contact lenses, especially soft contact lenses, after tube shunt placement. For people who need contact lenses, rigid gas permeable lenses are an option and should be fitted by an human resources project coordinator with a knowledge of fitting contact lenses in eyes with tube implants. Are there any other complications? The most common problem is eye pressure not as low as we want it to be. Although high eye pressure commonly improves during the healing process, sometimes it can stay high. Much less commonly, the pressure go too low and stay too low. If the pressure stays too high, or if it is low causing blurring of the vision, additional measures will be required to increase the pressure. There is an increased risk of developing a cataract in the eye after surgery if you haven t already had cataract surgery. There is a small risk of damage to the cornea after years of having a tube, but often this can be caught early and repaired. After any eye surgery the eyelid can become droopier, or you may experience double vision. Serious complications are uncommon and consist of bleeding, infection, and detached retina. With an operation in the eye there is always a very small but real risk of losing all of the vision or the eye itself. Adapted from educational material developed by Dimitri Cervantes MD, of [facility]. documented in this encounter [facility] 10-20-2021 History of Present illness Narrative Tmax: 40, 40; Pachy: -, - Lasers and Surgeries: OD: 04/2021 Express rev with [facility] 01/2021 Express rev with [facility] 05/2019 Express 03/2019 SLT OS: 01/2020 Express rev with [facility] 05/2019 Express 03/2019 SLT Ocular Medication Intol and Non-efficacy: Brimonidine=red eyes Referred by Rafiq Nobles MD ([place]) - pt moving to [place] Now on Timolol 0.5% OU qam Methazolamide 100mg po BID (from tid 08/2021) - LFT and BMP normal Latanoprost OD qHS (started by Dr Nobles 1 month ago) Off PF qd POAG severe -[facility]F 03/2021 (Dr. Nobles) OS large sup arc thru fixation, shallow inf paracentral, fluctuates but not trending from 10/2019 OD large shallow inf arc thru fixation. Severe fluctuation with some brar showed marked loss -OCT 02/2019 ([place], Dr. Nobles) OD marked diffuse thinning OS marked diffuse thinning - Started on latanoprost by Dr Nobles in September 07 - Per patient, IOP was 17, [address] Nobles 10/15/2021 Plan - IOP likely too high OD today - Does not seem Latanoprost OD has been effective but will stay on it for now - Switch methazolamide to Acetazol 500mg po bid -consider Rhopressa - pt reports it's very irritating -consider tube - gave [facility] printout. Could also do MIGS -leaving town shortly - RV when he returns EMBER Bedoya MD Ophthalmology Resident I, Valery Ashraf MD, have edited as necessary and confirmed the relevant ophthalmic history, ROS, and neuro exam findings as obtained by others. I have seen and examined Sylvia Nixon. I also have reviewed, edited as necessary, and agree with the assessment and plan and all of its relevant components as stated above. I have discussed the case and the management of this patient's care with the Resident/Fellow, if applicable. October 20, 2021 4:25 PM. 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 [facility] Diagnosis Primary open angle glaucoma (POAG) of both eyes, severe stage- Primary Essential hypertension, benign Mixed hyperlipidemia JAMIE (obstructive sleep apnea) Obstructive sleep apnea (adult) (pediatric) Gastroesophageal reflux disease, unspecified whether esophagitis present Hypothyroidism, unspecified type Type 2 diabetes mellitus with other specified complication, without long-term current use of insulin (HCC) Class 2 severe obesity due to excess calories with serious comorbidity and body mass index (BMI) of 35.0 to 35.9 in adult (HCC) Juvenile glaucoma Open-angle glaucoma of childhood [facility] Diagnosis Follow-up examination after eye surgery- Primary Follow-up examination, following other surgery [facility] Diagnosis Follow-up examination after eye surgery Follow-up examination, following other [facility] Diagnosis Follow-up examination after eye surgery- Primary Follow-up examination, following other surgery Primary open angle glaucoma (POAG) of both eyes, severe stage Primary open angle glaucoma (POAG) of right eye, severe stage [facility] Diagnosis Follow-up examination after eye surgery Follow-up examination, following other surgery [facility] Diagnosis Primary open angle glaucoma (POAG) of both eyes, severe stage- Primary Follow-up examination after eye surgery Follow-up examination, following other surgery 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 [facility] Diagnosis Primary open angle glaucoma (POAG) of both eyes, severe stage [facility] Diagnosis Puncture wound- Primary Open wound(s) (multiple) of unspecified site(s), without mention of complication [facility] Diagnosis Primary open angle glaucoma (POAG) of both eyes, severe stage [facility] Diagnosis Primary open angle glaucoma (POAG) of both eyes, severe stage- Primary [facility]* Diagnosis Obstructive sleep apnea (adult) (pediatric)- Primary Class 2 obesity with body mass index (BMI) of 35.0 to 35.9 in adult, unspecified obesity type, unspecified whether serious comorbidity present [facility] Diagnosis JAMIE (obstructive sleep apnea) Obstructive sleep apnea (adult) (pediatric) [facility] Diagnosis Primary open angle glaucoma (POAG) of both eyes, severe stage- Primary [facility] Diagnosis Pre-operative examination- Primary Preoperative examination, unspecified JAMIE (obstructive sleep apnea) Obstructive sleep apnea (adult) (pediatric) Class 2 severe obesity due to excess calories with serious comorbidity and body mass index (BMI) of 35.0 to 35.9 in adult (HCC) Essential hypertension, benign Gastroesophageal reflux disease, unspecified whether esophagitis present Hypothyroidism, unspecified type Mixed hyperlipidemia Type 2 diabetes mellitus with other specified complication, without long-term current use of insulin ([facility]) Primary open angle glaucoma (POAG) of both eyes, severe stage [facility] Onset Date Resolution Status Glaucoma acute History of cataract acute Hypothyroidism acute Obesity (BMI 30-39.9) acute Seasonal allergies acute Chronic GERD chronic Hypertension chronic Encounter to [facility] noneactive [facility] Work Phone: Evaluation note* Diagnosis Follow-up examination after eye surgery- Primary Follow-up examination, following other surgery Primary open angle glaucoma (POAG) of both eyes, severe stage [facility] Follow-up examination after eye surgery Follow-up examination, following other surgery [facility] Diagnosis Follow-up examination after eye surgery- Primary Follow-up examination, following other surgery [facility] Diagnosis Follow-up examination after eye surgery- Primary Follow-up examination, following other surgery [facility] Diagnosis Primary open angle glaucoma (POAG) of both eyes, severe stage- Primary [facility] Diagnosis Pre-op evaluation- Primary Preoperative examination, unspecified Essential hypertension, benign PONV (postoperative nausea and vomiting) Nausea with vomiting Mixed hyperlipidemia JAMIE (obstructive sleep apnea) Obstructive sleep apnea (adult) (pediatric) Gastroesophageal reflux disease, unspecified whether esophagitis present Hypothyroidism, unspecified type Type 2 diabetes mellitus with other specified complication, without long-term current use of insulin ([facility]) Class 2 severe obesity due to excess calories with serious comorbidity and body mass index (BMI) of 35.0 to 35.9 in adult Primary open angle glaucoma (POAG) of both eyes, severe stage [facility] Follow-up examination after eye surgery- Primary Follow-up examination, following other surgery Primary open angle glaucoma (POAG) of both eyes, severe stage [facility] Diagnosis Primary open angle glaucoma (POAG) of both eyes, severe stage- Primary Cortical senile cataract of both eyes documented in this encounter [facility] note* Diagnosis JAMIE (obstructive sleep apnea)- Primary Obstructive sleep apnea (adult) (pediatric) Class 2 obesity with body mass index (BMI) of 35.0 to 35.9 in adult, unspecified obesity type, unspecified whether serious comorbidity present documented in this encounter [facility] note* Diagnosis Primary open angle glaucoma (POAG) of both eyes, severe stage- Primary Meibomian gland dysfunction (MGD) of upper and lower lids of both eyes documented in this encounter [facility] note* Diagnosis Primary open angle glaucoma (POAG) of both eyes, severe stage- Primary Essential hypertension, benign Mixed hyperlipidemia JAMIE (obstructive sleep apnea) Obstructive sleep apnea (adult) (pediatric) Gastroesophageal reflux disease, unspecified whether esophagitis present Hypothyroidism, unspecified type Type 2 diabetes mellitus with other specified complication, without long-term current use of insulin ([facility]) Class 2 severe obesity due to excess calories with serious comorbidity and body mass index (BMI) of 35.0 to 35.9 in adult ([facility]) Class 2 severe obesity due to excess calories with serious comorbidity and body mass index (BMI) of 35.0 to 35.9 in adult ([facility]) Essential hypertension, benign Gastroesophageal reflux disease, unspecified whether esophagitis present Hypothyroidism, unspecified type Mixed hyperlipidemia JAMIE (obstructive sleep apnea) Obstructive sleep apnea (adult) (pediatric) Type 2 diabetes mellitus with other specified complication, without long-term current use of insulin ([facility]) Pre-operative examination- Primary Preoperative examination, unspecified JAMIE (obstructive sleep apnea) Obstructive sleep apnea (adult) (pediatric) Class 2 severe obesity due to excess calories with serious comorbidity and body mass index (BMI) of 35.0 to 35.9 in adult ([facility]) Essential hypertension, benign Gastroesophageal reflux disease, unspecified whether esophagitis present Hypothyroidism, unspecified type Mixed hyperlipidemia Type 2 diabetes mellitus with other specified complication, without long-term current use of insulin ([facility]) Pre-op evaluation- Primary Preoperative examination, unspecified Essential hypertension, benign PONV (postoperative nausea and vomiting) Nausea with vomiting Mixed hyperlipidemia JAMIE (obstructive sleep apnea) Obstructive sleep apnea (adult) (pediatric) Gastroesophageal reflux disease, unspecified whether esophagitis present Hypothyroidism, unspecified type Type 2 diabetes mellitus with other specified complication, without long-term current use of insulin ([facility]) Class 2 severe obesity due to excess calories with serious comorbidity and body mass index (BMI) of 35.0 to 35.9 in adult ([facility]) Acute pain of left shoulder- Primary Acute pain of left shoulder documented in this encounter [facility] note* Diagnosis Primary open angle glaucoma (POAG) of both eyes, severe stage- Primary Essential hypertension, benign Mixed hyperlipidemia JAMIE (obstructive sleep apnea) Obstructive sleep apnea (adult) (pediatric) Gastroesophageal reflux disease, unspecified whether esophagitis present Hypothyroidism, unspecified type Type 2 diabetes mellitus with other specified complication, without long-term current use of insulin ([facility]) Class 2 severe obesity due to excess calories with serious comorbidity and body mass index (BMI) of 35.0 to 35.9 in adult ([facility]) Class 2 severe obesity due to excess calories with serious comorbidity and body mass index (BMI) of 35.0 to 35.9 in adult ([facility]) Essential hypertension, benign Gastroesophageal reflux disease, unspecified whether esophagitis present Hypothyroidism, unspecified type Mixed hyperlipidemia JAMIE (obstructive sleep apnea) Obstructive sleep apnea (adult) (pediatric) Type 2 diabetes mellitus with other specified complication, without long-term current use of insulin ([facility]) Pre-operative examination- Primary Preoperative examination, unspecified JAMIE (obstructive sleep apnea) Obstructive sleep apnea (adult) (pediatric) Class 2 severe obesity due to excess calories with serious comorbidity and body mass index (BMI) of 35.0 to 35.9 in adult ([facility]) Essential hypertension, benign Gastroesophageal reflux disease, unspecified whether esophagitis present Hypothyroidism, unspecified type Mixed hyperlipidemia Type 2 diabetes mellitus with other specified complication, without long-term current use of insulin ([facility]) Pre-op evaluation- Primary Preoperative examination, unspecified Essential hypertension, benign PONV (postoperative nausea and vomiting) Nausea with vomiting Mixed hyperlipidemia JAMIE (obstructive sleep apnea) Obstructive sleep apnea (adult) (pediatric) Gastroesophageal reflux disease, unspecified whether esophagitis present Hypothyroidism, unspecified type Type 2 diabetes mellitus with other specified complication, without long-term current use of insulin ([facility]) Class 2 severe obesity due to excess calories with serious comorbidity and body mass index (BMI) of 35.0 to 35.9 in adult ([facility]) Acute pain of left shoulder documented in this encounter [facility] note* Diagnosis Primary open angle glaucoma (POAG) of both eyes, severe stage- Primary Essential hypertension, benign Mixed hyperlipidemia JAMIE (obstructive sleep apnea) Obstructive sleep apnea (adult) (pediatric) Gastroesophageal reflux disease, unspecified whether esophagitis present Hypothyroidism, unspecified type Type 2 diabetes mellitus with other specified complication, without long-term current use of insulin ([facility]) Class 2 severe obesity due to excess calories with serious comorbidity and body mass index (BMI) of 35.0 to 35.9 in adult ([facility]) Class 2 severe obesity due to excess calories with serious comorbidity and body mass index (BMI) of 35.0 to 35.9 in adult ([facility]) Essential hypertension, benign Gastroesophageal reflux disease, unspecified whether esophagitis present Hypothyroidism, unspecified type Mixed hyperlipidemia JAMIE (obstructive sleep apnea) Obstructive sleep apnea (adult) (pediatric) Type 2 diabetes mellitus with other specified complication, without long-term current use of insulin ([facility]) Pre-operative examination- Primary Preoperative examination, unspecified JAMIE (obstructive sleep apnea) Obstructive sleep apnea (adult) (pediatric) Class 2 severe obesity due to excess calories with serious comorbidity and body mass index (BMI) of 35.0 to 35.9 in adult ([facility]) Essential hypertension, benign Gastroesophageal reflux disease, unspecified whether esophagitis present Hypothyroidism, unspecified type Mixed hyperlipidemia Type 2 diabetes mellitus with other specified complication, without long-term current use of insulin ([facility]) Pre-op evaluation- Primary Preoperative examination, unspecified Essential hypertension, benign PONV (postoperative nausea and vomiting) Nausea with vomiting Mixed hyperlipidemia JAMIE (obstructive sleep apnea) Obstructive sleep apnea (adult) (pediatric) Gastroesophageal reflux disease, unspecified whether esophagitis present Hypothyroidism, unspecified type Type 2 diabetes mellitus with other specified complication, without long-term current use of insulin ([facility]) Class 2 severe obesity due to excess calories with serious comorbidity and body mass index (BMI) of 35.0 to 35.9 in adult ([facility]) Primary open angle glaucoma (POAG) of both eyes, severe stage- Primary Combined forms of age-related cataract of both eyes Other and combined forms of senile cataract Type 2 diabetes mellitus without retinopathy ([facility]) Type II or unspecified type diabetes mellitus without mention of complication, not stated as uncontrolled [facility] Diagnosis Primary open angle glaucoma (POAG) of both eyes, severe stage- Primary Essential hypertension, benign Mixed hyperlipidemia JAMIE (obstructive sleep apnea) Obstructive sleep apnea (adult) (pediatric) Gastroesophageal reflux disease, unspecified whether esophagitis present Hypothyroidism, unspecified type Type 2 diabetes mellitus with other specified complication, without long-term current use of insulin ([facility]) Class 2 severe obesity due to excess calories with serious comorbidity and body mass index (BMI) of 35.0 to 35.9 in adult ([facility]) Class 2 severe obesity due to excess calories with serious comorbidity and body mass index (BMI) of 35.0 to 35.9 in adult ([facility]) Essential hypertension, benign Gastroesophageal reflux disease, unspecified whether esophagitis present Hypothyroidism, unspecified type Mixed hyperlipidemia JAMIE (obstructive sleep apnea) Obstructive sleep apnea (adult) (pediatric) Type 2 diabetes mellitus with other specified complication, without long-term current use of insulin ([facility]) Pre-operative examination- Primary Preoperative examination, unspecified JAMIE (obstructive sleep apnea) Obstructive sleep apnea (adult) (pediatric) Class 2 severe obesity due to excess calories with serious comorbidity and body mass index (BMI) of 35.0 to 35.9 in adult ([facility]) Essential hypertension, benign Gastroesophageal reflux disease, unspecified whether esophagitis present Hypothyroidism, unspecified type Mixed hyperlipidemia Type 2 diabetes mellitus with other specified complication, without long-term current use of insulin ([facility]) Pre-op evaluation- Primary Preoperative examination, unspecified Essential hypertension, benign PONV (postoperative nausea and vomiting) Nausea with vomiting Mixed hyperlipidemia JAMIE (obstructive sleep apnea) Obstructive sleep apnea (adult) (pediatric) Gastroesophageal reflux disease, unspecified whether esophagitis present Hypothyroidism, unspecified type Type 2 diabetes mellitus with other specified complication, without long-term current use of insulin ([facility]) Class 2 severe obesity due to excess calories with serious comorbidity and body mass index (BMI) of 35.0 to 35.9 in adult ([facility]) Calcific tendinitis of left shoulder- Primary Calcifying tendinitis of shoulder Acute [facility] of [facility] Diagnosis Primary open angle glaucoma (POAG) of both eyes, severe stage- Primary Essential hypertension, benign Mixed hyperlipidemia JAMIE (obstructive sleep apnea) Obstructive sleep apnea (adult) (pediatric) Gastroesophageal reflux disease, unspecified whether esophagitis present Hypothyroidism, unspecified type Type 2 diabetes mellitus with other specified complication, without long-term current use of insulin ([facility]) Class 2 severe obesity due to excess calories with serious comorbidity and body mass index (BMI) of 35.0 to 35.9 in adult ([facility]) Class 2 severe obesity due to excess calories with serious comorbidity and body mass index (BMI) of 35.0 to 35.9 in adult ([facility]) Essential hypertension, benign Gastroesophageal reflux disease, unspecified whether esophagitis present Hypothyroidism, unspecified type Mixed hyperlipidemia JAMIE (obstructive sleep apnea) Obstructive sleep apnea (adult) (pediatric) Type 2 diabetes mellitus with other specified complication, without long-term current use of insulin ([facility]) Pre-operative examination- Primary Preoperative examination, unspecified JAMIE (obstructive sleep apnea) Obstructive sleep apnea (adult) (pediatric) Class 2 severe obesity due to excess calories with serious comorbidity and body mass index (BMI) of 35.0 to 35.9 in adult ([facility]) Essential hypertension, benign Gastroesophageal reflux disease, unspecified whether esophagitis present Hypothyroidism, unspecified type Mixed hyperlipidemia Type 2 diabetes mellitus with other specified complication, without long-term current use of insulin ([facility]) Pre-op evaluation- Primary Preoperative examination, unspecified Essential hypertension, benign PONV (postoperative nausea and vomiting) Nausea with vomiting Mixed hyperlipidemia JAMIE (obstructive sleep apnea) Obstructive sleep apnea (adult) (pediatric) Gastroesophageal reflux disease, unspecified whether esophagitis present Hypothyroidism, unspecified type Type 2 diabetes mellitus with other specified complication, without long-term current use of insulin ([facility]) Class 2 severe obesity due to excess calories with serious comorbidity and body mass index (BMI) of 35.0 to 35.9 in adult ([facility]) Rib pain on left side- Primary Chest pain, unspecified Rib pain on left side Chest pain, unspecified [facility]* Diagnosis Primary open angle glaucoma (POAG) of both eyes, severe stage- Primary Essential hypertension, benign Mixed hyperlipidemia JAMIE (obstructive sleep apnea) Obstructive sleep apnea (adult) (pediatric) Gastroesophageal reflux disease, unspecified whether esophagitis present Hypothyroidism, unspecified type Type 2 diabetes mellitus with other specified complication, without long-term current use of insulin ([facility]) Class 2 severe obesity due to excess calories with serious comorbidity and body mass index (BMI) of 35.0 to 35.9 in adult ([facility]) Class 2 severe obesity due to excess calories with serious comorbidity and body mass index (BMI) of 35.0 to 35.9 in adult ([facility]) Essential hypertension, benign Gastroesophageal reflux disease, unspecified whether esophagitis present Hypothyroidism, unspecified type Mixed hyperlipidemia JAMIE (obstructive sleep apnea) Obstructive sleep apnea (adult) (pediatric) Type 2 diabetes mellitus with other specified complication, without long-term current use of insulin ([facility]) Pre-operative examination- Primary Preoperative examination, unspecified JAMIE (obstructive sleep apnea) Obstructive sleep apnea (adult) (pediatric) Class 2 severe obesity due to excess calories with serious comorbidity and body mass index (BMI) of 35.0 to 35.9 in adult ([facility]) Essential hypertension, benign Gastroesophageal reflux disease, unspecified whether esophagitis present Hypothyroidism, unspecified type Mixed hyperlipidemia Type 2 diabetes mellitus with other specified complication, without long-term current use of insulin ([facility]) Pre-op evaluation- Primary Preoperative examination, unspecified Essential hypertension, benign PONV (postoperative nausea and vomiting) Nausea with vomiting Mixed hyperlipidemia JAMIE (obstructive sleep apnea) Obstructive sleep apnea (adult) (pediatric) Gastroesophageal reflux disease, unspecified whether esophagitis present Hypothyroidism, unspecified type Type 2 diabetes mellitus with other specified complication, without long-term current use of insulin ([facility]) Class 2 severe obesity due to excess calories with serious comorbidity and body mass index (BMI) of 35.0 to 35.9 in adult ([facility]) Rib pain on left side Chest pain, unspecified documented in this encounter [facility] note* Diagnosis Primary open angle glaucoma (POAG) of both eyes, severe stage- Primary Essential hypertension, benign Mixed hyperlipidemia JAMIE (obstructive sleep apnea) Obstructive sleep apnea (adult) (pediatric) Gastroesophageal reflux disease, unspecified whether esophagitis present Hypothyroidism, unspecified type Type 2 diabetes mellitus with other specified complication, without long-term current use of insulin ([facility]) Class 2 severe obesity due to excess calories with serious comorbidity and body mass index (BMI) of 35.0 to 35.9 in adult ([facility]) Class 2 severe obesity due to excess calories with serious comorbidity and body mass index (BMI) of 35.0 to 35.9 in adult ([facility]) Essential hypertension, benign Gastroesophageal reflux disease, unspecified whether esophagitis present Hypothyroidism, unspecified type Mixed hyperlipidemia JAMIE (obstructive sleep apnea) Obstructive sleep apnea (adult) (pediatric) Type 2 diabetes mellitus with other specified complication, without long-term current use of insulin ([facility]) Pre-operative examination- Primary Preoperative examination, unspecified JAMIE (obstructive sleep apnea) Obstructive sleep apnea (adult) (pediatric) Class 2 severe obesity due to excess calories with serious comorbidity and body mass index (BMI) of 35.0 to 35.9 in adult ([facility]) Essential hypertension, benign Gastroesophageal reflux disease, unspecified whether esophagitis present Hypothyroidism, unspecified type Mixed hyperlipidemia Type 2 diabetes mellitus with other specified complication, without long-term current use of insulin ([facility]) Pre-op evaluation- Primary Preoperative examination, unspecified Essential hypertension, benign PONV (postoperative nausea and vomiting) Nausea with vomiting Mixed hyperlipidemia JAMIE (obstructive sleep apnea) Obstructive sleep apnea (adult) (pediatric) Gastroesophageal reflux disease, unspecified whether esophagitis present Hypothyroidism, unspecified type Type 2 diabetes mellitus with other specified complication, without long-term current use of insulin ([facility]) Class 2 severe obesity due to excess calories with serious comorbidity and body mass index (BMI) of 35.0 to 35.9 in adult ([facility]) JAMIE on CPAP- Primary Obstructive sleep apnea (adult) (pediatric) documented in this encounter [facility] for referral (narrative)* Diagnostic Procedure Only (Routine) - Closed Specialty Diagnoses / Procedures Referred By Contac t Referred To Contact XR IMAGING Diagnoses Acute pain of left shoulder Procedures XR SHOULDER GENERAL 3V OR MORE AP/TRUE AP/OTHER LEFT RADEX SHOULDER COMPLETE MINIMUM 2 VIEWS Roberto Carlos Babin APRN.[facility] [address] [id number] [place] [address] Referral ID Status Reason Start Date Expiration Date V isits Requested Visits Authorized [id number] Closed Auto-Generate d Referral 03/11/2024 04/10/2025 1 1 [facility] for visit Narrative* Diagnostic Procedure Only (Routine) - Closed Specialty Diagnoses / Procedures Referred By Contac t Referred To Contact XR IMAGING Diagnoses Acute pain of left shoulder Procedures XR SHOULDER GENERAL 3V OR MORE AP/TRUE AP/OTHER LEFT RADEX SHOULDER COMPLETE MINIMUM 2 VIEWS Roberto Carlos Babin APRN.CNP [address] [place] [address] [place] [address] Referral ID Status Reason Start Date Expiration Date V isits Requested Visits Authorized [id number] Closed Auto-Generate d Referral 03/11/2024 04/10/2025 1 1 [facility] for visit Narrative* Diagnostic Procedure Only (Urgent) - Closed Specialty Diagnoses / Procedures Referred By Contac t Referred To Contact XR IMAGING Diagnoses Rib pain on left side Procedures XR RIBS/CHEST 3V AP RIB/OBLS/CXR LEFT RADEX RIBS UNI W/POSTEROANT CH MINIMUM 3 VIEWS [place], 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, 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 [address] [place] [address] Phone: tel: fax: [place] [address] Referral ID Status Reason Start Date Expiration Date V isits Requested Visits Authorized [id number] Closed Auto-Generate d Referral 09/11/2024 10/11/2025 1 1 [facility] Medications Administered Section Active Administered Medications - up to 3 most recent administrations Medication Order MAR Action Action Date Dose Rate Site fluorescein-benoxinate 0.25-0.4 % 1 Drop (FLURESS) 1 Drop, BOTH EYES, DIRECTED, Starting on Mon10/20/21 at 1500, Until Mon10/21/21 at 0259, Administer for applanation tonometry. In the event of a Fluress shortage, administer [place]-Fluor 1 drop into both eyes as directed for applanation tonometry, [facility] MED ORDERS Given 10/20/2021 3:00 PM EDT 1 Drop Active Administered Medications - up to 3 most recent administrations Medication Order MAR Action Action Date Dose Rate Site fluorescein-benoxinate 0.25-0.4 % 1 Drop (FLURESS) 1 Drop, BOTH EYES, DIRECTED, Starting on Mon01/14/22 at 0930, Until Mon01/14/22 at 2129, Administer for applanation tonometry. In the event of a Fluress shortage, administer [place]-Fluor 1 drop into both eyes as directed for applanation tonometry, [facility] MED ORDERS Given 01/14/2022 9:30 AM EDT 1 Drop Active Administered Medications - up to 3 most recent administrations Medication Order MAR Action Action Date Dose Rate Site fluorescein-benoxinate 0.25-0.4 % 1 Drop (FLURESS) 1 Drop, BOTH EYES, DIRECTED, Starting on Mon01/18/22 at 0830, Until Mon01/18/22 at 2028, Administer for applanation tonometry. In the event of a Fluress shortage, administer [place]-Fluor 1 drop into both eyes as directed for applanation tonometry, [facility] MED ORDERS Given 01/18/2022 8:30 AM EDT 1 Drop Active Administered Medications - up to 3 most recent administrations Medication Order MAR Action Action Date Dose Rate Site fluorescein-benoxinate 0.25-0.4 % 1 Drop (FLURESS) 1 Drop, BOTH EYES, DIRECTED, Starting on Mon03/21/22 at 1130, Until Mon03/21/22 at 2329, Administer for applanation tonometry. In the event of a Fluress shortage, administer Sadia-Fluor 1 drop into both eyes as directed for applanation tonometry, [facility] MED ORDERS Given 03/21/2022 11:30 AM EDT 1 Drop Active Administered Medications - up to 3 most recent administrations Medication Order MAR Action Action Date Dose Rate Site fluorescein-benoxinate 0.25-0.4 % 1 Drop (FLURESS) 1 Drop, BOTH EYES, DIRECTED, Starting on Mon05/23/22 at 0930, Until Mon05/23/22 at 2129, Administer for applanation tonometry. In the event of a Fluress shortage, administer 1 drop of Sadia-Fluor into both eyes as directed for applanation tonometry. Given 05/23/2022 9:30 AM EST 1 Drop Active Administered Medications - up to 3 most recent administrations Medication Order MAR Action Action Date Dose Rate Site fluorescein-benoxinate 0.25-0.4 % 1 Drop (FLURESS) 1 Drop, BOTH EYES, DIRECTED, Starting on Mon07/19/22 at 1630, Until Mon07/20/22 at 0429, Administer for applanation tonometry. In the event of a Fluress shortage, administer [place]-Fluor 1 drop into both eyes as directed for applanation tonometry, [facility] MED ORDERS Given 07/19/2022 4:13 PM EST 1 Drop Active Administered Medications - up to 3 most recent administrations Medication Order MAR Action Action Date Dose Rate Site fluorescein-benoxinate 0.25-0.4 % 1 Drop (FLURESS) 1 Drop, BOTH EYES, DIRECTED, Starting on Mon12/09/22 at 0830, Until Mon12/09/22 at 2028, Administer for applanation tonometry. In the event of a Fluress shortage, administer Sadia-Fluor 1 drop into both eyes as directed for applanation tonometry, [facility] MED ORDERS Given 12/09/2022 8:30 AM EDT 1 Drop Advance Directives No Advanced Directives Records FoundDocuments on File Type Date Recorded Patient [employer] Worker Expl anation Advance Directive(s) 12/23/2021 11:28 AM Chief Complaint and Reason for Visit Chief Complaint ESTABLISH CARE Amb Documentation Amb Documentation E ORDERS Reason for Visit Glaucoma History of cataract Hypothyroidism Obesity (BMI 30-39.9) Seasonal allergies Chronic GERD Hypertension Encounter to establish care Family History No Family History Records Found Relationship Condition Age at Onset Recorded Date/T samara Not Specified Malignant neoplasm of colon Unknown Diabetes mellitus Unknown Alcoholism Unknown Angina at rest Unknown Kidney disorder Unknown Myocardial infarction Unknown Hypertension Unknown Reason for Referral Specialty Diagnoses / Procedures Referred By Contac t Referred To Contact Orthopedics Diagnoses Acute pain of left shoulder Procedures CONSULT PANEL TO ORTHOPAEDICS OFFICE/OUTPATIENT [facility] 60 MINUTES Roberto Carlos Babin APRN.[facility] [address] [place] [address] Referral ID Status Reason Start Date Expiration Date Visits Requested Visits Authorized [id number] Authorized PCP Requested Referral 03/11/2024 03/11/2025 1 1 Specialty Diagnoses / Procedures Referred By Contac t Referred To Contact XR IMAGING Diagnoses Acute pain of left shoulder Procedures XR SHOULDER GENERAL 3V OR MORE AP/TRUE AP/OTHER LEFT RADEX SHOULDER COMPLETE MINIMUM 2 VIEWS Roberto Carlos aBbin APRN.[facility] [address] [place] [address] [place] [address] Referral ID Status Reason Start Date Expiration Date V isits Requested Visits Authorized [id number] Closed Auto-Generate d Referral 03/11/2024 04/10/2025 1 1 Summary Purpose Additional Source Comments Source Comments (unrecognize d section and content) In the event this informatio n is protected by the Federal Confidentiality of Alcohol and Drug Abuse Patient Records regulations: The Federal rules restrict any use of the information to criminally investigate or prosecute any alcohol or drug abuse patient.[facility] the event this information is protected by the Federal Confidentiality of Alcohol and Drug Abuse Patient Records regulations: The Federal rules restrict any use of the information to criminally investigate or prosecute any alcohol or drug abuse patient.[facility] the event this information is protected by the Federal Confidentiality of Alcohol and Drug Abuse Patient Records regulations: The Federal rules restrict any use of the information to criminally investigate or prosecute any alcohol or drug abuse patient.[facility]In the event this information is protected by the Federal Confidentiality of Alcohol and Drug Abuse Patient Records regulations: The Federal rules restrict any use of the information to criminally investigate or prosecute any alcohol or drug abuse patient.[facility]In the event this information is protected by the Federal Confidentiality of Alcohol and Drug Abuse Patient Records regulations: The Federal rules restrict any use of the information to criminally investigate or prosecute any alcohol or drug abuse patient.[facility]In the event this information is protected by the Federal Confidentiality of Alcohol and Drug Abuse Patient Records regulations: The Federal rules restrict any use of the information to criminally investigate or prosecute any alcohol or drug abuse patient.[facility]In the event this information is protected by the Federal Confidentiality of Alcohol and Drug Abuse Patient Records regulations: The Federal rules restrict any use of the information to criminally investigate or prosecute any alcohol or drug abuse patient.[facility] HospitalIn the event this information is protected by the Federal Confidentiality of Alcohol and Drug Abuse Patient Records regulations: The Federal rules restrict any use of the information to criminally investigate or prosecute any alcohol or drug abuse patient.[facility]In the event this information is protected by the Federal Confidentiality of Alcohol and Drug Abuse Patient Records regulations: The Federal rules restrict any use of the information to criminally investigate or prosecute any alcohol or drug abuse patient.[facility]In the event this information is protected by the Federal Confidentiality of Alcohol and Drug Abuse Patient Records regulations: The Federal rules restrict any use of the information to criminally investigate or prosecute any alcohol or drug abuse patient.[facility] HospitalIn the event this information is protected by the Federal Confidentiality of Alcohol and Drug Abuse Patient Records regulations: The Federal rules restrict any use of the information to criminally investigate or prosecute any alcohol or drug abuse patient.[facility] HospitalIn the event this information is protected by the Federal Confidentiality of Alcohol and Drug Abuse Patient Records regulations: The Federal rules restrict any use of the information to criminally investigate or prosecute any alcohol or drug abuse patient.[facility] HospitalIn the event this information is protected by the Federal Confidentiality of Alcohol and Drug Abuse Patient Records regulations: The Federal rules restrict any use of the information to criminally investigate or prosecute any alcohol or drug abuse patient.[facility] HospitalIn the event this information is protected by the Federal Confidentiality of Alcohol and Drug Abuse Patient Records regulations: The Federal rules restrict any use of the information to criminally investigate or prosecute any alcohol or drug abuse patient.[facility] HospitalIn the event this information is protected by the Federal Confidentiality of Alcohol and Drug Abuse Patient Records regulations: The Federal rules restrict any use of the information to criminally investigate or prosecute any alcohol or drug abuse patient.[facility] HospitalIn the event this information is protected by the Federal Confidentiality of Alcohol and Drug Abuse Patient Records regulations: The Federal rules restrict any use of the information to criminally investigate or prosecute any alcohol or drug abuse patient.[facility] HospitalIn the event this information is protected by the Federal Confidentiality of Alcohol and Drug Abuse Patient Records regulations: The Federal rules restrict any use of the information to criminally investigate or prosecute any alcohol or drug abuse patient.[facility] HospitalIn the event this information is protected by the Federal Confidentiality of Alcohol and Drug Abuse Patient Records regulations: The Federal rules restrict any use of the information to criminally investigate or prosecute any alcohol or drug abuse patient.[facility] HospitalIn the event this information is protected by the Federal Confidentiality of Alcohol and Drug Abuse Patient Records regulations: The Federal rules restrict any use of the information to criminally investigate or prosecute any alcohol or drug abuse patient.[facility] HospitalIn the event this information is protected by the Federal Confidentiality of Alcohol and Drug Abuse Patient Records regulations: The Federal rules restrict any use of the information to criminally investigate or prosecute any alcohol or drug abuse patient.[facility] HospitalIn the event this information is protected by the Federal Confidentiality of Alcohol and Drug Abuse Patient Records regulations: The Federal rules restrict any use of the information to criminally investigate or prosecute any alcohol or drug abuse patient.[facility] HospitalIn the event this information is protected by the Federal Confidentiality of Alcohol and Drug Abuse Patient Records regulations: The Federal rules restrict any use of the information to criminally investigate or prosecute any alcohol or drug abuse patient.[facility] HospitalIn the event this information is protected by the Federal Confidentiality of Alcohol and Drug Abuse Patient Records regulations: The Federal rules restrict any use of the information to criminally investigate or prosecute any alcohol or drug abuse patient.[facility] HospitalIn the event this information is protected by the Federal Confidentiality of Alcohol and Drug Abuse Patient Records regulations: The Federal rules restrict any use of the information to criminally investigate or prosecute any alcohol or drug abuse patient.[facility] HospitalIn the event this information is protected by the Federal Confidentiality of Alcohol and Drug Abuse Patient Records regulations: The Federal rules restrict any use of the information to criminally investigate or prosecute any alcohol or drug abuse patient.[facility] HospitalIn the event this information is protected by the Federal Confidentiality of Alcohol and Drug Abuse Patient Records regulations: The Federal rules restrict any use of the information to criminally investigate or prosecute any alcohol or drug abuse patient.[facility] HospitalIn the event this information is protected by the Federal Confidentiality of Alcohol and Drug Abuse Patient Records regulations: The Federal rules restrict any use of the information to criminally investigate or prosecute any alcohol or drug abuse patient.[facility] HospitalIn the event this information is protected by the Federal Confidentiality of Alcohol and Drug Abuse Patient Records regulations: The Federal rules restrict any use of the information to criminally investigate or prosecute any alcohol or drug abuse patient.[facility] HospitalIn the event this information is protected by the Federal Confidentiality of Alcohol and Drug Abuse Patient Records regulations: The Federal rules restrict any use of the information to criminally investigate or prosecute any alcohol or drug abuse patient.[facility] HospitalIn the event this information is protected by the Federal Confidentiality of Alcohol and Drug Abuse Patient Records regulations: The Federal rules restrict any use of the information to criminally investigate or prosecute any alcohol or drug abuse patient.[facility] HospitalIn the event this information is protected by the Federal Confidentiality of Alcohol and Drug Abuse Patient Records regulations: The Federal rules restrict any use of the information to criminally investigate or prosecute any alcohol or drug abuse patient.[facility] HospitalIn the event this information is protected by the Federal Confidentiality of Alcohol and Drug Abuse Patient Records regulations: The Federal rules restrict any use of the information to criminally investigate or prosecute any alcohol or drug abuse patient.[facility] HospitalIn the event this information is protected by the Federal Confidentiality of Alcohol and Drug Abuse Patient Records regulations: The Federal rules restrict any use of the information to criminally investigate or prosecute any alcohol or drug abuse patient.[facility] HospitalIn the event this information is protected by the Federal Confidentiality of Alcohol and Drug Abuse Patient Records regulations: The Federal rules restrict any use of the information to criminally investigate or prosecute any alcohol or drug abuse patient.[facility] HospitalIn the event this information is protected by the Federal Confidentiality of Alcohol and Drug Abuse Patient Records regulations: The Federal rules restrict any use of the information to criminally investigate or prosecute any alcohol or drug abuse patient.[facility] HospitalIn the event this information is protected by the Federal Confidentiality of Alcohol and Drug Abuse Patient Records regulations: The Federal rules restrict any use of the information to criminally investigate or prosecute any alcohol or drug abuse patient.[facility] HospitalIn the event this information is protected by the Federal Confidentiality of Alcohol and Drug Abuse Patient Records regulations: The Federal rules restrict any use of the information to criminally investigate or prosecute any alcohol or drug abuse patient.[facility] HospitalIn the event this information is protected by the Federal Confidentiality of Alcohol and Drug Abuse Patient Records regulations: The Federal rules restrict any use of the information to criminally investigate or prosecute any alcohol or drug abuse patient.[facility] HospitalIn the event this information is protected by the Federal Confidentiality of Alcohol and Drug Abuse Patient Records regulations: The Federal rules restrict any use of the information to criminally investigate or prosecute any alcohol or drug abuse patient.[facility] HospitalIn the event this information is protected by the Federal Confidentiality of Alcohol and Drug Abuse Patient Records regulations: The Federal rules restrict any use of the information to criminally investigate or prosecute any alcohol or drug abuse patient.[facility] HospitalIn the event this information is protected by the Federal Confidentiality of Alcohol and Drug Abuse Patient Records regulations: The Federal rules restrict any use of the information to criminally investigate or prosecute any alcohol or drug abuse patient.[facility] HospitalIn the event this information is protected by the Federal Confidentiality of Alcohol and Drug Abuse Patient Records regulations: The Federal rules restrict any use of the information to criminally investigate or prosecute any alcohol or drug abuse patient.[facility] HospitalIn the event this information is protected by the Federal Confidentiality of Alcohol and Drug Abuse Patient Records regulations: The Federal rules restrict any use of the information to criminally investigate or prosecute any alcohol or drug abuse patient.[facility] HospitalIn the event this information is protected by the Federal Confidentiality of Alcohol and Drug Abuse Patient Records regulations: The Federal rules restrict any use of the information to criminally investigate or prosecute any alcohol or drug abuse patient.[facility] HospitalIn the event this information is protected by the Federal Confidentiality of Alcohol and Drug Abuse Patient Records regulations: The Federal rules restrict any use of the information to criminally investigate or prosecute any alcohol or drug abuse patient.[facility] HospitalIn the event this information is protected by the Federal Confidentiality of Alcohol and Drug Abuse Patient Records regulations: The Federal rules restrict any use of the information to criminally investigate or prosecute any alcohol or drug abuse patient.[facility] HospitalIn the event this information is protected by the Federal Confidentiality of Alcohol and Drug Abuse Patient Records regulations: The Federal rules restrict any use of the information to criminally investigate or prosecute any alcohol or drug abuse patient.[facility] HospitalIn the event this information is protected by the Federal Confidentiality of Alcohol and Drug Abuse Patient Records regulations: The Federal rules restrict any use of the information to criminally investigate or prosecute any alcohol or drug abuse patient.[facility] HospitalIn the event this information is protected by the Federal Confidentiality of Alcohol and Drug Abuse Patient Records regulations: The Federal rules restrict any use of the information to criminally investigate or prosecute any alcohol or drug abuse patient.[facility] Reason for Visit (unrecogniz ed section and content) Reason Comments Primary Open Angle Glaucoma Follow Up 2 Months Follow Up OU Reason Comments Glaucoma Follow Up Reason Onset Date Comments Refill Request 11/23/2021 Reason Comments Schedule Surgery Reason Comments Consult Reason Comments Pre-op A1c Reason Comments Post-op (Ophthalmology) Right Eye Reason Comments Post-op (Ophthalmology) Right Eye POW#1 S/P Omni-GATT OD (01/06/2022) Reason Comments Post-op (Ophthalmology) Right Eye POD#11 S/P Omni-GATT OD (01/06/2022) Reason Comments Post Op S/P Omni-GATT Right eye 01/06/22 Reason Comments Primary Open Angle Glaucoma IOP check Reason Comments Puncture Wound L big toe, stepped o n nail x last night Specialty Diagnoses / Procedures Referred By Fransisco victoria Referred To Contact [facility] Diagnoses step on nail bottom of big toe Procedures EST SAME DAY Self Express [facility] [address] [place] [address] Referral ID Status Reason Start Date Expiration Date Visits Requested Visits Authorized [id number] Outside PCP Financial Clearance Required - Self Pay 2 08/28/2022 1 1 Reason Comments Primary open angle glaucoma (POAG) of dao th eyes f/u Reason Comments Appointment Reason Comments New Patient Reason Comments Orders Reason Comments Patient Question Reason Comments Request for outside medical records A1c Reason Comments Post-op (Ophthalmology) Left Eye Glaucom a tube implant, left eye 12/08/22 Reason Comments Follow-up examination after eye surgery Reason Comments Post-op (Ophthalmology) Left Eye Reason Comments Post-op (Ophthalmology) Left Eye 6 week / AQUEOUS SHUNT TO EXTRAOCULAR EQUATORIAL PLATE RESERVOIR EXTERNAL APPROACH W/GRAFT Reason Comments Anesthesia Consult Reason Comments Post Op Reason Comments post op Reason Comments Follow Up Follow Up JAMIE. Reason Comments Refill Request Reason Comments 4 Month Reason Comments Shoulder Injury left x 2 weeks, pull ed by dog on leash Reason Comments New Referred by Thierry Babin Pain Referred by Thierry Babin Specialty Diagnoses / Procedures Referred By Fransisco victoria Referred To Contact Orthopedics Diagnoses Acute pain of left shoulder Procedures CONSULT PANEL TO ORTHOPAEDICS OFFICE/OUTPATIENT NEW HIGH MDM 60 MINUTES Roberto Carlos Babin, KAM.[facility] [address] [place] [address] Phone: tel: fax: Referral ID Status Reason Start Date Expiration Date V isits Requested Visits Authorized [id number] Closed PCP Requested Referral 03/11/2024 03/11/2025 1 1 Reason Comments left side and back pain Fell off a ladde r 90 min ago Reason Comments Follow Up 1 year Care Teams (unrecognized sec tion and content) Range Rider Relationship Specialty Start Date End Date Pcp, No PCP - General 12/23/21 Range Rider Relationship Specialty Start Date End Date Pcp, No PCP - General 12/23/21 07/19/22 Range Rider Relationship Specialty Start Date End Date Pcp, No PCP - General 12/23/21 07/19/22 Range Rider Relationship Specialty Start Date End Date Pcp, No PCP - General 12/23/21 07/19/22 Range Rider Relationship Specialty Start Date End Date Pcp, No PCP - General 12/23/21 07/19/22 Range Rider Relationship Specialty Start Date End Date Pcp, No PCP - General 12/23/21 07/19/22 Range Rider Relationship Specialty Start Date End Date Pcp, No PCP - General 12/23/21 07/19/22 Range Rider Relationship Specialty Start Date End Date Pcp, No PCP - General 12/23/21 07/19/22 Range Rider Relationship Specialty Start Date End Date Melissa Gatica MD [address] [address] [place] [address] PCP - General Internal Medicine 11/22/22 Range Rider Relationship Specialty Start Date End Date Melissa Gatica MD [address] [address] [place] [address] PCP - General Internal Medicine 11/22/22 Range Rider Relationship Specialty Start Date End Date Melissa Gatica MD [address] [address] [place] [address] PCP - General Internal Medicine 11/22/22 Team Status: Active Member Role Status Dates Dr. Melissa Gatica MD Primary Care Provider Active Team Status: Inactive Member Role Status Dates Dr. Melissa Gatica MD Attending Provider Active Team Status: Active Member Role Status Dates Dr. Melissa Gatica MD Primary Care Provider Active Jackson Merrill Attending Provider Active Team Status: Inactive Member Role Status Dates Dr. Melissa Gatica MD Primary Care Pro vider, Attending Provider, Referring Provider Active Range Rider Relationship Specialty Start Date End Date Melissa Gatica MD [address] [facility] [address] [place] [address] PCP - General Internal Medicine 11/22/22 Range Rider Relationship Specialty Start Date End Date Melissa Gatica MD [address] [address] [place] [address] PCP - General Internal Medicine 11/22/22 Range Rider Relationship Specialty Start Date End Date Melissa Gatica MD [address] [facility] [address] [place] [address] PCP - General Internal Medicine 11/22/22 Range Rider Relationship Specialty Start Date End Date Melissa Gatica MD [address] [address] [place] [address] PCP - General Internal Medicine 11/22/22 Range Rider Relationship Specialty Start Date End Date Melissa Gatica MD [address] [address] [place] [address] PCP - General Internal Medicine 11/22/22 Range Rider Relationship Specialty Start Date End Date Melissa Gatica MD [address] [address] [place] [address] PCP - General Internal Medicine 11/22/22 Range Rider Relationship Specialty Start Date End Date Melissa Gatica MD [address] [address] [place] [address] PCP - General Internal Medicine 11/22/22 Range Rider Relationship Specialty Start Date End Date Melissa Gatica MD [address] [address] [place] [address] PCP - General Internal Medicine 11/22/22 Range Rider Relationship Specialty Start Date End Date Melissa Gatica MD [address] [address] [place] [address] PCP - General Internal Medicine 11/22/22 Range Rider Relationship Specialty Start Date End Date Melissa Gatica MD [address] [address] [place] [address] PCP - General Internal Medicine 11/22/22 Range Rider Relationship Specialty Start Date End Date Melissa Gatica MD [address] [address] [place] [address] PCP - General Internal Medicine 11/22/22 Range Rider Relationship Specialty Start Date End Date Melissa Gatica MD [address] [address] [place] [address] PCP - General Internal Medicine 11/22/22 Range Rider Relationship Specialty Start Date End Date Melissa Gatica MD [address] [address] [place] [address] PCP - General Internal Medicine 11/22/22 Range Rider Relationship Specialty Start Date End Date Melissa Gatica MD [address] [address] [place] [address] PCP - General Internal Medicine 11/22/22 Range Rider Relationship Specialty Start Date End Date Melissa Gatica MD [address] [address] [place] [address] PCP - General Internal Medicine 11/22/22 Range Rider Relationship Specialty Start Date End Date Melissa Gatica MD [address] [address] [place] [address] PCP - General Internal Medicine 11/22/22 Range Rider Relationship Specialty Start Date End Date Melissa Gatica MD [address] [address] [place] [address] PCP - General Internal Medicine 11/22/22 Range Rider Relationship Specialty Start Date End Date Melissa Gatica MD [address] [address] [place] [address] PCP - General Internal Medicine 11/22/22 Range Rider Relationship Specialty Start Date End Date Melissa Gatica MD [address] [facility] [place] [address] PCP - General Internal Medicine 11/22/22 Goals (unrecognized section and content) Goals may be documented in a n alternate section (unrecognized sect ion and content) No Status Records FoundNo Status Records Found INFORMATION SOURCE (unrecogn ized section and content) DATE CREATED AUTHOR 09/01/2024 [facility] DATE CREATED AUTHOR AUTHOR'S ORGANIZ ATION 02/14/2025 [facility] FOR RECORDS PERTAINING TO PATIENTS WHO ARE OR HAVE BEEN ENROLLED IN A CHEMICAL DEPENDENCY/SUBSTANCEABUSE PROGRAM, SOME INFORMATION MAY BE OMITTED. This clinical summary was aggregated from multiple sources. Caution should be exercised in using it in the provision of clinical care. This summary normalizes information from multiple sources, and as a consequence, information in this document may materially change the coding, format and clinical context of patient data. In addition, data may be omitted in some cases. CLINICAL DECISIONS SHOULD BE BASED ON THE PRIMARY CLINICAL RECORDS. [employer] [facility] provides no warranty or guarantee of the accuracy or completeness of information in this document.
[2025-02-15 11:22] VITALS: BP 130/92; PULSE 80; RESP 16; TEMP 36.8; O2SAT 95
== END 2025-02-15 11:26 | disposition home or self-care (01) ==
PROVIDERS: Emergency Provider Emergency Medicine; PCP Internal Medicine; Visit Provider Emergency Medicine
DX: T63.441A Toxic effect of venom of bees, accidental (unintentional), initial encounter (principal); E11.9 Type 2 diabetes mellitus without complications
CPT/HCPCS: 96374; 96375; 99284; A4216

== ENCOUNTER 2025-03-18 07:36 | Outpatient (RCR) | payer BC, OTHER, SELFPAY | END 2025-03-18 23:59 | LOC: NS 07:36 | PROVIDERS: PCP Internal Medicine; Referring Provider Internal Medicine; Visit Provider Internal Medicine | DX: Z71.3 Dietary counseling and surveillance (principal); E03.9 Hypothyroidism, unspecified; E66.9 Obesity, unspecified; E11.9 Type 2 diabetes mellitus without complications; I10 Essential (primary) hypertension; K21.9 Gastro-esophageal reflux disease without esophagitis | CPT/HCPCS: 97802 ==

== ENCOUNTER → 2025-04-03 | Outpatient (CLI) | payer OTHER, BC, SELFPAY ==
[2025-04-03 10:33] LABS: Hematocrit 53.9 % (40-54); Hemoglobin 17.2 g/dL (13.0-16.5); Immature Granulocytes Count 0.040 X10^3/uL (0.0-0.0); Mean Corp Hgb Conc 31.9 g/dL (32-36); Mean Corpuscular Volume 85.4 fL (80-94); Mean Platelet Vol. 10.7 fl (6.2-12.0); NRBC Flagged by Analyzer 0 % (0-5); Platelet Count 248 K/mm3 (150-450); RBC Distribution Width CV 13.1 % (11.6-14.6); RBC Distribution Width SD 41.1 fl (35.1-43.9); Red Blood Count 6.31 M/mm3 (4.6-6.2); White Blood Count 6.9 K/mm3 (4.4-11.0)
[2025-04-03 11:31] LABS: Cholesterol 245 mg/dL (<=200); Low Density Lipoprotein Calc. 81 mg/dL; PSA,Total - Annual Screen 2.03 ng/mL (0.02-4.00); Triglycerides 579 mg/dL; Very Low Density Lipoprotein 116 mg/dL (5-40); Vitamin D,25 Hydroxy 38.0 ng/mL (30-100); cholesterol:hdl ratio screen 5.07
[2025-04-03 11:37] LABS: AST(SGOT) 31 U/L (<=37); Alanine Aminotransfer ALT/SGPT 28 U/L (<=46); Albumin, Serum 4.0 g/dL (3.5-5.0); Alkaline Phosphatase 130 U/L (40-129); Anion Gap 13 (5-15); BUN 14 mg/dL (4-19); BUN/Creat Ratio 14.3 RATIO (10-20); Calcium,Total 9.4 mg/dL (7.6-11.0); Carbon Dioxide 21.6 mmol/L (21.0-32.0); Chloride 100 mmol/L (98-108); Globulin 3.1 g/dL (2.2-4.2); Glucose 200 mg/dL (70-99); Potassium 4.8 mmol/L (3.3-5.1)
[2025-04-03 13:58] LABS: Free T3 1.9 pg/mL (2.18-3.98)
== END | disposition home or self-care (01) ==
LOC: LAB 09:47
PROVIDERS: PCP Internal Medicine; Referring Provider Internal Medicine; Visit Provider Internal Medicine
DX: Z13.220 Encounter for screening for lipoid disorders (principal); E11.9 Type 2 diabetes mellitus without complications; I10 Essential (primary) hypertension; E03.9 Hypothyroidism, unspecified; E66.9 Obesity, unspecified; Z12.5 Encounter for screening for malignant neoplasm of prostate; E55.9 Vitamin D deficiency, unspecified
CPT/HCPCS: 36415; 80053; 80061; 82306; 83036; 84153; 84439; 84443; 84481; 85025; G0103